=== PATIENT | male | born 1940 | race Caucasian/White ===

== ENCOUNTER 2018-01-11 11:44 | Emergency (ER) | payer BC, OTHER ==
[~2018-01-11] VITALS: Ht 175.3 cm; Wt 80.7 kg
[~2018-01-11 11:44] MED LIST: ALBU1AER9 INH; ASPI81TA28 PO; ATEN-173 PO; ATOR-24 PO; B-COTAB18; BROM0.07 OPB; CARB1SOL OPB; FLUT110A INH; HYG25 PO; MULT-190 PO; ONDA4TAB46 PO; POTA-639 PO; PRAM1TAB PO; PRLSR20 PO; RASA1TAB PO; VITA1CAP4 PO
[2018-01-11 11:57] VITALS: TEMP 36.5; Ht 175.3 cm; Wt 80.7 kg
[2018-01-11] MEDS ORDERED: VNTHFA/IN INH (12:14)
[2018-01-11] MEDS ORDERED: FLUT1AER5 INH (12:14)
[2018-01-11] MEDS ORDERED: SODIUM CHLORIDE 0.9% 1000ML 1,000 ML IV STA (12:40)
[2018-01-11] MEDS ORDERED: SODIUM CHLORIDE 0.9% 500ML 500 ML IV STA (12:40)
[2018-01-11] MEDS ORDERED: MoRPHine SULFATE 4 MG/ML 1 ML CARP\\VIAL IV STA (12:54)
[2018-01-11] MEDS ORDERED: ONDANSETRON INJ 2 MG/ML 2 ML VIAL IV STA (12:54)
[2018-01-11 12:56] LABS: ALBUMIN 4.4 gm/dl (3.4-5.0); CREATININE 1.2 mg/dl (0.60-1.40); POTASSIUM 3.8 mmol/L (3.5-5.1)
[2018-01-11 12:59] LABS: TOTAL PROTEIN 7.9 gm/dl (6.4-8.2)
--- NOTE | 2018-01-11 13:55 | DIAGNOSTIC IMAGING REPORT ---
ABD/PELVIS NO IV OR ORAL CONT CLINICAL HISTORY: 77 years-old Male presenting with kidney stone L flank pain. TECHNIQUE: Multidetector CT of the abdomen and pelvis was performed without the use of intravenous contrast. IV contrast: None. A dose lowering technique was used consistent with the principles of ALARA (as low as reasonably achievable). COMPARISON: 11/06/2006. CT DOSE (mGy.cm): The estimated cumulative dose is 508.44 mGy.cm. FINDINGS: Bean Roaster topogram: Cholecystectomy clips. Lung bases: Minimal basilar opacities, likely atelectasis. Multichamber enlargement of the heart. Coronary artery calcification. No pericardial or pleural effusion. Liver: Normal morphology. Normal density. Biliary: No gross biliary ductal dilatation allowing for noncontrast technique. Gallbladder surgically absent. Pancreas: Normal noncontrast appearance. Spleen: Normal noncontrast appearance. Adrenal glands: Normal noncontrast appearance. Kidneys and ureters: Multiple bilateral punctate renal calculi, measuring up to 3 mm on the right and 2 mm on the left. No hydronephrosis. Mild perinephric fat stranding, nonspecific. Otherwise normal noncontrast appearance of the renal parenchyma. Nonobstructing 4 mm calculus in the proximal left ureter at the level of L3-4. Left ureter is nondilated. Right ureter normal. Bladder: Incompletely evaluated secondary to underdistention. Pelvic organs: Prostate enlargement likely secondary to benign prostatic hyperplasia. Bowel: Diverticulosis of the sigmoid and descending colon. Scattered diverticula elsewhere in the colon. No pericolonic fat infiltration. The appendix is not visualized though no inflammatory changes evident in the right lower quadrant. No bowel obstruction. Peritoneal cavity: No free fluid or intraperitoneal gas. Lymph nodes: No gross lymphadenopathy allowing for noncontrast technique. Vasculature: Atherosclerosis of the normal caliber abdominal aorta. Abdominal wall: Small fat-containing umbilical hernia. Musculoskeletal: Degenerative changes of the spine. IMPRESSION: 1. Nonobstructing 4 mm calculus in the proximal left ureter at the level of L3-4. No hydronephrosis or hydroureter. 2. Multiple bilateral nonobstructing punctate renal calculi. 3. Diverticulosis. No evidence of diverticulitis. Electronically signed by: Role Marquis M.D. 01/11/2018 1:53 PM Dictated Date/Time: 01/11/2018 1:47 PM
[2018-01-11] MEDS ORDERED: HYDROCODONE/ACETAMINOPHEN 7.5/325MG TAB PO STA (14:01)
[2018-01-11] MEDS ORDERED: HYDR-5688 PO (14:14)
[2018-01-11] MEDS ORDERED: TAMSULOSIN HCL 0.4 MG CAP PO ONE (14:15)
[2018-01-11] MEDS ORDERED: TAMS0.4C38 PO (14:15)
[2018-01-11] MEDS ORDERED: KETOROLAC TROMETHAMINE 30 MG/ML VIAL IV STA (14:22)
[2018-01-11 14:23] LABS: BASO % 0.3 %; BASO ABS # 0.02 K/uL (0-0.2); EOS % 2.3 %; EOS ABS # 0.17 K/uL (0-0.5); HEMATOCRIT 43.2 % (42-52); HEMOGLOBIN 15.5 g/dL (14.0-18.0); IG# 0.01 K/uL (0.00-0.02); LYMPH % 25.8 %; LYMPH ABS # 1.93 K/uL (1.2-3.4); MEAN CELL VOLUME 93.7 fL (80-100); MEAN CORPUSCULAR HEMOGLOBIN 33.6 pg (25-34); MEAN CORPUSCULAR HGB CONC 35.9 g/dl (32-36); MEAN PLATELET VOLUME 9.9 fL (7.4-10.4); MONO % 7.6 %; MONO ABS # 0.57 K/uL (0.11-0.59); NEUT % 63.9 %; NEUT ABS # 4.79 K/uL (1.4-6.5); PLATELET COUNT 158 K/uL (130-400); WHITE BLOOD COUNT 7.49 K/uL (4.8-10.8)
[2018-01-11] MEDS ORDERED: KETOROLAC TROMETHAMINE 60 MG/2 ML VIAL IM STA (14:26)
--- NOTE | 2018-01-11 15:02 | EMERGENCY ROOM VISIT NOTE ---
History Report prepared by Delma: Jael Ramírez Under the Supervision of: Dr. Christina aBrron M.D. 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 He reports a sudden onset of severe pain in his left flank while he was driving. He is also experiencing nausea. He rates his pain as a 10/10 in severity. The patient denies pain radiating into his testicle or groin. He denies vomiting. He has a history of kidney stones and states that this feels similar. Movement does not make the pain better or worse. 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 A total of 10 systems reviewed and were otherwise negative. Past Medical & Surgical Medical Problems: (1) Heart disease (2) High blood cholesterol (3) Hypertension (4) Kidney stone (5) Neuropathy (6) Normal cardiac stress test (7) Parkinson disease Surgical Problems: (1) Hx of cholecystectomy Family History Cancer Gallbladder disease Heart disease Hypertension Kidney disease Kidney stones Lung disease Social History Smoking Status: Never Smoker Alcohol Use: occasionally Drug Use: none Marital Status: Housing Status: lives with significant other Occupation Status: retired Current/Historical Medications Scheduled Albuterol Hfa (Ventolin Hfa), 2-4 PUFFS INH Q6H Aspirin (Aspirin Ec), 81 MG PO DAILY Atenolol (Tenormin), 25 MG PO DAILY Atorvastatin (Lipitor), 40 MG PO DAILY Bromfenac Sodium (Ophth) (Prolensa), 1 DROP OPB DAILY Carboxymethylcellulose Sodium (Refresh), 1 DROP OPB BID Chlorthalidone (Chlorthalidone), 25 MG PO DAILY Ocuvite Preservision (Ocuvite Preservision), 1 TAB PO DAILY Pramipexole Dihydrochloride (Mirapex Er), 2.25 MG PO DAILY Rasagiline Mesylate (Azilect), 1 MG PO DAILY Tamsulosin Hcl (Flomax), 0.4 MG PO DAILY Scheduled PRN Fluticasone Propionate (Inhala (Flovent Diskus), 1 PUFFS INH BID PRN for Shortness of Breath Hydrocodone/Acetaminophen 5MG/325MG ([place] 5MG/325MG), 1-2 TABLETS PO Q6 PRN for Pain Allergies Coded Allergies: No Known Allergies (Unverified , 01/11/18) Physical Exam Vital Signs Date Time Temp Pulse Resp B/P (MAP) Pulse Ox O2 Delivery O2 Flow Rate FiO2 01/11/18 15:22 68 20 158/91 97 Room Air 01/11/18 14:17 71 21 170/96 96 Room Air 01/11/18 13:35 77 01/11/18 13:31 73 20 164/102 95 Room Air 01/11/18 11:57 36.5 63 18 200/95 95 Room Air Physical Exam Vital signs reviewed. General: Well-appearing elderly male, in no significant distress. HEENT: No scleral icterus, PERRLA, neck supple. Atraumatic. Cardiovascular: Regular rate and rhythm, no extra sounds. Pulmonary: Clear to auscultation bilaterally, normal work of breathing. Abdomen: Soft, mild left CVA tenderness, nondistended, positive bowel sounds. Musculoskeletal: Atraumatic, no peripheral edema. Neurologic: Patient awake alert and oriented x 3. Skin: Warm, dry, no rash Medical Decision & Procedures ER Provider Diagnostic Interpretation: Radiology results as stated below per my review and radiologist interpretation: ABD/PELVIS NO IV OR ORAL CONT CLINICAL HISTORY: 77 years-old Male presenting with kidney stone L flank pain. TECHNIQUE: Multidetector CT of the abdomen and pelvis was performed without the use of intravenous contrast. IV contrast: None. A dose lowering technique was used consistent with the principles of ALARA (as low as reasonably achievable). COMPARISON: 11/06/2006. CT DOSE (mGy.cm): The estimated cumulative dose is 508.44 mGy.cm. FINDINGS: Geriatric Assistant topogram: Cholecystectomy clips. Lung bases: Minimal basilar opacities, likely atelectasis. Multichamber enlargement of the heart. Coronary artery calcification. No pericardial or pleural effusion. Liver: Normal morphology. Normal density. Biliary: No gross biliary ductal dilatation allowing for noncontrast technique. Gallbladder surgically absent. Pancreas: Normal noncontrast appearance. Spleen: Normal noncontrast appearance. Adrenal glands: Normal noncontrast appearance. Kidneys and ureters: Multiple bilateral punctate renal calculi, measuring up to 3 mm on the right and 2 mm on the left. No hydronephrosis. Mild perinephric fat stranding, nonspecific. Otherwise normal noncontrast appearance of the renal parenchyma. Nonobstructing 4 mm calculus in the proximal left ureter at the level of L3-4. Left ureter is nondilated. Right ureter normal. Bladder: Incompletely evaluated secondary to underdistention. Pelvic organs: Prostate enlargement likely secondary to benign prostatic hyperplasia. Bowel: Diverticulosis of the sigmoid and descending colon. Scattered diverticula elsewhere in the colon. No pericolonic fat infiltration. The appendix is not visualized though no inflammatory changes evident in the right lower quadrant. No bowel obstruction. Peritoneal cavity: No free fluid or intraperitoneal gas. Lymph nodes: No gross lymphadenopathy allowing for noncontrast technique. Vasculature: Atherosclerosis of the normal caliber abdominal aorta. Abdominal wall: Small fat-containing umbilical hernia. Musculoskeletal: Degenerative changes of the spine. IMPRESSION: 1. Nonobstructing 4 mm calculus in the proximal left ureter at the level of L3-4. No hydronephrosis or hydroureter. 2. Multiple bilateral nonobstructing punctate renal calculi. 3. Diverticulosis. No evidence of diverticulitis. Laboratory Results 01/11/18 12:19 Red Blood Count 4.61, Mean Corpuscular Volume 93.7, Mean Corpuscular Hemoglobin 33.6, Mean Corpuscular Hemoglobin Concent 35.9, Mean Platelet Volume 9.9, Neutrophils (%) (Auto) 63.9, Lymphocytes (%) (Auto) 25.8, Monocytes (%) (Auto) 7.6, Eosinophils (%) (Auto) 2.3, Basophils (%) (Auto) 0.3, Neutrophils # (Auto) 4.79, Lymphocytes # (Auto) 1.93, Monocytes # (Auto) 0.57, Eosinophils # (Auto) 0.17, Basophils # (Auto) 0.02 01/11/18 12:19 Test 01/11/18 12:19 White Blood Count 7.49 K/uL (4.8-10.8) Red Blood Count 4.61 M/uL (4.7-6.1) Hemoglobin 15.5 g/dL (14.0-18.0) Hematocrit 43.2 % (42-52) Mean Corpuscular Volume 93.7 fL (80-100) Mean Corpuscular Hemoglobin 33.6 pg (25-34) Mean Corpuscular Hemoglobin Concent 35.9 g/dl (32-36) Platelet Count 158 K/uL (130-400) Mean Platelet Volume 9.9 fL (7.4-10.4) Neutrophils (%) (Auto) 63.9 % Lymphocytes (%) (Auto) 25.8 % Monocytes (%) (Auto) 7.6 % Eosinophils (%) (Auto) 2.3 % Basophils (%) (Auto) 0.3 % Neutrophils # (Auto) 4.79 K/uL (1.4-6.5) Lymphocytes # (Auto) 1.93 K/uL (1.2-3.4) Monocytes # (Auto) 0.57 K/uL (0.11-0.59) Eosinophils # (Auto) 0.17 K/uL (0-0.5) Basophils # (Auto) 0.02 K/uL (0-0.2) RDW Standard Deviation 45.0 fL (36.4-46.3) RDW Coefficient of Variation 13.0 % (11.5-14.5) Immature Granulocyte % (Auto) 0.1 % Immature Granulocyte # (Auto) 0.01 K/uL (0.00-0.02) Urine Color YELLOW Urine Appearance CLEAR (CLEAR) Urine pH 6.5 (4.5-7.5) Urine Specific [place] 1.024 (1.000-1.030) Urine Protein TRACE (NEG) Urine Glucose (UA) NEG (NEG) Urine Ketones NEG (NEG) Urine Occult Blood 3+ (NEG) Urine Nitrite NEG (NEG) Urine Bilirubin NEG (NEG) Urine Urobilinogen NEG (NEG) Urine Leukocyte Esterase NEG (NEG) Urine WBC (Auto) 1-5 /hpf (0-5) Urine RBC (Auto) >30 /hpf (0-4) Urine Hyaline Casts (Auto) 1-5 /lpf (0-5) Urine Epithelial Cells (Auto) 5-10 /lpf (0-5) Urine Bacteria (Auto) NEG (NEG) Anion Gap 2.0 mmol/L (3-11) Est Creatinine Clear Calc Drug Dose 52.4 ml/min Estimated GFR () 67.7 Estimated GFR (Non- 58.4 BUN/Creatinine Ratio 18.4 (10-20) Calcium Level 10.0 mg/dl (8.5-10.1) Total Bilirubin 0.9 mg/dl (0.2-1) Direct Bilirubin 0.2 mg/dl (0-0.2) Aspartate Amino Transf (AST/SGOT) 32 U/L (15-37) Alanine Aminotransferase (ALT/SGPT) 39 U/L (12-78) Alkaline Phosphatase 104 U/L (45-117) Total Protein 7.9 gm/dl (6.4-8.2) Albumin 4.4 gm/dl (3.4-5.0) Laboratory results per my review. Medications Administered Medications (Trade) Dose Ordered Sig/Vanda Route Start Time Stop Time Status Last Admin Dose Admin Sodium Chloride 500 ml @ 999 mls/hr Q31M STAT IV 01/11/18 12:40 01/11/18 13:10 DC 01/11/18 12:40 999 MLS/HR Sodium Chloride 1,000 ml @ 125 mls/hr Q8H STAT IV 01/11/18 12:40 01/11/18 15:40 DC 01/11/18 12:40 125 MLS/HR Morphine Sulfate (MoRPHine SULFATE INJ) 4 mg NOW STAT IV 01/11/18 12:54 01/11/18 12:56 DC 01/11/18 13:02 4 MG Ondansetron HCl (Zofran Inj) 4 mg NOW STAT IV 01/11/18 12:54 01/11/18 12:56 DC 01/11/18 13:03 4 MG Acetaminophen/ Hydrocodone Bitart ([place] 7.5/325 Tab) 1 tab NOW STAT PO 01/11/18 14:01 01/11/18 14:02 DC 01/11/18 14:13 1 TAB Tamsulosin HCl (Flomax Cap) 0.4 mg NOW ONCE PO 01/11/18 14:15 01/11/18 14:16 DC 01/11/18 14:13 0.4 MG Ketorolac Tromethamine (Toradol Inj) 60 mg NOW STAT IM 01/11/18 14:26 01/11/18 14:27 DC 01/11/18 14:26 60 MG ED Course 1239: Past medical records reviewed. The patient was evaluated in room B10. A complete history and physical examination was performed. 1240: NSS 1000 ml @ 125 mls/hr IV, NSS 500 ml @ 999 mls/hr IV 1254: Zofran 4 mg IV, Morphine sulfate 4 mg IV 1401: [place] 7.5/325 1 tab PO 1415: Flomax 0.4 mg PO 1419: I reassessed the patient at this time. He is feeling better and resting comfortably. I discussed the results and treatment plan with the patient. I answered all pertaining questions that he had. He expressed understanding and verbalized agreement. The patient will be discharged home. 1422: Toradol 30 mg IV 1426: Toradol 60 mg IM Medical Decision Differential diagnosis: Etiologies such as renal colic, appendicitis, diverticulitis, mesenteric ischemia, aortic pathology, infections, inflammatory bowel disease, PUD, biliary pathology, UTI, as well as others were entertained. This patient was evaluated and appeared to be in significant discomfort. IV access was obtained and laboratory work was drawn. The patient was hydrated with normal saline solution, given IV morphine and Zofran for his discomfort. CT scan of the abdomen and pelvis was performed and is significant for a left ureteral stone. UA is negative for infection. Patient was given p.o. hydrocodone/acetaminophen and Flomax. He was discharged with a prescription for hydrocodone and Flomax. Patient was asked to see his urologist, Dr. York for reevaluation this week if symptoms persist. He will return to the ER for worsening of symptoms, fever or any medical concerns. Medication Reconcilliation Current Medication List: was personally reviewed by me Blood Pressure Screening Patient's blood pressure: Elevated blood pressure Blood pressure disposition: Referred to PCP Impression Primary Impression: Ureteral colic Additional Impression: Left ureteral stone Scribe Attestation The scribe's documentation has been prepared under my direction and personally reviewed by me in its entirety. I confirm that the note above accurately reflects all work, treatment, procedures, and medical decision making performed by me. Departure Information Dispostion Home / Self-Care Prescriptions Tamsulosin Hcl (FLOMAX) 0.4 Mg Cap 0.4 MG PO DAILY for 7 Days, #7 CAP Prov: Christina Barron M.D. 01/11/18 Hydrocodone/Acetaminophen 5MG/325MG ([place] 5MG/325MG) Tab 1-2 TABLETS PO Q6 Y for Pain, #20 TAB Prov: Christina Barron M.D. 01/11/18 Referrals Vishal Landry D.O. (PCP) Simran York MD Forms HOME CARE DOCUMENTATION FORM, IMPORTANT VISIT INFORMATION Patient Instructions Kidney Stones - [facility], [facility] Additional Instructions Diagnosis: Left ureteral colic, left ureteral stone Strain all of your urine and take the stone for analysis. Increase fluids. Ibuprofen 600 mg every 6 hours as needed for pain Oxy IR 1-2 tablets every 4-6 hrs as needed for worse pain. No driving, working , or alcohol use with Oxy IR. Follow up with your urologist if it has not passed in 5-7 days or sooner for worsening symptoms. Follow up sooner for fever >101, vomiting, or significant increase in pain not controlled with medication. Return to the emergency department for worsening of symptoms or any medical concerns per Problem Qualifiers
[2018-01-11 15:22] VITALS: BP 158/91; PULSE 68; O2SAT 97
== END 2018-01-11 15:23 | disposition home or self-care (01) ==
LOC: C.EDB 11:45
DX: N20.1 Calculus of ureter (principal); N23 Unspecified renal colic; R10.9 Unspecified abdominal pain; R11.0 Nausea; I10 Essential (primary) hypertension; G20 Parkinson's disease; Z79.82 Long term (current) use of aspirin; Z79.899 Other long term (current) drug therapy

== ENCOUNTER 2018-01-15 01:01 | Emergency (ER) | payer BC ==
[~2018-01-15] VITALS: Ht 175.3 cm; Wt 85.8 kg
[~2018-01-15 01:01] MED LIST changes: -ALBU1AER9 INH; -B-COTAB18; -FLUT110A INH; +FLUT1AER5 INH; +HYDR-5688 PO; -ONDA4TAB46 PO; -POTA-639 PO; -PRLSR20 PO; +TAMS0.4C38 PO; -VITA1CAP4 PO; +VNTHFA/IN INH
[2018-01-15 01:04] VITALS: TEMP 36.8; Ht 175.3 cm; Wt 85.8 kg
[2018-01-15] MEDS ORDERED: RASA1TAB PO (01:33)
[2018-01-15] MEDS ORDERED: LXP/10 PO (01:34)
[2018-01-15] MEDS ORDERED: GUAISYP4 PO (01:36)
[2018-01-15] MEDS ORDERED: ATRIN INH (01:37)
--- NOTE | 2018-01-15 01:37 | EMERGENCY ROOM VISIT NOTE ---
History Report prepared by Delma: Scar Ramos Under the Supervision of: Dr. Sneha Quijano D.O. First contact with patient: 01:21 Chief Complaint: KIDNEY STONE Stated Complaint: KIDNEY STONE History of Present Illness The patient is a 77 year old male who presents to the Emergency Room with complaints of recurrent left flank pain since January 11, 2018. He notes that he was recently seen in the ED for similar symptoms and was diagnosed with a kidney stone. He reports feeling as though he passed the stone that same evening. He states that he took the pain medication the next day and felt better , though the pain returned again on January 13, 2018. He reports a history of kidney stones that he passed on his own 10 years ago. He states the pain he is currently experiencing feels similar to the pain he felt this week. He notes the pain waxes and wanes. He currently rates his pain an 8/10 in severity. He also reports that he has not been able to pass any stool for several weeks. He denies any flatulence. He denies any pressure sensation near his rectum, though feels pressure in the middle of his abdomen. He has a history of occasional constipation. He states that he feels more bloated and distended more than normal. He has tried stool softener. He denies taking any Miralax. He states that he has been keeping up with his water intake. He denies trying any prune juice. He denies any urinary symptoms, though feels that he may have seen blood in his urine. He denies any testicular pain. He denies any fevers or chills. He has a history of Parkinson's Disease. Source of History: patient Onset: since January 11, 2018 Position: other (left flank) Symptom Intensity: 8/10 Timing: other (recurrent) Associated Symptoms: + abdominal pain, No fevers, No chills, No urinary symptoms Note: Denies any flatulence or testicular pain. Notes constipation, bloated, distended, Review of Systems See HPI for pertinent positives & negatives. A total of 10 systems reviewed and were otherwise negative. Past Medical & Surgical Medical Problems: (1) Heart disease (2) High blood cholesterol (3) Hypertension (4) Kidney stone (5) Neuropathy (6) Normal cardiac stress test (7) Parkinson disease Surgical Problems: (1) Hx of cholecystectomy Family History Cancer Gallbladder disease Heart disease Hypertension Kidney disease Kidney stones Lung disease Social History Smoking Status: Never Smoker Alcohol Use: occasionally Drug Use: none Marital Status: Housing Status: lives with significant other Occupation Status: retired Current/Historical Medications Scheduled Albuterol Hfa (Ventolin Hfa), 2-4 PUFFS INH Q6H Aspirin (Aspirin Ec), 81 MG PO DAILY Atorvastatin (Lipitor), 40 MG PO DAILY B-Complex Vitamins (Vitamin B Complex), 2 TABS PO DAILY Bromfenac Sodium (Ophth) (Prolensa), 1 DROP OPB DAILY Carboxymethylcellulose Sodium (Refresh), 1 DROP OPB BID Escitalopram Oxalate (Lexapro), 10 MG PO DAILY Losartan Potassium (Cozaar), 50 MG PO DAILY Metoprolol Succinate (Toprol Xl), 25 MG PO DAILY Metronidazole (Topical) (Metrocream), 1 APPLN TOP DIRECTED Ocuvite Preservision (Ocuvite Preservision), 2 TABS PO DAILY Omeprazole (Prilosec), 20 MG PO BID Pramipexole Dihydrochloride (Mirapex Er), 2.25 MG PO DAILY Rasagiline Mesylate (Azilect), 1 MG PO DAILY Tamsulosin Hcl (Flomax), 0.4 MG PO DAILY Tolterodine Tartrate (Detrol LA), 2 MG PO BID Triamcinolone Acet (Aristocort 0.1%), 1 APPLN EXT DIRECTED Vitamin E (Vitamin E), 1,000 PO DAILY Scheduled PRN Fluticasone Propionate (Inhala (Flovent Diskus), 1 PUFFS INH BID PRN for Shortness of Breath Guaifenesin/Codeine (Robitussin-Ac Syrup), 5 ML PO DIRECTED PRN for Cough Hydrocodone/Acetaminophen 5MG/325MG (Kenton 5MG/325MG), 1-2 TABS PO Q8 PRN for Pain Ipratropium Irwin (Atrovent Hfa), 2 PUFFS INH BID PRN for wheezing Allergies Coded Allergies: No Known Allergies (Unverified , 01/15/18) Physical Exam Vital Signs Date Time Temp Pulse Resp B/P (MAP) Pulse Ox O2 Delivery O2 Flow Rate FiO2 01/15/18 05:05 66 20 157/85 96 Room Air 01/15/18 03:51 67 16 187/85 97 Room Air 01/15/18 03:24 71 20 172/89 98 Room Air 01/15/18 01:04 36.8 79 18 183/91 97 Room Air Physical Exam GENERAL: alert, well appearing, well nourished, no distress, non-toxic EYE EXAM: normal conjunctiva, PERRL and EOM's grossly intact OROPHARYNX: no exudate, no erythema, lips, buccal mucosa, and tongue normal and mucous membranes are moist NECK: supple, no nuchal rigidity, no adenopathy, non-tender LUNGS: Clear to auscultation. Normal chest wall mechanics HEART: no murmurs, S1 normal and S2 normal ABDOMEN: abdomen soft, non-tender, dull to percussion, normo-active bowel sounds , no masses, no rebound or guarding. BACK: Back is symmetrical on inspection and there is no deformity, no midline tenderness, no CVA tenderness. SKIN: no rashes and no bruising UPPER EXTREMITIES: upper extremities are grossly normal. LOWER EXTREMITIES: No pitting edema. NEURO EXAM: Normal sensorium, cranial nerves II-XII grossly intact, normal speech, no gross weakness of arms, no gross weakness of legs. Medical Decision & Procedures ER Provider Diagnostic Interpretation: Radiology results have been interpreted by the radiologist and reviewed by me. KUB XR: Moderate stool burden in right colon. Air and stool seen at the rectum. Radiology results have been interpreted by the radiologist and reviewed by me. CT ABDOMEN & PELVIS Without Contrast: There is mild to moderate left hydroureteronephrosis with the previously described 4 mm calcification only minimally advanced to a level immediately caudal to the superior margin of the left iliac crest. There is increased perinephric fat stranding and increased density in the left renal hilum suggesting interval increased obstructive component when compared to previous exam. Nonobstructing scattered renal collecting stones noted bilaterally, as previously described. Cholecystectomy. The unenhanced liver, pancreas, spleen, adrenals and bowel loops are without significant interval change from previous exam. Stool pattern not significantly altered from previous exam. Radiologist: Keenan Carmichael MD Study ready at 04:01 and initial results transmitted at 04:21 Laboratory Results 01/15/18 01:25 Red Blood Count 4.28, Mean Corpuscular Volume 93.0, Mean Corpuscular Hemoglobin 33.4, Mean Corpuscular Hemoglobin Concent 35.9, Mean Platelet Volume 9.5, Neutrophils (%) (Auto) 73.6, Lymphocytes (%) (Auto) 13.0, Monocytes (%) (Auto) 11.5, Eosinophils (%) (Auto) 1.5, Basophils (%) (Auto) 0.2, Neutrophils # (Auto ) 7.49, Lymphocytes # (Auto) 1.32, Monocytes # (Auto) 1.17, Eosinophils # (Auto ) 0.15, Basophils # (Auto) 0.02 01/15/18 01:25 Test 01/15/18 01:25 01/15/18 03:30 White Blood Count 10.17 K/uL (4.8-10.8) Red Blood Count 4.28 M/uL (4.7-6.1) Hemoglobin 14.3 g/dL (14.0-18.0) Hematocrit 39.8 % (42-52) Mean Corpuscular Volume 93.0 fL (80-100) Mean Corpuscular Hemoglobin 33.4 pg (25-34) Mean Corpuscular Hemoglobin Concent 35.9 g/dl (32-36) Platelet Count 148 K/uL (130-400) Mean Platelet Volume 9.5 fL (7.4-10.4) Neutrophils (%) (Auto) 73.6 % Lymphocytes (%) (Auto) 13.0 % Monocytes (%) (Auto) 11.5 % Eosinophils (%) (Auto) 1.5 % Basophils (%) (Auto) 0.2 % Neutrophils # (Auto) 7.49 K/uL (1.4-6.5) Lymphocytes # (Auto) 1.32 K/uL (1.2-3.4) Monocytes # (Auto) 1.17 K/uL (0.11-0.59) Eosinophils # (Auto) 0.15 K/uL (0-0.5) Basophils # (Auto) 0.02 K/uL (0-0.2) RDW Standard Deviation 44.0 fL (36.4-46.3) RDW Coefficient of Variation 13.0 % (11.5-14.5) Immature Granulocyte % (Auto) 0.2 % Immature Granulocyte # (Auto) 0.02 K/uL (0.00-0.02) Prothrombin Time 10.0 SECONDS (9.0-12.0) Prothromb Time International Ratio 1.0 (0.9-1.1) Anion Gap 5.0 mmol/L (3-11) Est Creatinine Clear Calc Drug Dose 43.2 ml/min Estimated GFR () 48.5 Estimated GFR (Non- 41.9 BUN/Creatinine Ratio 12.5 (10-20) Calcium Level 9.7 mg/dl (8.5-10.1) Total Bilirubin 0.5 mg/dl (0.2-1) Aspartate Amino Transf (AST/SGOT) 30 U/L (15-37) Alanine Aminotransferase (ALT/SGPT) 38 U/L (12-78) Alkaline Phosphatase 105 U/L (45-117) Total Protein 7.7 gm/dl (6.4-8.2) Albumin 3.8 gm/dl (3.4-5.0) Globulin 3.9 gm/dl (2.5-4.0) Albumin/Globulin Ratio 1.0 (0.9-2) Urine Color YELLOW Urine Appearance CLEAR (CLEAR) Urine pH 6.0 (4.5-7.5) Urine Specific Colton 1.020 (1.000-1.030) Urine Protein NEG (NEG) Urine Glucose (UA) NEG (NEG) Urine Ketones NEG (NEG) Urine Occult Blood NEG (NEG) Urine Nitrite NEG (NEG) Urine Bilirubin NEG (NEG) Urine Urobilinogen NEG (NEG) Urine Leukocyte Esterase NEG (NEG) Laboratory results per my review. Medications Administered Medications (Trade) Dose Ordered Sig/Vanda Route Start Time Stop Time Status Last Admin Dose Admin Magnesium Hydroxide (Milk Of Magnesia Susp) 30 ml NOW ONCE PO 01/15/18 03:00 01/15/18 03:01 DC 01/15/18 03:09 30 ML Sodium Chloride 500 ml @ 999 mls/hr Q31M STAT IV 01/15/18 03:15 01/15/18 03:45 DC 01/15/18 03:15 999 MLS/HR ECG Per My Interpretation Indication: other (left flank pain. ) Rate (beats per minute): 74 Findings: no acute ischemic change, no ectopy, other (Normal axis. Normal intervals. ) ED Course 0124: The patient was evaluated in room A4B. A complete history and physical exam was performed. Upon review of EMR: Reviewed recent CT scan as well as labs from most recent ED visit. CT showed the multiple stones in the kidneys on both sides. There was a 4 mm stone on in the left ureter. No ureteral stone on right. Bowel looked fine at that time. No inflammatory changes of the bowel and no diverticulitis. 0300: Ordered Milk of Magnesia 30 ml PO 0312: I reassessed the patient at this time. He appears unchanged, though he states his pain has resolved. 0315: Ordered Sodium Chloride 500 ml @ 999 mls/hr IV 0435: I reassessed the patient at this time. He is comfortable. I discussed the results and treatment plan with the patient. I answered all pertaining questions that he had. He expressed understanding and verbalized agreement. The patient will be discharged home. Medical Decision Differential diagnoses includes but is not limited to gastritis, peptic ulcer disease, GERD, gallbladder disease, pancreatitis, small bowel obstruction, acute coronary syndrome, pericarditis, ischemic bowel, irritable bowel disease, irritable bowel syndrome, appendicitis, diverticulitis, malignancy, hernia, urinary tract infection, torsion, perforation, trauma, infectious. Given reported recurrence of pain after patient believed he had passed the stone combined with concern for other GI pathology given reported constipation, patient sent for repeat CT. Labs reassuring however mild increase in patient's creatinine was noted. CAT scan again showed the 4 mm distal left ureteral stone with mild to moderate hydronephrosis. Patient able to urinate here without difficulty, and urine otherwise unremarkable. No evidence of concurrent infection. No evidence of other acute accompanying GI pathology. Patient was given Toradol and has intermittently been using Motrin as well to help with pain, this combined with clinical dehydration was seen tonight likely contributing to mild STEPHEN. Discussed with patient adequate water, avoidance of NSAIDs, continued use of his Flomax and other pain medications in addition to his routine medications. Discussed contacting his urologist for close follow- up. Discussed symptoms to watch and return for, he verbalized understanding was agreeable to plan. Patient hemodynamically stable throughout with mild hypertension noted. Patient with no recurrent or reproducible left flank or left lower quadrant pain while here. Discussed with patient prevention of constipation while he is taking the pain medication. Medication Reconcilliation Current Medication List: was personally reviewed by me Blood Pressure Screening Patient's blood pressure: Elevated blood pressure Blood pressure disposition: Referred to PCP Impression Primary Impression: Left flank pain Additional Impressions: STEPHEN (acute kidney injury) Ureterolithiasis Scribe Attestation The scribe's documentation has been prepared under my direction and personally reviewed by me in its entirety. I confirm that the note above accurately reflects all work, treatment, procedures, and medical decision making performed by me. Departure Information Dispostion Home / Self-Care Prescriptions Hydrocodone/Acetaminophen 5MG/325MG (Kenton 5MG/325MG) Tab 1-2 TABS PO Q8 Y for Pain, #10 TAB Prov: Sneha Quijano, DO 01/15/18 Tamsulosin Hcl (FLOMAX) 0.4 Mg Cap 0.4 MG PO DAILY for 7 Days, #7 CAP Prov: Sneha Quijano, DO 01/15/18 Referrals Vishal Landry D.O. (PCP) Forms HOME CARE DOCUMENTATION FORM, IMPORTANT VISIT INFORMATION Patient Instructions Constipation, Kidney Stones - [facility], [facility] Additional Instructions Please call and arrange an appointment with your urologist. Please take your tamulosin daily. You may continue taking the pain medicine as prescribed. Please do not use motrin/advil/alleve as this can put stress on your kidneys. Please make sure you are drinking plenty of water daily. Please take Miralax daily to help prevent constipation. Please take your other regular medications as prescribed. If you are unable to urinate, develop worsening pain, fevers/ chills, vomiting, or you have any other new or concerning symptoms, please return to the emergency room. Problem Qualifiers
[2018-01-15] MEDS ORDERED: LOSA50TA6 PO (01:40)
[2018-01-15] MEDS ORDERED: METO25TA4 PO (01:41)
[2018-01-15] MEDS ORDERED: PRLSR20 PO (01:43)
[2018-01-15] MEDS ORDERED: METR0.754 TOP (01:43)
[2018-01-15] MEDS ORDERED: DTRSR/2 PO (01:49)
[2018-01-15] MEDS ORDERED: TRMCR130WC EXT (01:51)
[2018-01-15] MEDS ORDERED: B-COTAB18 PO (01:52)
[2018-01-15 01:53] LABS: BASO % 0.2 %; BASO ABS # 0.02 K/uL (0-0.2); EOS % 1.5 %; EOS ABS # 0.15 K/uL (0-0.5); HEMATOCRIT 39.8 % (42-52); HEMOGLOBIN 14.3 g/dL (14.0-18.0); IG# 0.02 K/uL (0.00-0.02); LYMPH ABS # 1.32 K/uL (1.2-3.4); MEAN CORPUSCULAR HEMOGLOBIN 33.4 pg (25-34); MEAN CORPUSCULAR HGB CONC 35.9 g/dl (32-36); MEAN PLATELET VOLUME 9.5 fL (7.4-10.4); MONO % 11.5 %; MONO ABS # 1.17 K/uL (0.11-0.59); NEUT % 73.6 %; NEUT ABS # 7.49 K/uL (1.4-6.5); PLATELET COUNT 148 K/uL (130-400); WHITE BLOOD COUNT 10.17 K/uL (4.8-10.8)
[2018-01-15] MEDS ORDERED: VITA1CRE PO (01:53)
[2018-01-15] MEDS ORDERED: VITA10004 PO (01:54)
[2018-01-15 02:12] LABS: ALBUMIN 3.8 gm/dl (3.4-5.0); CALCIUM 9.7 mg/dl (8.5-10.1); CREATININE 1.58 mg/dl (0.60-1.40); POTASSIUM 3.7 mmol/L (3.5-5.1)
[2018-01-15 02:15] LABS: TOTAL PROTEIN 7.7 gm/dl (6.4-8.2)
[2018-01-15] MEDS ORDERED: MAGNESIUM HYDROXIDE SUSP 30 ML UDC PO ONE (03:00)
[2018-01-15] MEDS ORDERED: SODIUM CHLORIDE 0.9% 500ML 500 ML IV STA (03:15)
[2018-01-15] MEDS ORDERED: HYDR-5688 PO (05:01)
[2018-01-15] MEDS ORDERED: TAMS0.4C38 PO (05:01)
[2018-01-15 05:05] VITALS: BP 157/85; PULSE 66; O2SAT 96
--- NOTE | 2018-01-15 07:19 | DIAGNOSTIC IMAGING REPORT ---
KUB HISTORY: constipation COMPARISON: Abdomen and pelvis CT 11/06/2006. FINDINGS: The bowel gas pattern is unremarkable. There are no dilated loops of small bowel to suggest an obstruction. Moderate well-formed stool seen within the proximal colon. Calcifications in the deep pelvis are consistent with phleboliths. There are few punctate bilateral renal calculi. No ureteral calculi identified. No pneumoperitoneum or pneumatosis. Cholecystectomy. IMPRESSION: 1. Moderate well-formed stool within the proximal colon. 2. No evidence for bowel obstruction. 3. Bilateral nephrolithiasis. Electronically signed by: Zaid Doan M.D. 01/15/2018 7:17 AM Dictated Date/Time: 01/15/2018 7:15 AM
--- NOTE | 2018-01-15 08:03 | DIAGNOSTIC IMAGING REPORT ---
ABDOMEN AND PELVIS CT WITHOUT CONTRAST CT DOSE: 455.96 mGy.cm HISTORY: left flank pain, constipation, incr Cr TECHNIQUE: Multiaxial CT images of the abdomen and pelvis were performed without contrast. A dose lowering technique was utilized adhering to the principles of ALARA. COMPARISON STUDY: Abdomen and pelvis CT 01/11/2018. FINDINGS: Mild dependent changes within the lung bases. No pneumoperitoneum. No pneumatosis. No fractures within the visualized osseous structures. Cholecystectomy. The unenhanced liver, spleen, pancreas, and adrenal glands are unremarkable. No retroperitoneal lymphadenopathy. The bladder is not well-distended but appears unremarkable. Tiny fat-containing left inguinal hernia. There are multiple punctate bilateral renal calculi. Left perinephric fat stranding and mild left hydronephrosis. A 4 mm obstructing stone within the proximal to mid left ureter on image 241. This is past a few centimeters distal compared to the prior study. No right-sided hydronephrosis. Mild left urothelial thickening within the proximal ureter/pelvis which has progressed. Extensive colonic diverticulosis. No evidence for bowel obstruction. Moderate well-formed stool within the proximal colon. The appendix appears surgically absent. IMPRESSION: 1. Mild left hydronephrosis secondary to a 4 mm obstructing stone within the mid to distal left ureter. There is increased perinephric and periureteral fat stranding. This could be due to progressive obstruction or superimposed infection. Recommend correlation with urinalysis. 2. Bilateral nephrolithiasis. Electronically signed by: Zaid Doan M.D. 01/15/2018 8:01 AM Dictated Date/Time: 01/15/2018 7:56 AM
== END 2018-01-15 05:09 | disposition home or self-care (01) ==
LOC: C.EDB 01:02 → C.EDA 05:09
DX: R10.9 Unspecified abdominal pain (principal); N17.9 Acute kidney failure, unspecified; N20.1 Calculus of ureter; G20 Parkinson's disease; I11.9 Hypertensive heart disease without heart failure; G62.9 Polyneuropathy, unspecified; Z87.442 Personal history of urinary calculi; Z79.82 Long term (current) use of aspirin; Z79.899 Other long term (current) drug therapy

== ENCOUNTER 2019-02-24 12:32 | Inpatient (IN) ==
[2019-02-24] MEDS ORDERED: ACETAMINOPHEN 1,000 MG/100 ML VIAL IV STA (13:06)
[2019-02-24] MEDS ORDERED: ONDANSETRON INJ 2 MG/ML 2 ML VIAL IV STA (13:06)
[2019-02-24] MEDS ORDERED: SODIUM CHLORIDE 0.9% 500 ML IV STA (13:06)
[2019-02-24] MEDS ORDERED: MoRPHine SULFATE 2 MG/ML CARP IV STA (13:09)
[2019-02-24 13:38] LABS: Appearance Urine Clear (Clear); Bacteria Urine Automated Negative (Negative); Bilirubin Urine Negative (Negative); Blood Urine Negative (Negative); Cast Urine Automated 0 /lpf (0-5); Color Urine Yellow; Glucose Urine UA Negative (Negative); Ketones Urine Negative (Negative); Leukocyte Esterase Urine Negative (Negative); Nitrite Urine Negative (Negative); RBC Urine Automated 0-4 /hpf (0-4); Specific Gravity Urine 1.019 (1.000-1.030); Urobilinogen Urine Negative (Negative); pH Urine 8.5 (4.5-7.5)
[2019-02-24 13:47] LABS: Protein Urine Negative (Negative)
[2019-02-24 13:51] LABS: BUN Creatinine Ratio 15.7 (10-20); Calcium 9.6 mg/dl (8.5-10.1); Creatinine Clr Calc Pharmacy 39.9 ml/min; Est GFR (African American) 49.3; Est GFR (Non-African American) 42.5; Potassium 4.1 mmol/L (3.5-5.1)
--- NOTE | 2019-02-24 14:01 | XRay Report ---
KUB HISTORY: right sided stone COMPARISON: Abdomen and pelvis CT 02/17/2019. FINDINGS: The bowel gas pattern is unremarkable. There are no dilated loops of small bowel to suggest an obstruction. Prior cholecystectomy. There are few punctate bilateral renal calculi. The patient' s mid right ureteral stone seen on the prior study is not clearly identified on this examination. Rolo cifications in the deep pelvis favor phleboliths. No pneumoperitoneum or pneumatosis. IMPRESSION: 1. Bilateral nephrolithiasis. 2. The patient's known mid right ureteral stone is not identified on this examination. 3. Calcifications in the deep pelvis likely represent phlebolith. Electronically signed by: Zaid Doan M.D. 02/24/2019 2:00 PM
[2019-02-24 14:02] LABS: Hematocrit (blood only) 37.3 % (42-52); Hemoglobin 13.2 g/dL (14.0-18.0); Mean Corpuscular Hgb Conc 35.4 g/dL (32-36); Mean Corpuscular Volume 91.9 fL (80-100); Mean Platelet Volume 9.3 fL (7.4-10.4); Platelet Count 174 K/uL (130-400); RDW Coefficient of Variation 12.9 % (11.5-14.5); RDW Standard Deviation 43.5 fL (36.4-46.3); Red Blood Count 4.06 M/uL (4.7-6.1); White Blood Count 9.78 K/uL (4.8-10.8)
[2019-02-24] MEDS: MoRPHine SULFATE 2 MG/ML CARP IV PRN ×2 (15:02→15:45)
[2019-02-24] MEDS ORDERED: METOPROLOL SUCC 25MG EXT REL TAB PO STA (15:29)
[2019-02-24] MEDS ORDERED: AMLODIPINE BESYLATE 5 MG TAB PO ONE (15:29)
--- NOTE | 2019-02-24 15:31 | History & Physical Report ---
Date of Service February 24, 2019 Assessment & Plan (1) Ureterolithiasis: (2) Renal colic: This is a 78 yr old M who has a significant PMH of HTN, HLD, CAD, CKD-3, Gerd, Depression, history of prostate cancer s/p cryoablation therapy who presents to [facility] ED secondary to right flank pain x1 week. CT abd/Pelvis: Mild right-sided hydroureteronephrosis secondary to an obstructing 4 x 3 x 4 mm calculus of the mid right ureter at the level of the inferior endplate L5. KUB today reveleaded: 1. Bilateral nephrolithiasis.2. The patient's known mid right ureteral stone is not identified on this examination.3. Calcifications in the deep pelvis likely represent phlebolith. Hemodynamically patient is stable and afebrile. His white count is WNL. Urinalysis negative for infection. Urologist Dr. York contacted by ED Provider Dr. Preciado, plan is for stent placement this evening admit to med/surg NPO give metoprolol and amlodipine x 1 now for improved bp control obtain pre op ecg continue IVF 80cc/hr Pain control with morphine 2mg q4hr prn/APAP (3) Acute worsening of stage 3 chronic kidney disease: baseline cr 1.2 Bun 24/Cr 1.55 today continue IV hydration bmp in am (4) LBBB (left bundle branch block): ecg obtained for pre op reveals NSR with LBBB, new from ecg compared on 12/2017 Of note patient underwent nuclear stress test on 06/2018 in which EKG revealed sinus bradycardia and essentially within normal limits. During stress however the patient developed a left bundle branch block. [place] to likely represent a rate related left bundle branch block pt asymptomatic w/o chest pain or cardiac symptoms Will obtain troponin last echo 06/2018: EF 55% with grade 1 diastolic dysfunction, no significant valvular disease. Patient did have frequent isolated ventricular ectopies during echocardiogram as well as intermittent bundle branch block. Once blood pressure better controlled with obtain repeat ecg (5) Hypertension: Blood pressure elevated likely in setting of pain and also did not take antihypertensives pain control will give metoprolol and amlodipine now continue BB, amlodipine and losartan as prescribed (6) Heart disease: No complaints of chest pain or shortness of breath Continue metoprolol, losartan, amlodipine Currently placing aspirin on hold given stent to be placed (7) Parkinson disease: Continue Sinemet (8) Depression: Continue esitalopram (9) GERD (gastroesophageal reflux disease): Continue PPI (10) DVT prophylaxis: SCDS Disposition: d/c to home when able Follow up: PCP Dr. Landry upon discharge Patient was seen and examined in collaboration with Dr. Boucher, please see addendum History of Present Illness Chief Complaint: R Flank pain x 1 week. Primary Care Provider: Vishal Landry, DO This is a 78 yr old M who has a significant PMH of HTN, HLD, CAD, CKD-3, Gerd, Depression, history of prostate cancer s/p cryoablation therapy who presents to [facility] ED secondary to right flank pain x1 week. Patient initially presented to ED 02/17 secondary to acute right flank pain. CT scan of abdomen pelvis revealed mild right-sided hydroureteronephrosis secondary to an obstructing 4 x 3 x 4mm calculus of mid right ureter at level of inferior endplate L5. Given size of stone was felt would likely pass and he felt suitable for outpatient treatment. He was prescribed Flomax and narcotics. He presents back today with continued R flank pain and unable to manage pain at home. Pain localized to right flank, nonradiating, constant but waxes and wanes in severity, improves with movement, nothing makes worse. He denies f/c/s, dizziness, lightheaded, chest pain, sob, n/v/d, abdominal pain, dysuria, hematuria, increased urg/freq with urination. Family at bedside. Allergies Allergy/AdvReac Type Severity Reaction Status Date / Time No Known Allergies Allergy Unverified 02/17/19 10:15 Home Medications Home Medications Medication Instructions Recorded Confirmed Type amlodipine 5 mg PO BID 02/17/19 02/24/19 History escitalopram oxalate 10 mg PO QAM 02/17/19 02/24/19 History losartan 50 mg PO DAILY 02/17/19 02/24/19 History metoprolol succinate 12.5 mg PO QAM 02/17/19 02/24/19 History aspirin 81 mg PO DAILY 02/24/19 02/24/19 History carbidopa-levodopa 1 tab PO TID 02/24/19 02/24/19 History loratadine 10 mg PO DAILY 02/24/19 02/24/19 History omeprazole 20 mg PO DAILY 02/24/19 02/24/19 History vitamin B complex 1 tab PO QAM 02/24/19 02/24/19 History Past Med/Surg History Medical History History of prostate cancer (Chronic) s/p cryoablation GERD (gastroesophageal reflux disease) (Chronic) Depression (Chronic) History of kidney stones (Chronic) Heart disease (Chronic) Hypertension (Chronic) High blood cholesterol (Chronic) Parkinson disease (Chronic) Neuropathy (Chronic) Surgical History History of rotator cuff surgery (Chronic) History of Achilles tendon repair (Chronic) History of cystoscopy (Chronic) History of lithotripsy (Chronic) History of cholecystectomy (Chronic) History of appendectomy (Chronic) Family History Father Cancer Mother Hypertension Social History Preferred Language: Romanian Communication Ability: Effective Retail Experience 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 Physical Exam Physical Exam: Gen: WD/WN, elderly, male, NAD, sitting up in bed, pleasant, conversing easily, parkinsonian affect Head: Normocephalic, Atraumatic Eyes: Sclera normal, no conjunctival injection, PERRLA, EOMI ENT: Gross hearing intact, normal pharynx, mucous membranes moist Neck: supple, no adenopathy, No JVD, no bruit, Resp: Clear to auscultation b/l, no wheeze, rales, rhonchi. Normal insp/exp effort, no accessory muscle use CV: Regular rate, regular rhythm, soft 1/6 ANNE cardiac apex, no rub, gallop, or ectopy Abd: +BS x 4, soft, nontender, nondistended, no cva tenderness Musculoskeletal: moves extremities active rom x 4, strength intact, good content strategy lead strength Extremities: No edema bilaterally Skin: warm, dry, no rash, negative turgor, cap refill < 2sec Neuro: Alert and oriented x 3, speech normal, good mood/affect, cran nerve 2-12 intact grossly, + pill rolling tremor b/l : deferred Results & Data Vital Signs (Past 12 Hours) Vital Signs Temp Pulse Pulse Resp BP BP Pulse Ox 02/24/19 14:33 67 18 181/99 H 94 02/24/19 12:35 36.4 C L 71 17 200/102 H 98 Laboratory Results Short CBC 02/24/19 Range/Units 13:23 WBC 9.78 (4.8-10.8) K/uL Hgb 13.2 L (14.0-18.0) g/dL Hct 37.3 L (42-52) % Plt Count 174 (130-400) K/uL BMP 02/24/19 13:23 Sodium 143 Potassium 4.1 Chloride 108 H Carbon Dioxide 29 BUN 24 H Creatinine 1.55 H Glucose 84 Calcium 9.6 Urine 02/24/19 Range/Units 13:23 Urine Color Yellow Urine Appearance Clear (Clear) Urine pH 8.5 H (4.5-7.5) Ur Specific [place] 1.019 (1.000-1.030) Urine Protein Negative (Negative) Urine Glucose (UA) Negative (Negative) Diagnostic Findings CT Scan abd/pelvis 02/17: IMPRESSION: 1. Mild right-sided hydroureteronephrosis secondary to an obstructing 4 x 3 x 4 mm calculus of the mid right ureter at the level of the inferior endplate L5. 2. Nonobstructing bilateral nephrolithiasis. 3. Mild prostamegaly. 4. Colonic diverticulosis without acute diverticulitis. 5. Additional findings as above. KUB: IMPRESSION: 1. Bilateral nephrolithiasis. 2. The patient's known mid right ureteral stone is not identified on this examination. 3. Calcifications in the deep pelvis likely represent phlebolith. Medications Administered Morphine Sulfate (Morphine Sulfate) 2 mg IV Q30M PRN PRN Reason: Pain Stop: 03/10/19 14:42 Last Admin: 02/24/19 15:02 Dose: 2 mg Documented by: [id number] Discontinued Medications Sodium Chloride (Nss) 500 mls @ 999 mls/hr IV .Q31M STA Stop: 02/24/19 13:36 Last Infusion: 02/24/19 14:09 Dose: 0 mls/hr Documented by: [id number] Admin: 02/24/19 13:35 Dose: 999 mls/hr Documented by: [id number] Acetaminophen (Ofirmev) 1,000 mg in 100 mls @ 400 mls/hr IV NOW STA Stop: 02/24/19 13:20 Last Infusion: 02/24/19 14:09 Dose: 0 mls/hr Documented by: [id number] Admin: 02/24/19 13:35 Dose: 400 mls/hr Documented by: [id number] Morphine Sulfate (Morphine Sulfate) 2 mg IV NOW STA Stop: 02/24/19 13:10 Last Admin: 02/24/19 13:36 Dose: 2 mg Documented by: [id number] Ondansetron HCl (Zofran) 4 mg IV NOW STA Stop: 02/24/19 13:07 Last Admin: 02/24/19 13:36 Dose: 4 mg Documented by: [id number] Code Status & VTE Plan Code Status Full code VTE Prophylaxis Plan VTE Prophylaxis will be ordered: Yes Reason for no VTE drug order: Contraindicated (pt to undergo ureteral stent placement this evening) Supervising Physician Co-Signing Physician Notes Attending addendum The patient was seen and examined in the emergency room This is a 78 yr old M who has a significant PMH of HTN, HLD, CAD, CKD-3, Gerd, Depression, history of prostate cancer s/p cryoablation therapy who presents to [facility] ED secondary to right flank pain x1 week. He was noted to have a right-sided hydroureteronephrosis secondary to an obstructing 4 x 3 x 4 mm calculus of the mid right ureter at the level of the inferior endplate L5 He did not have any complaint during my examination On examination No apparent distress Hemodynamically stable with a blood pressure elevated likely secondary to pain and not been taking medications for the blood pressure Chest-clear to auscultate bilaterally Heart-S1-S2, regular Abdomen-benign no tenderness in right or, left renal angles, no hypogastric tenderness Extremities negative for any edema- Admission labs and imaging studies noted Noted to have aright-sided hydroureteronephrosis secondary to an obstructing 4 x 3 x 4 mm calculus of the mid right ureter at the level of the inferior endplate L5 Dr. York aware and the patient was taken to or symptoms this afternoon for intervention Noted to have new left bundle branch block and EKG without any cardiac symptoms Bundle block block was noted during last dobutamine stress echo We will check cardiac enzymes to make sure nothing acute Agree with assessment plan as outlined above by SHRUTI Rogers Dr
--- NOTE | 2019-02-24 16:06 | Emergency Department Note ---
Entered by Unique Dobbins acting as a scribe for History of Present Illness General Chief complaint: Kidney Stone Stated complaint: KIDNEY STONES Time Seen by Provider: 02/24/19 13:02 Source: patient Mode of arrival: ambulatory Limitations: no limitations History of Present Illness Provider complaint: Kidney stone Onset (ago): hour(s) (today) Location: back (kidney) Severity: similar to prior episodes Pain Consistency: + other (worsening) Maximum Pain Intensity: 6 Current Pain Intensity: 6 Quality: + other (kidney stone) Associated symptoms: + other (Denies: abdominal pain, testicular pain) Treatments prior to arrival: none The patient is a 78 year old male with a history of kidney stones, prostate cancer, GERD, depression, heart disease, hypertension, hyperlipidemia, and Parkinson disease who presents to the Emergency Room with complaints of a worsening kidney stone pain starting today. Per the patient's medical records, the patient was in the ED on 02/[address] showed a right ureteral stone. The patient reports that he was prescribed [place] and Flomax at this time and was instructed to follow up with his urologist, Dr. York. He states that he had been doing well since he was discharged and was scheduled to meet with Dr. York this afternoon; however, his pain returned this morning after breakfast and became unbearable. He notes that he subsequently called Dr. York and was instructed to report to the ED. The patient currently rates his pain a 6/10. He states that he has not taken anything for pain today, and he denies any abdominal pain or testicular pain. Home Medications Home Medications Medication Instructions Recorded Confirmed Type amlodipine 5 mg PO BID 02/17/19 02/24/19 History escitalopram oxalate 10 mg PO QAM 02/17/19 02/24/19 History losartan 50 mg PO DAILY 02/17/19 02/24/19 History metoprolol succinate 12.5 mg PO QAM 02/17/19 02/24/19 History aspirin 81 mg PO DAILY 02/24/19 02/24/19 History carbidopa-levodopa 1 tab PO TID 02/24/19 02/24/19 History loratadine 10 mg PO DAILY 02/24/19 02/24/19 History omeprazole 20 mg PO DAILY 02/24/19 02/24/19 History vitamin B complex 1 tab PO QAM 02/24/19 02/24/19 History Allergies Allergy/AdvReac Type Severity Reaction Status Date / Time No Known Allergies Allergy Unverified 02/17/19 10:15 Past Med/Surg History Medical History History of prostate cancer (Chronic) s/p cryoablation GERD (gastroesophageal reflux disease) (Chronic) Depression (Chronic) History of kidney stones (Chronic) Heart disease (Chronic) Hypertension (Chronic) High blood cholesterol (Chronic) Parkinson disease (Chronic) Neuropathy (Chronic) Surgical History History of rotator cuff surgery (Chronic) History of Achilles tendon repair (Chronic) History of cystoscopy (Chronic) History of lithotripsy (Chronic) History of cholecystectomy (Chronic) History of appendectomy (Chronic) Family History Father Cancer Mother Hypertension Social History Preferred Language: Kazakh Communication Ability: Effective Diver Helper Required: No Beliefs That Will Affect Care: None marital status: Current Living Situation: Spouse Other Information That Helps Us Care for You: No Feels Safe at Home: Yes Safety Concerns: Feels Safe At This Time Smoking Status: Never smoker Do You Dip or Chew Tobacco: No Hx Alcohol Use: Yes Alcohol type: other Hx Substance Use: No Review of Systems See HPI for pertinent positives & negatives. and A total of 10 systems reviewed and were otherwise negative Physical Exam Vital Signs Vital Signs - 24 hr 02/24/19 12:35 02/24/19 14:33 Temperature 36.4 C L Temperature Source Oral Sepsis Recent Fever Within 48 Hours No Sepsis New/Unexplained Change in Mental Status No Sepsis Action Taken by Nursing No Action Required Pulse Rate 71 Pulse Rate [Right Finger] 67 Respiratory Rate 17 18 Respiratory Effort / Characteristics Non-Labored Non-Labored Spontaneous Respiratory Depth Normal Normal Respiratory Pattern Regular Regular Blood Pressure 200/102 H Blood Pressure [Left Arm] 181/99 H Blood Pressure Mean 134 Blood Pressure Mean [Left Arm] 126 Blood Pressure Position Sitting Blood Pressure Position [Left Arm] Lying Pulse Oximetry 98 94 Oxygen Delivery Method Room Air Room Air GENERAL: Patient is in no acute distress. HEENT: No acute trauma, normocephalic atraumatic, mucous membranes moist, no nasal congestion, no scleral icterus. NECK: No stridor, no adenopathy, no meningismus, trachea is midline. LUNGS: Clear to auscultation bilaterally, no wheeze, no rhonchi, breath sounds equal. HEART: Without murmurs gallops or rubs, regular rate and rhythm. ABDOMEN: Soft, bowel sounds positive, no hernias, no peritonitis, mildly tender to the right lower quadrant. BACK: Mild right flank discomfort with percussion. EXTREMITIES: No cyanosis or edema, full range of motion of all the joints without pain or difficulty, no signs for acute trauma. NEUROLOGIC: Oriented x 3, no acute motor or sensory deficits, no focal weakness. SKIN: No rash, no jaundice, no diaphoresis. Course 1305: The patient was evaluated in room C1B, and a complete history and physical examination were performed. 1412: I checked on the patient and updated him on his results. We are waiting for Dr. York to call back. 1420: I reviewed the patient's case with Sultana Hernandez. Dr. York stated that if the patient is comfortable he can be discharged home, but if he cannot manage his pain at home, she would consider placing a stent. Stent placement would require hospital admission. 1439: I reevaluated the patient at this time. He stated that he is uncomfortable managing his pain at home. 1450: I reviewed the patient's case with Dr. York and informed her that the patient will need hospitalization. 1452: I reviewed the patient's case with [facility]. Reevaluation(s) Reevaluation #1: I reviewed the patient's case with Sultana Hernandez. Dr. York stated that if the patient is comfortable he can be dis charged home, but if he cannot manage his pain at home, she would consider placing a stent. Stent placement would require hospital admission. Time: 14:20 Reevaluation #2: I reviewed the patient's case with Dr. York and informed her that the patient will need hospitalization. Time: 14:50 Reevaluation #3: I reviewed the patient's case with [facility]. Sangita Chen PA-C will evaluate the patient for further management. Time: 14:52 Administered Medications Discontinued Medications Amlodipine Besylate (Norvasc) 5 mg PO NOW ONE Stop: 02/24/19 15:30 Last Admin: 02/24/19 15:45 Dose: 5 mg Documented by: [id number] Clonidine HCl (Catapres) 0.1 mg PO NOW ONE Stop: 02/24/19 17:11 Last Admin: 02/24/19 17:37 Dose: 0.1 mg Documented by: [id number] Sodium Chloride (Nss) 500 mls @ 999 mls/hr IV .Q31M STA Stop: 02/24/19 13:36 Last Infusion: 02/24/19 14:09 Dose: 0 mls/hr Documented by: [id number] Admin: 02/24/19 13:35 Dose: 999 mls/hr Documented by: [id number] Acetaminophen (Ofirmev) 1,000 mg in 100 mls @ 400 mls/hr IV NOW STA Stop: 02/24/19 13:20 Last Infusion: 02/24/19 14:09 Dose: 0 mls/hr Documented by: [id number] Admin: 02/24/19 13:35 Dose: 400 mls/hr Documented by: [id number] Sodium Chloride (Nss 1000ml) 1,000 mls @ 80 mls/hr IV .[id number] FARIDA Stop: 02/25/19 05:36 Last Admin: 02/24/19 17:40 Dose: 80 mls/hr Documented by: [id number] Metoprolol Succinate (Toprol Xl) 12.5 mg PO NOW STA Stop: 02/24/19 15:30 Last Admin: 02/24/19 17:37 Dose: 12.5 mg Documented by: [id number] Morphine Sulfate (Morphine Sulfate) 2 mg IV NOW STA Stop: 02/24/19 13:10 Last Admin: 02/24/19 13:36 Dose: 2 mg Documented by: [id number] Morphine Sulfate (Morphine Sulfate) 2 mg IV Q30M PRN PRN Reason: Pain Stop: 03/10/19 14:42 Last Admin: 02/24/19 15:45 Dose: 2 mg Documented by: [id number] Admin: 02/24/19 15:02 Dose: 2 mg Documented by: [id number] Ondansetron HCl (Zofran) 4 mg IV NOW STA Stop: 02/24/19 13:07 Last Admin: 02/24/19 13:36 Dose: 4 mg Documented by: [id number] Medical Decision Making Differential Diagnosis Differential diagnosis includes: renal colic, UTI, hydronephrosis, renal fa ilure, anemia, hematuria, musculoskeletal pain. Medical Records Attestation: I reviewed the patient's medical records. Home Medications Current Medication List: was personally reviewed by me Laboratory Data Attestation: I reviewed the patient's lab results. Result diagrams: 02/24/19 13:23 02/24/19 13:23 Lab Results 02/24/19 02/24/19 02/24/19 Range/Units 13:23 13:23 13:23 WBC 9.78 (4.8-10.8) K/uL RBC 4.06 L (4.7-6.1) M/uL Hgb 13.2 L (14.0-18.0) g/dL Hct 37.3 L (42-52) % MCV 91.9 (80-100) fL MCH 32.5 (25-34) pg MCHC 35.4 (32-36) g/dL RDW Std Deviation 43.5 (36.4-46.3) fL RDW Coeff of Lala 12.9 (11.5-14.5) % Plt Count 174 (130-400) K/uL MPV 9.3 (7.4-10.4) fL Sodium 143 (136-145) mmol/L Potassium 4.1 (3.5-5.1) mmol/L Chloride 108 H (98-107) mmol/L Carbon Dioxide 29 (21-32) mmol/L Anion Gap 7.0 (3-11) BUN 24 H (7-18) mg/dl Creatinine 1.55 H (0.6-1.4) mg/dl Est Cr Clr Drug Dosing 39.9 ml/min Est GFR ( Amer) 49.3 Est GFR (Non-Af Amer) 42.5 BUN/Creatinine Ratio 15.7 (10-20) Glucose 84 (70-99) mg/dl Calcium 9.6 (8.5-10.1) mg/dl Urine Color Yellow Urine Appearance Clear (Clear) Urine pH 8.5 H (4.5-7.5) Ur Specific [place] 1.019 (1.000-1.030) Urine Protein Negative (Negative) Urine Glucose (UA) Negative (Negative) Urine Ketones Negative (Negative) Urine Blood Negative (Negative) Urine Nitrite Negative (Negative) Urine Bilirubin Negative (Negative) Urine Urobilinogen Negative (Negative) Ur Leukocyte Esterase Negative (Negative) Urine WBC (Auto) 5-10 H (0-5) /hpf Urine RBC (Auto) 0-4 (0-4) /hpf U Hyaline Cast (Auto) 0 (0-5) /lpf U Epithel Cells (Auto) 5-10 H (0-5) /lpf Urine Bacteria (Auto) Negative (Negative) Imaging Data Radiologist's Impression: Radiology results as stated below per my review and the radiologist's interpretation: KUB HISTORY: right sided stone COMPARISON: Abdomen and pelvis CT 02/17/2019. FINDINGS: The bowel gas pattern is unremarkable. There are no dilated loops of small bowel to suggest an obstruction. Prior cholecystectomy. There are few punctate bilateral renal calculi. The patient's mid right ureteral stone seen on the prior study is not clearly identified on this examination. Calcifications in the deep pelvis favor phleboliths. No pneumoperitoneum or pneumatosis. IMPRESSION: 1. Bilateral nephrolithiasis. 2. The patient's known mid right ureteral stone is not identified on this examination. 3. Calcifications in the deep pelvis likely represent phlebolith. Electronically signed by: Zaid Doan M.D. 02/24/2019 2:00 PM Blood Pressure Blood Pressure Findings: Elevated blood pressure Blood Pressure Disposition: further management by hospitalist [facility] Narrative There is no leukocytosis or worrisome anemia. Renal panel testing shows a slightly high creatinine at 1.5, this is a very slight increase from his value a week ago. Urinalysis did not show signs of infection, no significant hematuria. KUB could not find the described right ureteral stone. The patient received IV saline, IV Tylenol and IV morphine. He was given IV Zofran, a second dose of IV morphine was given for additional pain control. I talked with Dr. York of urology. I talked to the patient. The decision has been made for hospitalization and stone retrieval with stent placement. The patient has failed outpatient management. I spoke to the case therapist, the on- call hospitalist was consulted. The patient will likely have urologic intervention this evening or early tomorrow morning. Impression & Plan Renal colic, Failure of outpatient treatment Discharge Plan Visit Data *Final* Discharge Date/Time: 02/24/19 16:23 Chief Complaint: Kidney Stone Stated Complaint: KIDNEY STONES ED Provider: Arvind Preciado Discharge Problem: Renal colic, Failure of outpatient treatment Patient Disposition: Admitted As Inpatient Discharge Instructions Interventions: ED Discharge Assessment Last Done: 02/24/19 16:23 The scribe's documentation has been prepared under my direction and personally reviewed by me in its entirety. I confirm that the note above accurately reflects all work, treatment, procedures, and medical decision making performed by me.
[2019-02-24] MEDS ORDERED: ALUMINUM/MAGNESIUM SUSP 30 ML UDC PO PRN (17:07)
[2019-02-24] MEDS ORDERED: ACETAMINOPHEN 325 MG TAB PO PRN (17:07)
[2019-02-24] MEDS ORDERED: ONDANSETRON INJ 2 MG/ML 2 ML VIAL IV PRN (17:07)
[2019-02-24] MEDS ORDERED: SODIUM CHLORIDE 0.9% 1000ML 1,000 ML IV SCH (17:07)
[2019-02-24] MEDS ORDERED: MAGNESIUM HYDROXIDE SUSP 30 ML UDC PO PRN (17:07)
[2019-02-24] MEDS ORDERED: MoRPHine SULFATE 2 MG/ML CARP IV PRN (17:07)
[2019-02-24] MEDS ORDERED: POLYETHYLENE (MIRALAX) 17 GM PACK PO PRN (17:07)
[2019-02-24] MEDS ORDERED: cloNIDine HCl 0.1 MG TAB PO ONE (17:10)
--- NOTE | 2019-02-24 18:37 | Anesthesiology Consultation ---
Date of Service February 24, 2019 Assessment & Plan (1) Encounter for pre-operative examination: Chart Review Chart Review: Acceptable Risk for Surgery (histiry of possible difficult intubation) History Surgery Operation Date: 02/24/19 16:00 Proposed Procedures p Right Ureteroscopy, Laser Lithotripsy, Basket Stone Extraction, Stent Placement - Simran York MD Height/Weight Height: 5 ft 9 in Weight: 79.1 kg Allergies Allergy/AdvReac Type Severity Reaction Status Date / Time No Known Allergies Allergy Unverified 02/17/19 10:15 Medications Home Medications Medication Instructions Recorded Confirmed Last Taken amlodipine 5 mg PO BID 02/17/19 02/24/19 02/23/19 12:00 escitalopram oxalate 10 mg PO QAM 02/17/19 02/24/19 02/16/19 losartan 50 mg PO DAILY 02/17/19 02/24/19 02/23/19 metoprolol succinate 12.5 mg PO QAM 02/17/19 02/24/19 02/23/19 aspirin 81 mg PO DAILY 02/24/19 02/24/19 Unknown carbidopa-levodopa 1 tab PO TID 02/24/19 02/24/19 02/23/19 16:00 loratadine 10 mg PO DAILY 02/24/19 02/24/19 02/23/19 omeprazole 20 mg PO DAILY 02/24/19 02/24/19 02/23/19 vitamin B complex 1 tab PO QAM 02/24/19 02/24/19 02/23/19 Active Medications Generic Name Dose Route Start Last Admin Trade Name Freq PRN Reason Stop Dose Admin Sodium Chloride 1,000 mls @ 80 mls/hr 02/24/19 17:07 02/24/19 17:40 Nss 1000ml IV 02/25/19 05:36 80 mls/hr .[id number] FARIDA Administration NPO Date Last Intake of Fluids: 02/24/19 Time Last Intake of Fluids: 09:00 Date Last Intake of Solids: 02/24/19 Time Last Intake of Solids: 09:00 Past Medical History Medical History History of prostate cancer (Chronic) s/p cryoablation GERD (gastroesophageal reflux disease) (Chronic) Depression (Chronic) History of kidney stones (Chronic) Heart disease (Chronic) Hypertension (Chronic) High blood cholesterol (Chronic) Parkinson disease (Chronic) Neuropathy (Chronic) Past Family History Family History Father Cancer Mother Hypertension Past Surgical History Surgical History History of rotator cuff surgery (Chronic) History of Achilles tendon repair (Chronic) History of cystoscopy (Chronic) History of lithotripsy (Chronic) History of cholecystectomy (Chronic) History of appendectomy (Chronic) Past Anesthesia History Difficult Airway (At time of cholecystectomy they had difficulty with the intubation, from the note sounds like even with a glidescope) Social History Smoking Status: Never smoker Do You Dip or Chew Tobacco: No Hx Alcohol Use: Yes Alcohol type: other Alcohol Intake Frequency Comment: about 1 drink per month Hx Substance Use: No Physical Exam Vital Signs Last Vital Signs Temp 36.7 C 02/24/19 18:23 Pulse 62 02/24/19 18:23 Resp 18 02/24/19 18:23 BP 190/88 H 02/24/19 18:23 Pulse Ox 94 02/24/19 18:23 Testing Laboratory Results 02/24/19 13:23 02/24/19 13:23 02/24/19 13:23 Urine Color Yellow Urine Appearance Clear Urine pH 8.5 H Ur Specific [place] 1.019 Urine Protein Negative Urine Glucose (UA) Negative Urine Ketones Negative Urine Nitrite Negative Ur Leukocyte Esterase Negative Urine WBC (Auto) 5-10 H Urine RBC (Auto) 0-4 U Hyaline Cast (Auto) 0 U Epithel Cells (Auto) 5-10 H Urine Bacteria (Auto) Negative Electrocardiogram Date: 02/24/19 Findings: + LBBB (64 - apparently the LBBB is new for him)
[2019-02-24] MEDS: CARBIDOPA/LEVODOPA 25/100MG TAB PO SCH (20:48)
[2019-02-24] MEDS: AMLODIPINE BESYLATE 5 MG TAB PO SCH (20:48)
[2019-02-24] MEDS: LOSARTAN POTASSIUM 50 MG TAB PO SCH (20:48)
[2019-02-24] MEDS ORDERED: AMLODIPINE BESYLATE 5 MG TAB PO SCH (21:00)
[2019-02-24] MEDS ORDERED: MoRPHine SULFATE 4 MG/ML 1 ML CARP\\VIAL IV STA (23:15)
[2019-02-25 06:43] LABS: Hematocrit (blood only) 36.1 % (42-52); Hemoglobin 12.4 g/dL (14.0-18.0); Mean Corpuscular Hgb Conc 34.3 g/dL (32-36); Mean Corpuscular Volume 93.5 fL (80-100); Mean Platelet Volume 9.2 fL (7.4-10.4); Platelet Count 147 K/uL (130-400); RDW Coefficient of Variation 13.1 % (11.5-14.5); Red Blood Count 3.86 M/uL (4.7-6.1)
[2019-02-25 07:16] LABS: BUN Creatinine Ratio 13.3 (10-20); Calcium 9.1 mg/dl (8.5-10.1); Creatinine Clr Calc Pharmacy 31.1 ml/min; Est GFR (African American) 36.5; Est GFR (Non-African American) 31.5; Potassium 4.2 mmol/L (3.5-5.1)
[2019-02-25] MEDS ORDERED: AMLODIPINE BESYLATE 5 MG TAB PO SCH ×2 (08:00→21:00)
[2019-02-25] MEDS: CARBIDOPA/LEVODOPA 25/100MG TAB PO SCH ×3 (08:48→21:10)
[2019-02-25] MEDS: AMLODIPINE BESYLATE 5 MG TAB PO SCH ×2 (08:49→21:10)
[2019-02-25] MEDS: PANTOprazole 40 MG TAB PO SCH (08:50)
[2019-02-25] MEDS ORDERED: LOSARTAN POTASSIUM 50 MG TAB PO SCH (09:00)
[2019-02-25] MEDS ORDERED: METOPROLOL SUCC 25MG EXT REL TAB PO SCH ×2 (09:00)
[2019-02-25] MEDS: ESCITALOPRAM OXALATE 10 MG TAB PO SCH (09:17)
[2019-02-25] MEDS: LOSARTAN POTASSIUM 50 MG TAB PO SCH (09:18)
--- NOTE | 2019-02-25 10:18 | Hospitalist Progress Note ---
Date of Service February 25, 2019 Assessment & Plan (1) Ureterolithiasis: (2) Renal colic: This is a 78 yr old M who has a significant PMH of HTN, HLD, CAD, CKD-3, Gerd, Depression, history of prostate cancer s/p cryoablation therapy who presents to [facility] ED secondary to right flank pain x1 week. CT abd/Pelvis: Mild right-sided hydroureteronephrosis secondary to an obstructing 4 x 3 x 4 mm calculus of the mid right ureter at the level of the inferior endplate L5. KUB today reveleaded: 1. Bilateral nephrolithiasis.2. The patient's known mid right ureteral stone is not identified on this examination.3. Calcifications in the deep pelvis likely represent phlebolith. Hemodynamically patient is stable and afebrile. His white count is WNL. Urinalysis negative for infection. Patient input from urology Dr. York, status post ureteric stent placement (3) LBBB (left bundle branch block): Evidence of angina discomfort patient underwent nuclear stress test on 06/2018 in which EKG revealed sinus bradycardia and essentially within normal limits. During stress however the patient developed a left bundle branch block. [place] to likely represent a rate related left bundle branch block pt asymptomatic w/o chest pain or cardiac symptoms last echo 06/2018: EF 55% with grade 1 diastolic dysfunction, no significant valvular disease. Patient did have frequent isolated ventricular ectopies during echocardiogram as well as intermittent bundle branch block. (4) Hypertension: BP stable Continue metoprolol and amlodipine /losartan (5) Heart disease: No complaints of chest pain or shortness of breath Continue metoprolol, losartan, amlodipine Aspirin resumed (6) Parkinson disease: Continue Sinemet (7) Depression: Continue esitalopram (8) GERD (gastroesophageal reflux disease): Continue PPI (9) DVT prophylaxis: SCDS Disposition: d/c to home when able Follow up: PCP Dr. Landry upon discharge (10) Acute renal failure superimposed on stage 3 chronic kidney disease: baseline cr 1.2 Bun 24/Cr 1.55 -> 1.99 continue IV hydration bmp in am Subjective No complaint of pain or discomfort, Feels much better today Physical Exam Physical Exam: GENERAL: No sign of distress, HEENT: Sclera nonicteric, pink-purple bilateral equal reactive to light extraocular muscle intact Normal oral mucosa, neck: No JVD, no thyromegaly, trachea midline Lungs: Clear to auscultate, no wheeze or rales Cardiovascular: Regular S1 and S2, no murmur or gallop, no JVD, no lower extremity edema Abdomen: Soft, nontender, bowel sounds active, no hepatosplenomegaly Extremities: No rash or deformity, normal joint, Neuro: No focal neurological deficit, no dysarthria, no facial droop Psych: Alert awake oriented x3: Euthymic Skin: No rash LYMPH NODES: No cervical lymphadenopathy Results & Data Vital Signs (Past 12 Hours) Vital Signs Temp Pulse Pulse Resp BP Pulse Ox 02/25/19 07:30 36.3 C L 60 17 145/78 H 95 02/24/19 23:03 37.0 C 56 L 16 156/80 H 94 (1) Depression Depression Type: unspecified Qualified Code(s): F32.9 - Major depressive disorder, single episode, unspecified (2) Acute renal failure superimposed on stage 3 chronic kidney disease Acute renal failure type: with acute tubular necrosis Qualified Code(s): N17.0 - Acute kidney failure with tubular necrosis; N18.3 - Chronic kidney disease, stage 3 (moderate) (3) GERD (gastroesophageal reflux disease) Esophagitis presence: esophagitis presence not specified Qualified Code(s): K21.9 - Gastro-esophageal reflux disease without esophagitis (4) Hypertension Hypertension type: unspecified Qualified Code(s): I10 - Essential (primary) hypertension
[2019-02-25] MEDS ORDERED: ONDANSETRON INJ 2 MG/ML 2 ML VIAL ONE (13:15)
[2019-02-25] MEDS ORDERED: LIDOCAINE HCL 2% 2 ML VIAL/AMP(20MG/ML) INFIL ONE (13:15)
[2019-02-25] MEDS ORDERED: PROPOFOL IV EMULSION 10 MG/ML 20 ML VIAL IV ONE (13:15)
[2019-02-25] MEDS ORDERED: DEXAMETHASONE SOD INJ 4 MG/ML VIAL ONE (13:15)
[2019-02-25] MEDS ORDERED: fentaNYL citrate 100 MCG/2 ML VIAL ONE (13:15)
[2019-02-25] MEDS ORDERED: IOTHALAMATE MEGLUMINE II 17.2% 250 ML VIAL ONE (13:19)
[2019-02-25] MEDS ORDERED: CEFAZOLIN 2000MG 2,000 MG/15 ML SYR IV ONE (13:32)
--- NOTE | 2019-02-25 13:32 | History & Physical Bridge Note ---
Date of Service February 25, 2019 History & Physical Bridge Note I have examined the patient, reviewed the History & Physical and in the interval since the performance of the History & Physical I have noted the following changes of clinical significance: no changes noted
[2019-02-25] MEDS ORDERED: CEFAZOLIN 2,000 MG/15 ML IV PUSH IV ONE (13:34)
[2019-02-25] MEDS ORDERED: GLYCOPYRROLATE 0.2 MG/ML VIAL ONE (14:10)
[2019-02-25] MEDS ORDERED: BELLADONNA/OPIUM SUPP 60 MG SUPP PR ONE (14:11)
--- NOTE | 2019-02-25 14:24 | Operative Report ---
Post Operative Report Pre & Post Diagnosis Operation Date: 02/25/19 07:00 Pre-Op Diagnosis: Obstructing Right ureteral and Kidney Stone Post-Op Diagnosis: Obstructing Right ureteral and kidney Stone Procedure Operation Date: 02/25/19 07:00 Actual Procedures p Cystoscopy, Right Ureteroscopy, Laser Lithotripsy, Basket Stone Extraction(Right) - Simran York MD Surgeon Simran York MD Service Advocate Contact none Estimated Blood Loss 1 Findings Consistent with Post-Op Diagnosis Fluids 250 Specimens left kidney stone and ureteral stone Drains none Anesthesia Type General Complications none Disposition Accompanied Patient To Recovery: Yes Disposition: Recovery Room Indications 4mm right upper ureteral stone, failed outpatient med management Description of Procedure Patient was given general LMA anesthesia and placed in lithotomy position. His genitals were prepped and draped in sterile fashion. Time out held with team. I placed a 21 fr rigid cystoscope to bladder. The urethra is unremarkable. The prostate is medium and elevated the bladder neck. The UOs are medial and close to bladder neck. I placed a road wire up right ureter with difficulty due to acute angulation and passed it to he right kidney. I used a 5 fr to exchanged to a stiff wire. I used a dual lumen to calibrate the right UO and place a second wire. I placed a flex ureteroscope easily over second wire to the upper ureter. I lasered the ureteral stone with a 270 micron holmium laser fiber and removed the fragments. I also removed a right upper pole small stone fragment. The case was short and atraumatic so I did not leave a stent. I left bladder empty and concluded case. I placed a belladonna and opium suppository for post- op pain. He transferred to recovery under my escort, in stable condition. Plan: Home today Pyridium for dysuria x 3 days flomax daily until pain free oral pain meds as needed ASA 3 clean contaminated case 8 seconds fluoro ancef antibiotic call or contact centre team leader I attest to the content of the Intraoperative Record and any orders documented therein. Any exceptions are noted below.
[2019-02-25] MEDS ORDERED: BELLADONNA/OPIUM SUPP 60 MG SUPP PR PRN (14:30)
--- NOTE | 2019-02-25 14:32 | Fluoroscopy Report ---
FL KUB HISTORY: Right lithotripsy. FLUOROSCOPY TIME: 8 seconds. FINDINGS: 2 fluoroscopic spot images were submitted for review. Images demonstrate a right ureteral s tent. IMPRESSION: Fluoroscopy provided for right lithotripsy.. Electronically signed by: Zaid Doan M.D. 02/25/2019 2:31 PM
--- NOTE | 2019-02-25 14:50 | Anesthesiology Progress Note ---
Date of Service February 25, 2019 Anesthesia Post Procedure Vital Signs Vital Signs: Temp Pulse Pulse Resp BP BP Pulse Ox 02/25/19 14:40 67 16 156/85 H 98 02/25/19 14:30 70 14 147/85 H 98 02/25/19 14:24 36.3 C L 70 16 135/81 99 02/25/19 13:42 36.6 C 58 L 18 150/82 H 96 02/25/19 07:30 36.3 C L 60 17 145/78 H 95 02/24/19 23:03 37.0 C 56 L 16 156/80 H 94 02/24/19 20:43 57 L 132/75 02/24/19 18:23 36.7 C 62 18 190/88 H 94 02/24/19 16:45 36.3 C L 75 18 196/81 H 93 Pain Intensity Right Flank: Pain Intensity: 7 Transfer of Care Handoff Completed per policy Notes Mental Status: alert / awake / arousable and participated in evaluation Patient Amnestic to Procedure: Yes Nausea / Vomiting: adequately controlled Pain: adequately controlled Airway Patency, RR, SpO2: stable & adequate BP & HR: stable & adequate Hydration State: stable & adequate Anesthetic Complications: no major complications apparent and Pt Satisfied with anesthetic care
[2019-02-25] MEDS ORDERED: PHENAZOPYRIDINE HCL 200 MG TAB PO PRN (15:59)
[2019-02-25] MEDS: VITAMIN B COMPLEX TAB PO SCH (16:41)
[2019-02-25] MEDS ORDERED: LACTATED RINGER'S 1,000 ML IV SCH (17:15)
[2019-02-25] MEDS ORDERED: cloNIDine HCl 0.1 MG TAB PO ONE (17:15)
[2019-02-26 08:14] LABS: BUN Creatinine Ratio 12.5 (10-20); Calcium 9.7 mg/dl (8.5-10.1); Creatinine Clr Calc Pharmacy 29.3 ml/min; Est GFR (Non-African American) 29.3; Potassium 4.3 mmol/L (3.5-5.1)
[2019-02-26] MEDS ORDERED: METOPROLOL SUCC 25MG EXT REL TAB PO SCH ×2 (09:00)
[2019-02-26] MEDS: PANTOprazole 40 MG TAB PO SCH (09:54)
[2019-02-26] MEDS: AMLODIPINE BESYLATE 5 MG TAB PO SCH ×2 (09:54→20:38)
[2019-02-26] MEDS: ESCITALOPRAM OXALATE 10 MG TAB PO SCH (09:54)
[2019-02-26] MEDS: ASPIRIN 81 MG ECTAB PO SCH (09:55)
[2019-02-26] MEDS: CARBIDOPA/LEVODOPA 25/100MG TAB PO SCH ×3 (09:55→20:38)
[2019-02-26] MEDS: LORATADINE 10 MG TAB PO SCH (09:55)
[2019-02-26] MEDS: VITAMIN B COMPLEX TAB PO SCH (10:24)
[2019-02-26] MEDS: LACTATED RINGER'S 1,000 ML IV SCH ×2 (12:45→23:58)
--- NOTE | 2019-02-26 15:29 | Urology Progress Note ---
Date of Service February 26, 2019 Assessment & Plan (1) Ureterolithiasis: POD#1 s/o cysto right ureteroscopy and basket removal of his obstructing right ureteral stone and his small non obstructing right upper pole stone. I did not leave a stent b/c the case was brief. He is recovering well no need to strain urine avoid nsaids home once creatinine improves rtc spet 2019 Present on Admission?: Yes Subjective Patient feels well. he is up in chair. he has had good breakfast and lunch no problems. he has been walking laps in halls with nurse. He has hematuria and dysuria which seems to be improving. No kidney pain. Creatinine bumped last few days. Review of Systems Review of Systems: no chest pain , no nausea no emesis no chest pain, no rash, no fever or chills Results & Data Vital Signs (Past 12 Hours) Vital Signs Temp Pulse Pulse Resp BP BP Pulse Ox 02/26/19 11:25 36.4 C L 56 L 16 134/68 96 02/26/19 07:30 36.5 C 54 L 15 156/80 H 96 02/26/19 03:26 36.4 C L 57 L 16 125/71 94
--- NOTE | 2019-02-26 18:26 | Hospitalist Progress Note ---
Date of Service February 26, 2019 Assessment & Plan (1) Acute renal failure superimposed on stage 3 chronic kidney disease: cr worsening today -while getting IV fluid and s/p ureteric stone extraction baseline cr 1.2-1.4 presented with STEPHEN due to obstructed ureteric stone , poor PO intake 1.55 -> 1.99 _> 2.21 losartan kept on hold avoid NSAID's continue IV hydration nephrology consulted repeat BMP in AM (2) Ureterolithiasis: s/p uretersrocopy , stone extraction by Urology denies of any flank pain intemittent hematuria (3) Renal colic: resolved after ureteric stone extraction presented with right sided flank pain CT abd/Pelvis: Mild right-sided hydroureteronephrosis secondary to an obstructing 4 x 3 x 4 mm calculus of the mid right ureter at the level of the inferior endplate L5. KUB today reveleaded: 1. Bilateral nephrolithiasis.2. The patient's known mid right ureteral stone is not identified on this examination.3. Calcifications in the deep pelvis likely represent phlebolith. Hemodynamically patient is stable and afebrile. His white count is WNL. Urinalysis negative for infection. appreciate input from Urology (4) LBBB (left bundle branch block): Evidence of angina discomfort chronic (5) Hypertension: BP stable losartan on hold for STEPHEN (6) Heart disease: No complaints of chest pain or shortness of breath Continue metoprolol, amlodipine Aspirin resumed hold ARB for Stephen (7) Parkinson disease: Continue Sinemet (8) Depression: Continue esitalopram (9) GERD (gastroesophageal reflux disease): Continue PPI (10) DVT prophylaxis: SCDS Disposition:discharge home when renal function improves Follow up: PCP Dr. Landry will benefit with follow up with Nephrology on discharge Subjective Patient feels well. he is up in chair. he has had good breakfast and lunch no problems. he has been walking laps in halls with nurse. He has hematuria and dysuria which seems to be improving. No kidney pain. Creatinine bumped last few days. Physical Exam Physical Exam: GENERAL: No sign of distress, HEENT: Sclera nonicteric, pink-purple bilateral equal reactive to light extraocular muscle intact Normal oral mucosa, neck: No JVD, no thyromegaly, trachea midline Lungs: Clear to auscultate, no wheeze or rales Cardiovascular: Regular S1 and S2, no murmur or gallop, no JVD, no lower extremity edema Abdomen: Soft, nontender, bowel sounds active, no hepatosplenomegaly Extremities: No rash or deformity, normal joint, Neuro: No focal neurological deficit, no dysarthria, no facial droop Psych: Alert awake oriented x3: Euthymic Skin: No rash LYMPH NODES: No cervical lymphadenopathy Results & Data Vital Signs (Past 12 Hours) Vital Signs Temp Pulse Resp BP Pulse Ox 02/26/19 15:35 36.4 C L 54 L 16 128/72 95 02/26/19 11:25 36.4 C L 56 L 16 134/68 96 02/26/19 07:30 36.5 C 54 L 15 156/80 H 96 (1) Depression Depression Type: unspecified Qualified Code(s): F32.9 - Major depressive disorder, single episode, unspecified (2) Acute renal failure superimposed on stage 3 chronic kidney disease Acute renal failure type: with acute tubular necrosis Qualified Code(s): N17.0 - Acute kidney failure with tubular necrosis; N18.3 - Chronic kidney disease, stage 3 (moderate) (3) GERD (gastroesophageal reflux disease) Esophagitis presence: esophagitis presence not specified Qualified Code(s): K21.9 - Gastro-esophageal reflux disease without esophagitis (4) Hypertension Hypertension type: unspecified Qualified Code(s): I10 - Essential (primary) hypertension
[2019-02-27] MEDS: AMLODIPINE BESYLATE 5 MG TAB PO SCH ×2 (09:07→21:10)
[2019-02-27] MEDS: CARBIDOPA/LEVODOPA 25/100MG TAB PO SCH ×3 (09:08→21:10)
[2019-02-27] MEDS: LORATADINE 10 MG TAB PO SCH (09:08)
[2019-02-27] MEDS: VITAMIN B COMPLEX TAB PO SCH (09:08)
[2019-02-27] MEDS: ASPIRIN 81 MG ECTAB PO SCH (09:08)
[2019-02-27] MEDS: PANTOprazole 40 MG TAB PO SCH (09:08)
[2019-02-27] MEDS: ESCITALOPRAM OXALATE 10 MG TAB PO SCH (09:08)
--- NOTE | 2019-02-27 10:09 | Nephrology Consultation ---
Date of Consultation February 27, 2019 Assessment & Plan (1) Acute renal failure superimposed on stage 3 chronic kidney disease: Patient with acute kidney injury on CKD. Baseline creatinine of 1.2. Creatinine yesterday was up to 2.1. Etiology of his acute kidney injury is likely obstructive uropathy. Patient is status post lithotripsy. Differential diagnosis includes AIN given leukocytosis on urinalysis. Continue to monitor renal function with daily BMP. Anticipate improvement in renal function after lithotripsy. If creatinine is not downtrending, will obtain repeat renal ultrasound tomorrow to assess for hydronephrosis. Agree with gentle IV fluids today. If creatinine is downtrending patient can be discharged to follow-up with urology and nephrology in 2 weeks. (2) Hypertension: His blood pressure is slightly above target but acceptable. He has bradycardia. I will hold metoprolol today if systolic is consistently above 150 we will start hydralazine 25 mg twice daily. Agree with holding losartan as well in setting of acute kidney injury. (3) Nephrolithiasis: Patient with nephrolithiasis and recent obstructive stone. We discussed the general recommendations including increased water intake, aiming for at least 8 ounces daily and limiting salt intake. He will need additional work-up including the low risk profile as an outpatient. Will follow up on the stone analysis History of Present Illness Reason for Consultation: STEPHEN Requesting Physician: Linda Contreras MD Attending Physician: Crystal Boucher MD History of Present Illness The patient is a 78 year old male with a history of kidney stones, prostate cancer, GERD, depression, heart disease, hypertension, hyperlipidemia, and Parkinson disease who was admitted on 02/24/2019 with flank pain found to have right hydronephrosis due to obstructive 4 mm right ureteral stone on CT scan. The patient was in the ED on 02/[address] showed a right ureteral stone. He was prescribed [place] and Flomax at this time and was instructed to follow up with his urologist, Dr. York. He developed worsening pain prior to the urologist appointment. On this admission he underwent a right lithotripsy and stent placement although the stent was not left in per urologist's note. His creatinine on admission was 1.2 which appears to be his baseline. Creatinine yesterday was 2.1. He denies any dysuria or hematuria today. No vomiting but he has constipation. He has had kidney stones in the past. I was asked to evaluate him for etiology and management of his worsening renal function and kidney stones. Allergies Allergy/AdvReac Type Severity Reaction Status Date / Time No Known Allergies Allergy Unverified 02/17/19 10:15 Home Medications Home Medications Medication Instructions Recorded Confirmed Type escitalopram oxalate 10 mg PO QAM 02/17/19 02/24/19 History losartan 50 mg PO DAILY 02/17/19 02/24/19 History aspirin 81 mg PO DAILY 02/24/19 02/24/19 History carbidopa-levodopa 1 tab PO TID 02/24/19 02/24/19 History loratadine 10 mg PO DAILY 02/24/19 02/24/19 History omeprazole 20 mg PO DAILY 02/24/19 02/24/19 History vitamin B complex 1 tab PO QAM 02/24/19 02/24/19 History amlodipine 5 mg PO BID 02/25/19 02/25/19 History metoprolol succinate 12.5 mg PO DAILY 02/25/19 02/25/19 History Patient History Medical History History of prostate cancer (Chronic) s/p cryoablation GERD (gastroesophageal reflux disease) (Chronic) Depression (Chronic) History of kidney stones (Chronic) Heart disease (Chronic) Hypertension (Chronic) High blood cholesterol (Chronic) Parkinson disease (Chronic) Neuropathy (Chronic) Surgical History History of rotator cuff surgery (Chronic) History of Achilles tendon repair (Chronic) History of cystoscopy (Chronic) History of lithotripsy (Chronic) History of cholecystectomy (Chronic) History of appendectomy (Chronic) Family History Father Cancer Mother Hypertension Social History Preferred Language: Citizen Of [place] Communication Ability: Effective 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 Beliefs That Will Affect Care: None marital status: Current Living Situation: Spouse Other Information That Helps Us Care for You: No Feels Safe at Home: Yes Safety Concerns: Feels Safe At This Time Smoking Status: Never smoker Do You Dip or Chew Tobacco: No Hx Alcohol Use: Yes Alcohol type: other Hx Substance Use: No Review of Systems Review of Systems: All systems reviewed & are unremarkable except as noted in HPI & below Physical Exam Physical Exam: General exam: Appears comfortable, no acute distress HEENT: Pupils are equal and reactive to light Neck: No JVD, neck is supple trachea is midline Respiratory system: Clear breath sounds bilaterally. Gastrointestinal: Abdomen is soft, non distended, non tender, bowel sounds are present CVS: Regular rate and rhythm. No murmurs, rubs or gallops Musculoskeletal: No joint or muscle tenderness Extremities: Non tender, no edema, peripheral pulses are present Neuro: Oriented, no tremors, no focal neurological deficits Skin: No rashes Results & Data Vital Signs (Past 12 Hours) Vital Signs Temp Pulse Pulse Resp BP Pulse Ox 02/27/19 07:22 36.5 C 47 L 17 149/76 H 95 02/26/19 23:48 36.7 C 54 L 16 129/71 95 (1) Acute renal failure superimposed on stage 3 chronic kidney disease Acute renal failure type: with acute tubular necrosis Qualified Code(s): N17.0 - Acute kidney failure with tubular necrosis; N18.3 - Chronic kidney disease, stage 3 (moderate) (2) Hypertension Hypertension type: unspecified Qualified Code(s): I10 - Essential (primary) hypertension
[2019-02-27 10:18] LABS: Calcium 9.2 mg/dl (8.5-10.1); Creatinine Clr Calc Pharmacy 32.7 ml/min; Est GFR (African American) 38.8; Est GFR (Non-African American) 33.5; Potassium 4.1 mmol/L (3.5-5.1)
[2019-02-27 10:31] LABS: Appearance Urine Clear (Clear); Bilirubin Urine Negative (Negative); Blood Urine Negative (Negative); Color Urine Yellow; Glucose Urine UA Negative (Negative); Ketones Urine Negative (Negative); Leukocyte Esterase Urine Negative (Negative); Nitrite Urine Negative (Negative); Protein Urine Negative (Negative); Specific Gravity Urine 1.012 (1.000-1.030); Urobilinogen Urine Negative (Negative); pH Urine 6.5 (4.5-7.5)
[2019-02-27] MEDS: LACTATED RINGER'S 1,000 ML IV SCH ×2 (12:14→23:59)
--- NOTE | 2019-02-27 15:03 | Hospitalist Progress Note ---
Date of Service February 27, 2019 Assessment & Plan (1) Acute renal failure superimposed on stage 3 chronic kidney disease: Baseline cr 1.2-1.4 Presented with STEPHEN due to obstructed ureteric stone , poor PO intake Creatinine worsened following stone extraction Continue to have IV hydration and increase oral intake Lisinopril is on hold and no NSAID use and/or nephrotoxins Nephrology consult appreciated Kidney function has been improving If the kidney function keeps on improving the same time tomorrow (2) Ureterolithiasis: S/P uretersrocopy , stone extraction by Urology Clinically a lot better Denies any symptoms (3) Renal colic: Presented with right sided flank pain CT abd/Pelvis: Mild right-sided hydroureteronephrosis secondary to an obstructing 4 x 3 x 4 mm calculus of the mid right ureter at the level of the inferior endplate L5. KUB today reveleaded: 1. Bilateral nephrolithiasis.2. The patient's known mid right ureteral stone is not identified on this examination.3. Calcifications in the deep pelvis likely represent phlebolith. Hemodynamically patient is stable and afebrile. Normal pelvic pain following extraction of the stone (4) LBBB (left bundle branch block): Evidence of angina discomfort Chronic findings (5) Hypertension: BP stable Losartan on hold for STEPHEN Blood pressure remains minimally elevated Has been on amlodipine 5 mg twice daily (6) Heart disease: No complaints of chest pain or shortness of breath Continue metoprolol, amlodipine Aspirin resumed hold ARB for Stephen (7) Parkinson disease: Continue Sinemet Minimal rest tremor at rest (8) Depression: Continue esitalopram (9) GERD (gastroesophageal reflux disease): Continue PPI (10) DVT prophylaxis: SCDS Disposition:discharge home when renal function improves Follow up: PCP Dr. Landry will benefit with follow up with Nephrology on discharge Subjective 02/27 The patient was seen and examined in medical floor This is a 78 yr old M who has a significant PMH of HTN, HLD, CAD, CKD-3, Gerd, Depression, history of prostate cancer s/p cryoablation therapy who presents to [facility] ED secondary to right flank pain x1 week He was noted to have right-sided hydro-utero nephrosis secondary to an obstructing mid right ureteral calculus of 4 x 3 x 40 mm He has been feeling a lot better today Denies any acute symptoms Review of Systems Review of Systems: All systems reviewed and are unremarkable except as noted below Constitutional: + weakness Gastrointestinal: no abdominal pain Genitourinary: no dysuria and no difficulty urinating Physical Exam Physical Exam: No apparent distress at rest and wants to be discharged Constitutional: well developed ENMT: Mouth: + small oral opening; no TMJ abnormality Mallampati Class: III Neck: normal visual inspection; neck extension not limited Respiratory: normal respiratory effort Auscultation: lungs clear to auscultation bilaterally Cardiovascular: Rate/Rhythm: regular rate and regular rhythm Heart Sounds: no murmur Gastrointestinal (Abdomen): Percussion/Palpation: abdomen nontender Renal angles when not tender Neurologic: moves all extremities Motor/Sensory: no sensory deficit Psychiatric: Orientation: alert and oriented x 3 Lymphatic: no cervical or axillary lymphadenopathy Results & Data Vital Signs (Past 12 Hours) Vital Signs Temp Pulse Resp BP Pulse Ox 02/27/19 07:22 36.5 C 47 L 17 149/[address] [facility] 02/27/19 09:52 Sodium 140 Potassium 4.1 Chloride 106 Carbon Dioxide 28 BUN 32 H Creatinine 1.89 H Glucose 81 Calcium 9.2 Urine 02/27/19 Range/Units Unknown Urine Color Yellow Urine Appearance Clear (Clear) Urine pH 6.5 (4.5-7.5) Ur Specific [place] 1.012 (1.000-1.030) Urine Protein Negative (Negative) Urine Glucose (UA) Negative (Negative) Medications Administered Current Inpatient Medications Acetaminophen (Tylenol) 650 mg PO Q4H PRN PRN Reason: pain/fever Stop: 03/26/19 17:06 Al Hydrox/Mg Hydrox/Simethicone (Maalox) 30 ml PO Q6H PRN PRN Reason: Dyspepsia Stop: 03/26/19 17:06 Amlodipine Besylate (Norvasc) 5 mg PO BID [facility] Stop: 03/27/19 20:59 Last Admin: 02/27/19 09:07 Dose: 5 mg Documented by: Aspirin (Ecotrin Ectab) 81 mg PO DAILY [facility] Stop: 03/28/19 08:59 Last Admin: 02/27/19 09:08 Dose: 81 mg Documented by: Carbidopa/Levodopa (Sinemet 25/100 Mg) 1 tab PO TID [facility] Stop: 03/26/19 20:59 Last Admin: 02/27/19 13:46 Dose: 1 tab Documented by: Escitalopram Oxalate (Lexapro) 10 mg PO QAM [facility] Stop: 03/27/19 08:59 Last Admin: 02/27/19 09:08 Dose: 10 mg Documented by: Lactated Ringer's (Lr) 1,000 mls @ 80 mls/hr IV .[id number] [facility] Stop: 03/28/19 12:14 Last Infusion: 02/27/19 13:28 Dose: 80 mls/hr Documented by: Loratadine (Claritin) 10 mg PO DAILY [facility] Stop: 03/28/19 08:59 Last Admin: 02/27/19 09:08 Dose: 10 mg Documented by: Losartan Potassium (Cozaar) 50 mg PO DAILY [facility] Stop: 03/26/19 18:59 Last Admin: 02/25/19 09:18 Dose: 50 mg Documented by: Magnesium Hydroxide (Milk Of Magnesia) 30 ml PO Q6H PRN PRN Reason: Constipation Stop: 03/26/19 17:06 Last Admin: 02/27/19 10:01 Dose: 30 ml Documented by: Metoprolol Succinate (Toprol Xl) 12.5 mg PO QAM [facility] Stop: 03/28/19 08:59 Last Admin: 02/26/19 09:54 Dose: 12.5 mg Documented by: Ondansetron HCl (Zofran) 4 mg IV Q6H PRN PRN Reason: Nausea Stop: 03/26/19 17:06 Pantoprazole Sodium (Protonix) 40 mg PO DAILY [facility] Stop: 03/27/19 08:59 Last Admin: 02/27/19 09:08 Dose: 40 mg Documented by: Phenazopyridine HCl (Pyridium) 200 mg PO TID PRN PRN Reason: Pain Stop: 03/27/19 15:58 Polyethylene Glycol (Miralax Powder Packet) 17 gm PO DAILY PRN PRN Reason: Constipation Stop: 03/26/19 17:06 Last Admin: 02/26/19 20:45 Dose: 17 gm Documented by: Vitamin B Complex (Vitamin B Complex) 1 tab PO QAM [facility] Stop: 03/27/19 08:59 Last Admin: 02/27/19 09:08 Dose: 1 tab Documented by: (1) Acute renal failure superimposed on stage 3 chronic kidney disease Acute renal failure type: with acute tubular necrosis Qualified Code(s): N17.0 - Acute kidney failure with tubular necrosis; N18.3 - Chronic kidney disease, stage 3 (moderate) (2) Hypertension Hypertension type: unspecified Qualified Code(s): I10 - Essential (primary) hypertension (3) Depression Depression Type: unspecified Qualified Code(s): F32.9 - Major depressive disorder, single episode, unspecified (4) GERD (gastroesophageal reflux disease) Esophagitis presence: esophagitis presence not specified Qualified Code(s): K21.9 - Gastro-esophageal reflux disease without esophagitis
[2019-02-28 06:53] LABS: BUN Creatinine Ratio 16.7 (10-20); Calcium 9.4 mg/dl (8.5-10.1); Creatinine Clr Calc Pharmacy 36.6 ml/min; Est GFR (African American) 44.4; Est GFR (Non-African American) 38.3; Magnesium 2.3 mg/dl (1.8-2.4); Potassium 4.1 mmol/L (3.5-5.1)
[2019-02-28] MEDS: AMLODIPINE BESYLATE 5 MG TAB PO SCH ×2 (09:03→20:22)
[2019-02-28] MEDS: LORATADINE 10 MG TAB PO SCH (09:03)
[2019-02-28] MEDS: PANTOprazole 40 MG TAB PO SCH (09:03)
[2019-02-28] MEDS: ESCITALOPRAM OXALATE 10 MG TAB PO SCH (09:03)
[2019-02-28] MEDS: VITAMIN B COMPLEX TAB PO SCH (09:04)
[2019-02-28] MEDS: ASPIRIN 81 MG ECTAB PO SCH (09:04)
[2019-02-28] MEDS: CARBIDOPA/LEVODOPA 25/100MG TAB PO SCH ×3 (09:04→20:21)
--- NOTE | 2019-02-28 10:15 | Nephrology Progress Note ---
Date of Service February 28, 2019 Assessment & Plan (1) Acute renal failure superimposed on stage 3 chronic kidney disease: Patient with acute kidney injury on CKD. Baseline creatinine of 1.2. Creatinine down to 1.69 from 2.1 yesterday. Etiology of his acute kidney injury is likely obstructive uropathy. Patient is status post lithotripsy. Differential diagnosis includes AIN given leukocytosis on urinalysis. Continue to monitor renal function with daily BMP. Given downtrending creatinine, patient can be discharged to follow-up with nephrology in 2 weeks. He will need repeat BMP towards the end of the week and this can be sent to me. I have also asked him to do a uro-risk profile which will be arranged through my clinic. (2) Hypertension: His blood pressure is slightly above target but acceptable. He has bradycardia. hold metoprolol. Resume losartan 50 mg daily. (3) Nephrolithiasis: Patient with nephrolithiasis and recent obstructive stone. We discussed the general recommendations including increased water intake, aiming for at least 80 ounces daily and limiting salt intake. He will need additional work-up including the low risk profile as an outpatient. Will follow up on the stone analysis Subjective Patient seen in follow-up for acute kidney injury. He feels better today denies any shortness of breath. He is complaining of urinary frequency. No dysuria or hematuria. No flank pain. was at the bedside Review of Systems Review of Systems: All systems reviewed & are unremarkable except as noted in HPI & below Physical Exam Physical Exam: General exam: Appears comfortable, no acute distress HEENT: Pupils are equal and reactive to light Neck: No JVD, neck is supple trachea is midline Respiratory system: Clear breath sounds bilaterally. Gastrointestinal: Abdomen is soft, non distended, non tender, bowel sounds are present CVS: Regular rate and rhythm. No murmurs, rubs or gallops Musculoskeletal: No joint or muscle tenderness Extremities: Non tender, no edema, peripheral pulses are present Neuro: Oriented, no tremors, no focal neurological deficits Skin: No rashes Results & Data Vital Signs (Past 12 Hours) Vital Signs Temp Pulse Pulse Resp BP BP Pulse Ox 02/28/19 07:48 36.3 C L 56 L 16 176/88 H 95 02/27/19 23:44 36.6 C 118 H 21 148/76 H 93 Laboratory Results Laboratory Results - last 24 hr 02/27/19 02/27/19 02/27/19 09:52 09:52 Unknown Sodium 140 Potassium 4.1 Chloride 106 Carbon Dioxide 28 Anion Gap 6.0 BUN 32 H Creatinine 1.89 H Est Cr Clr Drug Dosing 32.7 Est GFR ( Amer) 38.8 Est GFR (Non-Af Amer) 33.5 BUN/Creatinine Ratio 17.0 Glucose 81 Calcium 9.2 Magnesium 2.2 Urine Color Yellow Urine Appearance Clear Urine pH 6.5 Ur Specific [place] 1.012 Urine Protein Negative Urine Glucose (UA) Negative Urine Ketones Negative Urine Blood Negative Urine Nitrite Negative Urine Bilirubin Negative Urine Urobilinogen Negative Ur Leukocyte Esterase Negative 02/28/19 06:02 Sodium 140 Potassium 4.1 Chloride 105 Carbon Dioxide 30 Anion Gap 5.0 BUN 28 H Creatinine 1.69 H Est Cr Clr Drug Dosing 36.6 Est GFR ( Amer) 44.4 Est GFR (Non-Af Amer) 38.3 BUN/Creatinine Ratio 16.7 Glucose 87 Calcium 9.4 Magnesium 2.3 Urine Color Urine Appearance Urine pH Ur Specific [place] Urine Protein Urine Glucose (UA) Urine Ketones Urine Blood Urine Nitrite Urine Bilirubin Urine Urobilinogen Ur Leukocyte Esterase (1) Acute renal failure superimposed on stage 3 chronic kidney disease Acute renal failure type: with acute tubular necrosis Qualified Code(s): N17.0 - Acute kidney failure with tubular necrosis; N18.3 - Chronic kidney disease, stage 3 (moderate) (2) Hypertension Hypertension type: unspecified Qualified Code(s): I10 - Essential (primary) hypertension
[2019-02-28] MEDS ORDERED: BISACODYL 10 MG SUPP PR STA (10:21)
--- NOTE | 2019-02-28 11:43 | Hospitalist Progress Note ---
Date of Service February 28, 2019 Assessment & Plan (1) Acute renal failure superimposed on stage 3 chronic kidney disease: Baseline cr 1.2-1.4 Presented with STEPHEN due to obstructed ureteric stone , poor PO intake Creatinine worsened following stone extraction Continue to have IV hydration and increase oral intake Lisinopril is on hold and no NSAID use and/or nephrotoxins Nephrology consult appreciated Kidney function has improved a lot Creatinine is 1.6 today Advised to drink more fluid at home Will be discharged this afternoon (2) Ureterolithiasis: S/P uretersrocopy , stone extraction by Urology Clinically a lot better Denies any symptoms Will need appointment as an outpatient for follow-up with urologist (3) Renal colic: Presented with right sided flank pain CT abd/Pelvis: Mild right-sided hydroureteronephrosis secondary to an obstructing 4 x 3 x 4 mm calculus of the mid right ureter at the level of the inferior endplate L5. KUB today reveleaded: 1. Bilateral nephrolithiasis.2. The patient's known mid right ureteral stone is not identified on this examination.3. Calcifications in the deep pelvis likely represent phlebolith. Hemodynamically patient is stable and afebrile. Normal pelvic pain following extraction of the stone Denies any more pain involving the right flank area or kidney (4) LBBB (left bundle branch block): Evidence of angina discomfort Chronic findings (5) Hypertension: BP stable Losartan on hold for STEPHEN Blood pressure remains minimally elevated Has been on amlodipine 5 mg twice daily Blood pressure needs to be checked as an outpatient and may need additional medications to control his (6) Heart disease: No complaints of chest pain or shortness of breath Continue metoprolol, amlodipine Aspirin resumed hold ARB for Stephen (7) Parkinson disease: Continue Sinemet Minimal rest tremor at rest (8) Depression: Continue esitalopram (9) GERD (gastroesophageal reflux disease): Continue PPI (10) DVT prophylaxis: SCDS Disposition:discharge home when renal function improves Follow up: PCP Dr. Landry will benefit with follow up with Nephrology on discharge Subjective 02/27 The patient was seen and examined in medical floor This is a 78 yr old M who has a significant PMH of HTN, HLD, CAD, CKD-3, Gerd, Depression, history of prostate cancer s/p cryoablation therapy who presents to [facility] ED secondary to right flank pain x1 week He was noted to have right-sided hydro-utero nephrosis secondary to an obstructing mid right ureteral calculus of 4 x 3 x 40 mm He has been feeling a lot better today Denies any acute symptoms / The patient was seen and examined in the medical floor He has been feeling a lot better Denies any symptoms and is ready to go home to Review of Systems Review of Systems: All systems reviewed and are unremarkable except as noted below Constitutional: + weakness Physical Exam Physical Exam: No apparent distress at rest and sitting on a chair without any acute distress Constitutional: well developed ENMT: Mouth: + small oral opening; no TMJ abnormality Mallampati Class: III Neck: normal visual inspection; neck extension not limited Respiratory: normal respiratory effort Auscultation: lungs clear to auscultation bilaterally Cardiovascular: Rate/Rhythm: regular rate and regular rhythm Heart Sounds: no murmur Gastrointestinal (Abdomen): Percussion/Palpation: abdomen nontender Neurologic: moves all extremities Motor/Sensory: no sensory deficit Psychiatric: Orientation: alert and oriented x 3 Lymphatic: no cervical or axillary lymphadenopathy Results & Data Vital Signs (Past 12 Hours) Vital Signs Temp Pulse Pulse Resp BP BP Pulse Ox 02/28/19 07:48 36.3 C L 56 L 16 176/88 H 95 02/27/19 23:44 36.6 C 118 H 21 148/76 H 93 Laboratory Results [facility] 02/28/19 06:02 Sodium 140 Potassium 4.1 Chloride 105 Carbon Dioxide 30 BUN 28 H Creatinine 1.69 H Glucose 87 Calcium 9.4 Medications Administered Current Inpatient Medications Acetaminophen (Tylenol) 650 mg PO Q4H PRN PRN Reason: pain/fever Stop: 03/26/19 17:06 Al Hydrox/Mg Hydrox/Simethicone (Maalox) 30 ml PO Q6H PRN PRN Reason: Dyspepsia Stop: 03/26/19 17:06 Amlodipine Besylate (Norvasc) 5 mg PO BID [facility] Stop: 03/27/19 20:59 Last Admin: 02/28/19 09:03 Dose: 5 mg Documented by: Aspirin (Ecotrin Ectab) 81 mg PO DAILY [facility] Stop: 03/28/19 08:59 Last Admin: 02/28/19 09:04 Dose: 81 mg Documented by: Carbidopa/Levodopa (Sinemet 25/100 Mg) 1 tab PO TID [facility] Stop: 03/26/19 20:59 Last Admin: 02/28/19 09:04 Dose: 1 tab Documented by: Escitalopram Oxalate (Lexapro) 10 mg PO QAM [facility] Stop: 03/27/19 08:59 Last Admin: 02/28/19 09:03 Dose: 10 mg Documented by: Loratadine (Claritin) 10 mg PO DAILY [facility] Stop: 03/28/19 08:59 Last Admin: 02/28/19 09:03 Dose: 10 mg Documented by: Losartan Potassium (Cozaar) 50 mg PO DAILY [facility] Stop: 03/26/19 18:59 Last Admin: 02/25/19 09:18 Dose: 50 mg Documented by: Magnesium Hydroxide (Milk Of Magnesia) 30 ml PO Q6H PRN PRN Reason: Constipation Stop: 03/26/19 17:06 Last Admin: 02/27/19 10:01 Dose: 30 ml Documented by: Metoprolol Succinate (Toprol Xl) 12.5 mg PO [facility] Stop: 03/28/19 08:59 Last Admin: 02/26/19 09:54 Dose: 12.5 mg Documented by: Ondansetron HCl (Zofran) 4 mg IV Q6H PRN PRN Reason: Nausea Stop: 03/26/19 17:06 Pantoprazole Sodium (Protonix) 40 mg PO DAILY [facility] Stop: 03/27/19 08:59 Last Admin: 02/28/19 09:03 Dose: 40 mg Documented by: Phenazopyridine HCl (Pyridium) 200 mg PO TID PRN PRN Reason: Pain Stop: 03/27/19 15:58 Polyethylene Glycol (Miralax Powder Packet) 17 gm PO DAILY PRN PRN Reason: Constipation Stop: 03/26/19 17:06 Last Admin: 02/26/19 20:45 Dose: 17 gm Documented by: Vitamin B Complex (Vitamin B Complex) 1 tab PO [facility] Stop: 03/27/19 08:59 Last Admin: 02/28/19 09:04 Dose: 1 tab Documented by: (1) Acute renal failure superimposed on stage 3 chronic kidney disease Acute renal failure type: with acute tubular necrosis Qualified Code(s): N17.0 - Acute kidney failure with tubular necrosis; N18.3 - Chronic kidney disease, stage 3 (moderate) (2) Hypertension Hypertension type: unspecified Qualified Code(s): I10 - Essential (primary) hypertension (3) Depression Depression Type: unspecified Qualified Code(s): F32.9 - Major depressive disorder, single episode, unspecified (4) GERD (gastroesophageal reflux disease) Esophagitis presence: esophagitis presence not specified Qualified Code(s): K21.9 - Gastro-esophageal reflux disease without esophagitis
[2019-02-28] MEDS ORDERED: SOD PHOSPHATE/SOD BIPHOSPHATE ENEMA 132 ML BTL PR ONE (12:30)
[2019-02-28] MEDS ORDERED: HYDROmorphone INJ 0.5 MG/0.5 ML SYR IV STA (14:59)
--- NOTE | 2019-02-28 15:08 | CT Scan Report ---
CT OF THE ABDOMEN AND PELVIS WITHOUT CONTRAST CLINICAL HISTORY: Right flank pain. Recent lithotripsy. Evaluate for nephrolithiasis. COMPARISON STUDY: CT of the abdomen and pelvis February 17, 2019. KUB February 24, 2019. TECHNIQUE: Axial images of the abdomen and pelvis were obtained without IV contrast. Images were revi ewed in the axial, sagittal, and coronal planes. Automated exposure control was utilized for the hossein dy. A dose lowering technique was utilized adhering to the principles of ALARA. FINDINGS: Lung bases are unremarkable. No pneumatosis, free air or portal venous gas is present. Mild right hydroureteronephrosis is present. No ureteral calculi are identified. There is mild right tony nephric and periureteral infiltration. No bladder calculi are present. There is trace gas within the right collecting system, likely from recent procedure. Multiple bilateral renal calculi measure up to 4 mm. Evaluation of the remainder of the abdomen and pelvis is suboptimal on this unenhanced exam. T he liver, spleen, adrenal glands and pancreas are unremarkable. There is no biliary ductal dilatation status post cholecystectomy. A 9 mm hypodense lesion arising from the upper pole of the left kidney is indeterminate but may reflect a proteinaceous/hemorrhagic cyst. No evidence for a bowel obstructio n. There are no suspicious osseous lesions. This colonic diverticulosis without evidence for acute di verticulitis. IMPRESSION: 1. Mild right hydroureteronephrosis. No ureteral calculi/fragments identified. Mild right perinephric and periureteral infiltration. 2. Bilateral nephrolithiasis. Electronically signed by: Ankur Vaughn M.D. 02/28/2019 3:07 PM
[2019-02-28] MEDS ORDERED: OXYCODONE/ACETAMINOPHEN 5mg/325mg TAB PO STA (16:57)
[2019-02-28] MEDS ORDERED: OXYCODONE/ACETAMINOPHEN 5mg/325mg TAB ONE (17:05)
[2019-02-28] MEDS ORDERED: OXYCODONE/ACETAMINOPHEN 5mg/325mg TAB PO PRN (17:41)
--- NOTE | 2019-03-01 08:48 | Hospitalist Progress Note ---
Date of Service March 01, 2019 Assessment & Plan (1) Acute renal failure superimposed on stage 3 chronic kidney disease: Baseline cr 1.2-1.4 Presented with STEPHEN due to obstructed ureteric stone , poor PO intake Creatinine worsened following stone extraction Continue to have IV hydration and increase oral intake Lisinopril is on hold and no NSAID use and/or nephrotoxins Nephrology consult appreciated Kidney function has improved a lot Creatinine is 1.6 today Complaint to have some pain in the right renal angle in the afternoon Repeat CAT scan of the abdomen and pelvis did show bilateral nephrolithiasis but no obstructing stone His pain was controlled with a 1 dose of Percocet and since last night he did not complain any more pain He will be discharged today He is advised to drink plenty of water and keep up appointment with his doctors (2) Ureterolithiasis: S/P uretersrocopy , stone extraction by Urology Clinically a lot better Denies any symptoms Will need appointment as an outpatient for follow-up with urologist (3) Renal colic: Presented with right sided flank pain CT abd/Pelvis: Mild right-sided hydroureteronephrosis secondary to an obstructing 4 x 3 x 4 mm calculus of the mid right ureter at the level of the inferior endplate L5. KUB today reveleaded: 1. Bilateral nephrolithiasis.2. The patient's known mid right ureteral stone is not identified on this examination.3. Calcifications in the deep pelvis likely represent phlebolith. Hemodynamically patient is stable and afebrile. Normal pelvic pain following extraction of the stone Denies any more pain involving the right flank area or kidney Explained that the might have pain in the renal angles occasionally and the pain could be worse if the stone obstructs the outflow tract of the kidney and ureteric system (4) LBBB (left bundle branch block): Evidence of angina discomfort Chronic findings (5) Hypertension: BP stable Losartan on hold for STEPHEN Blood pressure remains minimally elevated Has been on amlodipine 5 mg twice daily Blood pressure needs to be checked as an outpatient and may need additional medications to control his high blood pressure (6) Heart disease: No complaints of chest pain or shortness of breath Continue metoprolol, amlodipine Aspirin resumed hold ARB for Stephen (7) Parkinson disease: Continue Sinemet Minimal rest tremor at rest (8) Depression: Continue esitalopram (9) GERD (gastroesophageal reflux disease): Continue PPI (10) DVT prophylaxis: SCDS Disposition:discharge home when renal function improves Follow up: PCP Dr. Landry will benefit with follow up with Nephrology on discharge Subjective 02/27 This is a 78 yr old M who has a significant PMH of HTN, HLD, CAD, CKD-3, Gerd, Depression, history of prostate cancer s/p cryoablation therapy who presents to [facility] ED secondary to right flank pain x1 week He was noted to have right-sided hydro-utero nephrosis secondary to an obstructing mid right ureteral calculus of 4 x 3 x 40 mm He has been feeling a lot better today Denies any acute symptoms 02/28 The patient was seen and examined in the medical floor He has been feeling a lot better Denies any symptoms and is ready to go home to 03/01 The patient was seen and examined in medical floor in presence of the He denies any more pain or any other symptoms He does not want to take any narcotics for pain control The wants to be discharged Review of Systems Review of Systems: All systems reviewed and are unremarkable except as noted below Constitutional: + weakness Physical Exam Physical Exam: No apparent distress at rest and sitting on a chair outside bed Constitutional: well developed ENMT: Mouth: + small oral opening; no TMJ abnormality Mallampati Class: III Neck: normal visual inspection; neck extension not limited Respiratory: normal respiratory effort Auscultation: lungs clear to auscultation bilaterally Cardiovascular: Rate/Rhythm: regular rate and regular rhythm Heart Sounds: no murmur Gastrointestinal (Abdomen): Percussion/Palpation: abdomen nontender No tenderness in renal angles Neurologic: moves all extremities Motor/Sensory: no sensory deficit Psychiatric: Orientation: alert and oriented x 3 Lymphatic: no cervical or axillary lymphadenopathy Results & Data Vital Signs (Past 12 Hours) Vital Signs Temp Pulse Pulse Pulse Pulse Resp BP 03/01/19 08:34 36.6 C 56 L 95 H 118 H 62 16 150/75 H 03/01/19 07:23 95 H 16 150/75 H 02/28/19 23:24 36.6 C 62 20 BP Pulse Ox 03/01/19 08:34 132/83 92 03/01/19 07:23 92 02/28/19 23:24 132/83 93 (1) Depression Depression Type: unspecified Qualified Code(s): F32.9 - Major depressive disorder, single episode, unspecified (2) Acute renal failure superimposed on stage 3 chronic kidney disease Acute renal failure type: with acute tubular necrosis Qualified Code(s): N17.0 - Acute kidney failure with tubular necrosis; N18.3 - Chronic kidney disease, stage 3 (moderate) (3) GERD (gastroesophageal reflux disease) Esophagitis presence: esophagitis presence not specified Qualified Code(s): K21.9 - Gastro-esophageal reflux disease without esophagitis (4) Hypertension Hypertension type: unspecified Qualified Code(s): I10 - Essential (primary) hypertension
[2019-03-01] MEDS: ASPIRIN 81 MG ECTAB PO SCH (08:49)
[2019-03-01] MEDS: LOSARTAN POTASSIUM 50 MG TAB PO SCH (08:49)
[2019-03-01] MEDS: CARBIDOPA/LEVODOPA 25/100MG TAB PO SCH (08:49)
[2019-03-01] MEDS: LORATADINE 10 MG TAB PO SCH (08:49)
[2019-03-01] MEDS: AMLODIPINE BESYLATE 5 MG TAB PO SCH (08:50)
[2019-03-01] MEDS: VITAMIN B COMPLEX TAB PO SCH (08:50)
[2019-03-01] MEDS: ESCITALOPRAM OXALATE 10 MG TAB PO SCH (08:50)
[2019-03-01] MEDS: PANTOprazole 40 MG TAB PO SCH (08:50)
--- NOTE | 2019-03-02 11:54 | Discharge Summary ---
Date of Service March 02, 2019 Admission HPI Per Admitting Provider This is a 78 yr old M who has a significant PMH of HTN, HLD, CAD, CKD-3, Gerd, Depression, history of prostate cancer s/p cryoablation therapy who presents to [facility] ED secondary to right flank pain x1 week. Patient initially presented to ED 02/17 secondary to acute right flank pain. CT scan of abdomen pelvis revealed mild right-sided hydroureteronephrosis secondary to an obstructing 4 x 3 x 4mm calculus of mid right ureter at level of inferior endplate L5. Given size of stone was felt would likely pass and he felt suitable for outpatient treatment. He was prescribed Flomax and narcotics. He presents back today with continued R flank pain and unable to manage pain at home. Pain localized to right flank, nonradiating, constant but waxes and wanes in severity, improves with movement, nothing makes worse. He denies f/c/s, dizziness, lightheaded, chest pain, sob, n/v/d, abdominal pain, dysuria, hematuria, increased urg/freq with urination. Family at bedside. Admission Exam Per Admitting Provider Physical Exam: Gen: WD/WN, elderly, male, NAD, sitting up in bed, pleasant, conversing easily, parkinsonian affect Head: Normocephalic, Atraumatic Eyes: Sclera normal, no conjunctival injection, PERRLA, EOMI ENT: Gross hearing intact, normal pharynx, mucous membranes moist Neck: supple, no adenopathy, No JVD, no bruit, Resp: Clear to auscultation b/l, no wheeze, rales, rhonchi. 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 Extremities: No edema bilaterally Skin: warm, dry, no rash, negative turgor, cap refill < 2sec Neuro: Alert and oriented x 3, speech normal, good mood/affect, cran nerve 2-12 intact grossly, + pill rolling tremor b/l : deferred Principal Diagnosis ACUTE RENAL FAILURE /OBSTRUCTED RT KIDNEY STONE Discharge Exam Constitutional well developed ENMT Mouth: + small oral opening; no TMJ abnormality Mallampati Class: III Neck normal visual inspection; neck extension not limited Respiratory normal respiratory effort Auscultation: lungs clear to auscultation bilaterally Cardiovascular Rate/Rhythm: regular rate and regular rhythm Heart Sounds: no murmur Gastrointestinal (Abdomen) Percussion/Palpation: abdomen nontender Neurologic moves all extremities Motor/Sensory: no sensory deficit Psychiatric Orientation: alert and oriented x 3 Lymphatic no cervical or axillary lymphadenopathy Discharge Data Allergies Allergy/AdvReac Type Severity Reaction Status Date / Time No Known Allergies Allergy Verified 03/01/19 17:29 Consultations 02/24/19 14:55 ED Decision to Admit Stat 02/24/19 17:07 Consult Urology Routine 02/26/19 12:07 Consult Nephrology Routine Procedures Performed Operation Date: 02/25/19 07:00 Actual Procedures p Cystoscopy, Right Ureteroscopy, Laser Lithotripsy, Basket Stone Extraction(Right) - Simran Seth MD Ordered Studies 02/25/19 FL KUB Routine 02/25/19 14:26 FL fluoroscopy <1hr Routine 02/28/19 14:33 CT abd pelvis wo con Routine Hospital Course (1) Acute renal failure superimposed on stage 3 chronic kidney disease: Baseline cr 1.2-1.4 Presented with STEPHEN due to obstructed ureteric stone , poor PO intake Creatinine worsened following stone extraction Continue to have IV hydration and increase oral intake Lisinopril is on hold and no NSAID use and/or nephrotoxins Nephrology consult appreciated Kidney function has improved a lot Creatinine is 1.6 today Complaint to have some pain in the right renal angle in the afternoon Repeat CAT scan of the abdomen and pelvis did show bilateral nephrolithiasis but no obstructing stone His pain was controlled with a 1 dose of Percocet and since last night he did not complain any more pain He will be discharged today He is advised to drink plenty of water and keep up appointment with his doctors (2) Ureterolithiasis: S/P uretersrocopy , stone extraction by Urology Clinically a lot better Denies any symptoms Will need appointment as an outpatient for follow-up with urologist (3) Renal colic: Presented with right sided flank pain CT abd/Pelvis: Mild right-sided hydroureteronephrosis secondary to an obstructing 4 x 3 x 4 mm calculus of the mid right ureter at the level of the inferior endplate L5. KUB today reveleaded: 1. Bilateral nephrolithiasis.2. The patient's known mid right ureteral stone is not identified on this examination.3. Calcifications in the deep pelvis likely represent phlebolith. Hemodynamically patient is stable and afebrile. Normal pelvic pain following extraction of the stone Denies any more pain involving the right flank area or kidney Explained that the might have pain in the renal angles occasionally and the pain could be worse if the stone obstructs the outflow tract of the kidney and ureteric system (4) LBBB (left bundle branch block): Evidence of angina discomfort Chronic findings (5) Hypertension: BP stable Losartan on hold for STEPHEN Blood pressure remains minimally elevated Has been on amlodipine 5 mg twice daily Blood pressure needs to be checked as an outpatient and may need additional medications to control his high blood pressure (6) Heart disease: No complaints of chest pain or shortness of breath Continue metoprolol, amlodipine Aspirin resumed hold ARB for Stephen (7) Parkinson disease: Continue Sinemet Minimal rest tremor at rest (8) Depression: Continue esitalopram (9) GERD (gastroesophageal reflux disease): Continue PPI (10) DVT prophylaxis: SCDS Disposition:discharge home when renal function improves Follow up: PCP Dr. Landry will benefit with follow up with Nephrology on discharge Total Time Total Time Spent Total Time Spent (In Minutes): 35 minutes Total Time Includes: Examination of the Patient, Discharge Planning, Medication Reconciliation and Communication With Other Providers Discharge Plan Discharge Items Patient Disposition: Home - Self-Care Reason For Visit: OBSTRUCTING RT KIDNEY STONE Discharge Diagnosis: ACUTE RENAL FAILURE /OBSTRUCTED RT KIDNEY STONE Condition: Good Discharge Goals: Decrease discomfort, Diagnostic testing and Therapeutic intervention Activity: Resume your previous activity Non-emergency contact: Primary Care Provider Call non-emergency contact if: you have any medication questions Follow-up/Referrals: Vishal Landry DO [Primary Care Provider] - 03/04/19 10:55 am Diet: Heart Healthy Addtl Provider Instructions: DO NOT TAKE LOSART[place] TILL NEXT HOSPITAL FOLLOW UP /LAB DRAW -YOU RENAL FUNCTION NEEDS TO RETURN BACK TO BASELINE DO NOT TAKE MOTRIN, ALEVE, ADVIL , IBUPROPHEN , NAPROXEN -AVOID NSAID ( OVER THE COUNTER FOR PAIN ) WILL CAUSE WORSENING OF RENAL FUNCTION WILL NEED OUT PATIENT NEPHROLOGY FOLLOW UP WILL NEED FOLLOW UP WITH UROLOGY DR SETH IN 2 TO 3 WEEKS Prescriptions: Continued losartan 50 mg tablet 50 mg PO DAILY RF: 0 escitalopram oxalate 10 mg tablet 10 mg PO QAM RF: 0 carbidopa-levodopa 25-100 mg tablet 1 tab PO TID RF: 0 loratadine 10 mg Tablet 10 mg PO DAILY RF: 0 omeprazole 20 mg capsule,delayed release(DR/EC) 20 mg PO DAILY RF: 0 vitamin B complex Tablet 1 tab PO QAM RF: 0 aspirin 81 mg Tablet,Delayed Release (Dr/Ec) 81 mg PO DAILY RF: 0 amlodipine 5 mg tablet 5 mg PO BID RF: 0 metoprolol succinate 25 mg tablet extended release 24 hr 12.5 mg PO DAILY RF: 0 Stand-Alone Forms: [facility] Discharge Orders: Discharge Order (Routine); Ordered 02/28/19 Ordered By: Crystal Boucher Admission Data Admit Date/Time: 02/24/19 15:29 Attending Provider: Crystal Bocuher Admit Provider: Crystal Boucher Primary Care Provider: Vishal Landry Other Providers: Crystal Boucher ; Simran Seth ; Nicole Foreman ; Jaime Eubanks ; Brooks Priest I ; Giselle Zaman ; Ivis Rosado ; Teofilo Baig ; Linda Contreras Service: Surgical Services Other Interventions: Discharge Summary Assessment (RN) Last Done: 03/01/19 08:34 DC Date/Time DO NOT enter until pt leaves facility: 03/01/19 09:45
[2019-03-04 07:56] LABS: Component 2 DNR; Source Right Renal Ureteral
== END 2019-03-01 09:45 | disposition home or self-care (01) | DRG 659 ==
LOC: ED 12:32 → 3N 15:29 → SUATTDRO 15:29 → 3N 16:23

== ENCOUNTER 2019-03-01 17:07 | Inpatient (IN) ==
[2019-03-01] MEDS ORDERED: ALTEPLASE For Stroke IV STA ×2 (17:10→17:27)
[2019-03-01] MEDS ORDERED: SODIUM CHLORIDE 0.9% 1000ML 1,000 ML IV SCH (17:15)
[2019-03-01] MEDS ORDERED: ALTEPLASE IV ONE ×2 (17:20→17:37)
[2019-03-01] MEDS ORDERED: RECOMBINANT IV ONE ×2 (17:20→17:37)
[2019-03-01] MEDS ORDERED: ALTEPLASE, RECOMBINANT 64 MG in EMPTY BAG 0 ML IV ONE ×2 (17:21→17:38)
[2019-03-01] MEDS ORDERED: OPTIRAY 320 125ml IV PRN (17:23)
--- NOTE | 2019-03-01 17:24 | CT Scan Report ---
CT OF THE HEAD WITHOUT CONTRAST CLINICAL HISTORY: Stroke evaluation. Right-sided weakness. COMPARISON STUDY: No previous studies for comparison. TECHNIQUE: Helical axial images of the head were obtained without IV contrast. Automated exposure con trol was utilized for the study. A dose lowering technique was utilized adhering to the principles o f ALARA. FINDINGS: No acute intracranial hemorrhage, midline shift or mass effect is present. Mild ventricular dilatation is due to atrophy. There are no extra-axial collections. The basilar cisterns are patent. Mild white matter hypodensity suggests small vessel disease. There are no findings to suggest acute dural sinus thrombosis or acute territorial infarct. There are no significant calvarial abnormalities . IMPRESSION: No acute intracranial findings. Electronically signed by: Ankur Vaughn M.D. 03/01/2019 5:23 PM
--- NOTE | 2019-03-01 17:31 | CT Scan Report ---
CTA ANGIOGRAPHY OF THE HEAD CLINICAL HISTORY: Right-sided weakness. Possible stroke. COMPARISON STUDY: No previous studies for comparison. TECHNIQUE: Helical axial images of the head were obtained following uneventful intravenous administr ation of 115 cc of Optiray 320. Automated exposure control was utilized for the study. A dose lower ing technique was utilized adhering to the principles of ALARA. CT DOSE: 1123.77 mGy.cm FINDINGS: Please note that the CTA of the neck will be reported separately. No acute intracranial hem orrhage, midline shift or mass effect is present. Brain volume is normal for age. Ventricular system is unremarkable. The basilar cisterns are patent. There are no extra-axial collections. The bilateral M1, M2, A1 and A2 segments are patent. There is no abrupt vessel cut off or intracranial changes. Th ere is an anterior communicating artery. There is a large left posterior communicating artery. The ri ght vertebral artery is hypoplastic. The left vertebral artery is dominant. The bilateral posterior c erebral arteries are intact. IMPRESSION: 1. No abrupt vessel cut off or intracranial aneurysm. 2. 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 Dominan t, patent left vertebral artery. Electronically signed by: Ankur Vaughn M.D. 03/01/2019 5:30 PM
--- NOTE | 2019-03-01 17:33 | CT Scan Report ---
CT ANGIOGRAPHY OF THE NECK WITH CONTRAST CLINICAL HISTORY: Right-sided weakness. COMPARISON STUDY: No previous studies for comparison. Technique: CT angiography of the carotid and vertebral arteries was obtained using [employer] Digital 320 IV and 3D reconstruction on an independent workstation. NASCET criteria was utilized. Automated exposure c ontrol was utilized for the study. A dose lowering technique was utilized adhering to the principles of ALARA. Findings: Lung apices are clear. There is no cervical lymphadenopathy. No cervical spine fracture is present. There is mild atherosclerotic plaque within the proximal bilateral internal carotid arteries with no stenosis. These vessels are patent. The bilateral common carotid arteries are also patent. T he left vertebral artery is dominant and patent. The right vertebral artery is patent but somewhat di minutive. There is no dissection within the major vessels of the neck. There is no aneurysm within th e neck. IMPRESSION: 1. No stenosis or dissection within the major vessels of the neck. 2. Mild atherosclerotic plaque. Electronically signed by: Ankur Vaughn M.D. 03/01/2019 5:32 PM
[2019-03-01] MEDS ORDERED: CLOPIDOGREL BISULFATE 75 MG TAB PO ONE (17:45)
--- NOTE | 2019-03-01 17:51 | Emergency Department Note ---
Entered by Julia Cruz acting as a scribe for Erwin Delacruz DO History of Present Illness General Chief complaint: Stroke Alert Stated complaint: STROKE ALERT Time Seen by Provider: 03/01/19 17:07 Source: family History of Present Illness Provider complaint: stroke symptoms Onset (ago): minute(s) (1615 today) Location: head, left and right Pain Consistency: + constant Quality: + other (stroke symptoms) Associated symptoms: no chest pain and no headaches The patient is a 78 year old male who presents to the Emergency Department with complaints of stroke symptoms occurring today at 1615. Per , the patient was standing of the kitchen counter and seemed dizzy. Per , the patient was not making sense. Per , the patient's symptoms occurred around 1620 today. The patient's last well known time was 1615. Per , the patient did not complain of chest pain or a headache today. Per , the patient does not have a history of a stroke. His states that the patient was recently in the hospital for a kidney stone and had a stent placed. Per family, the patient has Parkinson's Disease, hypertension, and hyperlipidemia. Limited HPI secondary to stroke symptoms. Home Medications Home Medications Medication Instructions Recorded Confirmed Type escitalopram oxalate 10 mg PO QAM 02/17/19 03/01/19 History losartan 50 mg PO DAILY 02/17/19 03/01/19 History aspirin 81 mg PO DAILY 02/24/19 03/01/19 History carbidopa-levodopa 1 tab PO TID 02/24/19 03/01/19 History loratadine 10 mg PO DAILY 02/24/19 03/01/19 History omeprazole 20 mg PO DAILY 02/24/19 03/01/19 History vitamin B complex 1 tab PO QAM 02/24/19 03/01/19 History amlodipine 5 mg PO BID 02/25/19 03/01/19 History metoprolol succinate 12.5 mg PO DAILY 02/25/19 03/01/19 History Allergies Allergy/AdvReac Type Severity Reaction Status Date / Time No Known Allergies Allergy Verified 03/01/19 17:29 Past Med/Surg History Medical History Nephrolithiasis History of prostate cancer (Chronic) s/p cryoablation GERD (gastroesophageal reflux disease) (Chronic) Depression (Chronic) History of kidney stones (Chronic) Heart disease (Chronic) Hypertension (Chronic) High blood cholesterol (Chronic) Parkinson disease (Chronic) Neuropathy (Chronic) Surgical History History of rotator cuff surgery (Chronic) History of Achilles tendon repair (Chronic) History of cystoscopy (Chronic) History of lithotripsy (Chronic) History of cholecystectomy (Chronic) History of appendectomy (Chronic) Family History Father Cancer Mother Hypertension Social History Preferred Language: [place] Communication Ability: Effective 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 and A total of 10 systems reviewed and were otherwise negative Physical Exam Vital Signs Vital Signs - 24 hr 03/01/19 17:26 03/01/19 17:52 03/01/19 18:00 Sepsis Recent Fever Within 48 Hours No Sepsis Action Taken by Nursing No Action Required Pulse Rate 71 Pulse Rate [Right] 72 72 Pulse Rhythm Regular Pulse Strength Normal Respiratory Rate 21 21 22 Respiratory Effort / Characteristics Non-Labored Respiratory Depth Normal Respiratory Pattern Regular Blood Pressure 162/84 H Blood Pressure [Left Arm] 148/91 H 157/91 H Blood Pressure Mean 110 Blood Pressure Mean [Left Arm] 110 113 Blood Pressure Position Lying Pulse Oximetry 97 96 96 Oxygen Delivery Method Room Air Room Air Room Air 03/01/19 18:15 03/01/19 18:30 Sepsis Recent Fever Within 48 Hours Sepsis Action Taken by Nursing Pulse Rate Pulse Rate [Right] 64 70 Pulse Rhythm Pulse Strength Respiratory Rate 24 20 Respiratory Effort / Characteristics Non-Labored Non-Labored Respiratory Depth Normal Normal Respiratory Pattern Blood Pressure Blood Pressure [Left Arm] 167/92 H 175/100 H Blood Pressure Mean Blood Pressure Mean [Left Arm] 117 125 Blood Pressure Position Pulse Oximetry 97 97 Oxygen Delivery Method Room Air Room Air GENERAL: Patient is awake and alert. He is mildly anxious appearing. EYES: The conjunctivae are clear. The pupils are round and reactive. EARS, NOSE, MOUTH AND THROAT: The nose is without any evidence of any deformity. Mucous membranes are moist tongue is midline NECK: The neck is nontender and supple. RESPIRATORY: Normal respiratory effort is noted there is no evidence of wheezing rhonchi or rales CARDIOVASCULAR: Ectopy was noted to auscultation. There is no definite murmur noted. GASTROINTESTINAL: The abdomen is soft. Bowel sounds are present in all quadrants. Abdomen is nontender MUSCULOSKELETAL/EXTREMITIES: There is no evidence of gross deformity full range of motion is noted in the hips and shoulders SKIN: There is no obvious evidence of any rash. Trace pedal edema was noted bilaterally. NEUROLOGIC: Patient is alert and oriented to person place and situation. Speech is somewhat pressured. His words are understandable but some are inappropriate at times. There is a slight facial drooping involving the right corner of the mouth. Forehead is spared. Business Intelligence Analyst strength is symmetric. Patient is noted to have significant difficulty ambulating when transferring from the stretcher to the CAT scan bed. He falls to the right significantly. Course 1719: The patient was evaluated in room C7. A history and physical were performed. 1722: I discussed the patient's case with Dr. Moore Neurology who will evaluate the patient via TeleStroke. 1725: I had a discussion with the patient's family regarding TPA. They stated that they wanted to wait for the neuro evaluation and want us to talk to the discharging doctor. 1739: The patient appears to have had improvement of his symptoms. 1806: I discussed the patient's case with Sangita Weinberg, admitting to Dr. Ferrara, who will evaluate the patient for further management. Consultations Consultation #1: Dr. Moore Neurology Time: 17:22 Consultation #2: Sangita Weinberg Time: 18:06 Administered Medications Heparin Sodium (Porcine) (Heparin Sodium (Porcine)) 5,000 units SQ Q12 FARIDA Stop: 04/01/19 08:59 Last Admin: 03/02/19 09:22 Dose: 5,000 units Documented by: [id number] Cosigned by: [id number] Discontinued Medications Alteplase, Recombinant (Activase For Stroke) 1 ea IV NOW STA; Protocol Stop: 03/01/19 17:28 Last Admin: 03/01/19 20:51 Dose: Not Given Documented by: [id number] Clopidogrel Bisulfate (Plavix) 75 mg PO NOW ONE Stop: 03/01/19 17:46 Last Admin: 03/01/19 18:25 Dose: 75 mg Documented by: [id number] Sodium Chloride (Nss 1000ml) 1,000 mls @ 50 mls/hr IV .Q20H [facility] Stop: 03/31/19 17:14 Last Infusion: 03/01/19 20:35 Dose: 0 mls/hr Documented by: [id number] Admin: 03/01/19 17:53 Dose: 50 mls/hr Documented by: [id number] Alteplase, Recombinant 7.2 mg/ (Syringe) 7.2 mls @ 7.2 mls/min IV NOW ONE Stop: 03/01/19 17:38 Last Admin: 03/01/19 20:50 Dose: Not Given Documented by: [id number] Alteplase, Recombinant 64 mg/ (EMPTY BAG) 64 mls @ 64 mls/hr IV NOW ONE Stop: 03/01/19 17:39 Last Admin: 03/01/19 20:50 Dose: Not Given Documented by: [id number] Dextrose/Sodium Chloride (D5w And 1/2nss) 1,000 mls @ 80 mls/hr IV .[id number] [facility] Stop: 03/02/19 21:41 Last Admin: 03/02/19 09:39 Dose: 80 mls/hr Documented by: [id number] Infusion: 03/02/19 09:38 Dose: 0 mls/hr Documented by: [id number] Infusion: 03/01/19 21:56 Dose: 80 mls/hr Documented by: [id number] Infusion: 03/01/19 21:00 Dose: 0 mls/hr Documented by: [id number] Admin: 03/01/19 20:59 Dose: 80 mls/hr Documented by: [id number] Ioversol (Optiray 320 125ml) 115 ml IV ONCE PRN PRN Reason: Interaction Checking Stop: 03/05/19 17:22 Last Admin: 03/01/19 17:23 Dose: 115 ml Documented by: [id number] Medical Decision Making Differential Diagnosis Differential includes acute coronary syndrome, myocardial infarction, CVA, TIA, anemia, infection, pneumonia, UTI, pyelonephritis, poor nutrition, dehydration, electrolyte disturbance,hypoglycemia. Medical Records Attestation: I reviewed the patient's medical records. Home Medications Current Medication List: was personally reviewed by me Laboratory Data Attestation: I reviewed the patient's lab results. Result diagrams: 03/02/19 06:39 03/02/19 06:39 Lab Results 03/01/19 03/01/19 03/01/19 Range/Units 17:46 17:46 17:46 WBC 7.14 (4.8-10.8) K/uL RBC 4.37 L (4.7-6.1) M/uL Hgb 14.2 (14.0-18.0) g/dL Hct 40.4 L (42-52) % MCV 92.4 (80-100) fL MCH 32.5 (25-34) pg MCHC 35.1 (32-36) g/dL RDW Std Deviation 43.0 (36.4-46.3) fL RDW Coeff of Lala 12.7 (11.5-14.5) % Plt Count 219 (130-400) K/uL MPV 8.8 (7.4-10.4) fL Immature Gran % (Auto) 0.3 % Neut % (Auto) 65.7 % Lymph % (Auto) 23.4 % Desha % (Auto) 7.1 % Eos % (Auto) 3.1 % Baso % (Auto) 0.4 % Immature Gran # (Auto) 0.02 (0.00-0.02) K/uL Neut # (Auto) 4.69 (1.4-6.5) K/uL Lymph # (Auto) 1.67 (1.2-3.4) K/uL Desha # (Auto) 0.51 (0.11-0.59) K/uL Eos # (Auto) 0.22 (0-0.5) K/uL Baso # (Auto) 0.03 (0-0.2) K/uL PT 10.9 (9.0-12.0) Seconds INR 1.1 (0.9-1.1) APTT 28.6 (21.0-31.0) Seconds PTT Ratio 1.1 Sodium 137 (136-145) mmol/L Potassium 3.6 (3.5-5.1) mmol/L Chloride 102 (98-107) mmol/L Carbon Dioxide 29 (21-32) mmol/L Anion Gap 6.0 (3-11) BUN 30 H (7-18) mg/dl Creatinine 1.44 H (0.6-1.4) mg/dl Est Cr Clr Drug Dosing 43.0 ml/min Est GFR ( Amer) 53.9 Est GFR (Non-Af Amer) 46.5 BUN/Creatinine Ratio 20.9 H (10-20) Glucose 98 (70-99) mg/dl Calcium 9.4 (8.5-10.1) mg/dl Magnesium 2.1 (1.8-2.4) mg/dl Total Bilirubin 0.5 (0.2-1) mg/dl AST 15 (15-37) U/L ALT 19 (12-78) U/L Alkaline Phosphatase 90 (45-117) U/L Troponin I < 0.015 (0-0.045) ng/ml Total Protein 7.7 (6.4-8.2) gm/dl Albumin 3.9 (3.4-5.0) gm/dl Globulin 3.8 (2.5-4.0) gm/dl Albumin/Globulin Ratio 1.0 (0.9-2) Blood Type Antibody Screen 03/01/19 Range/Units 17:46 WBC (4.8-10.8) K/uL RBC (4.7-6.1) M/uL Hgb (14.0-18.0) g/dL Hct (42-52) % MCV (80-100) fL MCH (25-34) pg MCHC (32-36) g/dL RDW Std Deviation (36.4-46.3) fL RDW Coeff of Lala (11.5-14.5) % Plt Count (130-400) K/uL MPV (7.4-10.4) fL Immature Gran % (Auto) % Neut % (Auto) % Lymph % (Auto) % Desha % (Auto) % Eos % (Auto) % Baso % (Auto) % Immature Gran # (Auto) (0.00-0.02) K/uL Neut # (Auto) (1.4-6.5) K/uL Lymph # (Auto) (1.2-3.4) K/uL Desha # (Auto) (0.11-0.59) K/uL Eos # (Auto) (0-0.5) K/uL Baso # (Auto) (0-0.2) K/uL PT (9.0-12.0) Seconds INR (0.9-1.1) APTT (21.0-31.0) Seconds PTT Ratio Sodium (136-145) mmol/L Potassium (3.5-5.1) mmol/L Chloride (98-107) mmol/L Carbon Dioxide (21-32) mmol/L Anion Gap (3-11) BUN (7-18) mg/dl Creatinine (0.6-1.4) mg/dl Est Cr Clr Drug Dosing ml/min Est GFR ( Amer) Est GFR (Non-Af Amer) BUN/Creatinine Ratio (10-20) Glucose (70-99) mg/dl Calcium (8.5-10.1) mg/dl Magnesium (1.8-2.4) mg/dl Total Bilirubin (0.2-1) mg/dl AST (15-37) U/L ALT (12-78) U/L Alkaline Phosphatase (45-117) U/L Troponin I (0-0.045) ng/ml Total Protein (6.4-8.2) gm/dl Albumin (3.4-5.0) gm/dl Globulin (2.5-4.0) gm/dl Albumin/Globulin Ratio (0.9-2) Blood Type O Positive Antibody Screen NEGATIVE Imaging Data Radiologist's Impression: Radiology results as stated below per my review and the radiologist's interpretation: CT ANGIOGRAPHY OF THE NECK WITH CONTRAST CLINICAL HISTORY: Right-sided weakness. COMPARISON STUDY: No previous studies for comparison. Technique: CT angiography of the carotid and vertebral arteries was obtained using Shopular 320 IV and 3D reconstruction on an independent workstation. NASCET criteria was utilized. Automated exposure control was utilized for the study. A dose lowering technique was utilized adhering to the principles of ALARA. Findings: Lung apices are clear. There is no cervical lymphadenopathy. No cervical spine fracture is present. There is mild atherosclerotic plaque within the proximal bilateral internal carotid arteries with no stenosis. These vessels are patent. The bilateral common carotid arteries are also patent. The left vertebral artery is dominant and patent. The right vertebral artery is patent but somewhat diminutive. There is no dissection within the major vessels of the neck. There is no aneurysm within the neck. IMPRESSION: 1. No stenosis or dissection within the major vessels of the neck. 2. Mild atherosclerotic plaque. Electronically signed by: Ankur Vaughn M.D. 03/01/2019 5:32 PM CTA ANGIOGRAPHY OF THE HEAD CLINICAL HISTORY: Right-sided weakness. Possible stroke. COMPARISON STUDY: No previous studies for comparison. TECHNIQUE: Helical axial images of the head were obtained following uneventful intravenous administration of 115 cc of Optiray 320. Automated exposure control was utilized for the study. A dose lowering technique was utilized adhering to the principles of ALARA. CT DOSE: 1123.77 mGy.cm FINDINGS: Please note that the CTA of the neck will be reported separately. No acute intracranial hemorrhage, midline shift or mass effect is present. Brain volume is normal for age. Ventricular system is unremarkable. The basilar cisterns are patent. There are no extra-axial collections. The bilateral M1, M2, A1 and A2 segments are patent. There is no abrupt vessel cut off or intracranial changes. There is an anterior communicating artery. There is a large left posterior communicating artery. The right vertebral artery is hypoplastic. The left vertebral artery is dominant. The bilateral posterior cerebral arteries are intact. IMPRESSION: 1. No abrupt vessel cut off or intracranial aneurysm. 2. 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 Dominant, patent left vertebral artery. Electronically signed by: Ankur Vaughn M.D. 03/01/2019 5:[address] OF THE HEAD WITHOUT CONTRAST CLINICAL HISTORY: Stroke evaluation. Right-sided weakness. COMPARISON STUDY: No previous studies for comparison. TECHNIQUE: Helical axial images of the head were obtained without IV contrast. Automated exposure control was utilized for the study. A dose lowering technique was utilized adhering to the principles of ALARA. FINDINGS: No acute intracranial hemorrhage, midline shift or mass effect is present. Mild ventricular dilatation is due to atrophy. There are no extra-axial collections. The basilar cisterns are patent. Mild white matter hypodensity suggests small vessel disease. There are no findings to suggest acute dural sinus thrombosis or acute territorial infarct. There are no significant calvarial abnormalities. IMPRESSION: No acute intracranial findings. Electronically signed by: Ankur Vaughn M.D. 03/01/2019 5:23 PM ECG Data Attestation: I personally reviewed and interpreted this ECG as follows: Indication: other (stroke symptoms) Rate (beats per minute): 71 Rhythm: other (wandering atrially paced) Findings: + LBBB; no ST depression, no ST elevation and no acute ischemic change Comparison ECG Date: from (02/24/19) Change: the following changes noted (changes are new) Blood Pressure Blood Pressure Findings: Elevated blood pressure Blood Pressure Disposition: further management by hospitalist MDM Narrative The patient is a 78-year-old male who presented to the emergency department as a stroke alert. The patient was recently discharged from our facility this morning after problems with a kidney stone. He did have an interventional procedure for stone retrieval. While the patient was at home his noticed that he had an acute neurologic event. He was noted to have right facial droop and some slurred speech by the prehospital personnel. We were notified because of the acute onset of symptoms and the patient was made a stroke alert prior to arrival. The patient's symptoms appear to also be consistent with a stroke on my initial evaluation. The patient has severe difficulty ambulating and required significant help in transferring from the stretcher to the CT machine. The patient's initial plain CAT scan did not show any acute disease. For this reason TPA was mixed and ordered but the bolus was held until the family would agree to the medication. The patient was evaluated by the [facility] stroke neurologist. The patient's symptoms continued to improve while he was in the emergency department. He was able to ambulate and had no facial dr oop. His speech was at baseline according to his family members. Because of this it was felt that the risk of TPA outweighed the benefits and the family did not wish to have TPA at that time. Giovanna the patient's laboratory and radiographic studies with the on[facility]. They have agreed to evaluate the patient in the emergency department for further management and disposition. Impression & Plan CVA (cerebral vascular accident), TIA (transient ischemic attack) Discharge Plan Visit Data *Final* Discharge Date/Time: 03/01/19 20:19 Chief Complaint: Stroke Alert Stated Complaint: STROKE ALERT ED Provider: Erwin Delacruz Discharge Problem: CVA (cerebral vascular accident), TIA (transient ischemic attack) Patient Disposition: Admitted As Inpatient Discharge Instructions Interventions: ED Discharge Assessment Last Done: 03/01/19 20:19 Discharge Problem: CVA (cerebral vascular accident) Qualifiers: CVA mechanism: unspecified Qualified Code(s): I63.9 - Cerebral infarction, unspecified The scribe's documentation has been prepared under my direction and personally reviewed by me in its entirety. I confirm that the note above accurately reflects all work, treatment, procedures, and medical decision making performed by me.
[2019-03-01 17:59] LABS: Basophils # (auto) 0.03 K/uL (0-0.2); Basophils % (auto) 0.4 %; Eosinophils # (auto) 0.22 K/uL (0-0.5); Eosinophils % (auto) 3.1 %; Hematocrit (blood only) 40.4 % (42-52); Hemoglobin 14.2 g/dL (14.0-18.0); Immature Granulocytes # (auto) 0.02 K/uL (0.00-0.02); Immature Granulocytes % (auto) 0.3 %; Lymphocytes # (auto) 1.67 K/uL (1.2-3.4); Lymphocytes % (auto) 23.4 %; Mean Corpuscular Hgb Conc 35.1 g/dL (32-36); Mean Corpuscular Volume 92.4 fL (80-100); Mean Platelet Volume 8.8 fL (7.4-10.4); Monocytes # (auto) 0.51 K/uL (0.11-0.59); Monocytes % (auto) 7.1 %; Neutrophils # (auto) 4.69 K/uL (1.4-6.5); Neutrophils % (auto) 65.7 %; Platelet Count 219 K/uL (130-400); RDW Coefficient of Variation 12.7 % (11.5-14.5); Red Blood Count 4.37 M/uL (4.7-6.1); White Blood Count 7.14 K/uL (4.8-10.8)
[2019-03-01 18:10] LABS: INR 1.1 (0.9-1.1); Partial Thromboplastin Ratio 1.1; Partial Thromboplastin Time 28.6 Seconds (21.0-31.0); Prothrombin Time 10.9 Seconds (9.0-12.0)
[2019-03-01 18:27] LABS: Alanine Aminotransferase 19 U/L (12-78); Albumin Level 3.9 gm/dl (3.4-5.0); Aspartate Aminotransferase 15 U/L (15-37); BUN Creatinine Ratio 20.9 (10-20); Blood Urea Nitrogen 30 mg/dl (7-18); Calcium 9.4 mg/dl (8.5-10.1); Carbon Dioxide 29 mmol/L (21-32); Chloride 102 mmol/L (98-107); Est GFR (African American) 53.9; Est GFR (Non-African American) 46.5; Glucose 98 mg/dl (70-99); Magnesium 2.1 mg/dl (1.8-2.4); Potassium 3.6 mmol/L (3.5-5.1); Sodium 137 mmol/L (136-145)
[2019-03-01 18:32] LABS: Alkaline Phosphatase 90 U/L (45-117); Bilirubin,Total 0.5 mg/dl (0.2-1); Globulin 3.8 gm/dl (2.5-4.0); Total Protein 7.7 gm/dl (6.4-8.2); Troponin I < 0.015 ng/ml (0-0.045)
--- NOTE | 2019-03-01 18:41 | XRay Report ---
XR chest 1V portable HISTORY: weakness COMPARISON: Chest 03/22/2016. FINDINGS: The lungs are clear. Cardiac silhouette is top normal in size. No pleural effusions. No pne umothorax. IMPRESSION: No significant change compared to the prior study. No acute process. Electronically signed by: Zaid Doan M.D. 03/01/2019 6:40 PM
--- NOTE | 2019-03-01 18:46 | History & Physical Report ---
Date of Service March 01, 2019 Assessment & Plan (1) TIA (transient ischemic attack): This is a 78 yr old M who has a significant PMH of HTN, HLD, CAD, Parkinson disease, CKD-3, Gerd, Depression, history of prostate cancer s/p cryoablation therapy who presents to [facility] ED secondary to garbled speech and RLE weakness since 16:15. Upon arrival patient was in TPA window. Stroke alert was called. It was noted his symptoms slowly resolving. Neurology and ED team felt TPA not appropriate given resolution of symptoms. Neurology did recommend initiating Plavix. Nursing perform dysphagia screen at bedside and unfortunately patient failed this. His CBC was relatively unremarkable. His creatinine has improved to 1.44. His CMP, magnesium, troponin level WNL. CT of head and neck unremarkable. Head CT negative for acute abnormality but does reveal small vessel disease. CXR no acute abnormality. admit to PCU MRI w/o con stat consult Neurology CTA Head/neck unremarkable monitor on tele for atrial arrhythmia fasting lipid panel and a1c in a.m On ASA, Tele neuro recommends initiating Plavix (1st dose given in ED) Pt failed initial dysphagia screen Remain n.p.o. until seen and evaluated by ST consult PT/OT/ST (2) Hypertension: Blood pressure elevated in the ER, currently 153/90 Currently on a regimen of metoprolol, amlodipine, losartan Oral and hypertensive currently on hold given n.p.o. status (3) CKD (chronic kidney disease) stage 3, GFR 30-59 ml/min: baseline cr 1.2 most recent admission cr peaked to 2.1, likely in setting of obstructive uropathy Nephrology was on board. Outpatient nephrology follow-up in 2 weeks. (4) Heart disease: No complaints of chest pain or shortness of breath Currently on ASA, metoprolol, losartan, amlodipine - resume when NPO lifted Pt took meds this a.m. (5) Parkinson disease: continue sinemet once cleared from ST (6) Depression: on escitalopram (7) GERD (gastroesophageal reflux disease): Pharmacy recommendations to discontinue omeprazole while on Plavix (8) Nephrolithiasis: S/P uretersrocopy , stone extraction by Dr. York 02/25/19 stable from urology perspective (9) DVT prophylaxis: Scds/Teds, SQ heparin to begin in a.m. Disposition: Likely discharge to home, case management consulted Follow up: PCP Dr Landry upon discharge (03/04/19 11:10 am hospital follow up) along with appropriate neurology follow-up Patient was seen and examined in collaboration with Dr. Boucher, please see addendum Starting 03/02/2019 patient will be under the care of Dr. Sen History of Present Illness Chief Complaint: Garbled speech, R Leg weakness that started at 16:15 Primary Care Provider: Vishal Landry, This is a 78 yr old M who has a significant PMH of HTN, HLD, CAD, Parkinson dis ease, CKD-3, Gerd, Depression, history of prostate cancer s/p cryoablation therapy who presents to [facility] ED secondary to garbled speech and RLE weakness since 16:15. Unfortunately pt discharged early today secondary to renal colic, nephrolithiasis S/P uretersrocopy , stone extraction by Dr. York in which he was admitted 02/24-03/01. Hospital course complicated for A/C CKD -3. He was seen by nephrology and cr peaked at 2.1. It was felt secondary to obstructive uropathy versus AIN as he did have WBCs on urinalysis. He was scheduled for follow-up with nephrology in 2 weeks. Patient was discharged home today and approximately at 4:15 PM he was standing trying to do some, "book work." At that time he noticed significant right lower extremity weakness, feeling off balance, having difficulty speaking. Family at bedside noted some right facial droop and noted is speech was garbled. Daughter states she spoke to her father after her discharge and he sounded very well. She now feels he has a bit more confused and, "off. At my time of examination patient feels his weakness has resolved but has noticed increased stuttering of words. Family feels he is at about 80% and at discharge today was 100%. He denies any history of CVA in the past. Denies any lightheadedness, dizziness, palpitations, chest pain, shortness of breath, nausea, vomiting. His urinary symptoms have resolved. He denies any syncope or falls. He states he took all of his medications this morning including aspirin. Upon arrival patient was in TPA window. Stroke alert was called. It was noted his symptoms slowly resolving. Neurology and ED team felt TPA not appropriate given resolution of symptoms. Neurology did recommend initiating Plavix. Nursing perform dysphagia screen at bedside and unfortunately patient failed this. His CBC was relatively unremarkable. His creatinine has improved to 1.44. His CMP, magnesium, troponin level WNL. CT of head and neck unremarkable. Head CT negative for acute abnormality but does reveal small vessel disease. CXR no acute abnormality. Allergies Allergy/AdvReac Type Severity Reaction Status Date / Time No Known Allergies Allergy Verified 03/01/19 17:29 Home Medications Home Medications Medication Instructions Recorded Confirmed Type escitalopram oxalate 10 mg PO QAM 02/17/19 03/01/19 History losartan 50 mg PO DAILY 02/17/19 03/01/19 History aspirin 81 mg PO DAILY 02/24/19 03/01/19 History carbidopa-levodopa 1 tab PO TID 02/24/19 03/01/19 History loratadine 10 mg PO DAILY 02/24/19 03/01/19 History omeprazole 20 mg PO DAILY 02/24/19 03/01/19 History vitamin B complex 1 tab PO QAM 02/24/19 03/01/19 History amlodipine 5 mg PO BID 02/25/19 03/01/19 History metoprolol succinate 12.5 mg PO DAILY 02/25/19 03/01/19 History Past Med/Surg History Medical History Nephrolithiasis History of prostate cancer (Chronic) s/p cryoablation GERD (gastroesophageal reflux disease) (Chronic) Depression (Chronic) History of kidney stones (Chronic) Heart disease (Chronic) Hypertension (Chronic) High blood cholesterol (Chronic) Parkinson disease (Chronic) Neuropathy (Chronic) Surgical History History of rotator cuff surgery (Chronic) History of Achilles tendon repair (Chronic) History of cystoscopy (Chronic) History of lithotripsy (Chronic) History of cholecystectomy (Chronic) History of appendectomy (Chronic) Family History Father Cancer Mother Hypertension Social History Preferred Language: [place] Communication Ability: Effective 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 Physical Exam Physical Exam: Gen: WD/WN, M, NAD, sitting up in bed, parkinsonian affect, pleasant, conversing easily but does occasionally stutter words Head: Normocephalic, Atraumatic Eyes: Sclera normal, no conjunctival injection, PERRLA, EOMI ENT: Gross hearing intact, normal pharynx, mucous membranes moist Neck: supple, no adenopathy, No JVD, no bruit, Resp: Clear to auscultation b/l, no wheeze, rales, rhonchi. Normal insp/exp effort, no accessory muscle use CV: Regular rate, regular rhythm, no murmur, rub, gallop, or ectopy Abd: +BS x 4, soft, nontender, nondistended Musculoskeletal: moves extremities active rom x 4, strength intact, good carver hand strength Extremities: No edema bilaterally Skin: warm, moist, no rash, negative turgor, cap refill < 2sec Neuro: Alert and oriented x 3, speech normal with occasional stuttering of words, good mood/affect, cran nerve 2-12 intact grossly, pronator drift negative, point to point intact, heel to mackey intact, fine motor movements intact : deferred Results & Data Vital Signs (Past 12 Hours) Vital Signs Pulse Pulse Resp BP BP Pulse Ox 03/01/19 18:30 70 20 175/100 H 97 03/01/19 18:15 64 24 167/92 H 97 03/01/19 18:00 72 22 157/91 H 96 03/01/19 17:52 72 21 148/91 H 96 03/01/19 17:26 71 21 162/84 H 97 Laboratory Results Short CBC 03/01/19 Range/Units 17:46 WBC 7.14 (4.8-10.8) K/uL Hgb 14.2 (14.0-18.0) g/dL Hct 40.4 L (42-52) % Plt Count 219 (130-400) K/uL BMP 03/01/19 17:46 Sodium 137 Potassium 3.6 Chloride 102 Carbon Dioxide 29 BUN 30 H Creatinine 1.44 H Glucose 98 Calcium 9.4 Cardiac Enzymes 03/01/19 Range/Units 17:46 Troponin I < 0.015 (0-0.045) ng/ml Liver Function 03/01/19 Range/Units 17:46 Total Bilirubin 0.5 (0.2-1) mg/dl AST 15 (15-37) U/L ALT 19 (12-78) U/L Alkaline Phosphatase 90 (45-117) U/L Albumin 3.9 (3.4-5.0) gm/dl Diagnostic Findings Neck CTA: IMPRESSION: 1. No stenosis or dissection within the major vessels of the neck. 2. Mild atherosclerotic plaque. Head CTA: IMPRESSION: 1. No abrupt vessel cut off or intracranial aneurysm. 2. 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 Dominant, patent left vertebral artery. CXR: IMPRESSION: No significant change compared to the prior study. No acute process. Head CT: IMPRESSION: No acute intracranial findings. Medications Administered Sodium Chloride (Nss 1000ml) 1,000 mls @ 50 mls/hr IV .Q20H FARIDA Stop: 03/31/19 17:14 Last Admin: 03/01/19 17:53 Dose: 50 mls/hr Documented by: [id number] Ioversol (Optiray 320 125ml) 115 ml IV ONCE PRN PRN Reason: Interaction Checking Stop: 03/05/19 17:22 Last Admin: 03/01/19 17:23 Dose: 115 ml Documented by: [id number] Discontinued Medications Clopidogrel Bisulfate (Plavix) 75 mg PO NOW ONE Stop: 03/01/19 17:46 Last Admin: 03/01/19 18:25 Dose: 75 mg Documented by: [id number] Code Status & VTE Plan Code Status Full Code VTE Prophylaxis Plan VTE Prophylaxis will be ordered: Yes Supervising Physician Co-Signing Physician Notes Attending Addendum:: Satish patient was sen and examined in ER This is a 78 yr old M who has a significant PMH of HTN, HLD, CAD, Parkinson disease, CKD-3, Gerd, Depression, history of prostate cancer s/p cryoablation therapy who presents to [facility] ED secondary to garbled speech and RLE weakness since 16:15 on admission.. He was admitted with strokelike symptoms which resolved after coming to the emergency room Stroke alert was called in and he was not qualified for TPA Symptoms resolved during examination On examination No apparent distress at rest Hemodynamically stable with blood pressure on the upper side around 170/92 Chest-clear to auscultate bilaterally Heart-S1-S2 regular, no murmur appreciated Abdomen-soft, benign nontender, no significant TARE WEIGHER-alert, awake and oriented x3. No focal sensory or motor deficit appreciated Admission labs, EKG and imaging studies reviewed TIA-to rule out stroke Neuro consulted. Agree with assessment and plan as outlined above by Sangita Boucher (1) Depression Depression Type: unspecified Qualified Code(s): F32.9 - Major depressive disorder, single episode, unspecified (2) GERD (gastroesophageal reflux disease) Esophagitis presence: esophagitis presence not specified Qualified Code(s): K21.9 - Gastro-esophageal reflux disease without esophagitis (3) Hypertension Hypertension type: unspecified Qualified Code(s): I10 - Essential (primary) hypertension
[2019-03-01] MEDS ORDERED: ONDANSETRON INJ 2 MG/ML 2 ML VIAL IV PRN (20:42)
[2019-03-01] MEDS ORDERED: PHARMACIST DISCHARGE MED REC CONSULT PRN (20:42)
[2019-03-01] MEDS: D5W AND 1/2NSS 1,000 ML IV SCH (20:59)
--- NOTE | 2019-03-01 22:03 | Magnetic Resonance Report ---
MRI OF THE BRAIN WITHOUT CONTRAST CLINICAL HISTORY: Right-sided numbness. Evaluate for cerebrovascular accident. COMPARISON STUDY: Head CT and CTA of the head performed earlier today. TECHNIQUE: Utilizing a 1.5 Estelle magnet and dedicated coil, multiplanar, multiecho imaging of the bra in was performed without IV contrast. FINDINGS: There is a subtle 9 mm hyperintense focus within the left aspect of the robert on the diffusi on-weighted sequence, image 9 of 48. Correlation with the ADC map is difficult however this appears s lightly hypointense. There is mild corresponding increased T2 signal. There is no mass effect. No hem orrhage. Moderate atrophy is noted. The basilar cisterns are patent. No extra axial collections are p resent. Flow-voids for the major intracranial vessels are present. White matter T2 hyperintense foci suggest mild small vessel disease. Calvarial signal is maintained. IMPRESSION: Subtle 9 mm focus of increased signal intensity within the left aspect of the robert on th e diffusion-weighted sequence. Correlation with the ADC map is difficult. This represents a small age indeterminate infarct and may be acute. Mass effect. No hemorrhage. Electronically signed by: Ankur Vaughn M.D. 03/01/2019 10:01 PM
[2019-03-02 04:22] LABS: Appearance Urine Clear (Clear); Bacteria Urine Automated Negative (Negative); Bilirubin Urine Negative (Negative); Blood Urine 1+ (Negative); Color Urine Yellow; Glucose Urine UA Negative (Negative); Ketones Urine Negative (Negative); Leukocyte Esterase Urine Negative (Negative); Nitrite Urine Negative (Negative); Protein Urine Negative (Negative); Specific Gravity Urine > 1.045 (1.000-1.030); Urobilinogen Urine Negative (Negative); pH Urine 7.5 (4.5-7.5)
[2019-03-02 07:05] LABS: Basophils # (auto) 0.02 K/uL (0-0.2); Basophils % (auto) 0.3 %; Eosinophils # (auto) 0.26 K/uL (0-0.5); Eosinophils % (auto) 4.1 %; Hematocrit (blood only) 37.4 % (42-52); Hemoglobin 13.3 g/dL (14.0-18.0); Immature Granulocytes # (auto) 0.01 K/uL (0.00-0.02); Immature Granulocytes % (auto) 0.2 %; Lymphocytes # (auto) 1.97 K/uL (1.2-3.4); Lymphocytes % (auto) 31.3 %; Mean Corpuscular Hgb Conc 35.6 g/dL (32-36); Mean Corpuscular Volume 91.4 fL (80-100); Mean Platelet Volume 8.6 fL (7.4-10.4); Monocytes # (auto) 0.52 K/uL (0.11-0.59); Monocytes % (auto) 8.3 %; Neutrophils # (auto) 3.51 K/uL (1.4-6.5); Neutrophils % (auto) 55.8 %; Platelet Count 206 K/uL (130-400); RDW Coefficient of Variation 12.8 % (11.5-14.5); RDW Standard Deviation 42.9 fL (36.4-46.3); Red Blood Count 4.09 M/uL (4.7-6.1); White Blood Count 6.29 K/uL (4.8-10.8)
[2019-03-02 07:14] LABS: Estimated Average Glucose 111 mg/dl; Hemoglobin A1C 5.5 % (4.5-5.6)
[2019-03-02 07:43] LABS: BUN Creatinine Ratio 22.7 (10-20); Calcium 9.2 mg/dl (8.5-10.1); Creatinine Clr Calc Pharmacy 61.9 ml/min; Est GFR (African American) 83.8; Est GFR (Non-African American) 72.3; Potassium 3.7 mmol/L (3.5-5.1)
[2019-03-02] MEDS: HEPARIN SOD 5,000 UNIT/0.5 ML VIAL SQ SCH ×2 (09:22→20:19)
[2019-03-02] MEDS: D5W AND 1/2NSS 1,000 ML IV SCH (09:39)
--- NOTE | 2019-03-02 13:57 | Hospitalist Progress Note ---
Date of Service March 02, 2019 Assessment & Plan (1) Left pontine CVA: This is a 78 yr old M who has a significant PMH of HTN, HLD, CAD, Parkinson disease, CKD-3, Gerd, Depression, history of prostate cancer s/p cryoablation therapy who presents to [facility] ED secondary to garbled speech and RLE weakness since 16:15. Upon arrival patient was in TPA window. Stroke alert was called. It was noted his symptoms slowly resolving. Neurology and ED team felt TPA not appropriate given resolution of symptoms. Neurology did recommend initiating Plavix. Nursing perform dysphagia screen at bedside and unfortunately patient failed this. MRI revealed: IMPRESSION: Subtle 9 mm focus of increased signal intensity within the left aspect of the robert on the diffusion-weighted sequence. Correlation with the ADC map is difficult. This represents a small age indeterminate infarct and may be acute. Mass effect. No hemorrhage. Neurology consulted [place] UPPERS OR LININGS seen and evaluated patient and negative for dysphagia, resume diet and meds Continue ASA 81mg daily; initiate plavix 75mg daily ( per Tele neuro 1st dose given 03/01) Initiate atorvastatin 40mg daily(Fasting lipid panel:Triglyceride 114, Total cholesterol 181, LDL 126, HDL 32, A1C 5.5 Will need outpt [facility]iop[facility] to monitor for cardiac arrhythmia (2) Hypertension: Blood pressure elevated likely in setting of CVA and also not taking a.m. meds given NPO resume regimen of metoprolol, amlodipine, losartan (3) CKD (chronic kidney disease) stage 3, GFR 30-59 ml/min: baseline cr 1.2 most recent admission cr peaked to 2.1, likely in setting of obstructive uropathy Nephrology was on board. Outpatient nephrology follow-up in 2 weeks. Cr 1.00 today (4) Heart disease: No complaints of chest pain or shortness of breath Currently on ASA, metoprolol, losartan, amlodipine (5) LBBB (left bundle branch block): ECG sinus rhythm with PAC and LBBB, noted on prior ECG during recent admission. new from ecg compared on 12/2017 which revealed NSR Pt w/ known hx of CAD Of note patient underwent nuclear stress test on 06/2018 in which EKG revealed sinus bradycardia and essentially within normal limits. During stress however the patient developed a left bundle branch block. [place] to likely represent a rate related left bundle branch block pt asymptomatic w/o chest pain or cardiac symptoms last echo 06/2018: EF 55% with grade 1 diastolic dysfunction, no significant valvular disease. Patient did have frequent isolated ventricular ectopies during echocardiogram as well as intermittent bundle branch block. Discussed with cardiology Dr. Sanchez - echocardiogram pending (give patient asymptomatic not abnormal to transition to persistent LBBB) If any abnormality noted on echo will consult cardiology (6) Parkinson disease: continue sinemet (7) Depression: on escitalopram (8) GERD (gastroesophageal reflux disease): Pharmacy recommendations to discontinue omeprazole while on Plavix PPI will be discontinued (9) Nephrolithiasis: S/P uretersrocopy , stone extraction by Dr. York 02/25/19 stable from urology perspective (10) DVT prophylaxis: Scds/Teds, SQ heparin to begin in a.m. Disposition: Likely discharge to home, case management consulted Follow up: PCP Dr Landry upon discharge (03/04/19 11:10 am hospital follow up) along with appropriate neurology follow-up Patient was seen and examined in collaboration with Dr. Sen, please see addendum Supervising Physician Co-Signing Physician Notes I have seen and examined the patient and have discussed the case with the provider above. I agree with the assessment and plan as stated with the following exceptions. He is mentating clearly and expressive aphasia has resolved. Speech in intact. Awaiting formal PT and OT recommendations. Noted new LBBB on EKG, discussed briefly with Cardiology, however, placing formal consult in setting of new cardiomyopathy. Cont permissive hypertension for next 24 hours. Overall, he is improved. Exam reveals no focal neurologic deficit, however, he just doesn't appear super quick to respond or answer questions. There appears to be some effort here overall. He can perform all tasks and answer questions appropriately, however. No evidence of volume overload is present. Lungs are CTA, heart exam is normal without evidence of JVD or peripheral edema. ASA and Plavix per Neuro now that cleared by Speech. Cont hospitalization at this time. DO Mckinley Subjective Patient was seen and examined in room 217 with at bedside at approx 945 Follow-up for admission secondary to strokelike symptoms. Patient feels, "okay," today. Still notices slight difficulty with speech and stuttering. notes his speech is slightly worse today. He denies fever, chills, sweats, lightheadedness, dizziness, headache, change in vision, chest pain, shortness of breath, nausea, vomiting, diarrhea, abdominal pain. Remains n.p.o. until seen by speech. Review of Systems Review of Systems: As noted per HPI, 10 systems reviewed and negative unless noted above. Physical Exam Physical Exam: Gen: WD/WN, M, sitting at bedside, NAD, A&O x3 HEENT: Normocephalic, atraumatic, conjunctivae moist, sclerae anicteric, mucous membranes moist. Lung: Clear to Auscultation bilaterally, no wheezes/rales/rhonchi Heart: Regular rate, regular rhythm, no murmurs, rubs, or gallops Abdomen: Soft, NT, ND +BS x 4 Extremities: No edema Skin: Warm, no rash, negative turgor. Neuro: Cranial nerves II through XII intact. Patient does have slight deficit with fine motor movement of right hand along with difficulty writing name and drawing objects. He also has fine pill-rolling tremor secondary to Parkinson's. Speech mostly normal, occasional stutter. No a aphasia or facial droop. MSK: Strength equal and intact bilateral upper and lower extremities. Results & Data Vital Signs (Past 12 Hours) Vital Signs Temp Pulse Resp BP Pulse Ox 03/02/19 11:50 36.5 C 60 17 167/81 H 98 03/02/19 06:46 36.4 C L 65 17 170/92 H 98 03/02/19 03:44 36.4 C L 63 19 156/92 H 98 Laboratory Results Short CBC 03/01/19 03/02/19 Range/Units 17:46 06:39 WBC 7.14 6.29 (4.8-10.8) K/uL Hgb 14.2 13.3 L (14.0-18.0) g/dL Hct 40.4 L 37.4 L (42-52) % Plt Count 219 206 (130-400) K/uL BMP 03/01/19 03/02/19 17:46 06:39 Sodium 137 141 Potassium 3.6 3.7 Chloride 102 109 H Carbon Dioxide 29 28 BUN 30 H 23 H Creatinine 1.44 H 1.00 D Glucose 98 102 H Calcium 9.4 9.2 Cardiac Enzymes 03/01/19 Range/Units 17:46 Troponin I < 0.015 (0-0.045) ng/ml Liver Function 03/01/19 Range/Units 17:46 Total Bilirubin 0.5 (0.2-1) mg/dl AST 15 (15-37) U/L ALT 19 (12-78) U/L Alkaline Phosphatase 90 (45-117) U/L Albumin 3.9 (3.4-5.0) gm/dl Urine 03/02/19 Range/Units 03:45 Urine Color Yellow Urine Appearance Clear (Clear) Urine pH 7.5 (4.5-7.5) Ur Specific [place] > 1.045 H (1.000-1.030) Urine Protein Negative (Negative) Urine Glucose (UA) Negative (Negative) Fasting lipid panel: Triglyceride 114 Total cholesterol 181 LDL 126 HDL 32 Diagnostic Findings Brain MRI: IMPRESSION: Subtle 9 mm focus of increased signal intensity within the left aspect of the robert on the diffusion-weighted sequence. Correlation with the ADC map is difficult. This represents a small age indeterminate infarct and may be acute. Mass effect. No hemorrhage. Medications Administered Heparin Sodium (Porcine) (Heparin Sodium (Porcine)) 5,000 units SQ Q12 FARIDA Stop: 04/01/19 08:59 Last Admin: 03/02/19 09:22 Dose: 5,000 units Documented by: [id number] Cosigned by: [id number] Dextrose/Sodium Chloride (D5w And 1/2nss) 1,000 mls @ 80 mls/hr IV .[id number] FARIDA Stop: 03/02/19 21:41 Last Admin: 03/02/19 09:39 Dose: 80 mls/hr Documented by: [id number] Infusion: 03/02/19 09:38 Dose: 0 mls/hr Documented by: [id number] Infusion: 03/01/19 21:56 Dose: 80 mls/hr Documented by: [id number] Infusion: 03/01/19 21:00 Dose: 0 mls/hr Documented by: [id number] Admin: 03/01/19 20:59 Dose: 80 mls/hr Documented by: [id number] Discontinued Medications Alteplase, Recombinant (Activase For Stroke) 1 ea IV NOW STA; Protocol Stop: 03/01/19 17:28 Last Admin: 03/01/19 20:51 Dose: Not Given Documented by: [id number] Clopidogrel Bisulfate (Plavix) 75 mg PO NOW ONE Stop: 03/01/19 17:46 Last Admin: 03/01/19 18:25 Dose: 75 mg Documented by: [id number] Sodium Chloride (Nss 1000ml) 1,000 mls @ 50 mls/hr IV .Q20H FARIDA Stop: 03/31/19 17:14 Last Infusion: 03/01/19 20:35 Dose: 0 mls/hr Documented by: [id number] Admin: 03/01/19 17:53 Dose: 50 mls/hr Documented by: [id number] Alteplase, Recombinant 7.2 mg/ (Syringe) 7.2 mls @ 7.2 mls/min IV NOW ONE Stop: 03/01/19 17:38 Last Admin: 03/01/19 20:50 Dose: Not Given Documented by: [id number] Alteplase, Recombinant 64 mg/ (EMPTY BAG) 64 mls @ 64 mls/hr IV NOW ONE Stop: 03/01/19 17:39 Last Admin: 03/01/19 20:50 Dose: Not Given Documented by: [id number] Ioversol (Optiray 320 125ml) 115 ml IV ONCE PRN PRN Reason: Interaction Checking Stop: 03/05/19 17:22 Last Admin: 03/01/19 17:23 Dose: 115 ml Documented by: [id number] ECG Rate (beats per minute): 66 Rhythm: normal sinus Findings: + LBBB, + PAC and + prolonged QT (480ms) (1) Depression Depression Type: unspecified Qualified Code(s): F32.9 - Major depressive disorder, single episode, unspecified (2) GERD (gastroesophageal reflux disease) Esophagitis presence: esophagitis presence not specified Qualified Code(s): K21.9 - Gastro-esophageal reflux disease without esophagitis (3) Hypertension Hypertension type: unspecified Qualified Code(s): I10 - Essential (primary) hypertension
--- NOTE | 2019-03-02 14:55 | Neurology Consultation ---
Date of Consultation March 02, 2019 Assessment & Plan (1) Left pontine CVA: 1. MRI with left robert ishemia 2. CTA head neck- no significant stenosis 3. PT/OT speech for discharge needs 4. home safety evaluation 5. continue aspirin 81 mg and add plavix 75 mg daily, 21 days then stop aspirin and continue plavix for a lifetime 6. TTE- EF 30-35% no ASD 7. optimize HTN, HLD LDL <70 follow up in neurology Devorah Campos PAC, 4-6 weeks after discharge Supervising Physician Co-Signing Physician Notes I have seen and discussed above patient with Dr Eric Wright, neurology I have seen Mr. Joyce today, examined him, reviewed his history, his MRI scans and other imaging studies and the above note written by Devorah Campos PA-C I know this man from an outpatient evaluation of his Parkinson's on 2 occasions which luckily remains relatively mild on low-dose Sinemet and at this point certainly does not need any further management medication votg Presents with a left pontine vascular event characterized by dysarthria, perhaps a mild degree of right upper motor neuron facial weakness, clumsiness of the right leg as upgoing toes bilaterally worse on the right, slight drift of the right arm, mild dysarthria, very subtle right upper motor neuron facial asymmetry and absolutely nothing else other than some manifestations of his Parkinson's with some cogwheeling in the left greater than right resting tremor of the upper extremities His imaging studies have been negative in terms of revealing no obvious source of embolism within the arterial system. An echocardiographic study is pending and he is being monitored for atrial fibrillation which has not yet been evident on his rhythm strips He should be placed on Plavix in addition to the aspirin he has been taking, needs to be assessed by physical therapy but according the family he is doing better and tomorrow a decision needs to be made about whether he could possibly go home or whether he will need some time in a rehabilitation hospital His vascular risk factors are being monitored and managed on an outpatient basis by his primary care group and although we are recommending is a dual antiplatelet approach for 21 days then switching back to Plavix as a single agent in view of the "aspirin failure" in the setting Eric Wright in the History of Present Illness Reason for Consultation: r/o CVA Requesting Physician: Kellie Sen DO Attending Physician: Kellie Sen DO History of Present Illness Jony is a 78 year old male with PMH nephrolithiasis (recent admission for stent), LBBB, CKD III, DVT, HLD, prostrate CA, GERD, depression, HTN, parkinson's disease, neuropathy. He presented to [facility] ED secondary to garbled speech and RLE weakness since 16:15. He was discharged early today secondary to renal colic, nephrolithiasis S/P uretersrocopy , stone extraction by Dr. York in which he was admitted 02/24-03/01. Hospital course complicated for A/C CKD -3. He was seen by nephrology and cr peaked at 2.1. It was felt secondary to obstructive uropathy versus AIN as he did have WBCs on urinalysis. He was scheduled for follow-up with nephrology in 2 weeks. He was discharged home and at 4:15 PM he was standing trying to do some, "book work." and had significant right lower extremity weakness, feeling off balance, having difficulty speaking. His weakness has resolved but has noticed increased stuttering of words. Stroke alert was called but he was outside the window for tPa. It was noted his symptoms slowly resolving. denies CP, SOB, abdominal pain, one sided weakness, numbness tingling, vision changes or loss, N, V, falls. Allergies Allergy/AdvReac Type Severity Reaction Status Date / Time No Known Allergies Allergy Verified 03/01/19 17:29 Home Medications Home Medications Medication Instructions Recorded Confirmed Type escitalopram oxalate 10 mg PO QAM 02/17/19 03/01/19 History losartan 50 mg PO DAILY 02/17/19 03/01/19 History aspirin 81 mg PO DAILY 02/24/19 03/01/19 History carbidopa-levodopa 1 tab PO TID 02/24/19 03/01/19 History loratadine 10 mg PO DAILY 02/24/19 03/01/19 History omeprazole 20 mg PO DAILY 02/24/19 03/01/19 History vitamin B complex 1 tab PO QAM 02/24/19 03/01/19 History amlodipine 5 mg PO BID 02/25/19 03/01/19 History metoprolol succinate 12.5 mg PO DAILY 05/31/19 06/04/19 History Patient History Medical History Nephrolithiasis History of prostate cancer (Chronic) s/p cryoablation GERD (gastroesophageal reflux disease) (Chronic) Depression (Chronic) History of kidney stones (Chronic) Heart disease (Chronic) Hypertension (Chronic) High blood cholesterol (Chronic) Parkinson disease (Chronic) Neuropathy (Chronic) Surgical History History of rotator cuff surgery (Chronic) History of Achilles tendon repair (Chronic) History of cystoscopy (Chronic) History of lithotripsy (Chronic) History of cholecystectomy (Chronic) History of appendectomy (Chronic) Family History Father Cancer Mother Hypertension Social History Preferred Language: Norwegian Communication Ability: Effective Foundation Coordinator Required: No Beliefs That Will Affect Care: None marital status: Current Living Situation: Spouse Feels Safe at Home: Yes Safety Concerns: Feels Safe At This Time Smoking Status: Unknown if ever smoked Hx Alcohol Use: No Hx Substance Use: No Physical Exam Physical Exam: Physical Exam: Constitutional: appearance nourished, healthy and normal Ears, Nose, Mouth and Throat: mucous membranes moist, no injection and skin normal, eyes normal Cardiovascular: normal S-1 and S-2 and regular rate and rhythm Respiratory: clear to auscultation (CTA) and no rales, ronchi or wheeze Musculoskeletal: no peripheral edema and good distal pulses Skin: no stigmata of neurocutaneous disease noted and normal and intact Eyes: extraocular muscles intact (EOMI) and pupils equal, round and reactive to light (PERRL), gross peripheral vision intact NEUROLOGIC EXAMINATION: Mental status: Alert and interactive Oriented to full date and location Oriented to person Speech studdering of speech Cranial Nerves smile eye brow raise symmetric Reflexes: Deep tendon reflexes were symmetrical and graded 2/5. Sensory: intact to light and cool touch Coordination: finger to nose slightly dysmetric Gait/Stance: Posture sitting up in bed Motor: no pronator drift Strength: biceps triceps hand drafter topographical bilaterally 5/5 hip flex plantar flex ext 5/5 Results & Data Vital Signs (Past 12 Hours) Vital Signs Temp Pulse Resp BP Pulse Ox 03/02/19 11:50 36.5 C 60 17 167/81 H 98 03/02/19 06:46 36.4 C L 65 17 170/92 H 98 03/02/19 03:44 36.4 C L 63 19 156/92 H 98 Laboratory Results Abnormal lab results 03/01/19 03/01/19 03/02/19 Range/Units 17:46 17:46 03:45 RBC 4.37 L (4.7-6.1) M/uL Hgb (14.0-18.0) g/dL Hct 40.4 L (42-52) % Chloride (98-107) mmol/L BUN 30 H (7-18) mg/dl Creatinine 1.44 H (0.6-1.4) mg/dl BUN/Creatinine Ratio 20.9 H (10-20) Glucose (70-99) mg/dl Ur Specific [place] > 1.045 H (1.000-1.030) Urine Blood 1+ H (Negative) Urine RBC (Auto) 10-30 H (0-4) /hpf U Epithel Cells (Auto) 5-10 H (0-5) /lpf 03/02/19 03/02/19 Range/Units 06:39 06:39 RBC 4.09 L (4.7-6.1) M/uL Hgb 13.3 L (14.0-18.0) g/dL Hct 37.4 L (42-52) % Chloride 109 H (98-107) mmol/L BUN 23 H (7-18) mg/dl Creatinine (0.6-1.4) mg/dl BUN/Creatinine Ratio 22.7 H (10-20) Glucose 102 H (70-99) mg/dl Ur Specific [place] (1.000-1.030) Urine Blood (Negative) Urine RBC (Auto) (0-4) /hpf U Epithel Cells (Auto) (0-5) /lpf Diagnostic Findings CT head-No acute intracranial findings. CXR- No significant change compared to the prior study. No acute process. CTA head-No significant change compared to the prior study. No acute process. CTA neck-No stenosis or dissection within the major vessels of the neck. Mild atherosclerotic plaque. MRI brain Subtle 9 mm focus of increased signal intensity within the left aspect of the robert on the diffusion-weighted sequence. Correlation with the ADC map is difficult. This represents a small age indeterminate infarct and may be acute. Mass effect. No hemorrhage.
[2019-03-02] MEDS: CARBIDOPA/LEVODOPA 25/100MG TAB PO SCH (15:52)
[2019-03-02] MEDS: CLOPIDOGREL BISULFATE 75 MG TAB PO SCH (15:52)
[2019-03-02] MEDS ORDERED: AMLODIPINE BESYLATE 5 MG TAB PO SCH (21:00)
[2019-03-02] MEDS ORDERED: ATORVASTATIN 40 MG TAB PO SCH (21:00)
[2019-03-03 06:45] LABS: Basophils # (auto) 0.03 K/uL (0-0.2); Basophils % (auto) 0.5 %; Eosinophils % (auto) 5.1 %; Hematocrit (blood only) 37.1 % (42-52); Immature Granulocytes # (auto) 0.01 K/uL (0.00-0.02); Immature Granulocytes % (auto) 0.2 %; Lymphocytes # (auto) 1.91 K/uL (1.2-3.4); Lymphocytes % (auto) 32.2 %; Mean Corpuscular Volume 91.6 fL (80-100); Mean Platelet Volume 8.9 fL (7.4-10.4); Monocytes # (auto) 0.42 K/uL (0.11-0.59); Monocytes % (auto) 7.1 %; Neutrophils # (auto) 3.27 K/uL (1.4-6.5); Neutrophils % (auto) 54.9 %; Platelet Count 186 K/uL (130-400); RDW Coefficient of Variation 12.8 % (11.5-14.5); Red Blood Count 4.05 M/uL (4.7-6.1); White Blood Count 5.94 K/uL (4.8-10.8)
[2019-03-03 07:19] LABS: BUN Creatinine Ratio 18.7 (10-20); Calcium 9.1 mg/dl (8.5-10.1); Creatinine Clr Calc Pharmacy 57.3 ml/min; Est GFR (African American) 76.3; Est GFR (Non-African American) 65.9; Potassium 3.7 mmol/L (3.5-5.1)
[2019-03-03] MEDS: CARBIDOPA/LEVODOPA 25/100MG TAB PO SCH ×2 (08:24→12:04)
[2019-03-03] MEDS: CLOPIDOGREL BISULFATE 75 MG TAB PO SCH (08:24)
[2019-03-03] MEDS: HEPARIN SOD 5,000 UNIT/0.5 ML VIAL SQ SCH (08:25)
[2019-03-03] MEDS ORDERED: ASPIRIN 81 MG ECTAB PO SCH (09:00)
[2019-03-03] MEDS ORDERED: VITAMIN B COMPLEX TAB PO SCH (09:00)
[2019-03-03] MEDS ORDERED: METOPROLOL SUCC 25MG EXT REL TAB PO SCH (09:00)
[2019-03-03] MEDS ORDERED: LORATADINE 10 MG TAB PO SCH (09:00)
[2019-03-03] MEDS ORDERED: LOSARTAN POTASSIUM 50 MG TAB PO SCH (09:00)
[2019-03-03] MEDS ORDERED: ESCITALOPRAM OXALATE 10 MG TAB PO SCH (09:00)
--- NOTE | 2019-03-03 10:57 | Cardiology Consultation ---
Date of Consultation March 03, 2019 Assessment & Plan (1) Left pontine CVA: (2) Left ventricular systolic dysfunction: (3) LBBB (left bundle branch block): (4) PVCs (premature ventricular contractions): (5) Hypertension: (6) HLD (hyperlipidemia): Telemetry reveals no evidence of atrial fibrillation. The patient's presenting event occurred while he is already taking aspirin 81 mg by mouth daily. Options include adding clopidogrel for dual antiplatelet therapy, or consideration toward adding Coumadin. There is no definite eminence of left ventricular mural thrombus, I think at this time it is reasonable to proceed with aspirin plus clopidogrel. We will plan on a 14-day 0 potline monitor to exclude atrial fibrillation. If atrial fibrillation is present, will transition to aspirin plus Coumadin. Given the patient's frequent PVCs, will increase his metoprolol from 2.5 mg daily to 25 mg by mouth daily. We will also supplement his potassium due to the frequent PVCs noted this morning. Continue statin therapy. CTA revealed no significant intracranial or carotid vessel abnormality. Regarding his cardiomyopathy. It is difficult to determine if this is a nonischemic cardia myopathy due to the underlying conduction system disease, or if he has had progression of his coronary heart disease. He seems a symptomatic from a congestive heart failure standpoint and does not describe any recent anginal symptoms. Continue aspirin, continue beta-jose de jesus. Currently on losartan and amlodipine are on hold to allow some degree of permissive hypertension given his stroke. We will likely transition him off of amlodipine and onto losartan, future considerations include adding Entresto. Consider repeat ischemic work-up with either pharmacologic nuclear stress test or cardiac catheterization after he recovers from his stroke. Would not want to proceed with provocative cardiac testing or cardiac catheterization so soon after a stroke event at present, and therefore we will hold off on this for a few weeks or months depending upon his clinical course. I have already placed the order in his outpatient chart for the 14-day ZIO monitor and I have requested a cardiology follow-up visit. 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 The patient's primary apprenticeship representative is Dr. Blanco of our practice. His most recent cardiology visit had been in June 2018 at which time he has been having vague chest pressure symptoms. He went on to have a nuclear stress test that revealed no evidence of ischemia or infarction and normal LVEF. A rate related left bundle branch block however had been observed on the stress EKG. A transthoracic echocardiogram was also performed in June 2018 with intermittent left bundle branch block and occasional PVCs noted, with normal LVEF. The patient was in his normal state of health until just after 4 PM on 03/01/2019. He was at home with his spouse and he had abrupt onset of dysarthria. His family brought him to the emergency room and he has since been diagnosed with a left pontine stroke. He was seen yesterday by neurology and clopidogrel was added to his medication regimen with the patient having already been on low-dose aspirin. During my interview with the patient he was accompanied by his daughter and his spouse at the bedside. The patient believes he is already feeling better. He was able to provide history, with only needing to have help with the dates of when his onset of symptoms occurred. Past Medical History: 1. Parkinson's disease, relatively mild symptoms 2. Mild coronary heart disease, with mild nonobstructive CAD noted on past cardiac catheterization March, with 20 to 30% left circumflex, 30 to 40% LAD stenosis, and 30% RCA stenosis 3. Dyslipidemia 4. Esophagitis 5. History of depression 6. Hypertension Allergies Allergy/AdvReac Type Severity Reaction Status Date / Time No Known Allergies Allergy Verified 03/01/19 17:29 Home Medications Home Medications Medication Instructions Recorded Confirmed Type escitalopram oxalate 10 mg PO QAM 02/17/19 03/01/19 History losartan 50 mg PO DAILY 02/17/19 03/01/19 History aspirin 81 mg PO DAILY 02/24/19 03/01/19 History carbidopa-levodopa 1 tab PO TID 02/24/19 03/01/19 History loratadine 10 mg PO DAILY 02/24/19 03/01/19 History omeprazole 20 mg PO DAILY 02/24/19 03/01/19 History vitamin B complex 1 tab PO QAM 02/24/19 03/01/19 History amlodipine 5 mg PO BID 02/25/19 03/01/19 History metoprolol succinate 12.5 mg PO DAILY 02/25/19 03/01/19 History Patient History Medical History Nephrolithiasis History of prostate cancer (Chronic) s/p cryoablation GERD (gastroesophageal reflux disease) (Chronic) Depression (Chronic) History of kidney stones (Chronic) Heart disease (Chronic) Hypertension (Chronic) High blood cholesterol (Chronic) Parkinson disease (Chronic) Neuropathy (Chronic) Surgical History History of rotator cuff surgery (Chronic) History of Achilles tendon repair (Chronic) History of cystoscopy (Chronic) History of lithotripsy (Chronic) History of cholecystectomy (Chronic) History of appendectomy (Chronic) Family History Father Cancer Mother Hypertension Social History Preferred Language: Comoran Communication Ability: Effective [employer] Required: No Beliefs That Will Affect Care: None marital status: Current Living Situation: Spouse Feels Safe at Home: Yes Safety Concerns: Feels Safe At This Time Smoking Status: Unknown if ever smoked Hx Alcohol Use: No Hx Substance Use: No Review of Systems Review of Systems: All systems reviewed & are unremarkable except as noted in HPI & below Physical Exam Physical Exam: General: no acute distress and stated age Eyes: conjunctiva are pink and non-injected, sclera clear Neck: normal jugular venous pulse, no hepatojugular reflux Chest: normal shape and normal respiratory effort Lungs: clear to auscultation and percussion Cardiac Exam: - regular heart sounds, no murmurs, rubs, or gallops, no jugular venous distention Abdomen: abdomen soft, non-tender, no abnormal masses and no hepatosplenomegaly Musculoskeletal: no gait disturbance, no weakness Extremities: no edema and no cyanosis Neuro:awake, coversant, follows commands, very minimal dysarthria, left upper extremity tremor and therefore it is difficult to determine if he has any left upper extremity weakness per Results & Data Vital Signs (Past 12 Hours) Vital Signs Temp Pulse Resp BP Pulse Ox 03/03/19 07:07 36.6 C 68 17 153/91 H 98 03/03/19 03:14 36.5 C 62 17 150/80 H 96 03/03/19 00:21 36.7 C 60 16 147/88 H 96 Laboratory Results CBC 03/03/19 Range/Units 06:28 WBC 5.94 (4.8-10.8) K/uL RBC 4.05 L (4.7-6.1) M/uL Hgb 13.0 L (14.0-18.0) g/dL Hct 37.1 L (42-52) % Plt Count 186 (130-400) K/uL Neut # (Auto) 3.27 (1.4-6.5) K/uL Lymph # (Auto) 1.91 (1.2-3.4) K/uL [place] # (Auto) 0.42 (0.11-0.59) K/uL Eos # (Auto) 0.30 (0-0.5) K/uL Baso # (Auto) 0.03 (0-0.2) K/uL Comprehensive Metabolic Panel 03/03/19 Range/Units 06:28 Sodium 142 (136-145) mmol/L Potassium 3.7 (3.5-5.1) mmol/L Chloride 111 H (98-107) mmol/L Carbon Dioxide 27 (21-32) mmol/L BUN 20 H (7-18) mg/dl Creatinine 1.08 (0.6-1.4) mg/dl Glucose 87 (70-99) mg/dl Calcium 9.1 (8.5-10.1) mg/dl Intake and Output 03/02/19 03/03/19 03/03/19 22:59 06:59 14:59 Intake Total 913.333 / 1962.000 Output Total 475 / 775 450 / 450 Balance 438.333 / 1187.000 -450 / -450 Intake: IV 493.333 / 1492.000 D5w and 1/2Nss 1,000 ml @ 80 493.333 / 1492.000 mls/hr IV .[id number] FARIDA Rx#: [id number] Oral 420 / 470 Output: Urine 475 / 775 450 / 450 Other: Other Intake Source Sips # Unmeasured Voids 1 Weight 75.8 kg 74.6 kg Diagnostic Findings EKG performed this morning 03/03/2019 reviewed independently: Sinus rhythm with frequent PVCs in the pattern of ventricular bigeminy, compared to 03/02/2019, the premature ventricular contractions are now present. Telemetry reveals sinus rhythm with a bundle branch block and occasional PVCs Echocardiogram performed yesterday 03/02/2019 with images reviewed independently by the undersigned today: Mild concentric left ventricular hypertrophy is present. The left ventricle cavity is mildly dilated, the septal wall motion is abnormal consistent with left bundle branch block, with mild global hypokinesis otherwise, the left ventricular ejection fraction is moderately reduced in the range of 30-35%. The interatrial septum is intact with administration of agitated saline contrast. There is no significant valvular heart disease. (1) Hypertension Hypertension type: unspecified Qualified Code(s): I10 - Essential (primary) hypertension
[2019-03-03] MEDS ORDERED: POTASSIUM CHLORIDE 20 MEQ TABCR PO STA (10:59)
[2019-03-03] MEDS ORDERED: METOPROLOL SUCC 25MG EXT REL TAB PO STA (10:59)
--- NOTE | 2019-03-03 12:05 | Hospitalist Progress Note ---
Date of Service March 03, 2019 Assessment & Plan (1) Left pontine CVA: This is a 78 yr old M who has a significant PMH of HTN, HLD, CAD, Parkinson disease, CKD-3, Gerd, Depression, history of prostate cancer s/p cryoablation therapy who presents to [facility] ED secondary to garbled speech and RLE weakness since 16:15. Upon arrival patient was in TPA window. Stroke alert was called. It was noted his symptoms slowly resolving. Neurology and ED team felt TPA not appropriate given resolution of symptoms. Neurology did recommend initiating Plavix. Nursing perform dysphagia screen at bedside and unfortunately patient failed this. MRI revealed: IMPRESSION: Subtle 9 mm focus of increased signal intensity within the left aspect of the robert on the diffusion-weighted sequence. Correlation with the ADC map is difficult. This represents a small age indeterminate infarct and may be acute. Mass effect. No hemorrhage. Neurology consulted: recommending ASA + Plavix 75mg daily x 21 days; then discontinue ASA given aspirin failure High Intensity atorvastatin 40mg daily (Fasting lipid panel:Triglyceride 114, Total cholesterol 181, LDL 126, HDL 32) A1C 5.5 Cardiology seen and evaluated pt: ZIO patch as outpt - to be arranged by cards) (2) Hypertension: Blood pressure elevated -allowing for permissive HTN Okay to resume PO BP meds tomorrow Cardiology recommendatiion including transitioning off amlodipine and titrate of losartan given new dilated APPLICATION DEVELOPMENT LIAISON Metoprolol increased given PVCS (3) CKD (chronic kidney disease) stage 3, GFR 30-59 ml/min: Bun/Cr stable Cr 1.08 (4) Heart disease: No complaints of chest pain or shortness of breath Currently on ASA, metoprolol, losartan, now high intensity statin and plavix (5) Dilated cardiomyopathy: Echocardiogram 03/02/19 reveals new dilated APPLICATION DEVELOPMENT LIAISON EF 30-35% Cardiology consulted - appreciate Dr. Sanchez recommendations Unsure if nonischemic vs conduction system disease vs progression of CAD Asymptomatic from cardiac standpoint continue cardiac risk reduction medications including ASA, Statin, Metoprolol and Losartan when able to resume Metoprolol increased Likely to transition off amlodipine and titrate losartan Cardiology to arrange outpt follow up (6) LBBB (left bundle branch block): ECG sinus rhythm with PAC and LBBB, noted on prior ECG during recent admission. new from ecg compared on 12/2017 which revealed NSR Pt w/ known hx of CAD Of note patient underwent nuclear stress test on 06/2018 in which EKG revealed sinus bradycardia and essentially within normal limits. During stress however the patient developed a left bundle branch block. Manquin to likely represent a rate related left bundle branch block pt asymptomatic w/o chest pain or cardiac symptoms last echo 06/2018: EF 55% with grade 1 diastolic dysfunction, no significant valvular disease. Patient did have frequent isolated ventricular ectopies during echocardiogram as well as intermittent bundle branch block. Echo 03/02 reviewed: seen and evaluated by cards as discussed above (7) Parkinson disease: continue sinemet (8) Depression: on escitalopram (9) GERD (gastroesophageal reflux disease): Pharmacy recommendations to discontinue omeprazole while on Plavix PPI will be discontinued (10) Nephrolithiasis: S/P uretersrocopy , stone extraction by Dr. York 02/25/19 stable from urology perspective (11) DVT prophylaxis: Scds/Teds, SQ heparin Disposition: Accepted to [facility] for acute rehab today; will discuss with care team if appropriate for discharge today Follow up: PCP Dr Landry upon discharge (03/04/19 11:10 am hospital follow up) along with appropriate neurology and cardiology follow-up Patient was seen and examined in collaboration with Dr. Sen, please see addendum Supervising Physician Co-Signing Physician Notes I have seen and examined the patient and have discussed the case with the provider above. I agree with the assessment and plan as stated. Subjective Patient was seen and examined in room 217 with at bedside at approx 11:45am Follow-up for admission secondary L pontine CVA. Patient feels, "great" today. Sitting up in bedside chair eating lunch. Ambulated the [place] this morning with therapy. He is anxious to attend rehab at [facility], states, "they have a bed ready for me." Denies f/c/s, chest pain, sob, n/v/d. Appetite is good. No change in bowel or urinary habits. Daughter at bedside. All questions answered. Review of Systems Review of Systems: As noted per HPI, 10 systems reviewed and negative unless noted above. Physical Exam Physical Exam: Gen: WD/WN, M, sitting in bedside chair, NAD, A&O x3 HEENT: Normocephalic, atraumatic, conjunctivae moist, sclerae anicteric, mucous membranes moist. Lung: Clear to Auscultation bilaterally, no wheezes/rales/rhonchi Heart: Regular rate, regular rhythm, no murmurs, rubs, or gallops Extremities: No edema Skin: Warm, no rash, negative turgor. Neuro: Cranial nerves II through XII intact. A and O x 3, speech more clear. No a aphasia or facial droop. MSK: Strength equal and intact bilateral upper and lower extremities. Results & Data Vital Signs (Past 12 Hours) Vital Signs Temp Pulse Resp BP Pulse Ox 03/03/19 07:07 36.6 C 68 17 153/91 H 98 03/03/19 03:14 36.5 C 62 17 150/80 H 96 03/03/19 00:21 36.7 C 60 16 147/88 H 96 Laboratory Results Short CBC 03/03/19 Range/Units 06:28 WBC 5.94 (4.8-10.8) K/uL Hgb 13.0 L (14.0-18.0) g/dL Hct 37.1 L (42-52) % Plt Count 186 (130-400) K/uL BMP 03/03/19 06:28 Sodium 142 Potassium 3.7 Chloride 111 H Carbon Dioxide 27 BUN 20 H Creatinine 1.08 Glucose 87 Calcium 9.1 ECG Rate (beats per minute): 60 Findings: + PVC (bigeminy) (1) Depression Depression Type: unspecified Qualified Code(s): F32.9 - Major depressive disorder, single episode, unspecified (2) GERD (gastroesophageal reflux disease) Esophagitis presence: esophagitis presence not specified Qualified Code(s): K 21.9 - Gastro-esophageal reflux disease without esophagitis (3) Hypertension Hypertension type: unspecified Qualified Code(s): I10 - Essential (primary) hypertension
[2019-03-03] MEDS ORDERED: STROKE PATIENT DISCHARGE STA (14:02)
--- NOTE | 2019-03-03 14:36 | Discharge Summary ---
Date of Service March 03, 2019 Admission HPI Per Admitting Provider This is a 78 yr old M who has a significant PMH of HTN, HLD, CAD, Parkinson disease, CKD-3, Gerd, Depression, history of prostate cancer s/p cryoablation therapy who presents to [facility] ED secondary to garbled speech and RLE weakness since 16:15. Unfortunately pt discharged early today secondary to renal colic, nephrolithiasis S/P uretersrocopy , stone extraction by Dr. York in which he was admitted 02/24-03/01. Hospital course complicated for A/C CKD -3. He was seen by nephrology and cr peaked at 2.1. It was felt secondary to obstructive uropathy versus AIN as he did have WBCs on urinalysis. He was scheduled for follow-up with nephrology in 2 weeks. Patient was discharged home today and approximately at 4:15 PM he was standing trying to do some, "book work." At that time he noticed significant right lower extremity weakness, feeling off balance, having difficulty speaking. Family at bedside noted some right facial droop and noted is speech was garbled. Daughter states she spoke to her father after her discharge and he sounded very well. She now feels he has a bit more confused and, "off. At my time of examination patient feels his weakness has resolved but has noticed increased stuttering of words. Family feels he is at about 80% and at discharge today was 100%. He denies any history of CVA in the past. Denies any lightheadedness, dizziness, palpitations, chest pain, shortness of breath, nausea, vomiting. His urinary symptoms have resolved. He denies any syncope or falls. He states he took all of his medications this morning including aspirin. Upon arrival patient was in TPA window. Stroke alert was called. It was noted his symptoms slowly resolving. Neurology and ED team felt TPA not appropriate given resolution of symptoms. Neurology did recommend initiating Plavix. Nursing perform dysphagia screen at bedside and unfortunately patient failed this. His CBC was relatively unremarkable. His creatinine has improved to 1.44. His CMP, magnesium, troponin level WNL. CT of head and neck unremarkable. Head CT negative for acute abnormality but does reveal small vessel disease. CXR no acute abnormality. Admission Exam Per Admitting Provider Gen: WD/WN, M, NAD, sitting up in bed, parkinsonian affect, pleasant, conversing easily but does occasionally stutter words Head: Normocephalic, Atraumatic Eyes: Sclera normal, no conjunctival injection, PERRLA, EOMI ENT: Gross hearing intact, normal pharynx, mucous membranes moist Neck: supple, no adenopathy, No JVD, no bruit, Resp: Clear to auscultation b/l, no wheeze, rales, rhonchi. 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 Extremities: No edema bilaterally Skin: warm, moist, no rash, negative turgor, cap refill < 2sec Neuro: Alert and oriented x 3, speech normal with occasional stuttering of words, good mood/affect, cran nerve 2-12 intact grossly, pronator drift negative, point to point intact, heel to mackey intact, fine motor movements intact : deferred Principal Diagnosis Left Pontine ischemic CVA -unknown etiology New LBBB New Dilated Cardiomyopathy HTN CKD 3 Parkinsons Disease Discharge Exam Gen: WD/WN, M, sitting in bedside chair, NAD, A&O x3 HEENT: Normocephalic, atraumatic, conjunctivae moist, sclerae anicteric, mucous membranes moist. Lung: Clear to Auscultation bilaterally, no wheezes/rales/rhonchi Heart: Regular rate, regular rhythm, no murmurs, rubs, or gallops Extremities: No edema Skin: Warm, no rash, negative turgor. Neuro: Cranial nerves II through XII intact. A and O x 3, speech more clear. No a aphasia or facial droop. MSK: Strength equal and intact bilateral upper and lower extremities. Discharge Data Allergies Allergy/AdvReac Type Severity Reaction Status Date / Time No Known Allergies Allergy Verified 03/01/19 17:29 Consultations Cardiology Consultation: Dr. Sanchez 1) Left pontine CVA: (2) Left ventricular systolic dysfunction: (3) LBBB (left bundle branch block): (4) PVCs (premature ventricular contractions): (5) Hypertension: (6) HLD (hyperlipidemia): Telemetry reveals no evidence of atrial fibrillation. The patient's presenting event occurred while he is already taking aspirin 81 mg by mouth daily. Options include adding clopidogrel for dual antiplatelet therapy, or considerat ion toward adding Coumadin. There is no definite eminence of left ventricular mural thrombus, I think at this time it is reasonable to proceed with aspirin plus clopidogrel. We will plan on a 14-day 0 rn cardiac to exclude atrial fibrillation. If atrial fibrillation is present, will transition to aspirin plus Coumadin. Given the patient's frequent PVCs, will increase his metoprolol from 2.5 mg daily to 25 mg by mouth daily. We will also supplement his potassium due to the frequent PVCs noted this morning. Continue statin therapy. CTA revealed no significant intracranial or carotid vessel abnormality. Regarding his cardiomyopathy. It is difficult to determine if this is a nonischemic cardia myopathy due to the underlying conduction system disease, or if he has had progression of his coronary heart disease. He seems a symptomatic from a congestive heart failure standpoint and does not describe any recent anginal symptoms. Continue aspirin, continue beta-jose de jesus. Currently on losartan and amlodipine are on hold to allow some degree of permissive hypertension given his stroke. We will likely transition him off of amlodipine and onto losartan, future considerations include adding Entresto. Consider repeat ischemic work-up with either pharmacologic nuclear stress test or cardiac catheterization after he recovers from his stroke. Would not want to proceed with provocative cardiac testing or cardiac catheterization so soon after a stroke event at present, and therefore we will hold off on this for a few weeks or months depending upon his clinical course. I have already placed the order in his outpatient chart for the 14-day ZIO monitor and I have requested a cardiology follow-up visit. Neurology Consultation: 1) Left pontine CVA: 1. MRI with left robert ishemia 2. CTA head neck- no significant stenosis 3. PT/OT speech for discharge needs 4. home safety evaluation 5. continue aspirin 81 mg and add plavix 75 mg daily, 21 days then stop aspirin and continue plavix for a lifetime 6. TTE- EF 30-35% no ASD 7. optimize HTN, HLD LDL <70 follow up in neurology Devorah HICKMAN, 4-6 weeks after discharge Supervising Physician Co-Signing Physician Notes I have seen and discussed above patient with Dr Eric Wright, neurology I have seen Mr. Joyce today, examined him, reviewed his history, his MRI scans and other imaging studies and the above note written by Devorah Campos PA-C I know this man from an outpatient evaluation of his Parkinson's on 2 occasions which luckily remains relatively mild on low-dose Sinemet and at this point certainly does not need any further management medication vogt Presents with a left pontine vascular event characterized by dysarthria, perhaps a mild degree of right upper motor neuron facial weakness, clumsiness of the right leg as upgoing toes bilaterally worse on the right, slight drift of the right arm, mild dysarthria, very subtle right upper motor neuron facial asymmetry and absolutely nothing else other than some manifestations of his Parkinson's with some cogwheeling in the left greater than right resting tremor of the upper extremities His imaging studies have been negative in terms of revealing no obvious source of embolism within the arterial system. An echocardiographic study is pending and he is being monitored for atrial fibrillation which has not yet been evident on his rhythm strips He should be placed on Plavix in addition to the aspirin he has been taking, needs to be assessed by physical therapy but according the family he is doing better and tomorrow a decision needs to be made about whether he could possibly go home or whether he will need some time in a rehabilitation hospital His vascular risk factors are being monitored and managed on an outpatient basis by his primary care group and although we are recommending is a dual antiplatelet approach for 21 days then switching back to Plavix as a single agent in view of the "aspirin failure" in the setting Eric Wright Ordered Studies Echocardiogram: Echocardiogram: The left ventricle was mildly dilated. There is mild concentric left ventricular hypertrophy. EF equals 30 to 35%. The right ventricular systolic function is normal. Left atrial size is normal. Right atrial size is normal. Injection of contrast documented no intra-or atrial shunt the interatrial septum is intact with no evidence of ASD. No significant valvular pathology. MRI: FINDINGS: There is a subtle 9 mm hyperintense focus within the left aspect of the robert on the diffusion-weighted sequence, image 9 of 48. Correlation with the ADC map is difficult however this appears slightly hypointense. There is mild corresponding increased T2 signal. There is no mass effect. No hemorrhage. Moderate atrophy is noted. The basilar cisterns are patent. No extra axial collections are present. Flow-voids for the major intracranial vessels are present. White matter T2 hyperintense foci suggest mild small vessel disease. Calvarial signal is maintained. IMPRESSION: Subtle 9 mm focus of increased signal intensity within the left aspect of the robert on the diffusion-weighted sequence. Correlation with the ADC map is difficult. This represents a small age indeterminate infarct and may be acute. Mass effect. No hemorrhage. Neck CTA: IMPRESSION: 1. No stenosis or dissection within the major vessels of the neck. 2. Mild atherosclerotic plaque. Head CTA: IMPRESSION: 1. No abrupt vessel cut off or intracranial aneurysm. 2. 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 Dominant, patent left vertebral artery. CXR: IMPRESSION: No significant change compared to the prior study. No acute process. Head CT: IMPRESSION: No acute intracranial findings. Short CBC 03/03/19 Range/Units 06:28 WBC 5.94 (4.8-10.8) K/uL Hgb 13.0 L (14.0-18.0) g/dL Hct 37.1 L (42-52) % Plt Count 186 (130-400) K/uL BMP 03/03/19 06:28 Sodium 142 Potassium 3.7 Chloride 111 H Carbon Dioxide 27 BUN 20 H Creatinine 1.08 Glucose 87 Calcium 9.1 Fasting lipid panel:Triglyceride 114, Total cholesterol 181, LDL 126, HDL 32 A1C 5.5 Hospital Course (1) Left pontine CVA: This is a 78 yr old M who has a significant PMH of HTN, HLD, CAD, Parkinson disease, CKD-3, Gerd, Depression, history of prostate cancer s/p cryoablation therapy who presents to [facility] ED secondary to garbled speech and RLE weakness since 16:15 on 03/01/19. Unfortunately patient had recently been discharged earlier that day after having been admitted for nephrolithiasis, STEPHEN. Upon arrival patient was in TPA window. Stroke alert was called. His symptoms are significant for garbled speech, questionable facial droop, right leg weakness. It was noted his symptoms slowly resolving. Tele Neurology and ED team felt TPA not appropriate given resolution of symptoms. Neurology did recommend initiating Plavix given patient failed aspirin only therapy. He underwent a CTA of his head and neck which was negative for any significant stenosis. MRI did reveal a subtle 9 mm focus in the left robert. Neurology was consulted who recommended adding Plavix 75 mg daily to his aspirin regimen for 21 days and then discontinuing aspirin. He was started on high intensity statin therapy with atorvastatin 40 mg daily. His A1c was 5.5. Upon further work-up on EKG patient had a new LBBB from prior EKGs done in December 2017. 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 Cardiology was consulted given new cardiomyopathy. Cardiology unsure if secondary to nonischemic vs conduction system disease vs progression of CAD. He has been asymptomatic from cardiac standpoint and recommendation to continue cardiac risk reduction medications including ASA, Statin, Metoprolol and Losartan. 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 Potassium repleted. Cardiology has arranged for outpatient ZIO patch monitor as well as close cardiology work up for further diagnosis of his cardiomyopathy. He was formally evaluated by PT, OT, ST. Patient was recommended inpatient rehab and was transferred to [facility]. (2) Hypertension: (3) CKD (chronic kidney disease) stage 3, GFR 30-59 ml/min: (4) Heart disease: (5) Dilated cardiomyopathy: (6) LBBB (left bundle branch block): (7) Parkinson disease: (8) Depression: (9) GERD (gastroesophageal reflux disease): (10) Nephrolithiasis: (11) DVT prophylaxis: Total Time Total Time Spent Total Time Spent (In Minutes): 45 Total Time Includes: Examination of the Patient, Discharge Planning, Medication Reconciliation and Communication With Other Providers Discharge Plan Discharge Items Patient Disposition: Transfer Inpatient Rehab Fac Reason For Visit: CVA LIKE SYMPTOMS Discharge Diagnosis: Stroke Cardiomyopathy Left bundle branch block Condition: Good Discharge Goals: Improve function and Increase independence Activity: As commented below Activity Comment: per rehab staff Non-emergency contact: Primary Care Provider Call non-emergency contact if: you have any medication questions, your symptoms worsen, your pain is not controlled and you have a fever Follow-up/Referrals: Devorah Campos PA-C [Physician Manager Analysis] - 04/06/19 10:40 am Vishal Landry DO [Primary Care Provider] - 03/08/19 11:10 am Diet: Heart Healthy Addtl Provider Instructions: Please take all medications as instructed on discharge list below. Please followup with your primary care provider within one week of discharge from the hospital. Please follow-up with Urology, Neurology and Cardiology as instructed. It was a pleasure taking care of you! Please call if you have any questions or problems. You can reach a [facility] hospitalist on duty at [facility] 24 hours a day by calling [phone]. Take care of yourself. Kellie Sen, DO [facility] Hospitalist Prescriptions: New clopidogrel 75 mg Tablet 75 mg PO QAM Qty: 30 RF: 2 metoprolol succinate 25 mg Tablet Extended Release 24 Hr 25 mg PO QAM Qty: 30 RF: 1 atorvastatin 40 mg Tablet 40 mg PO HS Qty: 30 RF: 2 Continued losartan 50 mg tablet 50 mg PO DAILY RF: 0 escitalopram oxalate 10 mg tablet 10 mg PO QAM RF: 0 carbidopa-levodopa 25-100 mg tablet 1 tab PO TID RF: 0 omeprazole 20 mg capsule,delayed release(DR/EC) 20 mg PO DAILY RF: 0 vitamin B complex Tablet 1 tab PO QAM RF: 0 aspirin 81 mg Tablet,Delayed Release (Dr/Ec) 81 mg PO DAILY RF: 0 amlodipine 5 mg tablet 5 mg PO BID RF: 0 Discontinued metoprolol succinate 25 mg tablet extended release 24 hr 12.5 mg PO DAILY RF: 0 Stand-Alone Forms: My [facility] Discharge Orders: Discharge Order (Routine); Ordered 03/03/19 Ordered By: Kellie Sen Skilled Items Patient informed of condition?: Yes DNR: No Discharge Level of Care: Acute rehab Communicable Disease: No Discharge Prognosis: Stable Admission Data Admit Date/Time: 03/01/19 18:33 Attending Provider: Kellie Sen Admit Provider: Crystal Boucher Primary Care Provider: Vishal Landry Other Providers: Eric Wright ; Crystal Boucher ; Kenyon Weiss Service: Telemetry
--- NOTE | 2019-03-03 15:11 | Communication Note ---
Date of Service: March 03, 2019 I saw Jony today just prior to his being transferred to [facility] in [place] he still has a little dysarthria mildly clumsy gait and would probably isauro efit from at least a week of inpatient rehabilitation to care for his small pontine infarction prior to returning home We are recommending dual antiplatelet therapy for 21 days We will see him back in the office several weeks after he is discharged from [facility] he already has an appointment set up for April 06 to see both Devorah Campos PA-C and myself We will address his concerns at that point Eric Wright MD
[2019-03-04] MEDS ORDERED: METOPROLOL SUCC 25MG EXT REL TAB PO SCH (09:00)
== END 2019-03-03 15:30 | DRG 65 ==
LOC: 2S 18:33 → SUATTDRO 18:33 → 2S 20:19

== ENCOUNTER 2022-03-14 16:53 | Inpatient (IN) ==
[2022-03-14 18:59] LABS: Basophils # (auto) 0.02 K/uL (0-0.2); Basophils % (auto) 0.3 %; Eosinophils # (auto) 0.24 K/uL (0-0.5); Eosinophils % (auto) 3.3 %; Hematocrit (blood only) 37.6 % (42-52); Immature Granulocytes # (auto) 0.01 K/uL (0.00-0.02); Immature Granulocytes % (auto) 0.1 %; Lymphocytes # (auto) 1.94 K/uL (1.2-3.4); Lymphocytes % (auto) 26.8 %; Mean Corpuscular Hemoglobin 32.5 pg (25-34); Mean Corpuscular Hgb Conc 34.6 g/dL (32-36); Mean Platelet Volume 9.6 fL (7.4-10.4); Monocytes # (auto) 0.66 K/uL (0.11-0.59); Monocytes % (auto) 9.1 %; Neutrophils # (auto) 4.37 K/uL (1.4-6.5); Neutrophils % (auto) 60.4 %; Platelet Count 181 K/uL (130-400); White Blood Count 7.24 K/uL (4.8-10.8)
--- NOTE | 2022-03-14 19:15 | Emergency Department Note ---
Impression & Plan Parkinson disease, Hallucinations, visual, Ambulatory dysfunction, Falls frequently ED Provider Note CHIEF COMPLAINT: Weakness, falls, Parkinson's disease HISTORY OF PRESENT ILLNESS: This 81-year-old male patient presents to the emergency department with complaints of ambulatory dysfunction that has rapidly declined over the last 2 days in the setting of Parkinson's disease. Son also states he has been unable to feed himself. He fell twice this week, once 5 days ago and again 3 days ago. Patient denies hitting his head but 7 states after this is when things seem to decline. Neither son or daughter witnessed the falls he was with his who also suffers from dementia. Patient has not had any fever or vomiting. He denies chest pain or shortness of breath. He has had some difficulty mentating and at times experiencing visual hallucinations. Family denies any recent medications. REVIEW OF SYSTEMS: A review of systems was performed with positives and pertinent negatives listed in the history of present illness. 10 systems were reviewed and are otherwise negative. ALLERGIES: see below MEDICATIONS: see below PMH: see below SOCIAL HISTORY: see below DDx: Infection, dehydration, metabolic abnormality, hypo/hyperglycemia, electrolyte disturbance, anemia, hypoxia, cardiac sources, intracerebral event, toxicologic, neurologic, as well as other pathologies. PHYSICAL EXAM: Vital signs reviewed. General: Chronically ill-appearing, elderly 81-year-old male, in no significant distress. HEENT: No scleral icterus, PERRLA, neck supple. Atraumatic. Cardiovascular: Bradycardic but regular, no extra sounds Pulmonary: Clear to auscultation bilaterally, normal work of breathing. Abdomen: Soft, nontender, nondistended, positive bowel sounds. Musculoskeletal: Atraumatic, no peripheral edema. Tender to palpation of the cervical spine. Neurologic: Patient awake alert and pleasantly confused, flat affect with muttered speech. Skin: Warm, dry, no rash EMERGENCY DEPARTMENT COURSE/MDM:This pt was evaluated and appeared to be in no distress. IV access was obtained and laboratory work was drawn. The patient was placed on the supervisor coin machine and noted to be in a normal sinus rhythm. Laboratory work was obtained and reveals no specific abnormality. UA is negative for infection. 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 I did discuss the findings with the patient and his family. Due to his decline and inability to safely maneuver at home, he will be evaluated by the hospitalist service for further management. MONITORING: An order for cardiac monitoring was placed and the patient is noted to be in a sinus bradycardia at 56 beats per minute. RADIOLOGY: See below EKG: Normal sinus rhythm at 62 bpm. Left bundle branch block. Poor quality baseline for interpretation. QTC is 454. No PVC, no PAC. DISPOSITION: Admission Past Med/Surg History Medical History (Updated 03/16/22 @ 20:59 by Christina Barron MD) Depression GERD (gastroesophageal reflux disease) Heart disease High blood cholesterol History of kidney stones History of prostate cancer s/p cryoablation Hypertension Nephrolithiasis Neuropathy Parkinson disease Surgical History History of Achilles tendon repair History of appendectomy History of cholecystectomy History of cystoscopy History of lithotripsy History of rotator cuff surgery Family History Father Cancer Mother Hypertension Social History Smoking Status: Never smoker Hx Alcohol Use: Yes Alcohol type: other Hx Substance Use: No Preferred Language: Filipino Communication Ability: Effective Visual Impairment: No Limitations [employer] Required: No Beliefs That Will Affect Care: None marital status: Current Living Situation: Spouse How many Children do You have: 2 Feels Safe at Home: Yes Safety Concerns: Feels Safe At This Time Assistive Devices: Walker and Wheelchair Allergies Allergies Allergy/AdvReac Type Severity Reaction Status Date / Time No Known Allergies Allergy Verified 03/14/22 18:58 Home Meds Home Medications Medication Instructions Recorded Confirmed carbidopa 25 mg-levodopa 100 mg 2 tab PO TID 02/24/19 03/14/22 tablet omeprazole 20 mg capsule,delayed 20 mg PO BID 02/24/19 03/14/22 release vitamin B complex 1 tab PO QAM 02/24/19 03/14/22 amlodipine 5 mg tablet 5 mg PO QAM 02/25/19 03/14/22 atorvastatin 40 mg tablet 40 mg PO QPM 03/14/22 03/14/22 donepezil 5 mg tablet 5 mg PO QAM 03/14/22 03/14/22 escitalopram oxalate 20 mg tablet 20 mg PO QAM 03/14/22 03/14/22 hydrochlorothiazide 12.5 mg capsule 12.5 mg PO QAM 03/14/22 03/14/22 losartan 100 mg tablet 100 mg PO QAM 03/14/22 03/14/22 magnesium oxide 400 mg PO QAM 03/14/22 03/14/22 metoprolol succinate 25 mg 12.5 mg PO QPM 03/14/22 03/14/22 tablet,extended release 24 hr mirabegron 50 mg tablet,extended 50 mg PO QPM 03/14/22 03/14/22 release 24 hr (Myrbetriq) riboflavin (vitamin B2) 100 mg 400 mg PO QAM 03/14/22 03/14/22 tablet (Vitamin B-2) solifenacin 10 mg tablet 10 mg PO QAM 03/14/22 03/14/22 Previous Rx's Medication Instructions Recorded clopidogrel 75 mg tablet 75 mg PO QAM #30 tab 03/03/19 Results & Data (ED) Vital Signs Vital Signs - 24 hr 03/14/22 17:13 03/14/22 18:34 Temperature 36.3 C L Temperature Source Oral Pulse Rate 68 Pulse Rate [Right Finger] 59 L Pulse Rhythm Regular Pulse Strength Normal Pulse Strength [Right Finger] Normal Respiratory Rate 20 19 Respiratory Effort / Characteristics Non-Labored Spontaneous Non-Labored Spontaneous Respiratory Depth Normal Normal Respiratory Pattern Regular Regular Blood Pressure 128/66 Blood Pressure [Right Arm] 146/89 H Blood Pressure Mean 86 Blood Pressure Mean [Right Arm] 108 Blood Pressure Position Sitting Blood Pressure Position [Right Arm] Lying Pulse Oximetry 96 98 Oxygen Delivery Method Room Air Room Air Sepsis Recent Fever Within 48 Hours No Sepsis New/Unexplained Change in Mental Status No Sepsis Action Taken by Nursing No Action Required Home Medications Current Medication List: was personally reviewed by me Laboratory Data Attestation: I reviewed the patient's lab results. Result diagrams: 03/16/22 05:18 03/16/22 05:18 Lab Results 03/14/22 03/14/22 03/14/22 Range/Units 18:07 18:07 18:07 WBC 7.24 (4.8-10.8) K/uL RBC 4.00 L (4.7-6.1) M/uL Hgb 13.0 L (14.0-18.0) g/dL Hct 37.6 L (42-52) % MCV 94.0 (80-100) fL MCH 32.5 (25-34) pg MCHC 34.6 (32-36) g/dL RDW Std Deviation 45.0 (36.4-46.3) fL RDW Coeff of Lala 13.0 (11.5-14.5) % Plt Count 181 (130-400) K/uL MPV 9.6 (7.4-10.4) fL Immature Gran % (Auto) 0.1 % Neut % (Auto) 60.4 % Lymph % (Auto) 26.8 % Merrick % (Auto) 9.1 % Eos % (Auto) 3.3 % Baso % (Auto) 0.3 % Neut # (Auto) 4.37 (1.4-6.5) K/uL Lymph # (Auto) 1.94 (1.2-3.4) K/uL Merrick # (Auto) 0.66 H (0.11-0.59) K/uL Eos # (Auto) 0.24 (0-0.5) K/uL Baso # (Auto) 0.02 (0-0.2) K/uL Immature Gran # (Auto) 0.01 (0.00-0.02) K/uL PT Cancelled INR Cancelled APTT Cancelled PTT Ratio Cancelled Sodium 137 (136-145) mmol/L Potassium (3.5-5.1) mmol/L Chloride 103 (98-107) mmol/L Carbon Dioxide 27 (21-32) mmol/L Anion Gap 7 (3-11) BUN 29 H (6-23) mg/dl Creatinine 1.11 (0.6-1.4) mg/dl Est Cr Clr Drug Dosing Not Reportable Est GFR ( Amer) 72.3 ml/min Est GFR (Non-Af Amer) 62.4 ml/min BUN/Creatinine Ratio 26.1 H (10-20) Glucose 96 (70-99(Fasting)) mg/dl Calcium 9.6 (8.5-10.1) mg/dl Phosphorus (2.5-4.9) mg/dl Magnesium (1.7-2.4) mg/dl Total Bilirubin 0.6 (0.2-1.0) mg/dl AST (13-39) U/L ALT 5 L (7-52) U/L Alkaline Phosphatase 79 (34-104) U/L Ammonia (18-72) umol/L Total Protein 7.2 (6.0-8.3) gm/dl Albumin 4.4 (3.4-5.0) gm/dl Globulin 2.8 (2.5-4.0) gm/dl Albumin/Globulin Ratio 1.6 (0.9-2) Urine Color Urine Appearance (Clear) Urine pH (4.5-7.5) Ur Specific Nabb (1.000-1.030) Urine Protein (Negative) Urine Glucose (UA) (Negative) Urine Ketones (Negative) Urine Blood (Negative) Urine Nitrite (Negative) Urine Bilirubin (Negative) Urine Urobilinogen (Negative) Ur Leukocyte Esterase (Negative) SARS-CoV-2, RNA, NAAT (NEGATIVE) 03/14/22 03/14/22 03/14/22 Range/Units 20:31 20:31 20:31 WBC (4.8-10.8) K/uL RBC (4.7-6.1) M/uL Hgb (14.0-18.0) g/dL Hct (42-52) % MCV (80-100) fL MCH (25-34) pg MCHC (32-36) g/dL RDW Std Deviation (36.4-46.3) fL RDW Coeff of Lala (11.5-14.5) % Plt Count (130-400) K/uL MPV (7.4-10.4) fL Immature Gran % (Auto) % Neut % (Auto) % Lymph % (Auto) % Merrick % (Auto) % Eos % (Auto) % Baso % (Auto) % Neut # (Auto) (1.4-6.5) K/uL Lymph # (Auto) (1.2-3.4) K/uL Merrick # (Auto) (0.11-0.59) K/uL Eos # (Auto) (0-0.5) K/uL Baso # (Auto) (0-0.2) K/uL Immature Gran # (Auto) (0.00-0.02) K/uL PT 10.9 INR 1.0 APTT 26.6 PTT Ratio 1.0 Sodium (136-145) mmol/L Potassium 3.6 (3.5-5.1) mmol/L Chloride (98-107) mmol/L Carbon Dioxide (21-32) mmol/L Anion Gap (3-11) BUN (6-23) mg/dl Creatinine (0.6-1.4) mg/dl Est Cr Clr Drug Dosing Est GFR ( Amer) ml/min Est GFR (Non-Af Amer) ml/min BUN/Creatinine Ratio (10-20) Glucose (70-99(Fasting)) mg/dl Calcium (8.5-10.1) mg/dl Phosphorus 2.6 (2.5-4.9) mg/dl Magnesium 2.0 (1.7-2.4) mg/dl Total Bilirubin (0.2-1.0) mg/dl AST 24 (13-39) U/L ALT (7-52) U/L Alkaline Phosphatase (34-104) U/L Ammonia 34.0 (18-72) umol/L Total Protein (6.0-8.3) gm/dl Albumin (3.4-5.0) gm/dl Globulin (2.5-4.0) gm/dl Albumin/Globulin Ratio (0.9-2) Urine Color Urine Appearance (Clear) Urine pH (4.5-7.5) Ur Specific Nabb (1.000-1.030) Urine Protein (Negative) Urine Glucose (UA) (Negative) Urine Ketones (Negative) Urine Blood (Negative) Urine Nitrite (Negative) Urine Bilirubin (Negative) Urine Urobilinogen (Negative) Ur Leukocyte Esterase (Negative) SARS-CoV-2, RNA, NAAT (NEGATIVE) 03/14/22 03/14/22 Range/Units 21:10 21:58 WBC (4.8-10.8) K/uL RBC (4.7-6.1) M/uL Hgb (14.0-18.0) g/dL Hct (42-52) % MCV (80-100) fL MCH (25-34) pg MCHC (32-36) g/dL RDW Std Deviation (36.4-46.3) fL RDW Coeff of Lala (11.5-14.5) % Plt Count (130-400) K/uL MPV (7.4-10.4) fL Immature Gran % (Auto) % Neut % (Auto) % Lymph % (Auto) % Merrick % (Auto) % Eos % (Auto) % Baso % (Auto) % Neut # (Auto) (1.4-6.5) K/uL Lymph # (Auto) (1.2-3.4) K/uL Merrick # (Auto) (0.11-0.59) K/uL Eos # (Auto) (0-0.5) K/uL Baso # (Auto) (0-0.2) K/uL Immature Gran # (Auto) (0.00-0.02) K/uL PT INR APTT PTT Ratio Sodium (136-145) mmol/L Potassium (3.5-5.1) mmol/L Chloride (98-107) mmol/L Carbon Dioxide (21-32) mmol/L Anion Gap (3-11) BUN (6-23) mg/dl Creatinine (0.6-1.4) mg/dl Est Cr Clr Drug Dosing Est GFR ( Amer) ml/min Est GFR (Non-Af Amer) ml/min BUN/Creatinine Ratio (10-20) Glucose (70-99(Fasting)) mg/dl Calcium (8.5-10.1) mg/dl Phosphorus (2.5-4.9) mg/dl Magnesium (1.7-2.4) mg/dl Total Bilirubin (0.2-1.0) mg/dl AST (13-39) U/L ALT (7-52) U/L Alkaline Phosphatase (34-104) U/L Ammonia (18-72) umol/L Total Protein (6.0-8.3) gm/dl Albumin (3.4-5.0) gm/dl Globulin (2.5-4.0) gm/dl Albumin/Globulin Ratio (0.9-2) Urine Color Dark Yellow Urine Appearance Clear (Clear) Urine pH 6.5 (4.5-7.5) Ur Specific Nabb 1.023 (1.000-1.030) Urine Protein Negative (Negative) Urine Glucose (UA) Negative (Negative) Urine Ketones Negative (Negative) Urine Blood Negative (Negative) Urine Nitrite Negative (Negative) Urine Bilirubin Negative (Negative) Urine Urobilinogen Negative (Negative) Ur Leukocyte Esterase Negative (Negative) SARS-CoV-2, RNA, NAAT NEGATIVE (NEGATIVE) Administered Medications Amlodipine Besylate ([facility] Besylate 5 Mg Tab) [facility]: 04/14/22 08:59 Last Admin: 03/16/22 08:04 Dose: 5 mg Documented by: [id number] Admin: 03/15/22 08:49 Dose: 5 mg Documented by: [id number] Atorvastatin Calcium (Atorvastatin 40 Mg Tab) 40 mg PO QPM [facility] Stop: 04/14/22 20:59 Last Admin: 03/16/22 19:46 Dose: 40 mg Documented by: [id number] Admin: 03/15/22 20:01 Dose: 40 mg Documented by: [id number] Carbidopa/Levodopa (Carbidopa/Levodopa 25/100mg Tab) 2 tab PO TID@0800,1200,1700 [facility] Stop: 04/14/22 07:59 Last Admin: 03/16/22 16:18 Dose: 2 tab Documented by: [id number] Admin: 03/16/22 11:43 Dose: 2 tab Documented by: [id number] Admin: 03/16/22 08:05 Dose: 2 tab Documented by: [id number] Admin: 03/15/22 16:32 Dose: 2 tab Documented by: [id number] Admin: 03/15/22 11:44 Dose: 2 tab Documented by: [id number] Admin: 03/15/22 08:49 Dose: 2 tab Documented by: [id number] Clopidogrel Bisulfate (Clopidogrel Bisulfate 75 Mg Tab) 75 mg PO [facility] Stop: 04/14/22 08:59 Last Admin: 03/16/22 08:04 Dose: 75 mg Documented by: [id number] Admin: 03/15/22 08:49 Dose: 75 mg Documented by: [id number] Donepezil HCl (Donepezil Hcl 5 Mg Tab) 5 mg PO [facility] Stop: 04/14/22 08:59 Last Admin: 03/16/22 08:04 Dose: 5 mg Documented by: [id number] Admin: 03/15/22 08:48 Dose: 5 mg Documented by: [id number] Escitalopram Oxalate (Escitalopram Oxalate 20 Mg Tab) 20 mg PO [facility] Stop: 04/14/22 08:59 Last Admin: 03/16/22 08:04 Dose: 20 mg Documented by: [id number] Admin: 03/15/22 08:48 Dose: 20 mg Documented by: [id number] Hydrochlorothiazide (Hydrochlorothiazide 25 Mg Tab) 12.5 mg PO [facility] Stop: 04/14/22 08:59 Last Admin: 03/16/22 08:05 Dose: 12.5 mg Documented by: [id number] Admin: 03/15/22 08:49 Dose: 12.5 mg Documented by: [id number] Losartan Potassium (Losartan Potassium 50 Mg Tab) 100 mg PO QAM [facility] Stop: 04/14/22 08:59 Last Admin: 03/16/22 08:05 Dose: 100 mg Documented by: [id number] Admin: 03/15/22 08:49 Dose: 100 mg Documented by: [id number] Magnesium Oxide (Magnesium Oxide 400 Mg Tab) [facility]: 04/14/22 08:59 Last Admin: 03/16/22 08:04 Dose: 400 mg Documented by: [id number] Admin: 03/15/22 08:49 Dose: 400 mg Documented by: [id number] Metoprolol Succinate (Metoprolol Succ 25mg Ext Rel Tab) 12.5 mg PO QPM [facility] Stop: 04/14/22 20:59 Last Admin: 03/16/22 19:44 Dose: 12.5 mg Documented by: [id number] Admin: 03/15/22 20:01 Dose: 12.5 mg Documented by: [id number] Mirabegron (Mirabegron Er 25 Mg Tab) 50 mg PO QPM [facility] Stop: 04/14/22 20:59 Last Admin: 03/16/22 19:45 Dose: 50 mg Documented by: [id number] Admin: 03/15/22 20:02 Dose: 50 mg Documented by: [id number] Pantoprazole Sodium (Pantoprazole 40 Mg Tab) 40 mg PO BID [facility] Stop: 04/14/22 08:59 Last Admin: 03/16/22 19:44 Dose: 40 mg Documented by: [id number] Admin: 03/16/22 08:04 Dose: 40 mg Documented by: [id number] Admin: 03/15/22 20:02 Dose: 40 mg Documented by: [id number] Admin: 03/15/22 08:49 Dose: 40 mg Documented by: [id number] Polyethylene Glycol (Polyethylene (Miralax) 17 Gm Pack) 17 gm PO DAILY PRN PRN Reason: Constipation Stop: 04/14/22 03:14 Last Admin: 03/16/22 16:18 Dose: 17 gm Documented by: [id number] Tolterodine Tartrate (Tolterodine Tartrate La 2 Mg Capcr) 2 mg PO QAM [facility] Stop: 04/14/22 08:59 Last Admin: 03/15/22 11:44 Dose: 2 mg Documented by: [id number] Vitamin B Complex (Vitamin B Complex Tab) 1 tab PO QAM [facility] Stop: 04/14/22 08:59 Last Admin: 03/16/22 08:04 Dose: 1 tab Documented by: [id number] Admin: 03/15/22 08:48 Dose: 1 tab Documented by: [id number] Discontinued Medications Carbidopa/Levodopa (Carbidopa/Levodopa 25/100mg Tab Odt) 2 tab PO NOW STA Stop: 03/14/22 22:14 Last Admin: 03/14/22 22:58 Dose: 2 tab Documented by: [id number] Gadobutrol (Gadobutrol 30ml Vial) 7.5 ml IV ONCE ONE Stop: 03/15/22 17:12 Last Admin: 03/15/22 17:12 Dose: 7.5 ml Documented by: [id number] Sodium Chloride (Nss 1000ml) 1,000 mls @ 125 mls/hr IV .Q8H [facility] Stop: 04/14/22 00:29 Last Infusion: 03/15/22 11:48 Dose: 0 mls/hr Documented by: [id number] Admin: 03/15/22 02:35 Dose: 125 mls/hr Documented by: [id number] Imaging Data Attestation: I personally reviewed and interpreted this imaging study as follows: Radiologist's Impression: Chest X-Ray 03/14/22 18:27 XR chest 1V portable CLINICAL HISTORY: Difficulty breathing.. Altered mental status COMPARISON STUDY: 03/01/2019 TECHNIQUE: 1 view of the chest FINDINGS: Single frontal view of the chest demonstrates the cardiomediastinal silhouette to be within normal limits. The lungs are clear of alveolar opacities. There is no evidence for pleural effusion. There is no evidence for vascular congestion. There is no acute osseous pathology. IMPRESSION: 1. No acute cardiopulmonary disease. ACT 112: Negative or not required by law. Electronically signed by: Darryn Jones M.D. 03/14/2022 7:[address] 03/14/22 19:00 CT head/brain wo con CLINICAL HISTORY: Falls, parkinsons, ams COMPARISON STUDY: 03/01/2019 CT DOSE: 614.27 mGy.cm TECHNIQUE: Standard CT of the Brain was performed without IV contrast. A dose lowering technique was utilized adhering to the principles of ALARA. FINDINGS: Extraaxial space: There is no evidence for subdural hematoma. There are no extra-axial fluid collections. Ventricles and cisterns: The ventricles are mildly dilated bilaterally. There is no evidence for midline shift or mass effect. Parenchyma: There is no subarachnoid or intraparenchymal hemorrhage. There is no evidence for an acute infarct or cerebral edema. There is mild cerebral cortical atrophy and decreased attenuation in the periventricular white matter representing remote small vessel disease. There are no gross mass lesions. Osseous structures: There is no evidence for an acute fracture. The visualized paranasal sinuses are clear. The mastoid air cells are clear bilaterally. Soft tissues: There is no evidence for focal soft tissue swelling. IMPRESSION: 1. No acute intracerebral pathology. 2. Atrophy and remote small vessel disease. ACT 112: Negative or not required by law. Electronically signed by: Draryn Jones M.D. 03/14/2022 7:53 PM Blood Pressure Blood Pressure Findings: Normal blood pressure Discharge Plan Visit Data Chief Complaint: Fall Stated Complaint: REF BY GIORGIO CABAN, DISORIENTED ED Provider: Christina Barron Discharge Problem: Parkinson disease, Hallucinations, visual, Ambulatory dysfunction, Falls frequently Patient Disposition: Admitted As Inpatient Discharge Instructions Interventions: ED Discharge Assessment Last Done: 03/15/22 02:41
[2022-03-14 19:18] LABS: Alanine Aminotransferase 5 U/L (7-52); Albumin Globulin Ratio 1.6 (0.9-2); Albumin Level 4.4 gm/dl (3.4-5.0); Alkaline Phosphatase 79 U/L (34-104); Anion Gap 7 (3-11); BUN Creatinine Ratio 26.1 (10-20); Bilirubin,Total 0.6 mg/dl (0.2-1.0); Blood Urea Nitrogen 29 mg/dl (6-23); Calcium 9.6 mg/dl (8.5-10.1); Carbon Dioxide 27 mmol/L (21-32); Chloride 103 mmol/L (98-107); Est GFR (African American) 72.3 ml/min; Est GFR (Non-African American) 62.4 ml/min; Globulin 2.8 gm/dl (2.5-4.0); Glucose 96 mg/dl (70-99(Fasting)); Sodium 137 mmol/L (136-145); Total Protein 7.2 gm/dl (6.0-8.3)
--- NOTE | 2022-03-14 19:24 | XRay Report ---
XR chest 1V portable CLINICAL HISTORY: Difficulty breathing.. Altered mental status COMPARISON STUDY: 03/01/2019 TECHNIQUE: 1 view of the chest FINDINGS: Single frontal view of the chest demonstrates the cardiomediastinal silhouette to be within normal li mits. The lungs are clear of alveolar opacities. There is no evidence for pleural effusion. There is no evidence for vascular congestion. There is no acute osseous pathology. IMPRESSION: 1. No acute cardiopulmonary disease. ACT 112: Negative or not required by law. Electronically signed by: Darryn Jones M.D. 03/14/2022 7:23 PM
--- NOTE | 2022-03-14 19:55 | CT Scan Report ---
CT head/brain wo con CLINICAL HISTORY: Falls, parkinsons, ams COMPARISON STUDY: 03/01/2019 CT DOSE: 614.27 mGy.cm TECHNIQUE: Standard CT of the Brain was performed without IV contrast. A dose lowering technique was utilized adhering to the principles of ALARA. FINDINGS: Extraaxial space: There is no evidence for subdural hematoma. There are no extra-axial fluid collecti ons. Ventricles and cisterns: The ventricles are mildly dilated bilaterally. There is no evidence for midl ine shift or mass effect. Parenchyma: There is no subarachnoid or intraparenchymal hemorrhage. There is no evidence for an acut e infarct or cerebral edema. There is mild cerebral cortical atrophy and decreased attenuation in the periventricular white matter representing remote small vessel disease. There are no gross mass lesio ns. Osseous structures: There is no evidence for an acute fracture. The visualized paranasal sinuses are clear. The mastoid air cells are clear bilaterally. Soft tissues: There is no evidence for focal soft tissue swelling. IMPRESSION: 1. No acute intracerebral pathology. 2. Atrophy and remote small vessel disease. ACT 112: Negative or not required by law. Electronically signed by: Darryn Jones M.D. 03/14/2022 7:53 PM
[2022-03-14 20:59] LABS: Phosphorus 2.6 mg/dl (2.5-4.9); Potassium 3.6 mmol/L (3.5-5.1)
[2022-03-14 21:03] LABS: Partial Thromboplastin Time 26.6 Seconds (21.0-31.0); Prothrombin Time 10.9 Seconds (9.0-12.0)
[2022-03-14] MEDS ORDERED: CARBIDOPA/LEVODOPA 25/100MG TAB ODT PO STA (22:13)
[2022-03-14 22:47] LABS: Appearance Urine Clear (Clear); Bilirubin Urine Negative (Negative); Blood Urine Negative (Negative); Color Urine Dark Yellow; Glucose Urine UA Negative (Negative); Ketones Urine Negative (Negative); Leukocyte Esterase Urine Negative (Negative); Nitrite Urine Negative (Negative); Protein Urine Negative (Negative); Specific Gravity Urine 1.023 (1.000-1.030); Urobilinogen Urine Negative (Negative); pH Urine 6.5 (4.5-7.5)
[2022-03-15] MEDS ORDERED: SODIUM CHLORIDE 0.9% 1000ML 1,000 ML IV SCH (00:30)
[2022-03-15] MEDS ORDERED: POLYETHYLENE (MIRALAX) 17 GM PACK PO PRN (03:15)
[2022-03-15] MEDS ORDERED: ACETAMINOPHEN 325 MG TAB PO PRN (03:15)
--- NOTE | 2022-03-15 04:11 | History and Physical Report ---
DATE OF ADMISSION: 03/15/2022. CHIEF COMPLAINT: Ambulatory dysfunction, fall. 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 The patient lives with his who also has dementia. As per the ER, the patient was having ambulatory dysfunction that has been declining rapidly the last 2 days. It seems that he is not able to feed himself. He fell twice this week. As his also suffers from dementia, it looks like the family, son and daughter, brought him to the hospital. Currently, no one in the room . Tried to call the daughter, but not able to reach her. The patient is alert and awake, oriented to name, place, could tell his date of . Speaking in a very low voice. Denies any headache, denies any chest pain. Complains of back pain and some neck pain. Appetite is okay. Very poor historian, speaking in a very low voice. Could not get much history from the patient. ALLERGIES: No known drug allergies. PAST MEDICAL HISTORY: As mentioned above. PAST SURGICAL HISTORY: Colonoscopy, cardiac catheterization, cystourethroscopy lithotripsy with stent insertion, cataract implants, right rotator cuff repair, injection of lumbosacral spine, laparoscopic cholecystectomy, cryosurgical ablation of the prostate, appendectomy, transrectal biopsy. MEDICATIONS: The patient is on amlodipine 5 mg p.o. a.m., atorvastatin 40 mg p.o. p.m., carbidopa/levodopa 2 tablets p.o. t.i.d., Plavix 75 mg p.o. a.m., donepezil 5 mg p.o. a.m., Lexapro 20 mg p.o. a.m., hydrochlorothiazide 12.5 mg p.o. a.m., losartan 100 mg p.o. a.m., magnesium oxide 400 mg p.o. a.m., metoprolol succinate 12.5 mg p.o. a.m., Myrbetriq 50 mg p.o. a.m., omeprazole 20 mg p.o. b.i.d., vitamin B2 400 mg p.o. a.m., solifenacin 10 mg p.o. a.m., vitamin B complex 1 tablet p.o. a.m. FAMILY HISTORY: Significant for mother has hypertension. SOCIAL HISTORY: , no smoking, alcohol rarely, no drug use. REVIEW OF SYSTEMS: As per HPI. Rest of the review of systems is negative. PHYSICAL EXAMINATION: GENERAL: The patient is old and frail, not in acute distress. VITAL SIGNS: Temperature 36.3, pulse 62, respiratory rate 18, blood pressure 138/84, oxygen 98% on room air. HEENT: Pupils equal, round and reactive to light. Oral mucosa moist. NECK: No JVD, no neck masses. CARDIOVASCULAR: S1 and S2 heard. Regular rate and rhythm. No murmur, no gallop. RESPIRATORY SYSTEM: Normal AP diameter. No accessory muscle use. No wheezing, no crackles. ABDOMEN: Soft. Bowel sounds are present, nontender, no distention. CENTRAL NERVOUS SYSTEM: Alert and awake, oriented to name and place, could tell his date of . Speaks in low voices. Obeys simple commands. Moves extremities. EXTREMITIES: No edema, no erythema. LABORATORY DATA: WBC 7.2, hemoglobin 13, hematocrit 37.6, platelets 181. PT 10.9, INR 1, APTT 26.6. Sodium 137, potassium 3.6, chloride 103, bicarbonate 27, BUN 29, creatinine 1.1, serum glucose 96, calcium 9.6, phosphorus 2.6, magnesium 2, total bilirubin 0.6, AST 24, ALT 5, alkaline phosphatase 79. Ammonia 34. Urinalysis negative. SARS-CoV-2 rapid test negative. IMAGING DATA: CT of the head without contrast, no acute findings. Atrophy and remote small vessel disease. Chest x-ray, no acute cardiopulmonary disease. EKG: Atrial flutter rate of 62. Poor quality interpretation. ASSESSMENT AND PLAN: This is an 81-year-old male who presents with fall and ambulatory dysfunction. 1. Fall and ambulatory dysfunction: The patient has history of Parkinson disease. PT/OT evaluation and neurology evaluation. CT head is okay. MRI as per neurology. 2. Atrial flutter, on the EKG: This seems to be new. Will monitor in the [employer]. Echo and cardiac consult. 3. Parkinson disease: Continue his home medications for now. 4. History of coronary artery disease: On statin, Plavix, and metoprolol succinate. 5. Dementia due to Parkinson's disease: Continue donepezil. Monitor for any delirium. 6. Hypertension; The patient is on hydrochlorothiazide, losartan, metoprolol succinate, and amlodipine. Will monitor the blood pressure. 7. Hyperlipidemia: On statin. 8. History of prostate cancer: Status post cryoablation. 9. Deep venous thrombosis prophylaxis: Will place him on Lovenox. DISPOSITION: Closely monitor in the med tele. PT/OT prior to discharge. Social service to help with discharge planning. Job ID: [id number] [facility]T HOSPITALRohan
[2022-03-15] MEDS: DONEPEZIL HCL 5 MG TAB PO SCH (08:48)
[2022-03-15] MEDS: ESCITALOPRAM OXALATE 20 MG TAB PO SCH (08:48)
[2022-03-15] MEDS: VITAMIN B COMPLEX TAB PO SCH (08:48)
[2022-03-15] MEDS: hydroCHLOROthiazide 25 MG TAB PO SCH (08:49)
[2022-03-15] MEDS: PANTOprazole 40 MG TAB PO SCH ×2 (08:49→20:02)
[2022-03-15] MEDS: LOSARTAN POTASSIUM 50 MG TAB PO SCH (08:49)
[2022-03-15] MEDS: MAGNESIUM OXIDE 400 MG TAB PO SCH (08:49)
[2022-03-15] MEDS: amLODIPine BESYLATE 5 MG TAB PO SCH (08:49)
[2022-03-15] MEDS: CLOPIDOGREL BISULFATE 75 MG TAB PO SCH (08:49)
[2022-03-15] MEDS: CARBIDOPA/LEVODOPA 25/100MG TAB PO SCH ×3 (08:49→16:32)
[2022-03-15] MEDS ORDERED: RIBOFLAVIN 100 MG PO SCH (09:00)
[2022-03-15] MEDS ORDERED: TOLTERODINE TARTRATE LA 2 MG CAPCR PO SCH (09:00)
--- NOTE | 2022-03-15 10:18 | Electrocardiogram Report ---
Test Reason : Blood Pressure : / mmHG Vent. Rate : 062 BPM Atrial Rate : 267 BPM P-R Int : 000 ms QRS Dur : 134 ms QT Int : 448 ms P-R-T Axes : 021 -20 151 degrees QTc Int : 454 ms Poor data quality, interpretation may be adversely affected Probably NSR Left bundle branch block Abnormal ECG When compared with ECG of 03-MAR-2019 06:21, Premature ventricular complexes are no longer present Confirmed by Travis Cordoba ([id number]) on 03/15/2022 10:18:12 AM Referred By: Vishal Landry Confirmed By:Travis Cordoba
--- NOTE | 2022-03-15 14:40 | Cardiology Consultation ---
Date of Consultation March 15, 2022 Assessment & Plan (1) LBBB (left bundle branch block): (2) PVCs (premature ventricular contractions): (3) CVA (cerebral vascular accident): (4) Acute renal failure superimposed on stage 3 chronic kidney disease: (5) Hypertension: (6) Parkinson disease: The presenting EKG was sinus bradycardia with baseline artifact likely due to the patient's tremor. Telemetry reviewed and no atrial arrhythmias found. No further cardiac testing or invention necessary at this time. History of Present Illness Reason for Consultation: abnormal ekg Requesting Physician: Dr. Wilson Attending Physician: Maurilio Wilson MD History of Present Illness It was my pleasure to see the patient in cardiac consultation today March 15, 2022. The patient is a very poor historian history obtained through review of medical records. According to the history and physical the patient has been having worsening ambulatory dysfunction and was brought to the hospital by his daughter. Daughter was not reachable for further discussion. Upon presentation a twelve-lead EKG was performed the question was whether or not he had atrial flutter and cardiology was consulted. He has not verbalized any cardiac complaints. Allergies Allergy/AdvReac Type Severity Reaction Status Date / Time No Known Allergies Allergy Verified 03/14/22 18:58 Home Medications Medication Instructions Recorded Confirmed Type carbidopa 25 mg-levodopa 100 mg 2 tab PO TID 02/24/19 03/14/22 History tablet omeprazole 20 mg capsule,delayed 20 mg PO BID 02/24/19 03/14/22 History release vitamin B complex 1 tab PO QAM 02/24/19 03/14/22 History amlodipine 5 mg tablet 5 mg PO QAM 02/25/19 03/14/22 History clopidogrel 75 mg tablet 75 mg PO QAM #30 tab 03/03/19 03/14/22 Rx atorvastatin 40 mg tablet 40 mg PO QPM 03/14/22 03/14/22 History donepezil 5 mg tablet 5 mg PO QAM 03/14/22 03/14/22 History escitalopram oxalate 20 mg tablet 20 mg PO QAM 03/14/22 03/14/22 History hydrochlorothiazide 12.5 mg capsule 12.5 mg PO QAM 03/14/22 03/14/22 History losartan 100 mg tablet 100 mg PO QAM 03/14/22 03/14/22 History magnesium oxide 400 mg PO QAM 03/14/22 03/14/22 History metoprolol succinate 25 mg 12.5 mg PO QPM 03/14/22 03/14/22 History tablet,extended release 24 hr mirabegron 50 mg tablet,extended 50 mg PO QPM 03/14/22 03/14/22 History release 24 hr (Myrbetriq) riboflavin (vitamin B2) 100 mg 400 mg PO QAM 03/14/22 03/14/22 History tablet (Vitamin B-2) solifenacin 10 mg tablet 10 mg PO QAM 03/14/22 03/14/22 History Patient History Medical History Depression GERD (gastroesophageal reflux disease) Heart disease High blood cholesterol History of kidney stones History of prostate cancer s/p cryoablation Hypertension Nephrolithiasis Neuropathy Parkinson disease Surgical History History of Achilles tendon repair History of appendectomy History of cholecystectomy History of cystoscopy History of lithotripsy History of rotator cuff surgery Family History Father Cancer Mother Hypertension Social History Smoking Status: Never smoker Hx Alcohol Use: Yes Alcohol type: other Hx Substance Use: No Preferred Language: Bulgarian Communication Ability: Effective Visual Impairment: No Limitations [employer] Required: No Beliefs That Will Affect Care: None marital status: Current Living Situation: Spouse How many Children do You have: 2 Feels Safe at Home: Yes Safety Concerns: Feels Safe At This Time Assistive Devices: Walker and Wheelchair Review of Systems Review of Systems: Unobtainable due to cognitive status Physical Exam Physical Exam: General: Awake, alert and oriented x 3. No acute distress. HEENT: Normocephalic, atraumatic. Pupils equal, round and reactive to light and accommodation. Extraocular muscles are intact. Anicteric sclera. Moist mucous membranes. Neck: No JVD. No bruit. Cardiovascular: Regular. Positive S-4. Normal S-1 and S-2. No S-3. No murmurs or rubs. Pulmonary: Clear to auscultation B/L. No rales, rhonchi or wheezing Abdomen: Bowel sounds x 4, soft. No rebound, guarding or tenderness. No organomegaly. Extremities: No clubbing, cyanosis or edema. +2 pedal pulses bilaterally. Skin: Warm and dry. Results & Data ([facility]) Vital Signs (Past 12 Hours) Vital Signs Temp Pulse Pulse Resp BP BP Pulse Ox 03/15/22 11:44 36.6 C 56 L 18 124/78 94 03/15/22 07:35 36.5 C 60 20 145/82 H 96 03/15/22 07:27 51 L 03/15/22 03:19 36.7 C 57 L 16 141/86 H 94 (1) Acute renal failure superimposed on stage 3 chronic kidney disease Acute renal failure type: with acute tubular necrosis Qualified Code(s): N17.0 - Acute kidney failure with tubular necrosis; N18.3 - Chronic kidney disease, stage 3 (moderate) (2) Hypertension Hypertension type: unspecified Qualified Code(s): I10 - Essential (primary) hypertension (3) CVA (cerebral vascular accident) CVA mechanism: unspecified Qualified Code(s): I63.9 - Cerebral infarction, unspecified
--- NOTE | 2022-03-15 14:41 | Communication Note ---
Date of Service: March 15, 2022 Jony Olsen is 81 years old is right-handed and is well-known to me from outpatient visits over the last 5 years for his Parkinson's disease and lower back issues, his left pontine stroke several years ago and his cognitive impairment which has been part of the Parkinson's and remains mild to moderate in severity He also has had increasing issues with urinary incontinence and for the past several months has been tried on various medications and is now been on Vesicare for about 2 weeks He is also had a month of increasing diplopia occurring in the setting of longstanding need for prism corrections in his glasses probably part of longstanding esotropia Prior to about 2 weeks ago he was doing well but then began to have increasing problems with gait more frequent falling without head injury and my office was contacted and we had set him up for a visit. After that communication however he seemed to rally and was doing better so my advice to bring him to the emergency room for evaluation was not felt to be necessary Unfortunately over the past 1 to 2 days he is begun to decline again has become more weak inattentive has had sparse speech more confusion particularly late in the day and is requiring more more assistance in walking and balance He was brought to the emergency room for an evaluation CT scan showed only evidence for the old brainstem infarction and some vaguely defined white matter changes. An MRI has not been done but probably should and his home medications have remained unchanged for his Parkinson's and for his bladder dysfunction Other problems include renal calculi dyslipidemia rotator cuff surgery, chronic low back issues which she has been receiving outpatient physical therapy, depression, cholecystectomy, stage III renal disease, left pontine CVA, dilated cardiomyopathy, history of Achilles tendon rupture and repair, GERD, history of Parkinson's disease now treated, history of prostate carcinoma, and a neuropathy among others Home medications include amlodipine atorvastatin carbidopa L-dopa 25/102 tablets 3 times a day, Plavix, Aricept 5 mg, Celexa 20 mg, hydrochlorothiazide, losartan, magnesium oxide, metoprolol, Myrbetriq, omeprazole, riboflavin, Vesicare 10 mg in the morning and vitamin B complex Pertinent systems review is as described above i.e. several weeks of fluctuating confusion falling gait instability accelerating over the last several days and correlating to some degree historically with the initiation of Vesicare therapy Thus far basic laboratory studies are show no evidence for urinary tract infection, leukocytosis chest x-ray that showed no pneumonia and the patient really has not had a history of systemic illness such as fever sweats or chills Family history social history are all as recorded on the admitting histories and physicals Exam reveals blood pressure 124/78 pulse 56 respirations 18 temperature is 36 O2 saturation 94 the patient is awake alert recognizes me but is pretty bradykinetic mildly rigid occasionally has a little tremor of the hands and is slow to respond to questions and often gives tangential answers Myerson sign is positive eye movements are seemingly conjugate there may be some loss of right lateral rectus function but this is inconsistent facial motility and strength is normal facial sensation is normal speech is of low volume. There is some mild cogwheeling and a mixture of gegenhalten rigidity. Reflexes are very difficult to elicit toes are neutral there is no real drift or pronation sign and the prior right hemiparesis from the old lateral pontine infarction is difficult to demonstrate. Sensory examination was not reliable The recent decline in overall status seems to correlate historically with the initiation of Vesicare therapy which has anticholinergic properties and in an elderly individual with pre-existing cognitive issues related to his Parkinson's this may go a long way and may be largely responsible for the decline. We will need to exclude possible embolic cerebrovascular accidents as its not clear what has caused some of the falls and the acute decline in gait so an MRI scan is going to be helpful in excluding this particular man who seems to have a cardiomyopathy and may have a source of emboli on this basis and could even be going in and out of atrial fibrillation I am going to suggest therefore that we stop the Vesicare, get an MRI of the brain with contrast if the renal function will permit, and to get physical therapy and social service on board with plans to perhaps have him discharged to rehabilitation or to an extended care facility with rehabilitation capacity and services We will continue to follow I long discussion with the family today regarding plans I would not change any of the Parkinson medications at this time Eric Wright MD The above note was generated utilizing voice recognition technology and may have spelling errors punctuation errors pronoun usage errors and syntax errors
[2022-03-15] MEDS ORDERED: GADOBUTROL 30ML VIAL IV ONE (17:11)
--- NOTE | 2022-03-15 17:33 | Magnetic Resonance Report ---
MRI OF THE BRAIN WITHOUT AND WITH IV CONTRAST CLINICAL HISTORY: Altered mental status. COMPARISON STUDY: MRI of the brain March 01, 2019. Head CT March 14, 2022. TECHNIQUE: Utilizing a 1.5 Estelle magnet and dedicated coil, multiplanar, multiecho imaging of the br ain was performed pre and postcontrast administration. IV administration of 7.5 mL of Gadavist contr ast was uneventful. Thin cut T1 post contrast imaging was performed. FINDINGS: There are no foci of restricted diffusion to suggest acute infarct. No acute intracranial h emorrhage, midline shift or mass effect is present. No intracranial mass or pathologic enhancement is present. Ventricular dilatation is unchanged and due to atrophy. Moderate atrophy is noted. An old 8 mm left pontine infarct is noted. White matter T2 hyperintense foci are similar to previous MRI and suggest small vessel disease. Calvarial signal is within normal limits. Orbits are unremarkable. Ther e is no evidence for sinusitis. There is no mastoid fluid. Flow-voids for the major intracranial vess els are present. IMPRESSION: 1. No acute intracranial findings. 2. No intracranial mass or pathologic enhancement. 3. Old left pontine infarct. 4. Moderate atrophy. White matter T2 hyperintense foci consistent with small vessel disease. ACT 112: Negative or not required by law. Electronically signed by: Ankur Vaughn M.D. 03/15/2022 5:31 PM
--- NOTE | 2022-03-15 18:07 | Communication Note ---
Date of Service: March 15, 2022 Patient was seen and examined at bedside. Chart reviewed. H&P note, senior compensation consultant notes reviewed. Patient was brought to earlier this am for fall and ambulatory function in setting of Parkinsonism. He is AAOx2, denies any issues. Does not recall why he was brought to ED. Looks fine. Seen by Neuro and recommended MRI brain w/wo contrast and PT/OT eval. MRI and PT eval pending. Held anticholinergic like detrol/vesicare as per neuro recommendation. Continue other home meds including sinemet. Likely will need placement as he lives with his demented at home. Please H&P note for other details.
[2022-03-15] MEDS: METOPROLOL SUCC 25MG EXT REL TAB PO SCH (20:01)
[2022-03-15] MEDS: ATORVASTATIN 40 MG TAB PO SCH (20:01)
[2022-03-15] MEDS: MIRABEGRON ER 25 MG TAB PO SCH (20:02)
[2022-03-16 05:31] LABS: Basophils # (auto) 0.02 K/uL (0-0.2); Basophils % (auto) 0.3 %; Eosinophils # (auto) 0.33 K/uL (0-0.5); Eosinophils % (auto) 4.4 %; Hematocrit (blood only) 36.4 % (42-52); Hemoglobin 12.7 g/dL (14.0-18.0); Immature Granulocytes # (auto) 0.01 K/uL (0.00-0.02); Immature Granulocytes % (auto) 0.1 %; Lymphocytes # (auto) 1.83 K/uL (1.2-3.4); Lymphocytes % (auto) 24.3 %; Mean Corpuscular Hemoglobin 32.6 pg (25-34); Mean Corpuscular Hgb Conc 34.9 g/dL (32-36); Mean Corpuscular Volume 93.6 fL (80-100); Mean Platelet Volume 9.5 fL (7.4-10.4); Monocytes # (auto) 0.63 K/uL (0.11-0.59); Monocytes % (auto) 8.4 %; Neutrophils # (auto) 4.72 K/uL (1.4-6.5); Neutrophils % (auto) 62.5 %; Platelet Count 159 K/uL (130-400); RDW Coefficient of Variation 12.9 % (11.5-14.5); Red Blood Count 3.89 M/uL (4.7-6.1); White Blood Count 7.54 K/uL (4.8-10.8)
[2022-03-16 05:57] LABS: BUN Creatinine Ratio 19.4 (10-20); Calcium 9.2 mg/dl (8.5-10.1); Creatinine Clr Calc Pharmacy 54.6 ml/min; Est GFR (African American) 74.7 ml/min; Est GFR (Non-African American) 64.5 ml/min; Phosphorus 2.8 mg/dl (2.5-4.9); Potassium 3.7 mmol/L (3.5-5.1)
[2022-03-16] MEDS: PANTOprazole 40 MG TAB PO SCH ×2 (08:04→19:44)
[2022-03-16] MEDS: CLOPIDOGREL BISULFATE 75 MG TAB PO SCH (08:04)
[2022-03-16] MEDS: ESCITALOPRAM OXALATE 20 MG TAB PO SCH (08:04)
[2022-03-16] MEDS: MAGNESIUM OXIDE 400 MG TAB PO SCH (08:04)
[2022-03-16] MEDS: VITAMIN B COMPLEX TAB PO SCH (08:04)
[2022-03-16] MEDS: DONEPEZIL HCL 5 MG TAB PO SCH (08:04)
[2022-03-16] MEDS: amLODIPine BESYLATE 5 MG TAB PO SCH (08:04)
[2022-03-16] MEDS: CARBIDOPA/LEVODOPA 25/100MG TAB PO SCH ×3 (08:05→16:18)
[2022-03-16] MEDS: hydroCHLOROthiazide 25 MG TAB PO SCH (08:05)
[2022-03-16] MEDS: LOSARTAN POTASSIUM 50 MG TAB PO SCH (08:05)
--- NOTE | 2022-03-16 11:47 | Communication Note ---
Date of Service: March 16, 2022 I saw Jony this morning. Unfortunate his family was not present in the room. He was a little confused finally recognize me and thought he was at [facility] but then got reoriented to the fact he was in [place]. He tells me he was seen by physical therapy and was able to use his walker but had difficulty getting up out of bed His MRI scan shows no evidence for recent infarctions and only evidence for the prior brainstem infarction and some scattered white matter changes consistent with small vessel disease He has been off of Vesicare now since yesterday At this point his exam shows some parkinsonian features with more tremor generalized rigidity and bradykinesia low volume speech but I am still hesitant to increase his Sinemet for fear of increasing his confusion and producing hallucinations I like to give him a little more time off the Vesicare to see if he will return to his prior status and I will be curious to see what physical therapy recommends regarding potential inpatient rehabilitation and his capacity to participate adequately. His possible he would not be a candidate for [facility] but might be a candidate for one of the local extended care facilities where rehabilitation services are available The situation at home is difficult. His suffers from cognitive impairment she is very small and frail and frankly I doubt she is able to assist him in any fashion and certainly has not been able to prevent him from falling in the past several weeks I will check back with him tomorrow Eric Wright MD
--- NOTE | 2022-03-16 13:20 | Hospitalist Progress Note ---
Date of Service March 16, 2022 Assessment & Plan (1) Ambulatory dysfunction: Plan: Still having difficulty, repeat PT/OT assessing him today. Neuro considering adjustment of medications. Recently started Vesicare 2 weeks ago, thought to be because of worsening falls and dysfunction given anticholinergic properties and elderly Parkinson's patient. This has been stopped and we are continuing to monitor. Work-up for other contributing factors this admission includes: There is no evidence of urinary tract infection CBC is within normal limits and renal panel with renal function is within normal limits. COVID screen was negative chest x-ray is negative for acute disease and brain MRI reveals no evidence of acute intracranial findings. Small vessel disease is present. (2) Falls frequently: Plan: plan as above. (3) LBBB (left bundle branch block): (4) CKD (chronic kidney disease) stage 3, GFR 30-59 ml/min: Plan: chronic, stable. Monitor renal functions. (5) Depression: Plan: chronic, stable. Cont current therapy. (6) Hypertension: Plan: chronic, stable. Cont current therapy (7) DVT prophylaxis: Plan: Lovenox Full Code Dispo-uncertain at this time. Pending Pt/OT recs and clinical improvement off vesicare. Kellie Sen DO [facility] Hospitalist Admission and Anticipated Discharge Date Admission Date: March 15, 2022 Subjective 81-year-old man with Parkinson's disease presents to the ER after a fall. He has had a notable decline in ability to feed himself and increased falls over the last 2 days. New atrial flutter was noted on EKG and cardiology was consulted. The EKG was felt to be sinus bradycardia with baseline artifact likely due to the patient's tremor and after review of telemetry there were no atrial arrhythmias found. No further cardiac testing intervention is necessary at this time. Today he reports difficulties with PT and was not able to stand He continues to remain off Vesicare MRI with no acute stroke evidence Tolerating p.o. Review of Systems Review of Systems: All systems reviewed negative except as indicated above. Physical Exam Physical Exam: CONSTITUTIONAL: WNWD, vitals as above, generally well- appearing, NAD EYES: normal conjunctivae, no scleral icterus ENT: external ear and nose normal, MMM NECK: trachea midline, RESPIRATORY: clear to auscultation bilaterally, no crackles, rales or wheezes, normal respiratory effort CARDIOVASCULAR: regular rate and rhythm, S1 and 2 heard without murmurs, gallops or rubs, no JVD, no peripheral edema CHEST: inspection of chest was normal GASTROINTESTINAL: soft, nontender, ND, no guarding MUSCULOSKELETAL: strength 5/5 throughout, head is normocephalic and atraumatic SKIN: warm and dry NEUROLOGIC: CN 2-12 grossly intact, no sensory deficit, normal cognition, normal speech, no tremor PSYCHIATRIC: alert cooperative and oriented to person, place and time. Results & Data Results & Data ([facility]) Vital Signs (Past 12 Hours) Vital Signs Temp Pulse Pulse Resp BP BP Pulse Ox 03/16/22 11:45 36.6 C 50 L 16 138/73 97 03/16/22 07:39 50 L 03/16/22 06:38 36.9 C 51 L 18 142/80 H 91 03/16/22 03:30 36.9 C 60 20 132/83 95 Laboratory Results Short CBC 03/16/22 Range/Units 05:18 WBC 7.54 (4.8-10.8) K/uL Hgb 12.7 L (14.0-18.0) g/dL Hct 36.4 L (42-52) % Plt Count 159 (130-400) K/uL BMP 03/16/22 05:18 Sodium 138 Potassium 3.7 Chloride 104 Carbon Dioxide 30 BUN 21 Creatinine 1.08 Glucose 90 Calcium 9.2 Medications Administered Current Inpatient Medications Acetaminophen (Acetaminophen 325 Mg Tab) 650 mg PO Q4H PRN PRN Reason: pain/fever Stop: 04/14/22 03:14 Amlodipine Besylate (Amlodipine Besylate 5 Mg Tab) 5 mg PO QAM [facility] Stop: 04/14/22 08:59 Last Admin: 03/16/22 08:04 Dose: 5 mg Documented by: Atorvastatin Calcium (Atorvastatin 40 Mg Tab) 40 mg PO QPM [facility] Stop: 04/14/22 20:59 Last Admin: 03/15/22 20:01 Dose: 40 mg Documented by: Carbidopa/Levodopa (Carbidopa/Levodopa 25/100mg Tab) 2 tab PO TID@0800,1200,1700 [facility] Stop: 04/14/22 07:59 Last Admin: 03/16/22 11:43 Dose: 2 tab Documented by: Clopidogrel Bisulfate (Clopidogrel Bisulfate 75 Mg Tab) [facility] [place] [facility] Stop: 04/14/22 08:59 Last Admin: 03/16/22 08:04 Dose: 75 mg Documented by: Donepezil HCl (Donepezil Hcl 5 Mg Tab) 5 mg PO QAM [facility] Stop: 04/14/22 08:59 Last Admin: 03/16/22 08:04 Dose: 5 mg Documented by: Escitalopram Oxalate (Escitalopram Oxalate 20 Mg Tab) 20 mg PO [facility] Stop: 04/14/22 08:59 Last Admin: 03/16/22 08:04 Dose: 20 mg Documented by: Hydrochlorothiazide (Hydrochlorothiazide 25 Mg Tab) 12.5 [facility] [place] Stop: 04/14/22 08:59 Last Admin: 03/16/22 08:05 Dose: 12.5 mg Documented by: Losartan Potassium (Losartan Potassium 50 Mg Tab) [facility] [place] Stop: 04/14/22 08:59 Last Admin: 03/16/22 08:05 Dose: 100 mg Documented by: Magnesium Oxide (Magnesium Oxide 400 Mg Tab) 400 [facility] [place] Stop: 04/14/22 08:59 Last Admin: 03/16/22 08:04 Dose: 400 mg Documented by: Metoprolol Succinate (Metoprolol Succ 25mg Ext Rel Tab) 12.5 mg PO QPM [facility] Stop: 04/14/22 20:59 Last Admin: 03/15/22 20:01 Dose: 12.5 mg Documented by: Mirabegron (Mirabegron Er 25 Mg Tab) 50 mg PO QPM [facility] Stop: 04/14/22 20:59 Last Admin: 03/15/22 20:02 Dose: 50 mg Documented by: Pantoprazole Sodium (Pantoprazole 40 Mg Tab) 40 mg PO BID [facility] Stop: 04/14/22 08:59 Last Admin: 03/16/22 08:04 Dose: 40 mg Documented by: Polyethylene Glycol (Polyethylene (Miralax) 17 Gm Pack) 17 gm PO DAILY PRN PRN Reason: Constipation Stop: 04/14/22 03:14 Tolterodine Tartrate (Tolterodine Tartrate La 2 Mg Capcr) 2 [facility] [place] Stop: 04/14/22 08:59 Last Admin: 03/15/22 11:44 Dose: 2 mg Documented by: Vitamin B Complex (Vitamin B Complex Tab) 1 tab PO QAM [facility] Stop: 04/14/22 08:59 Last Admin: 03/16/22 08:04 Dose: 1 tab Documented by: (1) Depression Depression Type: unspecified Qualified Code(s): F32.9 - Major depressive disorder, single episode, unspecified (2) Hypertension Hypertension type: unspecified Qualified Code(s): I10 - Essential (primary) hypertension
[2022-03-16] MEDS ORDERED: GLYCERIN ADULT 12 SUPP/BOX SUPP PR PRN (17:56)
[2022-03-16] MEDS: METOPROLOL SUCC 25MG EXT REL TAB PO SCH (19:44)
[2022-03-16] MEDS: MIRABEGRON ER 25 MG TAB PO SCH (19:45)
[2022-03-16] MEDS: ATORVASTATIN 40 MG TAB PO SCH (19:46)
[2022-03-17 06:12] LABS: Basophils # (auto) 0.02 K/uL (0-0.2); Basophils % (auto) 0.2 %; Eosinophils # (auto) 0.23 K/uL (0-0.5); Eosinophils % (auto) 2.9 %; Hematocrit (blood only) 37.6 % (42-52); Hemoglobin 13.3 g/dL (14.0-18.0); Immature Granulocytes # (auto) 0.02 K/uL (0.00-0.02); Immature Granulocytes % (auto) 0.2 %; Lymphocytes # (auto) 1.94 K/uL (1.2-3.4); Mean Corpuscular Hemoglobin 33.2 pg (25-34); Mean Corpuscular Hgb Conc 35.4 g/dL (32-36); Mean Corpuscular Volume 93.8 fL (80-100); Mean Platelet Volume 9.8 fL (7.4-10.4); Monocytes # (auto) 0.74 K/uL (0.11-0.59); Monocytes % (auto) 9.2 %; Neutrophils # (auto) 5.12 K/uL (1.4-6.5); Neutrophils % (auto) 63.5 %; Platelet Count 161 K/uL (130-400); RDW Coefficient of Variation 12.7 % (11.5-14.5); RDW Standard Deviation 43.5 fL (36.4-46.3); Red Blood Count 4.01 M/uL (4.7-6.1); White Blood Count 8.07 K/uL (4.8-10.8)
[2022-03-17 06:33] LABS: BUN Creatinine Ratio 18.6 (10-20); Calcium 9.4 mg/dl (8.5-10.1); Creatinine Clr Calc Pharmacy 52.1 ml/min; Est GFR (African American) 70.8 ml/min; Est GFR (Non-African American) 61.1 ml/min; Potassium 3.6 mmol/L (3.5-5.1)
[2022-03-17] MEDS: CARBIDOPA/LEVODOPA 25/100MG TAB PO SCH ×3 (09:35→17:09)
[2022-03-17] MEDS: CLOPIDOGREL BISULFATE 75 MG TAB PO SCH (09:36)
[2022-03-17] MEDS: DONEPEZIL HCL 5 MG TAB PO SCH (09:36)
[2022-03-17] MEDS: amLODIPine BESYLATE 5 MG TAB PO SCH (09:36)
[2022-03-17] MEDS: ESCITALOPRAM OXALATE 20 MG TAB PO SCH (09:37)
[2022-03-17] MEDS: hydroCHLOROthiazide 25 MG TAB PO SCH (09:37)
[2022-03-17] MEDS: MAGNESIUM OXIDE 400 MG TAB PO SCH (09:38)
[2022-03-17] MEDS: LOSARTAN POTASSIUM 50 MG TAB PO SCH (09:38)
[2022-03-17] MEDS: PANTOprazole 40 MG TAB PO SCH ×2 (09:39→19:42)
[2022-03-17] MEDS: VITAMIN B COMPLEX TAB PO SCH (09:39)
[2022-03-17] MEDS: ENOXAPARIN INJ 40 MG/0.4 ML SYR SQ SCH (11:14)
--- NOTE | 2022-03-17 15:30 | Communication Note ---
Date of Service: March 17, 2022 I saw Jony again today. He seems a little brighter more awake alert was more conversant but still was confused but I suspect some of this is his baseline. He claims that he needs very minimal assistance to go to the bathroom but I suspect he needs more than he realizes and his Parkinson's in my mind is pretty stable with a bradykinetic rigid appearance a little tremor and some cogwheeling but not to the point and I think more Sinemet is going to help. Labs have not shown any metabolic disturbances no evidence for infection there is no evidence for new cerebrovascular events on the MRI and a cardiac evaluation is unremarkable so at this point I think he really would benefit from some form of extended stay with intensive rehabilitation We will see what physical therapy recommends. I am not sure he could do a whole 3-hour a day session at [facility] but I suspect he could participate with a local extended care facilities with their rehabilitation program and this will help the family begin to sort the living situation out and perhaps begin to consider a personal care facility for both the patient and his I will check back with him tomorrow Eric Wright MD
[2022-03-17] MEDS: ATORVASTATIN 40 MG TAB PO SCH (19:40)
[2022-03-17] MEDS: METOPROLOL SUCC 25MG EXT REL TAB PO SCH (19:41)
[2022-03-17] MEDS: MIRABEGRON ER 25 MG TAB PO SCH (19:44)
--- NOTE | 2022-03-17 21:33 | Hospitalist Progress Note ---
Date of Service March 17, 2022 Assessment & Plan (1) Ambulatory dysfunction: Plan: Still having difficulty, repeat PT/OT assessing him today. Neuro considering adjustment of medications. Recently started Vesicare 2 weeks ago, thought to be because of worsening falls and dysfunction given anticholinergic properties and elderly Parkinson's patient. This has been stopped and we are continuing to monitor. Work-up for other contributing factors this admission includes: There is no evidence of urinary tract infection CBC is within normal limits and renal panel with renal function is within normal limits. COVID screen was negative chest x-ray is negative for acute disease and brain MRI reveals no evidence of acute intracranial findings. Small vessel disease is present. (2) Falls frequently: Plan: plan as above. (3) LBBB (left bundle branch block): (4) CKD (chronic kidney disease) stage 3, GFR 30-59 ml/min: Plan: chronic, stable. Monitor renal functions. (5) Depression: Plan: chronic, stable. Cont current therapy. (6) Hypertension: Plan: chronic, stable. Cont current therapy (7) DVT prophylaxis: Plan: Lovenox Full Code Dispo-uncertain at this time. Pending Pt/OT recs and clinical improvement off vesicare. Kellie Sen DO [facility] Hospitalist Admission and Anticipated Discharge Date Admission Date: March 15, 2022 Subjective 81-year-old man with Parkinson's disease presents to the ER after a fall. He has had a notable decline in ability to feed himself and increased falls over the last 2 days. New atrial flutter was noted on EKG and cardiology was consulted. The EKG was felt to be sinus bradycardia with baseline artifact likely due to the patient's tremor and after review of telemetry there were no atrial arrhythmias found. No further cardiac testing intervention is necessary at this time. Today he reports difficulties with PT and was not able to stand He continues to remain off Vesicare MRI with no acute stroke evidence Tolerating p.o. Physical Exam Physical Exam: CONSTITUTIONAL: WNWD, vitals as above, generally well- appearing, NAD EYES: normal conjunctivae, no scleral icterus ENT: external ear and nose normal, MMM NECK: trachea midline, RESPIRATORY: clear to auscultation bilaterally, no crackles, rales or wheezes, normal respiratory effort CARDIOVASCULAR: regular rate and rhythm, S1 and 2 heard without murmurs, gallops or rubs, no JVD, no peripheral edema CHEST: inspection of chest was normal GASTROINTESTINAL: soft, nontender, ND, no guarding MUSCULOSKELETAL: strength 5/5 throughout, head is normocephalic and atraumatic SKIN: warm and dry NEUROLOGIC: CN 2-12 grossly intact, no sensory deficit, normal cognition, normal speech, no tremor PSYCHIATRIC: alert cooperative and oriented to person, place and time. Results & Data Results & Data ([facility]) Vital Signs (Past 12 Hours) Vital Signs Temp Pulse Pulse Resp BP BP Pulse Ox 03/17/22 19:53 36.5 C 59 L 18 141/95 H 95 03/17/22 15:23 36.7 C 62 20 117/81 93 03/17/22 14:19 60 03/17/22 11:15 36.4 C L 55 L 16 123/76 95 Laboratory Results Short CBC 03/17/22 Range/Units 05:21 WBC 8.07 (4.8-10.8) K/uL Hgb 13.3 L (14.0-18.0) g/dL Hct 37.6 L (42-52) % Plt Count 161 (130-400) K/uL BMP 03/17/22 05:21 Sodium 137 Potassium 3.6 Chloride 103 Carbon Dioxide 27 BUN 21 Creatinine 1.13 Glucose 90 Calcium 9.4 Medications Administered Current Inpatient Medications Acetaminophen (Acetaminophen 325 Mg Tab) 650 mg PO Q4H PRN PRN Reason: pain/fever Stop: 04/14/22 03:14 Amlodipine Besylate (Amlodipine Besylate 5 Mg Tab) 5 mg PO QAM [facility] Stop: 04/14/22 08:59 Last Admin: 03/17/22 09:36 Dose: 5 mg Documented by: Atorvastatin Calcium (Atorvastatin 40 Mg Tab) 40 mg PO QPM [facility] Stop: 04/14/22 20:59 Last Admin: 03/17/22 19:40 Dose: 40 mg Documented by: Carbidopa/Levodopa (Carbidopa/Levodopa 25/100mg Tab) 2 tab PO TID@0800,1200,1700 [facility] Stop: 04/14/22 07:59 Last Admin: 03/17/22 17:09 Dose: 2 tab Documented by: Clopidogrel Bisulfate (Clopidogrel Bisulfate 75 Mg Tab) 75 mg PO QAM [facility] Stop: 04/14/22 08:59 Last Admin: 03/17/22 09:36 Dose: 75 mg Documented by: Donepezil HCl (Donepezil Hcl 5 Mg Tab) 5 mg PO [facility] Stop: 04/14/22 08:59 Last Admin: 03/17/22 09:36 Dose: 5 mg Documented by: Enoxaparin Sodium (Enoxaparin Inj 40 Mg/0.4 Ml Syr) 40 mg SQ [facility] Stop: 04/16/22 10:29 Last Admin: 03/17/22 11:14 Dose: 40 mg Documented by: Escitalopram Oxalate (Escitalopram Oxalate 20 Mg Tab) 20 mg PO [facility] Stop: 04/14/22 08:59 Last Admin: 03/17/22 09:37 Dose: 20 mg Documented by: Glycerin (Glycerin Adult 12 Supp/Box Supp) 1 supp LA Q24H PRN PRN Reason: Constipation Stop: 04/15/22 17:55 Hydrochlorothiazide (Hydrochlorothiazide 25 Mg Tab) 12.5 mg PO [facility] Stop: 04/14/22 08:59 Last Admin: 03/17/22 09:37 Dose: 12.5 mg Documented by: Losartan Potassium (Losartan Potassium 50 Mg Tab) 100 mg PO [facility] Stop: 04/14/22 08:59 Last Admin: 03/17/22 09:38 Dose: 100 mg Documented by: Magnesium Oxide (Magnesium Oxide 400 Mg Tab) 400 mg PO [facility] Stop: 04/14/22 08:59 Last Admin: 03/17/22 09:38 Dose: 400 mg Documented by: Metoprolol Succinate (Metoprolol Succ 25mg Ext Rel Tab) 12.5 mg PO QPM [facility] Stop: 04/14/22 20:59 Last Admin: 03/17/22 19:41 Dose: 12.5 mg Documented by: Mirabegron (Mirabegron Er 25 Mg Tab) 50 mg PO QPM [facility] Stop: 04/14/22 20:59 Last Admin: 03/17/22 19:44 Dose: 50 mg Documented by: Pantoprazole Sodium (Pantoprazole 40 Mg Tab) 40 mg PO BID [facility] Stop: 04/14/22 08:59 Last Admin: 03/17/22 19:42 Dose: 40 mg Documented by: Polyethylene Glycol (Polyethylene (Miralax) 17 Gm Pack) 17 gm PO DAILY PRN PRN Reason: Constipation Stop: 04/14/22 03:14 Last Admin: 03/16/22 16:18 Dose: 17 gm Documented by: Tolterodine Tartrate (Tolterodine Tartrate La 2 Mg Capcr) 2 mg PO [facility] Stop: 04/14/22 08:59 Last Admin: 03/15/22 11:44 Dose: 2 mg Documented by: Vitamin B Complex (Vitamin B Complex Tab) 1 tab PO [facility] Stop: 04/14/22 08:59 Last Admin: 03/17/22 09:39 Dose: 1 tab Documented by: (1) Depression Depression Type: unspecified Qualified Code(s): F32.9 - Major depressive disorder, single episode, unspecified (2) Hypertension Hypertension type: unspecified Qualified Code(s): I10 - Essential (primary) hypertension
[2022-03-18] MEDS: ENOXAPARIN INJ 40 MG/0.4 ML SYR SQ SCH (08:21)
[2022-03-18] MEDS: VITAMIN B COMPLEX TAB PO SCH (08:22)
[2022-03-18] MEDS: PANTOprazole 40 MG TAB PO SCH (08:22)
[2022-03-18] MEDS: DONEPEZIL HCL 5 MG TAB PO SCH (08:22)
[2022-03-18] MEDS: LOSARTAN POTASSIUM 50 MG TAB PO SCH (08:22)
[2022-03-18] MEDS: hydroCHLOROthiazide 25 MG TAB PO SCH (08:23)
[2022-03-18] MEDS: CLOPIDOGREL BISULFATE 75 MG TAB PO SCH (08:23)
[2022-03-18] MEDS: CARBIDOPA/LEVODOPA 25/100MG TAB PO SCH ×2 (08:23→13:45)
[2022-03-18] MEDS: MAGNESIUM OXIDE 400 MG TAB PO SCH (08:23)
[2022-03-18] MEDS: amLODIPine BESYLATE 5 MG TAB PO SCH (08:23)
[2022-03-18] MEDS: ESCITALOPRAM OXALATE 20 MG TAB PO SCH (08:24)
--- NOTE | 2022-03-18 14:11 | Discharge Summary ---
Date of Service March 18, 2022 Principal Diagnosis ambulatory dysfunction recurrent falls Parkinsons disease wtih dementia gait instability and repeated falls possibly due to side effects of Vesicare Discharge Exam CONSTITUTIONAL: WNWD, vitals as above, generally well-appearing, NAD EYES: normal conjunctivae, no scleral icterus ENT: external ear and nose normal, MMM NECK: trachea midline, RESPIRATORY: clear to auscultation bilaterally, no crackles, rales or wheezes, normal respiratory effort CARDIOVASCULAR: regular rate and rhythm, S1 and 2 heard without murmurs, gallops or rubs, no JVD, no peripheral edema CHEST: inspection of chest was normal GASTROINTESTINAL: soft, nontender, ND, no guarding MUSCULOSKELETAL: strength 5/5 throughout, head is normocephalic and atraumatic SKIN: warm and dry NEUROLOGIC: CN 2-12 grossly intact, no sensory deficit, normal cognition, normal speech, no tremor PSYCHIATRIC: alert cooperative and oriented to person, place and time. Discharge Data Allergies Allergy/AdvReac Type Severity Reaction Status Date / Time No Known Allergies Allergy Verified 03/14/22 18:58 Consultations 03/14/22 23:50 ED Decision to Admit Stat 03/15/22 08:00 Consult Cardiology Routine Consult Neurology Routine Ordered Studies 03/14/22 19:00 CT head/brain wo con Stat 03/15/22 15:37 MR brain wo/w con Routine Hospital Course (1) Ambulatory dysfunction: Still having difficulty, repeat PT/OT assessing him today. Neuro considering adjustment of medications. Recently started Vesicare 2 weeks ago, thought to be because of worsening falls and dysfunction given anticholinergic properties and elderly Parkinson's patient. This has been stopped and we are continuing to monitor. Work-up for other contributing factors this admission includes: There is no evidence of urinary tract infection CBC is within normal limits and renal panel with renal function is within normal limits. COVID screen was negative chest x-ray is negative for acute disease and brain MRI reveals no evidence of acute intracranial findings. Small vessel disease is present. Suspect gait instability and repeated falls possibly due to side effects of Vesicare (2) Falls frequently: plan as above. (3) LBBB (left bundle branch block): (4) CKD (chronic kidney disease) stage 3, GFR 30-59 ml/min: chronic, stable. Monitor renal functions. (5) Depression: chronic, stable. Cont current therapy. (6) Hypertension: chronic, stable. Cont current therapy (7) DVT prophylaxis: Lovenox Full Code Dispo-uncertain at this time. Pending Pt/OT recs and clinical improvement off vesicare. [facility] Total Time Total Time Spent Total Time Spent (In Minutes): 60 Discharge Plan Discharge Items Patient Disposition: Transfer Inpatient Rehab Fac Reason For Visit: AMBULATORY DYSFUNCTION/FALL Discharge Diagnosis: ambulatory dysfunction recurrent falls Parkinsons disease wtih dementia Condition on Discharge: Good Activity: Resume your previous activity Non-emergency contact: Primary Care Provider and Neurologist Call non-emergency contact if: you have any medication questions and your symptoms worsen Follow-up/Referrals: Vishal Landry DO [Primary Care Provider] - Diet: Heart Healthy Diet Comment: minced and moist Addtl Attending Provider Instructions: Please take all medications as instructed on discharge list below. Please followup with [facility] Neurology as instructed. Please follow-up with your primary care provider within one week of hospital stay. It was a pleasure taking care of you! Please call if you have any questions or problems. You can reach a [facility] hospitalist on duty at [facility] 24 hours a day by calling [phone]. Take care of yourself. Kellie Sen DO [place] Hospitalist Pending Studies at Discharge: No Stand-Alone Forms: My [facility] Skilled Items Patient informed of condition?: Yes DNR: No Discharge Level of Care: Acute rehab Communicable Disease: No Discharge Prognosis: Stable Lines: None Urinary Catheter: No Medications and DC Order Prescriptions: Continued carbidopa-levodopa 25-100 mg tablet 2 tab PO TID RF: 0 omeprazole 20 mg capsule,delayed release(DR/EC) 20 mg PO BID RF: 0 vitamin B complex Tablet 1 tab PO QAM RF: 0 amlodipine 5 mg tablet 5 mg PO QAM RF: 0 clopidogrel 75 mg Tablet 75 mg PO QAM Qty: 30 RF: 2 donepezil 5 mg tablet 5 mg PO QAM RF: 0 riboflavin (vitamin B2) [Vitamin B-2] 100 mg tablet 400 mg PO QAM RF: 0 hydrochlorothiazide 12.5 mg capsule 12.5 mg PO QAM RF: 0 losartan 100 mg tablet 100 mg PO QAM RF: 0 escitalopram oxalate 20 mg tablet 20 mg PO QAM RF: 0 solifenacin 10 mg tablet 10 mg PO QAM RF: 0 Myrbetriq 50 mg tablet extended release 24 hr 50 mg PO QPM RF: 0 magnesium oxide 400 mg magnesium Tablet 400 mg PO QAM RF: 0 atorvastatin 40 mg tablet 40 mg PO QPM RF: 0 metoprolol succinate 25 mg tablet extended release 24 hr 12.5 mg PO QPM RF: 0 Discharge Orders: Discharge Order (Routine); Ordered 03/18/22 Ordered By: Kellie Sen Admission Data Admit Date/Time: 03/15/22 01:44 Attending Provider: Kellie Sen Admit Provider: Gigi Boudreaux Primary Care Provider: Vishal Landry Other Providers: [facility] ; S[facility] [place] ; Gigi Boudreaux ; Rakesh Carrera ; Shayan Sanchez ; Silas Blanco ; Sb Victor ; Kenyon Weiss ; Lico Lorenz ; Sheridan Parks ; Devorah Zamudio ; Wendy Greco ; Mc Roque ; Eric Wright Other Interventions: Discharge Summary Assessment (RN) Last Done: 03/18/22 15:54
== END 2022-03-18 16:00 | DRG 93 ==
LOC: ED 16:53 → SUATTDRO 03-15 01:44 → 2W 03-15 01:44 → 3W 03-18 03:45

== ENCOUNTER 2023-01-20 12:10 | Inpatient (IN) ==
--- NOTE | 2023-01-20 13:08 | XRay Report ---
XR chest 2V PA/lateral CLINICAL HISTORY: Chest pain, nonspecific COMPARISON STUDY: Chest radiograph March 14, 2022. FINDINGS: Lung volumes are normal. Lungs are clear. There is no pneumothorax or pleural effusion. The re is mild cardiomegaly. Mediastinal contours are normal. There is no evidence for pulmonary edema. P ostoperative findings within the right shoulder. IMPRESSION: No acute cardiopulmonary findings. ACT 112: Negative or not required by law. Electronically signed by: Ankur Vaughn M.D. 01/20/2023 1:07 PM
[2023-01-20 13:34] LABS: Basophils # (auto) 0.03 K/uL (0-0.2); Basophils % (auto) 0.2 %; Eosinophils # (auto) 0.03 K/uL (0-0.50); Eosinophils % (auto) 0.2 %; Hematocrit (blood only) 41.4 % (42.0-52.0); Hemoglobin 14.3 g/dl (14.0-18.0); Immature Granulocytes # (auto) 0.03 K/uL (0.01-0.20); Immature Granulocytes % (auto) 0.2 %; Lymphocytes # (auto) 1.21 K/uL (1.2-3.4); Lymphocytes % (auto) 9.9 %; Mean Corpuscular Hemoglobin 33.2 pg (25.0-34.0); Mean Corpuscular Hgb Conc 34.5 g/dL (32.0-36.0); Mean Corpuscular Volume 96.1 fL (80.0-100.0); Mean Platelet Volume 9.8 fL (9.4-12.4); Monocytes # (auto) 0.38 K/uL (0.11-0.59); Monocytes % (auto) 3.1 %; Neutrophils # (auto) 10.54 K/uL (1.40-6.50); Neutrophils % (auto) 86.4 %; Platelet Count 179 K/uL (130-400); RDW Standard Deviation 46.4 fL (36.4-46.3); Red Blood Count 4.31 M/uL (4.70-6.10); White Blood Count 12.22 K/ul (4.8-10.8)
--- NOTE | 2023-01-20 13:36 | Electrocardiogram Report ---
Test Reason : Blood Pressure : / mmHG Vent. Rate : 071 BPM Atrial Rate : 071 BPM P-R Int : 152 ms QRS Dur : 144 ms QT Int : 424 ms P-R-T Axes : 000 -07 157 degrees QTc Int : 460 ms Sinus rhythm with occasional Premature ventricular complexes and Premature atrial complexes Left bundle branch block Abnormal ECG When compared with ECG of 14-MAR-2022 17:50, Ectopic beats now present Confirmed by Erwin Hyde ([id number]) on 01/20/2023 1:35:52 PM Referred By: Confirmed By:Erwin Hyde
[2023-01-20 13:54] LABS: Alanine Aminotransferase 9 U/L (7-52); Albumin Globulin Ratio 1.7 (0.9-2); Albumin Level 4.5 gm/dl (3.4-5.0); Alkaline Phosphatase 85 U/L (34-104); Anion Gap 5 (3-11); Aspartate Aminotransferase 23 U/L (13-39); BUN Creatinine Ratio 22.4 (10-20); Bilirubin,Total 0.6 mg/dl (0.2-1.0); Blood Urea Nitrogen 26 mg/dl (6-23); Calcium 9.9 mg/dl (8.6-10.3); Carbon Dioxide 28 mmol/L (21-32); Chloride 107 mmol/L (98-107); Est GFR (African American) 68.1 ml/min; Est GFR (Non-African American) 58.7 ml/min; Globulin 2.7 gm/dl (2.5-4.0); Glucose 127 mg/dl (70-99(Fasting)); Potassium 4.2 mmol/L (3.5-5.1); Sodium 140 mmol/L (136-145); Total Protein 7.2 gm/dl (6.0-8.3)
[2023-01-20 13:55] LABS: Troponin I High Sensitivity 8.4 pg/ml (0-20)
[2023-01-20 13:57] LABS: Partial Thromboplastin Ratio 0.8; Partial Thromboplastin Time 23.1 Seconds (21.0-31.0)
--- NOTE | 2023-01-20 15:17 | Emergency Department Note ---
History of Present Illness General Chief complaint: Tachycardia Stated complaint: TACHYCARDIA, LEFT ANKLE SWOLLEN, HARD TIME WALKING Time Seen by Provider: 01/20/23 14:53 Source: patient, family (Daughter who is at the bedside), RN notes reviewed and old records reviewed Mode of arrival: ambulatory Limitations: no limitations History of Present Illness This patient is an 82-year-old male who comes in after having increasing shortness of breath for the last 1 to 2 weeks is mostly dyspnea on exertion but has been minimal exertion. He does not normally have this and has no underlying cardiac or pulmonary disease he saw Dr. Merino last Thursday had a chest x- ray EKG and hip x-rays he also has pain in his legs at x2. He had no fall or trauma. There is an echo scheduled for . He was told to come to the hospital if he was getting worse. Today the home health aide was walking him he got very short of breath his blood pressure went to 151/100 with a pulse of 93 he also had some pain or some swelling in his left ankle at 1 point. No chest pain no fever he does have a cough. He feels okay at rest. He did have his th yroid checked in the fall and it looked okay. No history of PE no blood thinner use he is on Plavix for history of a stroke in the past. No new numbness or weakness Home Medications Medication Instructions Recorded Confirmed Type carbidopa 25 mg-levodopa 100 mg 2 tab PO TID 02/24/19 01/20/23 History tablet omeprazole 20 mg capsule,delayed 20 mg PO BID 02/24/19 01/20/23 History release vitamin B complex 1 tab PO QAM 02/24/19 01/20/23 History amlodipine 5 mg tablet 5 mg PO QAM 02/25/19 01/20/23 History clopidogrel 75 mg tablet 75 mg PO QAM #30 tabs 03/03/19 01/20/23 Rx atorvastatin 40 mg tablet 40 mg PO QPM 03/14/22 01/20/23 History donepezil 5 mg tablet 5 mg PO QDD 03/14/22 01/20/23 History escitalopram oxalate 20 mg tablet 20 mg PO QAM 03/14/22 01/20/23 History losartan 100 mg tablet 100 mg PO QAM 03/14/22 01/20/23 History magnesium oxide 400 mg PO QAM 03/14/22 01/20/23 History mirabegron 50 mg tablet,extended 50 mg PO QPM 03/14/22 01/20/23 History release 24 hr (Myrbetriq) albuterol sulfate 2.5 mg/3 mL 2.5 mg inhalation DIRECTED PRN 01/20/23 01/20/23 History (0.083 %) solution for nebulization Shortness Of Breath Or Wheezing albuterol sulfate 90 mcg/actuation 2 puff inhalation Q6H PRN 01/20/23 01/20/23 History aerosol inhaler Shortness Of Breath carboxymethylcellulose sodium 1 % 1 drp ophthalmic (eye) DIRECTED 01/20/23 01/20/23 History eye drops cyanocobalamin (vitamin B-12) 100 400 mcg PO DAILY 01/20/23 01/20/23 History mcg tablet (Vitamin B-12) prednisone 20 mg tablet 40 mg PO DAILY 01/20/23 01/20/23 History tizanidine 2 mg capsule 2 mg PO BID PRN MUSCLE SPASMS 01/20/23 01/20/23 History Allergies Allergy/AdvReac Type Severity Reaction Status Date / Time No Known Allergies Allergy Verified 01/20/23 16:16 Past Med/Surg History Medical History (Updated 01/20/23 @ 22:31 by Bryce Almeida MD) Acute renal failure superimposed on stage 3 chronic kidney disease Ambulatory dysfunction CKD (chronic kidney disease) stage 3, GFR 30-59 ml/min CVA (cerebral vascular accident) Depression DVT prophylaxis Falls frequently GERD (gastroesophageal reflux disease) Hallucinations, visual Heart disease High blood cholesterol History of kidney stones History of prostate cancer s/p cryoablation Hypertension LBBB (left bundle branch block) Nephrolithiasis Neuropathy OAB (overactive bladder) Parkinson disease PVCs (premature ventricular contractions) Surgical History History of Achilles tendon repair History of appendectomy History of cholecystectomy History of cystoscopy History of lithotripsy History of rotator cuff surgery Family History Father Cancer Mother Hypertension Social History Smoking Status: Never smoker Hx Alcohol Use: No Hx Substance Use: No Preferred Language: Swiss Communication Ability: Effective Visual Impairment: No Limitations [place] Oven Operator Required: No Beliefs That Will Affect Care: None marital status: Current Living Situation: Spouse and Other Current Living Situation Comment: In home care 3 hours in AM and 3 hours in PM How many Children do You have: 2 Other Information That Helps Us Care for You: No Feels Safe at Home: Yes Safety Concerns: Feels Safe At This Time Assistive Devices: Walker and Wheelchair Review of Systems A total of 10 systems reviewed and were otherwise negative Physical Exam Vital Signs Vital Signs - 24 hr 01/20/23 12:12 01/20/23 15:01 01/20/23 15:52 Temperature 36.2 C L Temperature Source Temporal Artery Scan Pulse Rate 74 69 69 Pulse Rate from SpO2 Sensor 66 Respiratory Rate 20 24 Respiratory Effort / Characteristics Non-Labored Spontaneous Respiratory Depth Normal Blood Pressure 131/83 Blood Pressure Mean 99 Pulse Oximetry 97 97 Oxygen Delivery Method Room Air Sepsis Recent Fever Within 48 Hours No Sepsis New/Unexplained Change in Mental Status N/A Sepsis Action Taken by Nursing No Action Required 01/20/23 15:10 01/20/23 15:20 01/20/23 15:30 Temperature Temperature Source Pulse Rate 67 71 68 Pulse Rate from SpO2 Sensor 69 Respiratory Rate 21 23 20 Respiratory Effort / Characteristics Respiratory Depth Blood Pressure Blood Pressure Mean Pulse Oximetry 98 Oxygen Delivery Method Sepsis Recent Fever Within 48 Hours Sepsis New/Unexplained Change in Mental Status Sepsis Action Taken by Nursing 01/20/23 15:40 01/20/23 15:50 01/20/23 16:11 Temperature Temperature Source Pulse Rate 71 74 74 Pulse Rate from SpO2 Sensor 70 73 73 Respiratory Rate 19 21 Respiratory Effort / Characteristics Respiratory Depth Blood Pressure Blood Pressure Mean Pulse Oximetry 97 98 96 Oxygen Delivery Method Sepsis Recent Fever Within 48 Hours Sepsis New/Unexplained Change in Mental Status Sepsis Action Taken by Nursing 01/20/23 16:20 01/20/23 16:30 Temperature Temperature Source Pulse Rate 72 72 Pulse Rate from SpO2 Sensor 72 60 Respiratory Rate 17 16 Respiratory Effort / Characteristics Respiratory Depth Blood Pressure Blood Pressure Mean Pulse Oximetry 96 96 Oxygen Delivery Method Sepsis Recent Fever Within 48 Hours Sepsis New/Unexplained Change in Mental Status Sepsis Action Taken by Nursing General: Well developed well nourished older male who appears in no acute distress, breathing comfortably on room air. Normal speech HEENT: Normal cephalic atraumatic. Pupils are equal round and reactive to light. Sclera anicteric extraocular movements are intact. Oropharynx is pink with moist mucous membranes. No swelling of the mouth lips or tongue. Neck: Supple with a midline trachea. No meningeal signs or stiffness, no JVD or bruits. No Stridor. Chest: Clear to auscultation bilaterally. No wheezes or rhonchi. No increased work of breathing. Heart: Regular rate and rhythm without murmurs or gallops. Abdomen: Soft nontender, nondistended without rebound guarding or rigidity. Extremities: No cyanosis clubbing or edema. No calf tenderness or assymetry. 2+ distal pulses Spine/Back. Non tender to palpation. No CVA tenderness Skin: Good turgor without rashes. Neurologic exam: Cranial nerves two through 12 are intact. Motor and sensation are intact and symmetrical throughout. Course Administered Medications Atorvastatin Calcium (Atorvastatin 40 Mg Tab) 40 mg PO QPM FARIDA Stop: 02/19/23 20:59 Last Admin: 01/20/23 20:56 Dose: 40 mg Documented By: LILIANE Carbidopa/Levodopa (Carbidopa/Levodopa 25/100mg Tab) 2 tab PO TID@0800,1200,1700 FARIDA Stop: 02/19/23 17:59 Last Admin: 01/20/23 20:56 Dose: 2 tab Documented By: LILIANE Mirabegron (Mirabegron Er 25 Mg Tab) 50 mg PO QPM FARIDA Stop: 02/19/23 20:59 Last Admin: 01/20/23 20:56 Dose: 50 mg Documented By: LILIANE Pantoprazole Sodium (Pantoprazole 40 Mg Tab) 40 mg PO BID FARIDA Stop: 02/19/23 20:59 Last Admin: 01/20/23 20:55 Dose: 40 mg Documented By: LILIANE Discontinued Medications Furosemide (Furosemide Inj 20 Mg/2 Ml Vial) 10 mg IV ONCE ONE Stop: 01/20/23 21:46 Last Admin: 01/20/23 22:12 Dose: 10 mg Documented By: LILIANE Ioversol (Optiray 320 500ml) 110 ml IV ONCE ONE Stop: 01/20/23 16:07 Last Admin: 01/20/23 16:06 Dose: 110 ml Documented By: ELAYNE Medical Decision Making Differential Diagnosis Acute coronary syndrome, arrhythmia, CHF, anemia, renal disease, PE, pulmonary disease, infection, neurologic disease, vascular Medical Records Attestation: I reviewed the patient's medical records. Home Medications Current Medication List: was personally reviewed by me Laboratory Data Attestation: I reviewed the patient's lab results. 01/20/23 13:15 01/20/23 13:15 Lab Results 01/20/23 01/20/23 01/20/23 Range/Units 13:15 13:15 13:15 WBC 12.22 H (4.8-10.8) K/ul RBC 4.31 L (4.70-6.10) M/uL Hgb 14.3 (14.0-18.0) g/dl Hct 41.4 L (42.0-52.0) % MCV 96.1 (80.0-100.0) fL MCH 33.2 (25.0-34.0) pg MCHC 34.5 (32.0-36.0) g/dL RDW Std Deviation 46.4 H (36.4-46.3) fL RDW Coeff of Lala 13.0 (11.5-14.5) % Plt Count 179 (130-400) K/uL MPV 9.8 (9.4-12.4) fL Immature Gran % (Auto) 0.2 % Neut % (Auto) 86.4 % Lymph % (Auto) 9.9 % Barry % (Auto) 3.1 % Eos % (Auto) 0.2 % Baso % (Auto) 0.2 % Neut # (Auto) 10.54 H (1.40-6.50) K/uL Lymph # (Auto) 1.21 (1.2-3.4) K/uL Barry # (Auto) 0.38 (0.11-0.59) K/uL Eos # (Auto) 0.03 (0-0.50) K/uL Baso # (Auto) 0.03 (0-0.2) K/uL Immature Gran # (Auto) 0.03 (0.01-0.20) K/uL PT 11.0 (9.0-12.0) Seconds INR 1.0 (0.9-1.1) APTT 23.1 (21.0-31.0) Seconds PTT Ratio 0.8 Sodium 140 (136-145) mmol/L Potassium 4.2 (3.5-5.1) mmol/L Chloride 107 (98-107) mmol/L Carbon Dioxide 28 (21-32) mmol/L Anion Gap 5 (3-11) BUN 26 H (6-23) mg/dl Creatinine 1.16 (0.6-1.4) mg/dl Est Cr Clr Drug Dosing Not Reportable Est GFR ( Amer) 68.1 ml/min Est GFR (Non-Af Amer) 58.7 ml/min BUN/Creatinine Ratio 22.4 H (10-20) Glucose 127 H (70-99(Fasting)) mg/dl Calcium 9.9 (8.6-10.3) mg/dl Total Bilirubin 0.6 (0.2-1.0) mg/dl AST 23 (13-39) U/L ALT 9 (7-52) U/L Alkaline Phosphatase 85 (34-104) U/L Troponin I High Sens 8.4 (0-20) pg/ml B-Natriuretic Peptide (0-100) pg/ml Total Protein 7.2 (6.0-8.3) gm/dl Albumin 4.5 (3.4-5.0) gm/dl Globulin 2.7 (2.5-4.0) gm/dl Albumin/Globulin Ratio 1.7 (0.9-2) Procalcitonin (0-0.5) ng/ml TSH (0.300-4.500) uIu/ml Urine Color Urine Appearance (Clear) Urine pH (4.5-7.5) Ur Specific [place] (1.000-1.030) Urine Protein (Negative) Urine Glucose (UA) (Negative) Urine Ketones (Negative) Urine Blood (Negative) Urine Nitrite (Negative) Urine Bilirubin (Negative) Urine Urobilinogen (Negative) Ur Leukocyte Esterase (Negative) SARS-CoV-2, RNA, NAAT (NEGATIVE) 01/20/23 01/20/23 01/20/23 Range/Units 13:15 13:15 15:20 WBC (4.8-10.8) K/ul RBC (4.70-6.10) M/uL Hgb (14.0-18.0) g/dl Hct (42.0-52.0) % MCV (80.0-100.0) fL MCH (25.0-34.0) pg MCHC (32.0-36.0) g/dL RDW Std Deviation (36.4-46.3) fL RDW Coeff of Lala (11.5-14.5) % Plt Count (130-400) K/uL MPV (9.4-12.4) fL Immature Gran % (Auto) % Neut % (Auto) % Lymph % (Auto) % Barry % (Auto) % Eos % (Auto) % Baso % (Auto) % Neut # (Auto) (1.40-6.50) K/uL Lymph # (Auto) (1.2-3.4) K/uL Barry # (Auto) (0.11-0.59) K/uL Eos # (Auto) (0-0.50) K/uL Baso # (Auto) (0-0.2) K/uL Immature Gran # (Auto) (0.01-0.20) K/uL PT (9.0-12.0) Seconds INR (0.9-1.1) APTT (21.0-31.0) Seconds PTT Ratio Sodium (136-145) mmol/L Potassium (3.5-5.1) mmol/L Chloride (98-107) mmol/L Carbon Dioxide (21-32) mmol/L Anion Gap (3-11) BUN (6-23) mg/dl Creatinine (0.6-1.4) mg/dl Est Cr Clr Drug Dosing Est GFR ( Amer) ml/min Est GFR (Non-Af Amer) ml/min BUN/Creatinine Ratio (10-20) Glucose (70-99(Fasting)) mg/dl Calcium (8.6-10.3) mg/dl Total Bilirubin (0.2-1.0) mg/dl AST (13-39) U/L ALT (7-52) U/L Alkaline Phosphatase (34-104) U/L Troponin I High Sens (0-20) pg/ml B-Natriuretic Peptide (0-100) pg/ml Total Protein (6.0-8.3) gm/dl Albumin (3.4-5.0) gm/dl Globulin (2.5-4.0) gm/dl Albumin/Globulin Ratio (0.9-2) Procalcitonin < 0.05 (0-0.5) ng/ml TSH 1.820 (0.300-4.500) uIu/ml Urine Color Dark Yellow Urine Appearance Clear (Clear) Urine pH 6.5 (4.5-7.5) Ur Specific [place] 1.026 (1.000-1.030) Urine Protein Negative (Negative) Urine Glucose (UA) Negative (Negative) Urine Ketones Trace H (Negative) Urine Blood Negative (Negative) Urine Nitrite Negative (Negative) Urine Bilirubin Negative (Negative) Urine Urobilinogen Negative (Negative) Ur Leukocyte Esterase Negative (Negative) SARS-CoV-2, RNA, NAAT (NEGATIVE) 01/20/23 01/20/23 Range/Units 16:10 16:16 WBC (4.8-10.8) K/ul RBC (4.70-6.10) M/uL Hgb (14.0-18.0) g/dl Hct (42.0-52.0) % MCV (80.0-100.0) fL MCH (25.0-34.0) pg MCHC (32.0-36.0) g/dL RDW Std Deviation (36.4-46.3) fL RDW Coeff of Lala (11.5-14.5) % Plt Count (130-400) K/uL MPV (9.4-12.4) fL Immature Gran % (Auto) % Neut % (Auto) % Lymph % (Auto) % Barry % (Auto) % Eos % (Auto) % Baso % (Auto) % Neut # (Auto) (1.40-6.50) K/uL Lymph # (Auto) (1.2-3.4) K/uL [place] # (Auto) (0.11-0.59) K/uL Eos # (Auto) (0-0.50) K/uL Baso # (Auto) (0-0.2) K/uL Immature Gran # (Auto) (0.01-0.20) K/uL PT (9.0-12.0) Seconds INR (0.9-1.1) APTT (21.0-31.0) Seconds PTT Ratio Sodium (136-145) mmol/L Potassium (3.5-5.1) mmol/L Chloride (98-107) mmol/L Carbon Dioxide (21-32) mmol/L Anion Gap (3-11) BUN (6-23) mg/dl Creatinine (0.6-1.4) mg/dl Est Cr Clr Drug Dosing Est GFR ( Amer) ml/min Est GFR (Non-Af Amer) ml/min BUN/Creatinine Ratio (10-20) Glucose (70-99(Fasting)) mg/dl Calcium (8.6-10.3) mg/dl Total Bilirubin (0.2-1.0) mg/dl AST (13-39) U/L ALT (7-52) U/L Alkaline Phosphatase (34-104) U/L Troponin I High Sens (0-20) pg/ml B-Natriuretic Peptide 70 (0-100) pg/ml Total Protein (6.0-8.3) gm/dl Albumin (3.4-5.0) gm/dl Globulin (2.5-4.0) gm/dl Albumin/Globulin Ratio (0.9-2) Procalcitonin (0-0.5) ng/ml TSH (0.300-4.500) uIu/ml Urine Color Urine Appearance (Clear) Urine pH (4.5-7.5) Ur Specific [place] (1.000-1.030) Urine Protein (Negative) Urine Glucose (UA) (Negative) Urine Ketones (Negative) Urine Blood (Negative) Urine Nitrite (Negative) Urine Bilirubin (Negative) Urine Urobilinogen (Negative) Ur Leukocyte Esterase (Negative) SARS-CoV-2, RNA, NAAT NEGATIVE (NEGATIVE) Imaging Data Attestation: I personally reviewed and interpreted this imaging study as follows: My Impression: Chest x-rayno acute infiltrate, failure, pneumothorax seen Radiologist's Impression: Chest X-Ray 01/20/23 12:18 XR chest 2V PA/lateral CLINICAL HISTORY: Chest pain, nonspecific COMPARISON STUDY: Chest radiograph March 14, 2022. FINDINGS: Lung volumes are normal. Lungs are clear. There is no pneumothorax or pleural effusion. There is mild cardiomegaly. Mediastinal contours are normal. There is no evidence for pulmonary edema. Postoperative findings within the right shoulder. IMPRESSION: No acute cardiopulmonary findings. ACT 112: Negative or not required by law. Electronically signed by: Ankur Vaughn M.D. 01/20/2023 1:07 PM Chest CTA 01/20/23 15:09 CT ANGIOGRAPHY OF THE CHEST, PULMONARY EMBOLUS PROTOCOL CLINICAL HISTORY: Tachycardia. Hypertension. Evaluate for pulmonary embolus. COMPARISON STUDY: Chest radiograph March 14, 2022 and January 20, 2023. TECHNIQUE: Following IV administration of 110 mL of Optiray, helical axial images of the chest were obtained utilizing the pulmonary embolus protocol. Maximal intensity projections and sagittal and coronal reformats were viewed on an independent 3D workstation. IV contrast was administered without complication. Automated exposure control was utilized for the study. A dose lowering technique was utilized adhering to the principles of ALARA. CT DOSE: 415.09 mGy.cm FINDINGS: No pulmonary emboli are identified. Moderate cardiomegaly and extensive coronary artery calcification is present. There is no pericardial effusion. No thoracic lymphadenopathy. There is no pneumothorax. Trace bilateral pleural effusions are noted. Subpleural groundglass opacities represent atelectasis. There is no consolidation to suggest pneumonia. No acute fractures within the bony thorax are present. Intramuscular left shoulder lipoma is incidentally noted. Gallbladder surgically absent. IMPRESSION: 1. No pulmonary emboli identified. 2. Cardiomegaly and extensive coronary artery calcification. 3. Trace bilateral pleural effusions. ACT 112: Negative or not required by law. Electronically signed by: Ankur Vaughn M.D. 01/20/2023 4:21 PM ECG Data Attestation: I personally reviewed and interpreted this ECG as follows: Indication: + SOB/dyspnea Rate (beats per minute): 71 Rhythm: + normal sinus ECG Intervals/blocks: + Left bundle branch block ECG [place]: + Left axis deviation ECG ST segments: + Normal ST segments ECG Findings: no PACs or no PVCs Comparison ECG Date: from ([facility] EKG this past weekend) Change: no significant change MDM Narrative This patient comes in as scribed above he has had dyspnea on exertion and increasing weakness. He seen his family doctor. He has no history of pulmonary disease or cardiac disease. He looks well at rest. IV access was established,EKG was obtained and multiple blood testing was obtained he does have a left bundle branch block. Troponin is not elevated. Chest x-ray is unremarkable there is no significant acrylate or metabolic abnormalities. I did do a CT angiography given his shortness of breath to rule out PE and other pathology. I also added a BNP and TSH. He was reassessed frequently. His chest CT shows no evidence of PE. He does have significant calcified coronary disease and that makes me more concerned about acute coronary syndrome causing his symptoms. I do think he needs to be admitted/observed and I have consulted and discussed case with the [facility] hospitalist as well as the daughter who is at the bedside. Continuous cardiac monitoring: Orders placed in EMR for continuous cardiac monitoring: Upon my evaluation patient noted to be in normal sinus rhythm with a rate of 70 Impression & Plan COLLINS (dyspnea on exertion), Weakness, Parkinson disease, Calcification of coronary artery, Lab test negative for COVID-19 virus Discharge Plan Visit Data Chief Complaint: Tachycardia Stated Complaint: TACHYCARDIA, LEFT ANKLE SWOLLEN, HARD TIME WALKING ED Provider: Bryce Almeida Discharge Problem: COLLINS (dyspnea on exertion), Weakness, Parkinson disease, Calcification of coronary artery, Lab test negative for COVID-19 virus Patient Disposition: Admitted As Inpatient Discharge Instructions Interventions: ED Discharge Assessment Last Done: 01/20/23 17:23
[2023-01-20] MEDS ORDERED: OPTIRAY 320 500ml IV ONE (16:06)
--- NOTE | 2023-01-20 16:22 | CT Scan Report ---
CT ANGIOGRAPHY OF THE CHEST, PULMONARY EMBOLUS PROTOCOL CLINICAL HISTORY: Tachycardia. Hypertension. Evaluate for pulmonary embolus. COMPARISON STUDY: Chest radiograph March 14, 2022 and January 20, 2023. TECHNIQUE: Following IV administration of 110 mL of Optiray, helical axial images of the chest were o btained utilizing the pulmonary embolus protocol. Maximal intensity projections and sagittal and cor onal reformats were viewed on an independent 3D workstation. IV contrast was administered without co mplication. Automated exposure control was utilized for the study. A dose lowering technique was ut ilized adhering to the principles of ALARA. CT DOSE: 415.09 mGy.cm FINDINGS: No pulmonary emboli are identified. Moderate cardiomegaly and extensive coronary artery ca lcification is present. There is no pericardial effusion. No thoracic lymphadenopathy. There is no pn eumothorax. Trace bilateral pleural effusions are noted. Subpleural groundglass opacities represent a telectasis. There is no consolidation to suggest pneumonia. No acute fractures within the bony thorax are present. Intramuscular left shoulder lipoma is incidentally noted. Gallbladder surgically absent . IMPRESSION: 1. No pulmonary emboli identified. 2. Cardiomegaly and extensive coronary artery calcification. 3. Trace bilateral pleural effusions. ACT 112: Negative or not required by law. Electronically signed by: Ankur Vaughn M.D. 01/20/2023 4:21 PM
[2023-01-20] MEDS ORDERED: ALUMINUM/MAGNESIUM SUSP 30 ML UDC PO PRN (16:39)
[2023-01-20] MEDS ORDERED: ONDANSETRON INJ 2 MG/ML 2 ML VIAL IV PRN (16:39)
[2023-01-20] MEDS ORDERED: POLYETHYLENE (MIRALAX) 17 GM PACK PO PRN (16:39)
[2023-01-20] MEDS ORDERED: MAGNESIUM HYDROXIDE SUSP 30 ML UDC PO PRN (16:39)
[2023-01-20] MEDS ORDERED: ACETAMINOPHEN 325 MG TAB PO PRN (16:39)
--- NOTE | 2023-01-20 16:46 | History & Physical Report ---
Date of Service January 20, 2023 Assessment & Plan (1) COLLINS (dyspnea on exertion): (2) Weakness: (3) Hypertension: (4) Parkinson disease: (5) HLD (hyperlipidemia): (6) GERD (gastroesophageal reflux disease): (7) OAB (overactive bladder): Plan 82 year old presents with COLLINS and weakness. Saw PCP on Thursday and was started on Prednisone 40 mg daily x5 days. Pt with reported weight gain over past few weeks. COLLINS: Weakness: Pleural Effusions: Slight leukocytosis: 12.22; suspect related to Prednisone Initial troponin 8.4 Will check urine and sputum No need for empiric abx unless cultures indicate or appears toxic in presentation Chest CTA: Cardiomegaly and extensive coronary artery calcification and trace bilateral pleural effusions. CXR: No acute cardiopulmonary findings Cardiology Consultation placed Not euvolemic on exam; no appreciation of lower extremity edema on exam. 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 Wright Q3 months PT/OT/ST If no improvement with diuretic therapy, consider progression of Parkinson's Disease Noted progression of disease as an outpatient with review since September 2022 Occasional mechanical falls; none since September HTN: Takes Losartan and Amlodipine; continue SBP 179 in ED HLD: Takes Atorvastatin; continue Check lipid panel 02/16: T, HDL 36, LDL 84 OAB: Follows with Dr. [facility] Undergoes STIM treatment Takes Mirabegron; continue GERD: Takes Omeprazole; continue Disposition: PCP: Dr. Landry Code Status: DNR/DNI VTE Prophylaxis: Teds and SCDs for now I spent a total of 89 minutes coordinating, documenting, and providing care for this patient excluding time spent in the performance of separately billed services. All of the aforementioned completed while collaborating with the assigned attending physician for a full treatment plan. Please see their addendum for further details. History of Present Illness Chief Complaint: COLLINS Primary Care Provider: Vishal Landry DO Mr. Olsen presented to the [facility] ED with SOB that has progressively worsened over the past 1 to 2 weeks without orthopnea; significantly more over the last 24 hours. Patient has home health that indicated that his dyspnea on exertion was worse today and appeared weaker. Patient did proceed to PCP on Thursday was started on prednisone 40 mg daily x5 days with the last dose planned for 01/22. Pt also has issues with pain in his left hip. Has been for the last week or so. No falls or injuries or accidents. He indicates that he feels that he has become more weak in his legs and shuffling more along with developing more shortness of breath walking from the kitchen to the bathroom and from getting out of his recliner to the bathroom. Most recent ECHO 03/19 had improved EF 55 to 60% from previous ECHO 2018 EF 45 to 49%. Continues with grade 1 diastolic dysfunction but no significant valve pathology. Pt does report approximately 10 lb weight gain over the past few weeks. In ED initial troponin 8.4, BNP improved from this weekend 3 3270. TSH 1.820 slight leukocytosis WBC 12.22. CT angio negative for PE however indicates extensive cardiomyopathy, small pleural effusions and extensive coronary artery calcification. Additional PMH includes: H/O CVA post hospitalization for kidney stones (On Plavix), Parkinson's disease with dementia without behavioral disturbance, history of prostate cancer, HTN, HLD, CKD 3, depression. Family mentioned his Metoprolol was discontinued in September. Per EMR: Patient on very low-dose beta- jose de jesus for suppression of atrial and ventricular ectopy, arrhythmias. Heart rate was noted to be trending lower and in the setting of conduction system disease with left bundle-branch block, this medication was discontinued in September to avoid symptomatic bradycardia. Patient denies dizziness, chest pain, palpitations, nausea, vomiting, diarrhea, abdominal pain, recent falls or trauma. Patient reports adequate p.o. intake with eating and drinking. Pt denies tobacco, alcohol or recreational drug use. We did discuss that we will rule out heart failure, despite him appearing euvolemic on exam. Considering factor includes infectious origin or progression of parkinson's disease. Pt reports coughing with eating. Patient will be admitted for further evaluation and management. Please see A/P for further details. Allergies Allergy/AdvReac Type Severity Reaction Status Date / Time No Known Allergies Allergy Verified 01/20/23 16:16 Home Medications Medication Instructions Recorded Confirmed Type carbidopa 25 mg-levodopa 100 mg 2 tab PO TID 02/24/19 01/20/23 History tablet omeprazole 20 mg capsule,delayed 20 mg PO BID 02/24/19 01/20/23 History release vitamin B complex 1 tab PO QAM 02/24/19 01/20/23 History amlodipine 5 mg tablet 5 mg PO QAM 02/25/19 01/20/23 History clopidogrel 75 mg tablet 75 mg PO QAM #30 tabs 03/03/19 01/20/23 Rx atorvastatin 40 mg tablet 40 mg PO QPM 03/14/22 01/20/23 History donepezil 5 mg tablet 5 mg PO QDD 03/14/22 01/20/23 History escitalopram oxalate 20 mg tablet 20 mg PO QAM 03/14/22 01/20/23 History losartan 100 mg tablet 100 mg PO QAM 03/14/22 01/20/23 History magnesium oxide 400 mg PO QAM 03/14/22 01/20/23 History mirabegron 50 mg tablet,extended 50 mg PO QPM 03/14/22 01/20/23 History release 24 hr (Myrbetriq) albuterol sulfate 2.5 mg/3 mL 2.5 mg inhalation DIRECTED PRN 01/20/23 01/20/23 History (0.083 %) solution for nebulization Shortness Of Breath Or Wheezing albuterol sulfate 90 mcg/actuation 2 puff inhalation Q6H PRN 01/20/23 01/20/23 History aerosol inhaler Shortness Of Breath carboxymethylcellulose sodium 1 % 1 drp ophthalmic (eye) DIRECTED 01/20/23 01/20/23 History eye drops cyanocobalamin (vitamin B-12) 100 400 mcg PO DAILY 01/20/23 01/20/23 History mcg tablet (Vitamin B-12) prednisone 20 mg tablet 40 mg PO DAILY 01/20/23 01/20/23 History tizanidine 2 mg capsule 2 mg PO BID PRN MUSCLE SPASMS 01/20/23 01/20/23 History Past Med/Surg History Medical History (Updated 01/20/23 @ 18:10 by ROB Rai) Acute renal failure superimposed on stage 3 chronic kidney disease Ambulatory dysfunction CKD (chronic kidney disease) stage 3, GFR 30-59 ml/min CVA (cerebral vascular accident) Depression DVT prophylaxis Falls frequently GERD (gastroesophageal reflux disease) Hallucinations, visual Heart disease High blood cholesterol History of kidney stones History of prostate cancer s/p cryoablation Hypertension LBBB (left bundle branch block) Nephrolithiasis Neuropathy OAB (overactive bladder) Parkinson disease PVCs (premature ventricular contractions) Surgical History History of Achilles tendon repair History of appendectomy History of cholecystectomy History of cystoscopy History of lithotripsy History of rotator cuff surgery Family History Father Cancer Mother Hypertension Social History Smoking Status: Never smoker Hx Alcohol Use: No Hx Substance Use: No Preferred Language: Gambian Communication Ability: Effective Visual Impairment: No Limitations Coupon Clerk Required: No Beliefs That Will Affect Care: None marital status: Current Living Situation: Spouse and Other Current Living Situation Comment: In home care 3 hours in AM and 3 hours in PM How many Children do You have: 2 Other Information That Helps Us Care for You: No Feels Safe at Home: Yes Safety Concerns: Feels Safe At This Time Assistive Devices: Walker and Wheelchair Review of Systems Review of Systems: Neuro: (-) Falls, trauma, slurred speech HEENT: (+) SIDHU, (-) dizziness, dysphagia, visual or auditory changes CV: (-) CP, palpitations, swelling Resp: (+) SOB GI: (-) appetite changes, N/V/D, bowel changes : (+) frequency Skin: (-) rashes Psych: (-) anxiety, depression Physical Exam 2 Physical Exam: See Dr. Ritter's addendum for PE Results & Data Results & Data Vital Signs (Past 12 Hours) Vital Signs Temp Pulse Resp BP Pulse Ox O2 Del Method 01/20/23 15:52 69 01/20/23 15:01 69 24 97 01/20/23 12:12 36.2 C L 74 20 131/83 97 Room Air Laboratory Results Short CBC 01/20/23 Range/Units 13:15 WBC 12.22 H (4.8-10.8) K/ul Hgb 14.3 (14.0-18.0) g/dl Hct 41.4 L (42.0-52.0) % Plt Count 179 (130-400) K/uL BMP 01/20/23 13:15 Sodium 140 Potassium 4.2 Chloride 107 Carbon Dioxide 28 BUN 26 H Creatinine 1.16 Glucose 127 H Calcium 9.9 Liver Function 01/20/23 Range/Units 13:15 Total Bilirubin 0.6 (0.2-1.0) mg/dl AST 23 (13-39) U/L ALT 9 (7-52) U/L Alkaline Phosphatase 85 (34-104) U/L Albumin 4.5 (3.4-5.0) gm/dl Diagnostic Findings Chest X-Ray 01/20/23 12:18 XR chest 2V PA/lateral CLINICAL HISTORY: Chest pain, nonspecific COMPARISON STUDY: Chest radiograph March 14, 2022. FINDINGS: Lung volumes are normal. Lungs are clear. There is no pneumothorax or pleural effusion. There is mild cardiomegaly. Mediastinal contours are normal. There is no evidence for pulmonary edema. Postoperative findings within the right shoulder. IMPRESSION: No acute cardiopulmonary findings. ACT 112: Negative or not required by law. Electronically signed by: Ankur Vaughn M.D. 01/20/2023 1:07 PM Chest CTA 01/20/23 15:09 CT ANGIOGRAPHY OF THE CHEST, PULMONARY EMBOLUS PROTOCOL CLINICAL HISTORY: Tachycardia. Hypertension. Evaluate for pulmonary embolus. COMPARISON STUDY: Chest radiograph March 14, 2022 and January 20, 2023. TECHNIQUE: Following IV administration of 110 mL of Optiray, helical axial images of the chest were obtained utilizing the pulmonary embolus protocol. Maximal intensity projections and sagittal and coronal reformats were viewed on an independent 3D workstation. IV contrast was administered without complication. Automated exposure control was utilized for the study. A dose lowering technique was utilized adhering to the principles of ALARA. CT DOSE: 415.09 mGy.cm FINDINGS: No pulmonary emboli are identified. Moderate cardiomegaly and extensive coronary artery calcification is present. There is no pericardial effusion. No thoracic lymphadenopathy. There is no pneumothorax. Trace bilateral pleural effusions are noted. Subpleural groundglass opacities represent atelectasis. There is no consolidation to suggest pneumonia. No acute fractures within the bony thorax are present. Intramuscular left shoulder lipoma is incidentally noted. Gallbladder surgically absent. IMPRESSION: 1. No pulmonary emboli identified. 2. Cardiomegaly and extensive coronary artery calcification. 3. Trace bilateral pleural effusions. ACT 112: Negative or not required by law. Electronically signed by: Ankur Vaughn M.D. 01/20/2023 4:21 PM Code Status & VTE Plan Code Status DNR/DNI in the event of cardiac or respiratory arrest VTE Prophylaxis Plan VTE Prophylaxis will be ordered: Yes Supervising Physician Co-Signing Physician Notes Pt is a 82 y/o M with hx of Parkinsons disease, Dementia, CAD, HFpEF (with prior hx of reduced EF), Depression, HLD, HTN, CKD III, hx of prostate ca s/p Cryoablation, LBBB. GERD admitted for SOB (frida with exertion). Pt did received prednisone for hip pain 3 days ago PE: NAD, well developed Cardiac: normal S1/S2, no murmur Lungs: Good air entry b/l, no crackles Abd: ND, NT, Soft MSK: very trace distal LE pitting edema Psych: normal Affect A/P: Dyspnea: -CTA chest: cardiomegaly with b/l pleural effusion, no PE - trop is neg -likely multifactorial, however due to pleural effusion will try Lasix 10mg IV once - repeat CXR am - will get echo and cardiology consult -admit to tele Hip pain with leg weakness (b/l and chronic): -Hip Xrays from outpt (on 01/17): Sclerotic changes of bilateral acetabuli.There are moderate degenerative changes of the lumbar spine and sacroiliac joints. -will hold outpt prednisone -PT/OT Other chronic conditions: plan as above Agree with A/P by ROB Maki (3) Hypertension Hypertension type: unspecified Qualified Code(s): I10 - Essential (primary) hypertension (6) GERD (gastroesophageal reflux disease) Esophagitis presence: esophagitis presence not specified Qualified Code(s): K21.9 - Gastro-esophageal reflux disease without esophagitis
[2023-01-20 17:34] LABS: Appearance Urine Clear (Clear); Bilirubin Urine Negative (Negative); Blood Urine Negative (Negative); Color Urine Dark Yellow; Glucose Urine UA Negative (Negative); Ketones Urine Trace (Negative); Leukocyte Esterase Urine Negative (Negative); Nitrite Urine Negative (Negative); Protein Urine Negative (Negative); Specific Gravity Urine 1.026 (1.000-1.030); Urobilinogen Urine Negative (Negative); pH Urine 6.5 (4.5-7.5)
[2023-01-20] MEDS ORDERED: FUROSEMIDE INJ 20 MG/2 ML VIAL IV ONE ×2 (18:18→21:45)
[2023-01-20] MEDS: PANTOprazole 40 MG TAB PO SCH (20:55)
[2023-01-20] MEDS: CARBIDOPA/LEVODOPA 25/100MG TAB PO SCH (20:56)
[2023-01-20] MEDS: MIRABEGRON ER 25 MG TAB PO SCH (20:56)
[2023-01-20] MEDS: ATORVASTATIN 40 MG TAB PO SCH (20:56)
[2023-01-20] MEDS ORDERED: Nursing to Pharmacy Communication SCH (21:00)
[2023-01-21 01:57] LABS: Appearance Urine Clear (Clear); Bilirubin Urine Negative (Negative); Blood Urine Negative (Negative); Color Urine Dark Yellow; Glucose Urine UA Negative (Negative); Ketones Urine Negative (Negative); Leukocyte Esterase Urine Negative (Negative); Nitrite Urine Negative (Negative); Protein Urine Negative (Negative); Specific Gravity Urine 1.021 (1.000-1.030); Urobilinogen Urine Negative (Negative); pH Urine 5.5 (4.5-7.5)
[2023-01-21] MEDS: ARTIFICIAL TEARS OP SCH ×2 (02:31→08:20)
[2023-01-21 06:41] LABS: Hematocrit (blood only) 39.4 % (42.0-52.0); Hemoglobin 13.8 g/dl (14.0-18.0); Mean Corpuscular Hemoglobin 33.7 pg (25.0-34.0); Mean Corpuscular Volume 96.1 fL (80.0-100.0); Platelet Count 182 K/uL (130-400); RDW Coefficient of Variation 13.1 % (11.5-14.5); RDW Standard Deviation 46.7 fL (36.4-46.3); White Blood Count 10.83 K/ul (4.8-10.8)
--- NOTE | 2023-01-21 07:50 | XRay Report ---
SINGLE VIEW CHEST CLINICAL HISTORY: Dyspnea on exertion. FINDINGS: An AP, portable, upright chest radiograph is compared to chest x-ray and chest CT dated 12/28. The heart is enlarged. The pulmonary vasculature is noncongested. The lungs and pleural space s are clear noting mild bibasilar atelectasis. No pneumothorax is seen. The skeletal structures are o steopenic. The bony thorax is grossly intact. Postsurgical change is noted in the right shoulder. IMPRESSION: Cardiomegaly with no active disease in the chest. ACT 112: Negative or not required by law. Electronically signed by: Arvind Hill M.D. 01/21/2023 7:48 AM
[2023-01-21] MEDS: PANTOprazole 40 MG TAB PO SCH ×2 (08:10→20:35)
[2023-01-21] MEDS: VITAMIN B COMPLEX TAB PO SCH (08:10)
[2023-01-21] MEDS: CARBIDOPA/LEVODOPA 25/100MG TAB PO SCH ×3 (08:10→16:59)
[2023-01-21] MEDS: MAGNESIUM OXIDE 400 MG TAB PO SCH (08:11)
[2023-01-21] MEDS: ESCITALOPRAM OXALATE 20 MG TAB PO SCH (08:11)
[2023-01-21] MEDS: CLOPIDOGREL BISULFATE 75 MG TAB PO SCH (08:11)
[2023-01-21] MEDS: amLODIPine BESYLATE 5 MG TAB PO SCH (08:11)
[2023-01-21] MEDS: CYANOCOBALAMIN (B-12) 100 MCG TABLET PO SCH (08:11)
[2023-01-21] MEDS: LOSARTAN POTASSIUM 50 MG TAB PO SCH (08:11)
[2023-01-21 09:08] LABS: Albumin Globulin Ratio 1.6 (0.9-2); Albumin Level 4.2 gm/dl (3.4-5.0); BUN Creatinine Ratio 21.4 (10-20); Bilirubin,Total 0.5 mg/dl (0.2-1.0); Calcium 10.2 mg/dl (8.6-10.3); Est GFR (African American) 61.6 ml/min; Est GFR (Non-African American) 53.1 ml/min; Globulin 2.6 gm/dl (2.5-4.0); Magnesium 2.1 mg/dl (1.7-2.4); Phosphorus 3.6 mg/dl (2.5-4.9); Potassium 3.8 mmol/L (3.5-5.1); Total Protein 6.8 gm/dl (6.0-8.3)
--- NOTE | 2023-01-21 15:34 | Cardiology Consultation ---
Date of Consultation January 21, 2023 Assessment & Plan (1) COLLINS (dyspnea on exertion): (2) Parkinson disease: (3) LBBB (left bundle branch block): Plan Patient is an 82-year-old male admitted for signs and symptoms of exertional dyspnea and fatigue, diffuse weakness. Chest x-ray and CAT scan do not suggest pulmonary edema LV systolic function is unchanged no acute myocardial injury by enzyme. Suspect multifactorial component of complaints. Recommendations: Would add low-dose diuretic with spironolactone 12.5 mg 3 days/week to regimen first dose today Optimally would add low-dose nitrates to her regimen however chronic headache issues concern Increase activity in hospital assess dyspnea with exertion and oxygen levels with activity Stress nuclear study Lexiscan posthospital discharge History of Present Illness Reason for Consultation: Dyspnea on exertion Requesting Physician: Dr. Benitez Attending Physician: Victoriano Benitze MD History of Present Illness Patient is a an 82-year-old male with past history as per outpatient reviewed 1.Hypertension. 2.Past chest discomfort with resultant cardiac catheterization 2010 with mild coronary atherosclerosis identified after equivocal stress testing. 3.Parkinsonism with progressive symptoms 4.Dyslipidemia. 5.History of prostate cancer. 6.Chronic renal insufficiency. 7. Chronic ventricular ectopy 8. Left bundle branch block 9. Mild cardiomyopathy , EF 4550% 10. 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 No chest pains no syncope no tachypalpitations no edema. No fevers chills or unexplained infections. No bleeding difficulties. No significant change in medications recently other than muscle relaxant tizanidine added in November, prednisone pulse on 01/17/2023 Patient given IV furosemide on admission due to elevated BNP with clear x-ray Currently without complaint though does feel breathlessness is a sensation that occurs with activity. No arrhythmias on telemetry. No signs of myocardial injury by troponin. Echocardiogram stable to slightly improved from prior hossein dies. Allergies Allergy/AdvReac Type Severity Reaction Status Date / Time No Known Allergies Allergy Verified 01/20/23 16:16 Home Medications Medication Instructions Recorded Confirmed Type carbidopa 25 mg-levodopa 100 mg 2 tab PO TID 02/24/19 01/20/23 History tablet omeprazole 20 mg capsule,delayed 20 mg PO BID 02/24/19 01/20/23 History release vitamin B complex 1 tab PO QAM 02/24/19 01/20/23 History amlodipine 5 mg tablet 5 mg PO QAM 02/25/19 01/20/23 History clopidogrel 75 mg tablet 75 mg PO QAM #30 tabs 03/03/19 01/20/23 Rx atorvastatin 40 mg tablet 40 mg PO QPM 03/14/22 01/20/23 History donepezil 5 mg tablet 5 mg PO QDD 03/14/22 01/20/23 History escitalopram oxalate 20 mg tablet 20 mg PO QAM 03/14/22 01/20/23 History losartan 100 mg tablet 100 mg PO QAM 03/14/22 01/20/23 History magnesium oxide 400 mg PO QAM 03/14/22 01/20/23 History mirabegron 50 mg tablet,extended 50 mg PO QPM 03/14/22 01/20/23 History release 24 hr (Myrbetriq) albuterol sulfate 2.5 mg/3 mL 2.5 mg inhalation DIRECTED PRN 01/20/23 History (0.083 %) solution for nebulization Shortness Of Breath Or Wheezing albuterol sulfate 90 mcg/actuation 2 puff inhalation Q6H PRN 01/20/23 01/20/23 History aerosol inhaler Shortness Of Breath carboxymethylcellulose sodium 1 % 1 drp ophthalmic (eye) DIRECTED 01/20/23 01/20/23 History eye drops cyanocobalamin (vitamin B-12) 100 400 mcg PO DAILY 01/20/23 01/20/23 History mcg tablet (Vitamin B-12) prednisone 20 mg tablet 40 mg PO DAILY 01/20/23 01/20/23 History tizanidine 2 mg capsule 2 mg PO BID PRN MUSCLE SPASMS 01/20/23 01/20/23 History Patient History Medical History Acute renal failure superimposed on stage 3 chronic kidney disease Ambulatory dysfunction CKD (chronic kidney disease) stage 3, GFR 30-59 ml/min CVA (cerebral vascular accident) Depression DVT prophylaxis Falls frequently GERD (gastroesophageal reflux disease) Hallucinations, visual Heart disease High blood cholesterol History of kidney stones History of prostate cancer s/p cryoablation Hypertension LBBB (left bundle branch block) Nephrolithiasis Neuropathy OAB (overactive bladder) Parkinson disease PVCs (premature ventricular contractions) Surgical History History of Achilles tendon repair History of appendectomy History of cholecystectomy History of cystoscopy History of lithotripsy History of rotator cuff surgery Family History Father Cancer Mother Hypertension Social History Smoking Status: Never smoker Hx Alcohol Use: No Hx Substance Use: No Preferred Language: Estonian Communication Ability: Impaired Visual Impairment: No Limitations Blanket Inspector Required: No Beliefs That Will Affect Care: None marital status: Current Living Situation: Spouse and Other Current Living Situation Comment: In home care 3 hours in AM and 3 hours in PM How many Children do You have: 2 Other Information That Helps Us Care for You: No Feels Safe at Home: Yes Safety Concerns: Feels Safe At This Time Assistive Devices: Walker and Wheelchair Results & Data Vital Signs (Past 12 Hours) Vital Signs Temp Pulse Resp BP Pulse Ox O2 Del Method 01/21/23 11:40 36.4 C L 75 18 142/73 H 90 Room Air 01/21/23 07:36 Room Air 01/21/23 07:30 36.5 C 65 18 177/89 H 95 Room Air Laboratory Results Laboratory Results - last 24 hr 01/20/23 01/20/23 01/20/23 13:15 13:15 15:20 WBC RBC Hgb Hct MCV MCH MCHC RDW Std Deviation RDW Coeff of Lala Plt Count MPV Sodium Potassium Chloride Carbon Dioxide Anion Gap BUN Creatinine Est Cr Clr Drug Dosing Est GFR ( Amer) Est GFR (Non-Af Amer) BUN/Creatinine Ratio Glucose Calcium Phosphorus Magnesium Total Bilirubin AST ALT Alkaline Phosphatase B-Natriuretic Peptide Total Protein Albumin Globulin Albumin/Globulin Ratio Procalcitonin < 0.05 TSH 1.820 Urine Color Dark Yellow Urine Appearance Clear Urine pH 6.5 Ur Specific [place] 1.026 Urine Protein Negative Urine Glucose (UA) Negative Urine Ketones Trace H Urine Blood Negative Urine Nitrite Negative Urine Bilirubin Negative Urine Urobilinogen Negative Ur Leukocyte Esterase Negative SARS-CoV-2, RNA, NAAT 01/20/23 01/20/23 01/21/23 16:10 16:16 01:45 WBC RBC Hgb Hct MCV MCH MCHC RDW Std Deviation RDW Coeff of Lala Plt Count MPV Sodium Potassium Chloride Carbon Dioxide Anion Gap BUN Creatinine Est Cr Clr Drug Dosing Est GFR ( Amer) Est GFR (Non-Af Amer) BUN/Creatinine Ratio Glucose Calcium Phosphorus Magnesium Total Bilirubin AST ALT Alkaline Phosphatase B-Natriuretic Peptide 70 Total Protein Albumin Globulin Albumin/Globulin Ratio Procalcitonin TSH Urine Color Dark Yellow Urine Appearance Clear Urine pH 5.5 Ur Specific [place] 1.021 Urine Protein Negative Urine Glucose (UA) Negative Urine Ketones Negative Urine Blood Negative Urine Nitrite Negative Urine Bilirubin Negative Urine Urobilinogen Negative Ur Leukocyte Esterase Negative SARS-CoV-2, RNA, NAAT NEGATIVE 01/21/23 01/21/23 01/21/23 06:01 06:01 06:01 WBC 10.83 H RBC 4.10 L Hgb 13.8 L Hct 39.4 L MCV 96.1 MCH 33.7 MCHC 35.0 RDW Std Deviation 46.7 H RDW Coeff of Lala 13.1 Plt Count 182 MPV 10.0 Sodium 141 Potassium 3.8 Chloride 103 Carbon Dioxide 30 Anion Gap 8 BUN 27 H Creatinine 1.26 Est Cr Clr Drug Dosing 46.0 Est GFR ( Amer) 61.6 Est GFR (Non-Af Amer) 53.1 BUN/Creatinine Ratio 21.4 H Glucose 83 Calcium 10.2 Phosphorus 3.6 Magnesium 2.1 Total Bilirubin 0.5 AST 17 ALT 9 Alkaline Phosphatase 76 B-Natriuretic Peptide Total Protein 6.8 Albumin 4.2 Globulin 2.6 Albumin/Globulin Ratio 1.6 Procalcitonin < 0.05 TSH Urine Color Urine Appearance Urine pH Ur Specific [place] Urine Protein Urine Glucose (UA) Urine Ketones Urine Blood Urine Nitrite Urine Bilirubin Urine Urobilinogen Ur Leukocyte Esterase SARS-CoV-2, RNA, NAAT Diagnostic Findings Echocardiogram 01/20/2023 Normal left ventricular size. There is a dyssynergy contraction pattern of the septum consistent with left bundle branch block with otherwise preserved ejection fraction and wall motion EF 50-55%. There is no significant valvular ECG Additional Comments: Sinus rhythm with left bundle branch block rate 71 bpm
[2023-01-21] MEDS ORDERED: DONEPEZIL HCL 5 MG TAB PO SCH (16:30)
[2023-01-21] MEDS: SPIRONOLACTONE 12.5 MG TAB PO SCH (16:59)
--- NOTE | 2023-01-21 17:03 | Hospitalist Progress Note ---
Date of Service January 21, 2023 Assessment & Plan (1) COLLINS (dyspnea on exertion): (2) Weakness: (3) Hypertension: (4) Parkinson disease: (5) HLD (hyperlipidemia): (6) GERD (gastroesophageal reflux disease): (7) OAB (overactive bladder): Plan 82 year old presents with COLLINS and weakness. Saw PCP on Thursday and was started on Prednisone 40 mg daily x5 days. Pt with reported weight gain over past few weeks. COLLINS: Weakness: Bilateral pleural Effusions likely secondary to diastolic heart failure. Patient presented to the hospital with shortness of breath. Chest CTA personally reviewed; cardiomegaly and extensive coronary artery calcification and trace bilateral pleural effusions. Chest x-ray personally reviewed; no acute cardiopulmonary findings Discussed with cardiology Dr. Blanco; patient to be started on spironolactone 12.53 times a week. Echocardiogram done; EF of 50 to 55%; grade 1 diastolic dysfunction. 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 Wright Q3 months If no improvement with diuretic therapy, consider progression of Parkinson's Disease Noted progression of disease as an outpatient with review since September 2022 Occasional mechanical falls; none since September PT OT evaluated; recommend rehab. HTN: Takes Losartan and Amlodipine; continue HLD: Takes Atorvastatin; continue OAB: Follows with Dr. [facility] Undergoes STIM treatment Takes Mirabegron; continue GERD: Takes Omeprazole; continue Disposition: PCP: Dr. Landry Code Status: DNR/DNI VTE Prophylaxis: Teds and SCDs for now Discussed with son at bedside. Answered questions/queries. Time spent evaluating patient, direct bedside care, chart review, placing orders, interpretation of diagnostic studies, discussion with consultants, patient, and family members, as well as other required patient management activities is 60 minutes. Please note the above document was generated using voice recognition software. It may contain grammatical, syntax or spelling errors. Any formal questions or concerns about the content, text or information contained within the body of this dictation should be directly addressed to the provider for clarification Admission and Anticipated Discharge Date Admission Date: January 20, 2023 Subjective Patient seen and examined at bedside. He is sitting up on the chair; not in distress. Saturating well on room air. Review of Systems Review of Systems: All systems reviewed & are unremarkable except as noted in Subjective Physical Exam Physical Exam: Constitutional: WD/WN, vitals as above, NAD, sitting up in bed, pleasant, conversing easily Respiratory: normal respiratory effort, lungs clear to auscultation, no wheeze, rales, rhonchi. Normal insp/exp effort, no accessory muscle use Cardiovascular: RRR, no murmur, no edema Vessels: no JVD or carotid bruit Chest: normal inspection of chest Abdomen: normal bowel sounds, soft, nontender, no hepatosplenomegaly Musculoskeletal: no cyanosis or clubbing, extremities motor strength 5/5 Skin: no rashes, warm and dry normal turgor Neurologic: PERRL, EOMI, accommodation nl, no face palsy, no dysarthria CN's II- XI intact bilaterally and moves all extremities Psychiatric: A+Ox3, euthymic affect Lymphatic: no cervical or axillary lymphadenopathy : deferred Results & Data Results & Data Vital Signs (Past 12 Hours) Vital Signs Temp Pulse Resp BP Pulse Ox O2 Del Method 01/21/23 16:20 36.8 C 65 18 124/73 97 Room Air 01/21/23 11:40 36.4 C L 75 18 142/73 H 90 Room Air 01/21/23 07:36 Room Air 01/21/23 07:30 36.5 C 65 18 177/89 H 95 Room Air Laboratory Results Laboratory Results WBC 10.83 K/ul (4.8-10.8) H 01/21/23 06:01 RBC 4.10 M/uL (4.70-6.10) L 01/21/23 06:01 Hgb 13.8 g/dl (14.0-18.0) L 01/21/23 06:01 Hct 39.4 % (42.0-52.0) L 01/21/23 06:01 MCV 96.1 fL (80.0-100.0) 01/21/23 06:01 MCH 33.7 pg (25.0-34.0) 01/21/23 06:01 MCHC 35.0 g/dL (32.0-36.0) 01/21/23 06:01 RDW Std Deviation 46.7 fL (36.4-46.3) H 01/21/23 06:01 RDW Coeff of Lala 13.1 % (11.5-14.5) 01/21/23 06:01 Plt Count 182 K/uL (130-400) 01/21/23 06:01 MPV 10.0 fL (9.4-12.4) 01/21/23 06:01 Immature Gran % (Auto) 0.2 % 01/20/23 13:15 Neut % (Auto) 86.4 % 01/20/23 13:15 Lymph % (Auto) 9.9 % 01/20/23 13:15 Delta % (Auto) 3.1 % 01/20/23 13:15 Eos % (Auto) 0.2 % 01/20/23 13:15 Baso % (Auto) 0.2 % 01/20/23 13:15 Neut # (Auto) 10.54 K/uL (1.40-6.50) H 01/20/23 13:15 Lymph # (Auto) 1.21 K/uL (1.2-3.4) 01/20/23 13:15 Delta # (Auto) 0.38 K/uL (0.11-0.59) 01/20/23 13:15 Eos # (Auto) 0.03 K/uL (0-0.50) 01/20/23 13:15 Baso # (Auto) 0.03 K/uL (0-0.2) 01/20/23 13:15 Immature Gran # (Auto) 0.03 K/uL (0.01-0.20) 01/20/23 13:15 PT 11.0 Seconds (9.0-12.0) 01/20/23 13:15 INR 1.0 (0.9-1.1) 01/20/23 13:15 APTT 23.1 Seconds (21.0-31.0) 01/20/23 13:15 PTT Ratio 0.8 01/20/23 13:15 Sodium 141 mmol/L (136-145) 01/21/23 06:01 Potassium 3.8 mmol/L (3.5-5.1) 01/21/23 06:01 Chloride 103 mmol/L (98-107) 01/21/23 06:01 Carbon Dioxide 30 mmol/L (21-32) 01/21/23 06:01 Anion Gap 8 (3-11) 01/21/23 06:01 BUN 27 mg/dl (6-23) H 01/21/23 06:01 Creatinine 1.26 mg/dl (0.6-1.4) 01/21/23 06:01 Est Cr Clr Drug Dosing 46.0 ml/min 01/21/23 06:01 Est GFR ( Amer) 61.6 ml/min 01/21/23 06:01 Est GFR (Non-Af Amer) 53.1 ml/min 01/21/23 06:01 BUN/Creatinine Ratio 21.4 (10-20) H 01/21/23 06:01 Glucose 83 mg/dl (70-99(Fasting)) 01/21/23 06:01 Calcium 10.2 mg/dl (8.6-10.3) 01/21/23 06:01 Phosphorus 3.6 mg/dl (2.5-4.9) 01/21/23 06:01 Magnesium 2.1 mg/dl (1.7-2.4) 01/21/23 06:01 Total Bilirubin 0.5 mg/dl (0.2-1.0) 01/21/23 06:01 AST 17 U/L (13-39) 01/21/23 06:01 ALT 9 U/L (7-52) 01/21/23 06:01 Alkaline Phosphatase 76 U/L (34-104) 01/21/23 06:01 Troponin I High Sens 8.4 pg/ml (0-20) 01/20/23 13:15 B-Natriuretic Peptide 70 pg/ml (0-100) 01/20/23 16:16 Total Protein 6.8 gm/dl (6.0-8.3) 01/21/23 06:01 Albumin 4.2 gm/dl (3.4-5.0) 01/21/23 06:01 Globulin 2.6 gm/dl (2.5-4.0) 01/21/23 06:01 Albumin/Globulin Ratio 1.6 (0.9-2) 01/21/23 06:01 Procalcitonin < 0.05 ng/ml (0-0.5) 01/21/23 06:01 TSH 1.820 uIu/ml (0.300-4.500) 01/20/23 13:15 Urine Color Dark Yellow 01/21/23 01:45 Urine Appearance Clear (Clear) 01/21/23 01:45 Urine pH 5.5 (4.5-7.5) 01/21/23 01:45 Ur Specific [place] 1.021 (1.000-1.030) 01/21/23 01:45 Urine Protein Negative (Negative) 01/21/23 01:45 Urine Glucose (UA) Negative (Negative) 01/21/23 01:45 Urine Ketones Negative (Negative) 01/21/23 01:45 Urine Blood Negative (Negative) 01/21/23 01:45 Urine Nitrite Negative (Negative) 01/21/23 01:45 Urine Bilirubin Negative (Negative) 01/21/23 01:45 Urine Urobilinogen Negative (Negative) 01/21/23 01:45 Ur Leukocyte Esterase Negative (Negative) 01/21/23 01:45 SARS-CoV-2, RNA, NAAT NEGATIVE (NEGATIVE) 01/20/23 16:10 Impressions Chest CTA 01/20/23 15:09 CT ANGIOGRAPHY OF THE CHEST, PULMONARY EMBOLUS PROTOCOL CLINICAL HISTORY: Tachycardia. Hypertension. Evaluate for pulmonary embolus. COMPARISON STUDY: Chest radiograph March 14, 2022 and January 20, 2023. TECHNIQUE: Following IV administration of 110 mL of Optiray, helical axial images of the chest were obtained utilizing the pulmonary embolus protocol. Maximal intensity projections and sagittal and coronal reformats were viewed on an independent 3D workstation. IV contrast was administered without complication. Automated exposure control was utilized for the study. A dose lowering technique was utilized adhering to the principles of ALARA. CT DOSE: 415.09 mGy.cm FINDINGS: No pulmonary emboli are identified. Moderate cardiomegaly and extensive coronary artery calcification is present. There is no pericardial effusion. No thoracic lymphadenopathy. There is no pneumothorax. Trace bilateral pleural effusions are noted. Subpleural groundglass opacities represent atelectasis. There is no consolidation to suggest pneumonia. No acute fractures within the bony thorax are present. Intramuscular left shoulder lipoma is incidentally noted. Gallbladder surgically absent. IMPRESSION: 1. No pulmonary emboli identified. 2. Cardiomegaly and extensive coronary artery calcification. 3. Trace bilateral pleural effusions. ACT 112: Negative or not required by law. Electronically signed by: Ankur Vaughn M.D. 01/20/2023 4:21 PM Chest X-Ray 01/21/23 08:00 SINGLE VIEW CHEST CLINICAL HISTORY: Dyspnea on exertion. FINDINGS: An AP, portable, upright chest radiograph is compared to chest x-ray and chest CT dated 01/20/2023. The heart is enlarged. The pulmonary vasculature is noncongested. The lungs and pleural spaces are clear noting mild bibasilar atelectasis. No pneumothorax is seen. The skeletal structures are osteopenic. The bony thorax is grossly intact. Postsurgical change is noted in the right s houlder. IMPRESSION: Cardiomegaly with no active disease in the chest. ACT 112: Negative or not required by law. Electronically signed by: Arvind Hill M.D. 01/21/2023 7:48 AM (3) Hypertension Hypertension type: unspecified Qualified Code(s): I10 - Essential (primary) hypertension (6) GERD (gastroesophageal reflux disease) Esophagitis presence: esophagitis presence not specified Qualified Code(s): K21.9 - Gastro-esophageal reflux disease without esophagitis
[2023-01-21] MEDS: ATORVASTATIN 40 MG TAB PO SCH (20:36)
[2023-01-21] MEDS: MIRABEGRON ER 25 MG TAB PO SCH (20:36)
[2023-01-21] MEDS ORDERED: ALBUTEROL HFA 8 GM INHALER INH PRN (21:40)
[2023-01-22 07:26] LABS: BUN Creatinine Ratio 24.2 (10-20); Calcium 9.6 mg/dl (8.6-10.3); Creatinine Clr Calc Pharmacy 43.2 ml/min; Est GFR (African American) 58.2 ml/min; Est GFR (Non-African American) 50.2 ml/min; Potassium 4.1 mmol/L (3.5-5.1)
[2023-01-22] MEDS: VITAMIN B COMPLEX TAB PO SCH (08:24)
[2023-01-22] MEDS: CARBIDOPA/LEVODOPA 25/100MG TAB PO SCH ×2 (08:24→11:46)
[2023-01-22] MEDS: SPIRONOLACTONE 12.5 MG TAB PO SCH (08:24)
[2023-01-22] MEDS: LOSARTAN POTASSIUM 50 MG TAB PO SCH (08:25)
[2023-01-22] MEDS: CLOPIDOGREL BISULFATE 75 MG TAB PO SCH (08:25)
[2023-01-22] MEDS: MAGNESIUM OXIDE 400 MG TAB PO SCH (08:25)
[2023-01-22] MEDS: CYANOCOBALAMIN (B-12) 100 MCG TABLET PO SCH (08:25)
[2023-01-22] MEDS: amLODIPine BESYLATE 5 MG TAB PO SCH (08:25)
[2023-01-22] MEDS: ESCITALOPRAM OXALATE 20 MG TAB PO SCH (08:26)
[2023-01-22] MEDS: ARTIFICIAL TEARS OP SCH (08:33)
--- NOTE | 2023-01-22 08:39 | Cardiology Progress Note ---
Date of Service January 22, 2023 Assessment & Plan (1) COLLINS (dyspnea on exertion): (2) Parkinson disease: (3) LBBB (left bundle branch block): Plan Patient is an 82-year-old male admitted for signs and symptoms of exertional dyspnea and fatigue, diffuse weakness. Chest x-ray and CAT scan do not suggest pulmonary edema LV systolic function is unchanged no acute myocardial injury by enzyme. Suspect multifactorial component of complaints. Recommendations: Continue low-dose diuretic with spironolactone 12.5 mg 3 days/week to regimen. Optimally would add low-dose nitrates to regimen, however chronic headache issues are of concern- will hold off at this time. Increase activity in hospital to assess dyspnea with exertion and oxygen levels with activity- PT/OT consulted. Recommend avoidance of tizanidine and other muscle relaxers which likely exacerbated/caused his symptoms. Can consider stress nuclear study Lexiscan post- hospital discharge. Case discussed with Dr. Blanco- No further recommendations from a cardiac standpoint. Admission and Anticipated Discharge Date Admission Date: January 20, 2023 Supervising Physician Co-Signing Physician Notes Patient seen and personally examined. No complaints this morning. Physical examination not consistent with congestive heart failure once again. Given diastolic dysfunction would continue spironolactone at low-dose. Reviewed outpatient records would discontinue tizanidine Consider PT OT evaluation of chronic knee pain, reduced ambulatory ability in the setting of underlying neurologic issues Will follow for signs or symptoms or other cardiac issues, consider low-dose nitrates however chronic headache ongoing issue and likely to be worsened by therapy Subjective 82-year-old male admitted for symptoms of exertional dyspnea, fatigue and diffuse weakness. Chest x-ray and CT scan showed no evidence of pulmonary edema. Echocardiogram stable. No significant change in medications recently other than muscle relaxant tizanidine added in November 2022. Patient given IV furosemide on admission due to elevated BNP with clear x-ray Low-dose spironolactone 12.5 mg 3 days/week started. 01/22: Upon entrance into the room patient asleep in bed. Woke easily. No acute concerns. No chest pain. Shortness of breath resolved. No palpitations, dizziness, or lightheadedness. Feels restless in bed. Has not been out of bed/walking much. Main concern regarding knee pain/limited mobility, this causes him most of his problems. Tele: SR/SB HR in the 60s, PVC bigeminy at times I&O: -1.3L Weight: 70.5 kg >>69.9 kg Review of Systems Review of Systems: All systems reviewed & are unremarkable except as noted in HPI & below Physical Exam Constitutional: WD/WN, vitals as above no acute distress Eyes: PERRL, conjunctivae normal, anicteric sclerae Neck: normal visual inspection and trachea midline Respiratory: normal respiratory effort, lungs clear to auscultation Cardiovascular: RRR, no murmur, no edema Heart Sounds: normal S1 and normal S2; no murmur Vessels: no JVD Extremities: no edema Gastrointestinal (Abdomen): normal bowel sounds, soft, nontender, no hepatosplenomegaly Skin: no rashes, warm and dry Neurologic: Motor/Sensory: + tremor Psychiatric: A+Ox3, euthymic affect Results & Data Vital Signs (Past 12 Hours) Vital Signs Temp Pulse Pulse Resp BP Pulse Ox O2 Del Method 01/22/23 07:31 60 01/22/23 07:27 Room Air 01/22/23 04:34 36.4 C L 62 18 169/95 H 94 Room Air 01/21/23 23:34 36.6 C 58 L 18 144/80 H 94 Room Air 01/21/23 22:00 63 Laboratory Results Comprehensive Metabolic Panel 01/22/23 Range/Units 06:37 Sodium 139 (136-145) mmol/L Potassium 4.1 (3.5-5.1) mmol/L Chloride 103 (98-107) mmol/L Carbon Dioxide 31 (21-32) mmol/L BUN 32 H (6-23) mg/dl Creatinine 1.32 (0.6-1.4) mg/dl Glucose 84 (70-99(Fasting)) mg/dl Calcium 9.6 (8.6-10.3) mg/dl Intake and Output 01/21/23 01/22/23 01/22/23 22:59 06:59 14:59 Intake Total 505 / 555 50 / 555 Output Total 100 / 100 Balance 405 / 455 50 / 455 Intake: Oral 505 / 555 50 / 555 Output: Urine 100 / 100 Other: Other Intake Source sips # Unmeasured Voids 1 1 Weight 69.6 kg Weight Measurement Method Built in [facility]
[2023-01-22] MEDS: PANTOprazole 40 MG TAB PO SCH (09:24)
--- NOTE | 2023-01-22 14:32 | Discharge Summary ---
Date of Service January 22, 2023 Admission HPI Per Admitting Provider Mr. Olsen presented to the [facility] ED with SOB that has progressively worsened over the past 1 to 2 weeks without orthopnea; significantly more over the last 24 hours. Patient has home health that indicated that his dyspnea on exertion was worse today and appeared weaker. Patient did proceed to PCP on Thursday was started on prednisone 40 mg daily x5 days with the last dose planned for 01/22. Pt also has issues with pain in his left hip. Has been for the last week or so. No falls or injuries or accidents. He indicates that he feels that he has become more weak in his legs and shuffling more along with developing more shortness of breath walking from the kitchen to the bathroom and from getting out of his recliner to the bathroom. Most recent ECHO 03/19 had improved EF 55 to 60% from previous ECHO 2018 EF 45 to 49%. Continues with grade 1 diastolic dysfunction but no significant valve pathology. Pt does report approximately 10 lb weight gain over the past few weeks. In ED initial troponin 8.4, BNP improved from this weekend 3 3270. TSH 1.820 slight leukocytosis WBC 12.22. CT angio negative for PE however indicates extensive cardiomyopathy, small pleural effusions and extensive coronary artery calcification. Additional PMH includes: H/O CVA post hospitalization for kidney stones (On Plavix), Parkinson's disease with dementia without behavioral disturbance, history of prostate cancer, HTN, HLD, CKD 3, depression. Family mentioned his Metoprolol was discontinued in September. Per EMR: Patient on very low-dose beta- jose de jesus for suppression of atrial and ventricular ectopy, arrhythmias. Heart rate was noted to be trending lower and in the setting of conduction system disease with left bundle-branch block, this medication was discontinued in September to avoid symptomatic bradycardia. Patient denies dizziness, chest pain, palpitations, nausea, vomiting, diarrhea, abdominal pain, recent falls or trauma. Patient reports adequate p.o. intake with eating and drinking. Pt denies tobacco, alcohol or recreational drug use. We did discuss that we will rule out heart failure, despite him appearing euvolemic on exam. Considering factor includes infectious origin or progression of parkinson's disease. Pt reports coughing with eating. Patient will be admitted for further evaluation and management. Please see A/P for further details. Admission Exam Per Admitting Provider NAD, well developed Cardiac: normal S1/S2, no murmur Lungs: Good air entry b/l, no crackles Abd: ND, NT, Soft MSK: very trace distal LE pitting edema Psych: normal Affect Principal Diagnosis Chronic diastolic heart failure Shortness of breath. Parkinson's disease Discharge Exam Constitutional: WD/WN, vitals as above, NAD, sitting up in bed, pleasant, conversing easily Respiratory: normal respiratory effort, lungs clear to auscultation, no wheeze, rales, rhonchi. Normal insp/exp effort, no accessory muscle use Cardiovascular: RRR, no murmur, no edema Vessels: no JVD or carotid bruit Chest: normal inspection of chest Abdomen: normal bowel sounds, soft, nontender, no hepatosplenomegaly Musculoskeletal: no cyanosis or clubbing, extremities motor strength 5/5 Skin: no rashes, warm and dry normal turgor Neurologic: PERRL, EOMI, accommodation nl, no face palsy, no dysarthria CN's II- XI intact bilaterally and moves all extremities Psychiatric: A+Ox3, euthymic affect Lymphatic: no cervical or axillary lymphadenopathy : deferred Discharge Data Allergies Allergy/AdvReac Type Severity Reaction Status Date / Time No Known Allergies Allergy Verified 01/20/23 16:16 Consultations 01/20/23 16:37 ED Decision to Admit Stat 01/20/23 16:39 Consult Cardiology Routine Ordered Studies 01/20/23 15:09 CT angio chest PE protocol Stat Hospital Course (1) COLLINS (dyspnea on exertion): (2) Weakness: (3) Hypertension: (4) Parkinson disease: (5) HLD (hyperlipidemia): (6) GERD (gastroesophageal reflux disease): (7) OAB (overactive bladder): (8) Chronic diastolic heart failure: Plan Patient is a 82 year old with past medical history of Parkinson's disease with dementia, hypertension, hyperlipidemia, CKD stage III, depression presented with shortness of breath and weakness. .Patient also reported weight gain over past few weeks. On presentation to the ED, patient was normotensive, afebrile and saturating well on room air. CTA was done; no PE. Cardiomegaly and extensive coronary artery calcification was seen. He had trace bilateral pleural effusion. Cardiology was consulted; recommended the patient to be started on spironolactone 12.53 times a week. Echocardiogram showed EF of 50 to 55% with grade 1 diastolic dysfunction. Patient reported improvement in his symptoms. PT OT evaluation was done; recommended rehab. Patient was discharged to acute rehab with instruction to follow-up with his primary care doctor. Tizanidine and prednisone were stopped on discharge. Please note the above document was generated using voice recognition software. It may contain grammatical, syntax or spelling errors. Any formal questions or concerns about the content, text or information contained within the body of this dictation should be directly addressed to the provider for clarification Total Time Total Time Spent Total Time Spent (In Minutes): 40 Total Time Includes: Examination of the Patient, Discharge Planning, Medication Reconciliation, Communication With Other Providers and Other Discharge Plan Discharge Items Patient Disposition: Transfer Inpatient Rehab Fac Reason For Visit: WEAKNESS/SOB Discharge Diagnosis: Shortness of breath Bilateral pleural effusion Parkinson disease Activity: Resume your previous activity Non-emergency contact: Primary Care Provider Call non-emergency contact if: you have any medication questions and your symptoms worsen Follow-up/Referrals: Vishal Landry, [Primary Care Provider] - Diet: Regular Addtl Attending Provider Instructions: You were admitted to the hospital with shortness of breath. Your evaluated by cardiology. Dr. Blanco from cardiology recommended that you are started on spironolactone 12.5 mg once daily 3 times a week (Thursday and Thursday). Please stop taking tizanidine as it can contribute to weakness. Please follow-up with your primary care doctor after discharge from rehab. Pending Studies at Discharge: No Stand-Alone Forms: My [facility] Skilled Items Patient informed of condition?: Yes DNR: Yes Discharge Level of Care: Acute rehab Communicable Disease: No Discharge Prognosis: Stable Lines: None Urinary Catheter: No Medications and DC Order Prescriptions: New spironolactone 25 mg Tablet 12.5 mg PO 3XWK Qty: 30 0RF Continued carbidopa-levodopa 25-100 mg tablet 2 tab PO TID Rx Instructions: 0800,1200,1700 omeprazole 20 mg capsule,delayed release(DR/EC) 20 mg PO BID vitamin B complex Tablet 1 tab PO QAM amlodipine 5 mg tablet 5 mg PO QAM clopidogrel 75 mg Tablet 75 mg PO QAM Qty: 30 2RF cyanocobalamin (vitamin B-12) [Vitamin B-12] 100 mcg Tablet 400 mcg PO DAILY albuterol sulfate 2.5 mg /3 mL (0.083 %) Solution For Nebulization 2.5 mg INHALATION DIRECTED PRN (Reason: Shortness Of Breath Or Wheezing) albuterol sulfate 90 mcg/actuation HFA aerosol inhaler 2 puff INHALATION Q6H PRN (Reason: Shortness Of Breath) carboxymethylcellulose sodium 1 % Drops 1 drp OPHTHALMIC (EYE) DIRECTED donepezil 5 mg tablet 5 mg PO QDD losartan 100 mg tablet 100 mg PO QAM escitalopram oxalate 20 mg tablet 20 mg PO QAM Myrbetriq 50 mg tablet extended release 24 hr 50 mg PO QPM magnesium oxide 400 mg magnesium Tablet 400 mg PO QAM atorvastatin 40 mg tablet 40 mg PO QPM Discontinued prednisone 20 mg tablet 40 mg PO DAILY Rx Instructions: STARTED 01/17/23 FOR 5 DAYS. tizanidine 2 mg capsule 2 mg PO BID PRN (Reason: MUSCLE SPASMS) Discharge Orders: Discharge Order (Routine); Ordered 01/22/23 Ordered By: Victoriano Bradley/Other Patient Handouts: Understanding Deep Vein Thrombosis, DVT Complications, Preventing Deep Vein Thrombosis Admission Data Admit Date/Time: 01/20/23 16:39 Attending Provider: Victoriano Benitez Admit Provider: Anna Ritter Primary Care Provider: Vishal Landry. Other Providers: Anna Ritter ; Silas Blanco ; [facility] Other Interventions: Discharge Summary Assessment (RN) Last Done: 01/22/23 12:05
--- NOTE | 2023-01-25 10:40 | Coding Query ---
CODING QUERY To promote full compliance with coding requirements relating to patient care, provider participation is requested in all cases of auto body repair estimator uncertainty. Please assist us with the question(s) below: Coding Question(s): Pt adm with dyspnea, chronic diastolic heart failure. Per Cardioogy progress note physical exam, no CHF . Please document, if known or suspected, the etiology of the dyspnea. Thanks for your help! Ziggy Woodard [facility] Physician's Response(s): Patient was managed for chronic diastolic heart failure. Principal Diagnosis: "that condition established after study, to be chiefly responsible for occasioning the admission of the patient to the hospital for care." Co-Existing Principal Diagnosis: "when two or more diagnoses equally meet the criteria for principal diagnosis as determined by the circumstances of admission, diagnostic work up, and/or therapy provided, and the Alphabetic Index, Tabular List, or another coding guideline does not provide sequencing direction, any one of the diagnoses may be sequenced first." "When the physician has documented what appears to be a current diagnosis in the body of the record, but has not included the diagnosis in the final diagnostic statement, the physician should be asked whether the diagnosis should be added." (Source Coding [facility] 2 QTR90. p3-4) YADIEL
== END 2023-01-22 16:10 | DRG 292 ==
LOC: ED 12:10 → SUATTDRO 16:39 → 4W 16:39

== ENCOUNTER 2024-09-16 11:07 | Inpatient (IN) ==
[2024-09-16 11:53] LABS: Base Excess VBG 1.7 mEq/L; HCO3 VBG 27 mmol/L; Oxygen Saturation VBG 95.4 %; PCO2 VBG 42 mmHg (38-50); PO2 VBG 78 mmHg; pH VBG 7.41 (7.36-7.41)
--- NOTE | 2024-09-16 12:02 | XRay Report ---
XR chest 1V portable CLINICAL HISTORY: Sepsis TECHNIQUE: Single frontal radiograph of the chest was obtained. Comparison: Comparison is made to chest radiograph 01/21/2023 FINDINGS: No lines and tubes are seen. The cardiomediastinal silhouette is normal. The lungs are clear. No evid ence of pleural effusion or pneumothorax. IMPRESSION: No acute abnormalities and in particular no radiographic evidence of pneumonia. ACT 112: Negative or not required by law. Electronically signed by: Irineo Espinoza M.D. 09/16/2024 12:00 PM
[2024-09-16 12:17] LABS: Hematocrit (blood only) 39.1 % (42.0-52.0); Hemoglobin 13.5 g/dl (14.0-18.0); Mean Corpuscular Hemoglobin 32.8 pg (25.0-34.0); Mean Corpuscular Hgb Conc 34.5 g/dL (32.0-36.0); Mean Corpuscular Volume 94.9 fL (80.0-100.0); Mean Platelet Volume 9.2 fL (9.4-12.4); Platelet Count 223 K/uL (130-400); RDW Coefficient of Variation 13.2 % (11.5-14.5); RDW Standard Deviation 45.9 fL (36.4-46.3); Red Blood Count 4.12 M/uL (4.70-6.10); White Blood Count 24.32 K/ul (4.8-10.8)
--- NOTE | 2024-09-16 12:18 | CT Scan Report ---
CT head/brain wo con CLINICAL HISTORY: 84 years-old Male with ams. Acutely altered mental status with fever TECHNIQUE: Multiple axial CT images of the head were obtained without contrast. A dose lowering tech nique was utilized adhering to the principles of ALARA. CT DOSE: 725.7 mGy.cm COMPARISON: Brain MRI 03/15/2022 FINDINGS: No acute intracranial hemorrhage, midline shift, intracranial mass, hydrocephalus, territorial ischem ia or abnormal extra-axial collection. Chronic left pontine infarct. Involutional changes with chroni c microvascular ischemic disease. Calcifications of the falx cerebri. The calvarium is intact. Mild mucosal thickening of the left ethmoid air cells. Mastoid air cells ar e clear. Unremarkable soft tissues. Prior bilateral lens repair. IMPRESSION: No acute intracranial abnormality. ACT 112: Negative or not required by law. The above report was generated using voice recognition software. It may contain grammatical, syntax o r spelling errors. Electronically signed by: Victor Hugo Nguyen M.D. 09/16/2024 12:16 PM
[2024-09-16 12:25] LABS: Albumin Level 4.1 gm/dl (3.4-5.0); BUN Creatinine Ratio 20.2 (10-20); Bilirubin Direct 0.1 mg/dl (0-0.2); Calcium 9.8 mg/dl (8.6-10.3); Creatinine Clr Calc Pharmacy 60.7 ml/min; Potassium 4.1 mmol/L (3.5-5.1); Total Protein 7.5 gm/dl (6.0-8.3)
[2024-09-16 12:30] LABS: Troponin I High Sensitivity 11.4 pg/ml (0-20)
[2024-09-16 12:46] LABS: Basophils # (auto) 0.07 K/uL (0.00-0.20); Basophils % (auto) 0.3 %; Eosinophils # (auto) 0.01 K/uL (0.00-0.50); Immature Granulocytes # (auto) 0.17 K/uL (0.01-0.20); Immature Granulocytes % (auto) 0.7 %; Lymphocytes # (auto) 1.23 K/uL (1.20-3.40); Lymphocytes % (auto) 5.1 %; Monocytes # (auto) 2.16 K/uL (0.11-0.59); Monocytes % (auto) 8.9 %; Neutrophils # (auto) 20.68 K/uL (1.40-6.50); Polychromasia 1+
[2024-09-16 13:01] LABS: Adenovirus PCR Not Detected (NotDetected); Bordetella parapertussis PCR Not Detected (NotDetected); Bordetella pertussis PCR Not Detected (NotDetected); Chlamydia pneumoniae PCR Not Detected (NotDetected); Coronavirus 229E PCR Not Detected (NotDetected); Coronavirus CoV-2 (COVID19)PCR Not Detected (NotDetected); Coronavirus HKU1 PCR Not Detected (NotDetected); Coronavirus NL63 PCR Not Detected (NotDetected); Coronavirus OC43PCR Not Detected (NotDetected); Human Metapneumovirus PCR Not Detected (NotDetected); Influenza A PCR Not Detected (NotDetected); Influenza B PCR Not Detected (NotDetected); Mycoplasma pneumoniae PCR Not Detected (NotDetected); Parainfluenza Virus 1 PCR Not Detected (NotDetected); Parainfluenza Virus 2 PCR Not Detected (NotDetected); Parainfluenza Virus 3 PCR Not Detected (NotDetected); Parainfluenza Virus 4 PCR Not Detected (NotDetected); Respiratory Syncytial VirusPCR Not Detected (NotDetected); Rhinovirus/Enterovirus PCR Not Detected (NotDetected)
[2024-09-16] MEDS: OPTIRAY 320 125ml IV ONE (13:01)
[2024-09-16 13:05] LABS: Partial Thromboplastin Ratio 1.1; Partial Thromboplastin Time 29 Seconds (21-31); Prothrombin Time 10.9 Seconds (9.0-12.0)
--- NOTE | 2024-09-16 13:24 | CT Scan Report ---
CT angio chest PE protocol CLINICAL HISTORY: ro PE TECHNIQUE: Multidetector row helical CT of the chest was performed with angiographic protocol. Nicole l and sagittal reformations were obtained. Coronal and sagittal MIPS were obtained from the axial yuniel a set and were submitted for review. Automated dose lowering techniques and/or adjustment according to patient size were utilized for this exam. CT DOSE: 880.2 mGy.cm Comparison: Comparison is made to CTA chest 01/20/2023 FINDINGS: Lungs and pleura: Normal. Heart and pericardium: Cardiomegaly is seen with biatrial enlargement. Vessels: No evidence of pulmonary embolism. Moderate atherosclerotic disease is seen. Mediastinum and chelle: Unremarkable. Chest wall and lower neck: Unremarkable. Abdomen: Patient is status post cholecystectomy. There is a small hiatal hernia. Bones: Degenerative changes in the thoracic spine. IMPRESSION: 1. No acute abnormality and in particular no evidence of pulmonary embolus. 2. Cardiomegaly and atherosclerosis. ACT 112: Negative or not required by law. Electronically signed by: Irineo Espinoza M.D. 09/16/2024 1:22 PM
[2024-09-16] MEDS: SODIUM CHLORIDE 0.9% 1,000 ML IV SCH (14:12)
[2024-09-16 14:18] LABS: Appearance Urine Clear (Clear); Bilirubin Urine Negative (Negative); Blood Urine Trace-intact (Negative); Color Urine Yellow; Glucose Urine UA Negative (Negative); Ketones Urine Negative (Negative); Leukocyte Esterase Urine 2+ (Negative); Nitrite Urine Negative (Negative); Protein Urine Negative (Negative); Specific Gravity Urine 1.015 (1.000-1.030); Urobilinogen Urine Negative (Negative)
--- NOTE | 2024-09-16 14:24 | Emergency Department Note ---
History of Present Illness General Chief complaint: Fever Stated complaint: FEVER Time Seen by Provider: 09/16/24 11:16 History of Present Illness Provider complaint: Fever 84-year-old male presents emergency department for fever. Patient from skilled nursing with history of Parkinson's. Patient unable to give history. Home Medications Medication Instructions Recorded Confirmed Type carbidopa 25 mg-levodopa 100 mg 2 tab PO TID 02/24/19 09/16/24 History tablet omeprazole 20 mg capsule,delayed 20 mg PO BID 02/24/19 09/16/24 History release amlodipine 5 mg tablet 2.5 mg PO QAM 02/25/19 09/16/24 History clopidogrel 75 mg tablet 75 mg PO QAM #30 tabs 03/03/19 09/16/24 Rx atorvastatin 40 mg tablet 20 mg PO QAM 03/14/22 09/16/24 History donepezil 5 mg tablet 5 mg PO DAILY 03/14/22 09/16/24 History escitalopram oxalate 20 mg tablet 30 mg PO QAM 03/14/22 09/16/24 History losartan 100 mg tablet 100 mg PO QAM 03/14/22 09/16/24 History magnesium oxide 400 mg PO QAM 03/14/22 09/16/24 History mirabegron 50 mg tablet,extended 50 mg PO QPM 03/14/22 09/16/24 History release 24 hr (Myrbetriq) albuterol sulfate 90 mcg/actuation 2 puff inhalation Q6H PRN 01/20/23 09/16/24 History aerosol inhaler Shortness Of Breath carboxymethylcellulose sodium 1 % 1 drp ophthalmic (eye) BID 01/20/23 09/16/24 History eye drops spironolactone 25 mg tablet 12.5 mg (1/2 x 25 mg) PO 3XWK #30 01/22/23 09/16/24 Rx tabs acetaminophen 325 mg tablet 325 mg PO Q6H PRN Pain 09/16/24 09/16/24 History buspirone 7.5 mg tablet 7.5 mg PO TID 09/16/24 09/16/24 History docusate sodium 100 mg capsule 100 mg PO DAILY 09/16/24 09/16/24 History loratadine 10 mg tablet 10 mg PO DAILY 09/16/24 09/16/24 History polyethylene glycol 3350 17 17 g PO DAILY PRN Constipation 09/16/24 09/16/24 History gram/dose oral powder (Miralax) riboflavin (vitamin B2) 100 mg 400 mg PO DAILY 09/16/24 09/16/24 History tablet tizanidine 2 mg capsule 2 mg PO BID PRN Muscle Spasm 09/16/24 09/16/24 History Allergies Allergy/AdvReac Type Severity Reaction Status Date / Time No Known Allergies Allergy Verified 01/20/23 16:16 Past Med/Surg History Problem List (Updated 09/16/24 @ 14:50 by Alphonse Moise MD) Acute UTI (Acute) Rios catheter in place (Acute) Hematuria (Acute) Chronic diastolic heart failure LBBB (left bundle branch block) Calcification of coronary artery (Acute) Lab test negative for COVID-19 virus (Acute) OAB (overactive bladder) Hypertension COLLINS (dyspnea on exertion) (Acute) Weakness (Acute) Parkinson disease (Acute) Dilated cardiomyopathy Left ventricular systolic dysfunction Left pontine CVA Nephrolithiasis Encounter for pre-operative examination DVT prophylaxis HLD (hyperlipidemia) History of rotator cuff surgery (Chronic) History of prostate cancer (Chronic) s/p cryoablation History of Achilles tendon repair (Chronic) History of cystoscopy (Chronic) History of lithotripsy (Chronic) GERD (gastroesophageal reflux disease) (Chronic) Renal colic (Acute) Failure of outpatient treatment (Acute) History of kidney stones (Chronic) History of cholecystectomy (Chronic) History of appendectomy (Chronic) Heart disease (Chronic) High blood cholesterol (Chronic) Neuropathy (Chronic) Hypokalemia (Acute) Medical History DVT prophylaxis Falls frequently Ambulatory dysfunction Hallucinations, visual PVCs (premature ventricular contractions) CVA (cerebral vascular accident) Acute renal failure superimposed on stage 3 chronic kidney disease CKD (chronic kidney disease) stage 3, GFR 30-59 ml/min Depression Parkinson disease Family History Father Cancer Mother Hypertension Social History Smoking Status: Never smoker Do You Dip or Chew Tobacco: No; Hx Alcohol Use: No Hx Substance Use: No Preferred Language: Sami Communication Ability: Impaired Visual Impairment: No Limitations Country Director Required: No Beliefs That Will Affect Care: None marital status: Current Living Situation: Spouse and Other Current Living Situation Comment: In home care 3 hours in AM and 3 hours in PM How many Children do You have: 2 Feels Safe at Home: Yes Assistive Devices: Walker and Wheelchair Physical Exam Vital Signs Vital Signs - 24 hr 09/16/24 11:03 09/16/24 11:30 09/16/24 11:31 Temperature 37.1 C Temperature Source Oral Pulse Rate 94 H 99 H Pulse Rate from SpO2 Sensor Respiratory Rate 22 Respiratory Effort / Characteristics Non-Labored Spontaneous Respiratory Depth Normal Respiratory Pattern Regular Blood Pressure 113/86 148/93 H Blood Pressure Mean 95 115 Pulse Oximetry 96 Oxygen Delivery Method Room Air Oxygen Flow Rate Sepsis Recent Fever Within 48 Hours Yes Sepsis New/Unexplained Change in Mental Status N/A Sepsis Action Taken by Nursing No Action Required 09/16/24 11:35 09/16/24 11:37 09/16/24 11:46 Temperature Temperature Source Pulse Rate Pulse Rate from SpO2 Sensor Respiratory Rate Respiratory Effort / Characteristics Respiratory Depth Respiratory Pattern Blood Pressure 133/98 Blood Pressure Mean 105 Pulse Oximetry 88 L 92 Oxygen Delivery Method Room Air Nasal Cannula Oxygen Flow Rate 2 Sepsis Recent Fever Within 48 Hours Sepsis New/Unexplained Change in Mental Status Sepsis Action Taken by Nursing 09/16/24 11:51 09/16/24 12:12 09/16/24 12:13 Temperature Temperature Source Pulse Rate 93 H 90 Pulse Rate from SpO2 Sensor 94 H 90 Respiratory Rate 19 20 Respiratory Effort / Characteristics Respiratory Depth Respiratory Pattern Blood Pressure 136/80 Blood Pressure Mean 97 Pulse Oximetry 97 96 Oxygen Delivery Method Oxygen Flow Rate Sepsis Recent Fever Within 48 Hours Sepsis New/Unexplained Change in Mental Status Sepsis Action Taken by Nursing 09/16/24 12:30 09/16/24 12:30 09/16/24 12:48 Temperature Temperature Source Pulse Rate 93 H 89 Pulse Rate from SpO2 Sensor 92 H Respiratory Rate 20 21 Respiratory Effort / Characteristics Respiratory Depth Respiratory Pattern Blood Pressure 133/81 Blood Pressure Mean 97 Pulse Oximetry 99 Oxygen Delivery Method Oxygen Flow Rate Sepsis Recent Fever Within 48 Hours Sepsis New/Unexplained Change in Mental Status Sepsis Action Taken by Nursing 09/16/24 12:54 09/16/24 13:12 09/16/24 13:14 Temperature Temperature Source Pulse Rate 89 Pulse Rate from SpO2 Sensor 91 H 98 H Respiratory Rate 18 Respiratory Effort / Characteristics Respiratory Depth Respiratory Pattern Blood Pressure 135/98 Blood Pressure Mean 102 Pulse Oximetry 92 91 Oxygen Delivery Method Oxygen Flow Rate Sepsis Recent Fever Within 48 Hours Sepsis New/Unexplained Change in Mental Status Sepsis Action Taken by Nursing 09/16/24 13:15 Temperature Temperature Source Pulse Rate Pulse Rate from SpO2 Sensor Respiratory Rate Respiratory Effort / Characteristics Respiratory Depth Respiratory Pattern Blood Pressure Blood Pressure Mean Pulse Oximetry 94 Oxygen Delivery Method Room Air Oxygen Flow Rate Sepsis Recent Fever Within 48 Hours Sepsis New/Unexplained Change in Mental Status Sepsis Action Taken by Nursing Physical Exam HENT: Exam performed. - Head: Normocephalic and atraumatic. EYES: Conjunctivae and EOM are normal. Right eye exhibits no discharge. Left eye exhibits no discharge. No scleral icterus. NECK: Normal range of motion. Neck supple. No JVD present. CV: Normal rate, regular rhythm, normal heart sounds and intact distal pulses. There is no peripheral edema. Palpable radial pulses bue. PULM/CHEST: Rhonchi bilaterally ABD: The abdomen is soft. There is no tenderness. Course Course 1116: The patient was evaluated in room C10. A complete history and physical exam was performed Cardiac monitoring: An order was placed for continuous cardiac monitoring. The monitor shows a rate of 90 with sinus rhythm interpreted by me 1449: Vital signs stable. Labs show leukocytosis of 24. Urinalysis appears to be the source of infection. Patient treated with cefepime. Patient will be admitted to the [facility] hospitalist team. Administered Medications Sodium Chloride (Nss) 1,000 mls @ 125 mls/hr IV .Q8H FARIDA Stop: 09/17/24 13:14 Last Admin: 09/16/24 14:12 Dose: 125 mls/hr Documented By: GREG Discontinued Medications Cefepime HCl (Maxipime 2000mg) 2,000 mg in 20 mls @ 5 mls/min IV NOW STA; Protocol Stop: 09/16/24 14:17 Last Admin: 09/16/24 14:41 Dose: 5 mls/min Documented By: YENY Ioversol (Optiray 320 125ml) 112 ml IV ONCE ONE Stop: 09/16/24 13:02 Last Admin: 09/16/24 13:01 Dose: 112 ml Documented By: TERRIE Medical Decision Making Laboratory Data Attestation: I reviewed the patient's lab results. 09/16/24 11:38 09/16/24 11:38 Lab Results 09/16/24 09/16/24 09/16/24 Range/Units 11:31 11:35 11:38 WBC 24.32 H (4.8-10.8) K/ul RBC 4.12 L (4.70-6.10) M/uL Hgb 13.5 L (14.0-18.0) g/dl Hct 39.1 L (42.0-52.0) % MCV 94.9 (80.0-100.0) fL MCH 32.8 (25.0-34.0) pg MCHC 34.5 (32.0-36.0) g/dL RDW Std Deviation 45.9 (36.4-46.3) fL RDW Coeff of Lala 13.2 (11.5-14.5) % Plt Count 223 (130-400) K/uL MPV 9.2 L (9.4-12.4) fL Immature Gran % (Auto) 0.7 % Neut % (Auto) 85.0 % Lymph % (Auto) 5.1 % [place] % (Auto) 8.9 % Eos % (Auto) 0.0 % Baso % (Auto) 0.3 % Neut # (Auto) 20.68 H (1.40-6.50) K/uL Lymph # (Auto) 1.23 (1.20-3.40) K/uL [place] # (Auto) 2.16 H (0.11-0.59) K/uL Eos # (Auto) 0.01 (0.00-0.50) K/uL Baso # (Auto) 0.07 (0.00-0.20) K/uL Immature Gran # (Auto) 0.17 (0.01-0.20) K/uL Polychromasia 1+ PT 10.9 (9.0-12.0) Seconds INR 1.0 (0.9-1.1) APTT 29 (21-31) Seconds PTT Ratio 1.1 VBG pH 7.41 (7.36-7.41) VBG pCO2 42 (38-50) mmHg VBG pO2 78 mmHg VBG HCO3 27 mmol/L VBG O2 Saturation 95.4 % VBG Base Excess 1.7 mEq/L Sodium 135 L (136-145) mmol/L Potassium 4.1 (3.5-5.1) mmol/L Chloride 101 (98-107) mmol/L Carbon Dioxide 25 (21-32) mmol/L Anion Gap 9 (3-11) BUN 21 (6-23) mg/dl Creatinine 1.04 (0.6-1.4) mg/dl Est Cr Clr Drug Dosing 60.7 ml/min eGFR 71.24 BUN/Creatinine Ratio 20.2 H (10-20) Glucose 143 H (70-99(Fasting)) mg/dl Lactate 2.0 (0.4-2.0) mmol/L Calcium 9.8 (8.6-10.3) mg/dl Magnesium 2.0 (1.7-2.4) mg/dl Total Bilirubin 1.0 (0.2-1.0) mg/dl Direct Bilirubin 0.1 (0-0.2) mg/dl AST 20 (13-39) U/L ALT 5 L (7-52) U/L Alkaline Phosphatase 102 (34-104) U/L Troponin I High Sens 11.4 (0-20) pg/ml Total Protein 7.5 (6.0-8.3) gm/dl Albumin 4.1 (3.4-5.0) gm/dl Procalcitonin 0.08 (0-0.5) ng/ml Urine Color Urine Appearance (Clear) Urine pH (4.5-7.5) Ur Specific [place] (1.000-1.030) Urine Protein (Negative) Urine Glucose (UA) (Negative) Urine Ketones (Negative) Urine Blood (Negative) Urine Nitrite (Negative) Urine Bilirubin (Negative) Urine Urobilinogen (Negative) Ur Leukocyte Esterase (Negative) Urine RBC (0-2) /hpf Urine WBC (0-5) /hpf Ur Epithelial Cells (0-2) /hpf Urine Bacteria (None Seen) Adenovirus (PCR) Not Detected (NotDetected) B. pertussis DNA (PCR) Not Detected (NotDetected) B.parapertussis DNA PCR Not Detected (NotDetected) C. pneumoniae DNA (PCR) Not Detected (NotDetected) Coronavirus OC43 (PCR) Not Detected (NotDetected) Coronavirus HKU1 (PCR) Not Detected (NotDetected) Coronavirus 229E (PCR) Not Detected (NotDetected) SARS-CoV-2 (PCR) Not Detected (NotDetected) Coronavirus NL63 (PCR) Not Detected (NotDetected) Human Metapneumovir PCR Not Detected (NotDetected) Influenza Type A (PCR) Not Detected (NotDetected) Influenza Type B (PCR) Not Detected (NotDetected) M. pneumoniae (PCR) Not Detected (NotDetected) Parainfluenza 1 (PCR) Not Detected (NotDetected) Parainfluenza 2 (PCR) Not Detected (NotDetected) Parainfluenza 3 (PCR) Not Detected (NotDetected) Parainfluenza 4 (PCR) Not Detected (NotDetected) RSV (PCR) Not Detected (NotDetected) Entero/Rhino (PCR) Not Detected (NotDetected) 09/16/24 Range/Units 12:50 WBC (4.8-10.8) K/ul RBC (4.70-6.10) M/uL Hgb (14.0-18.0) g/dl Hct (42.0-52.0) % MCV (80.0-100.0) fL MCH (25.0-34.0) pg MCHC (32.0-36.0) g/dL RDW Std Deviation (36.4-46.3) fL RDW Coeff of Lala (11.5-14.5) % Plt Count (130-400) K/uL MPV (9.4-12.4) fL Immature Gran % (Auto) % Neut % (Auto) % Lymph % (Auto) % [place] % (Auto) % Eos % (Auto) % Baso % (Auto) % Neut # (Auto) (1.40-6.50) K/uL Lymph # (Auto) (1.20-3.40) K/uL [place] # (Auto) (0.11-0.59) K/uL Eos # (Auto) (0.00-0.50) K/uL Baso # (Auto) (0.00-0.20) K/uL Immature Gran # (Auto) (0.01-0.20) K/uL Polychromasia PT (9.0-12.0) Seconds INR (0.9-1.1) APTT (21-31) Seconds PTT Ratio VBG pH (7.36-7.41) VBG pCO2 (38-50) mmHg VBG pO2 mmHg VBG HCO3 mmol/L VBG O2 Saturation % VBG Base Excess mEq/L Sodium (136-145) mmol/L Potassium (3.5-5.1) mmol/L Chloride (98-107) mmol/L Carbon Dioxide (21-32) mmol/L Anion Gap (3-11) BUN (6-23) mg/dl Creatinine (0.6-1.4) mg/dl Est Cr Clr Drug Dosing ml/min eGFR BUN/Creatinine Ratio (10-20) Glucose (70-99(Fasting)) mg/dl Lactate (0.4-2.0) mmol/L Calcium (8.6-10.3) mg/dl Magnesium (1.7-2.4) mg/dl Total Bilirubin (0.2-1.0) mg/dl Direct Bilirubin (0-0.2) mg/dl AST (13-39) U/L ALT (7-52) U/L Alkaline Phosphatase (34-104) U/L Troponin I High Sens (0-20) pg/ml Total Protein (6.0-8.3) gm/dl Albumin (3.4-5.0) gm/dl Procalcitonin (0-0.5) ng/ml Urine Color Yellow Urine Appearance Clear (Clear) Urine pH 6.0 (4.5-7.5) Ur Specific [place] 1.015 (1.000-1.030) Urine Protein Negative (Negative) Urine Glucose (UA) Negative (Negative) Urine Ketones Negative (Negative) Urine Blood Trace-intact H (Negative) Urine Nitrite Negative (Negative) Urine Bilirubin Negative (Negative) Urine Urobilinogen Negative (Negative) Ur Leukocyte Esterase 2+ H (Negative) Urine RBC 0-2 (0-2) /hpf Urine WBC >50 H (0-5) /hpf Ur Epithelial Cells 0-2 (0-2) /hpf Urine Bacteria 1+ H (None Seen) Adenovirus (PCR) (NotDetected) B. pertussis DNA (PCR) (NotDetected) B.parapertussis DNA PCR (NotDetected) C. pneumoniae DNA (PCR) (NotDetected) Coronavirus OC43 (PCR) (NotDetected) Coronavirus HKU1 (PCR) (NotDetected) Coronavirus 229E (PCR) (NotDetected) SARS-CoV-2 (PCR) (NotDetected) Coronavirus NL63 (PCR) (NotDetected) Human Metapneumovir PCR (NotDetected) Influenza Type A (PCR) (NotDetected) Influenza Type B (PCR) (NotDetected) M. pneumoniae (PCR) (NotDetected) Parainfluenza 1 (PCR) (NotDetected) Parainfluenza 2 (PCR) (NotDetected) Parainfluenza 3 (PCR) (NotDetected) Parainfluenza 4 (PCR) (NotDetected) RSV (PCR) (NotDetected) Entero/Rhino (PCR) (NotDetected) Imaging Data Attestation: I personally reviewed and interpreted this imaging study as follows: My Impression: Chest x-ray negative. Airway clear. No pneumothorax. No consolidation. No cardiomegaly or cephalization.. No free air under the diaphragm. No fractures of the skeletal structures. Radiologist's Impression: Chest X-Ray 09/16/24 11:21 XR chest 1V portable CLINICAL HISTORY: Sepsis TECHNIQUE: Single frontal radiograph of the chest was obtained. Comparison: Comparison is made to chest radiograph 01/21/2023 FINDINGS: No lines and tubes are seen. The cardiomediastinal silhouette is normal. The lungs are clear. No evidence of pleural effusion or pneumothorax. IMPRESSION: No acute abnormalities and in particular no radiographic evidence of pneumonia. ACT 112: Negative or not required by law. Electronically signed by: Irineo Espinoza M.D. 09/16/2024 12:[address] 09/16/24 11:24 CT head/brain wo con CLINICAL HISTORY: 84 years-old Male with ams. Acutely altered mental status with fever TECHNIQUE: Multiple axial CT images of the head were obtained without contrast. A dose lowering technique was utilized adhering to the principles of ALARA. CT DOSE: 725.7 mGy.cm COMPARISON: Brain MRI 03/15/2022 FINDINGS: No acute intracranial hemorrhage, midline shift, intracranial mass, hydrocephalus, territorial ischemia or abnormal extra-axial collection. Chronic left pontine infarct. Involutional changes with chronic microvascular ischemic disease. Calcifications of the falx cerebri. The calvarium is intact. Mild mucosal thickening of the left ethmoid air cells. Mastoid air cells are clear. Unremarkable soft tissues. Prior bilateral lens repair. IMPRESSION: No acute intracranial abnormality. ACT 112: Negative or not required by law. The above report was generated using voice recognition software. It may contain grammatical, syntax or spelling errors. Electronically signed by: Victor Hugo Nguyen M.D. 09/16/2024 12:16 PM Chest CTA 09/16/24 12:17 CT angio chest PE protocol CLINICAL HISTORY: ro PE TECHNIQUE: Multidetector row helical CT of the chest was performed with angiographic protocol. Coronal and sagittal reformations were obtained. Coronal and sagittal MIPS were obtained from the axial data set and were submitted for review. Automated dose lowering techniques and/or adjustment according to patient size were utilized for this exam. CT DOSE: 880.2 mGy.cm Comparison: Comparison is made to CTA chest 01/20/2023 FINDINGS: Lungs and pleura: Normal. Heart and pericardium: Cardiomegaly is seen with biatrial enlargement. Vessels: No evidence of pulmonary embolism. Moderate atherosclerotic disease is seen. Mediastinum and chelle: Unremarkable. Chest wall and lower neck: Unremarkable. Abdomen: Patient is status post cholecystectomy. There is a small hiatal hernia. Bones: Degenerative changes in the thoracic spine. IMPRESSION: 1. No acute abnormality and in particular no evidence of pulmonary embolus. 2. Cardiomegaly and atherosclerosis. ACT 112: Negative or not required by law. Electronically signed by: Irineo Espinoza M.D. 09/16/2024 1:22 PM ECG Data Attestation: I personally reviewed and interpreted this ECG as follows: Rate (beats per minute): 94 Rhythm: + normal sinus ECG Intervals/blocks: + Left bundle branch block and + Normal QT-c ECG ST segments: + Normal ST segments ECG Findings: + PVCs Additional Comments: Sgarbossa negative. [facility] Narrative 1116: The patient was evaluated in room C10. A complete history and physical exam was performed Cardiac monitoring: An order was placed for continuous cardiac monitoring. The monitor shows a rate of 90 with sinus rhythm interpreted by me 1449: Vital signs stable. Labs show leukocytosis of 24. Urinalysis appears to be the source of infection. Patient treated with cefepime. Patient will be admitted to the [facility] Hospitalist team. Impression & Plan Acute UTI Discharge Plan Visit Data Chief Complaint: Fever Stated Complaint: FEVER ED Provider: Alphonse Moise Discharge Problem: Acute UTI Patient Disposition: Admitted As Inpatient Forms Stand Alone Forms: My [facility] Prescriptions Prescriptions: No Action carbidopa-levodopa 25-100 mg tablet 2 tab PO TID Rx Instructions: 0800,1200,1700 omeprazole 20 mg capsule,delayed release(DR/EC) 20 mg PO BID amlodipine 5 mg tablet 2.5 mg PO QAM clopidogrel 75 mg Tablet 75 mg PO QAM Qty: 30 2RF albuterol sulfate 90 mcg/actuation HFA aerosol inhaler 2 puff INHALATION Q6H PRN (Reason: Shortness Of Breath) carboxymethylcellulose sodium 1 % Drops 1 drp OPHTHALMIC (EYE) BID spironolactone 25 mg Tablet 12.5 mg PO 3XWK Qty: 30 0RF Rx Instructions: thursday, thu, thursday donepezil 5 mg tablet 5 mg PO DAILY losartan 100 mg tablet 100 mg PO QAM escitalopram oxalate 20 mg tablet 30 mg PO QAM mirabegron [Myrbetriq] 50 mg tablet extended release 24 hr 50 mg PO QPM magnesium oxide 400 mg magnesium Tablet 400 mg PO QAM atorvastatin 40 mg tablet 20 mg PO QAM acetaminophen 325 mg Tablet 325 mg PO Q6H PRN (Reason: Pain) riboflavin (vitamin B2) 100 mg Tablet 400 mg PO DAILY docusate sodium 100 mg Capsule 100 mg PO DAILY buspirone 7.5 mg tablet 7.5 mg PO TID polyethylene glycol 3350 [Miralax] 17 gram/dose Powder 17 g PO DAILY PRN (Reason: Constipation) loratadine 10 mg Tablet 10 mg PO DAILY tizanidine 2 mg Capsule 2 mg PO BID PRN (Reason: Muscle Spasm) Referrals Referrals: Vishal Landry DO [Primary Care Provider] -
[2024-09-16 14:31] LABS: Epithelial Cell Urine 0-2 /hpf (0-2); RBC Urine 0-2 /hpf (0-2); WBC Urine >50 /hpf (0-5)
[2024-09-16 14:32] LABS: Bacteria Urine 1+ (None Seen)
[2024-09-16] MEDS: CEFEPIME 2000MG 2,000 MG/20 ML SYR IV STA (14:41)
--- NOTE | 2024-09-16 15:37 | History & Physical Report ---
Date of Service September 16, 2024 Assessment & Plan (1) Metabolic encephalopathy: (2) Catheter-associated urinary tract infection: Plan: Admit to [facility] with telemetry Patient presenting from [facility] for evaluation of altered mental status and fever. Patient seen in the ED on 09/02 for hematuria. Patient noted to have a small urethral laceration and Ureña catheter was placed and patient was discharged back to [facility]. [facility]reña removed at [facility] yesterday. In the ED, WBC 24K and UA suggestive of UTI. Patient is hemodynamically stable. Full RVP negative, CXR and CTA chest negative for PE and infiltrate. S/p cefepime in the ED, will continue with IV ceftriaxone Follow urine and blood cultures Full renal US given hx renal calculi and reported hematuria. 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 Crowe. I spent a total of 75 minutes coordinating, documenting, and providing care for this patient excluding time spent in the performance of separately billed services. This included personally reviewing all current laboratories and imaging studies, medication reconciliation, outpatient chart review, and discussion with specialists. History of Present Illness Chief Complaint: altered mental status, fever Primary Care Provider: Vishal Landry, 84-year-old male with PMH Parkinson's, nonobstructive CAD, heart failure with improved ejection fraction, BPH, history of CVA, HTN, and other problems listed below who presents to the ED from [facility] for evaluation of altered mental status and fever. History currently limited from the patient, daughter is at bedside who provides history. Patient seen in the ED on 09/02 for hematuria. Patient noted to have a small urethral laceration and Ureña catheter was placed and patient was discharged back to [facility]. yesterday patient's daughter noted that he was more confused and lethargic. Per [facility] report, patient was also febrile last evening. Ureña catheter was removed at [facility] yesterday. No other symptoms reported. In the ED, patient is hemodynamically stable. Labs show WBC 24K. UA suggestive of UTI. Patient was given IVF and IV cefepime. Allergies Allergy/AdvReac Type Severity Reaction Status Date / Time No Known Allergies Allergy Verified 01/20/23 16:16 Home Medications Medication Instructions Recorded Confirmed Type carbidopa 25 mg-levodopa 100 mg 2 tab PO TID 02/24/19 09/16/24 History tablet omeprazole 20 mg capsule,delayed 20 mg PO BID 02/24/19 09/16/24 History release amlodipine 5 mg tablet 2.5 mg PO QAM 02/25/19 09/16/24 History clopidogrel 75 mg tablet 75 mg PO QAM #30 tabs 03/03/19 09/16/24 Rx atorvastatin 40 mg tablet 20 mg PO QAM 03/14/22 09/16/24 History donepezil 5 mg tablet 5 mg PO DAILY 03/14/22 09/16/24 History escitalopram oxalate 20 mg tablet 30 mg PO QAM 03/14/22 09/16/24 History losartan 100 mg tablet 100 mg PO QAM 03/14/22 09/16/24 History magnesium oxide 400 mg PO QAM 03/14/22 09/16/24 History mirabegron 50 mg tablet,extended 50 mg PO QPM 03/14/22 09/16/24 History release 24 hr (Myrbetriq) albuterol sulfate 90 mcg/actuation 2 puff inhalation Q6H PRN 01/20/23 09/16/24 History aerosol inhaler Shortness Of Breath carboxymethylcellulose sodium 1 % 1 drp ophthalmic (eye) BID 01/20/23 09/16/24 History eye drops spironolactone 25 mg tablet 12.5 mg (1/2 x 25 mg) PO 3XWK #30 01/22/23 09/16/24 Rx tabs acetaminophen 325 mg tablet 325 mg PO Q6H PRN Pain 09/16/24 09/16/24 History buspirone 7.5 mg tablet 7.5 mg PO TID 09/16/24 09/16/24 History docusate sodium 100 mg capsule 100 mg PO DAILY 09/16/24 09/16/24 History loratadine 10 mg tablet 10 mg PO DAILY 09/16/24 09/16/24 History polyethylene glycol 3350 17 17 g PO DAILY PRN Constipation 09/16/24 09/16/24 History gram/dose oral powder (Miralax) riboflavin (vitamin B2) 100 mg 400 mg PO DAILY 09/16/24 09/16/24 History tablet tizanidine 2 mg capsule 2 mg PO BID PRN Muscle Spasm 09/16/24 09/16/24 History Past Med/Surg History Problem List (Updated 09/16/24 @ 15:51 by ROB Sullivan) Metabolic encephalopathy Catheter-associated urinary tract infection Chronic diastolic heart failure LBBB (left bundle branch block) Calcification of coronary artery (Acute) OAB (overactive bladder) Hypertension Parkinson disease (Acute) Dilated cardiomyopathy Left ventricular systolic dysfunction Left pontine CVA Nephrolithiasis HLD (hyperlipidemia) History of rotator cuff surgery (Chronic) History of prostate cancer (Chronic) s/p cryoablation History of Achilles tendon repair (Chronic) History of cystoscopy (Chronic) History of lithotripsy (Chronic) GERD (gastroesophageal reflux disease) (Chronic) History of kidney stones (Chronic) History of cholecystectomy (Chronic) History of appendectomy (Chronic) Neuropathy (Chronic) Medical History (Updated 09/16/24 @ 15:51 by ROB Slulivan) Heart failure with improved ejection fraction (HFimpEF) PVCs (premature ventricular contractions) CVA (cerebral vascular accident) CKD (chronic kidney disease) stage 3, GFR 30-59 ml/min Depression Parkinson disease Family History Father Cancer Mother Hypertension Social History Smoking Status: Never smoker Do You Dip or Chew Tobacco: No; Hx Alcohol Use: No Hx Substance Use: No Preferred Language: Romansh Communication Ability: Impaired Visual Impairment: No Limitations Holter Technician Required: No Beliefs That Will Affect Care: None marital status: Current Living Situation: Spouse and Other Current Living Situation Comment: In home care 3 hours in AM and 3 hours in PM How many Children do You have: 2 Feels Safe at Home: Yes Assistive Devices: Walker and Wheelchair Review of Systems Review of Systems: Unable to be obtained Physical Exam Physical Exam: Please refer to Dr. Crowe's addendum for physical exam Results & Data Results & Data Vital Signs (Past 12 Hours) Vital Signs Temp Pulse Resp BP Pulse Ox O2 Del Method O2 Flow Rate 09/16/24 15:34 96 H 09/16/24 13:15 94 Room Air 09/16/24 13:14 135/98 09/16/24 13:12 91 09/16/24 12:54 89 18 92 09/16/24 12:48 89 21 99 09/16/24 12:30 93 H 20 09/16/24 12:30 133/81 09/16/24 12:13 136/80 09/16/24 12:12 90 20 96 09/16/24 11:51 93 H 19 97 09/16/24 11:46 133/98 09/16/24 11:37 92 Nasal Cannula 2 09/16/24 11:35 88 L Room Air 09/16/24 11:31 99 H 09/16/24 11:30 148/93 H 09/16/24 11:03 37.1 C 94 H 22 113/86 96 Room Air Laboratory Results Short CBC 09/16/24 Range/Units 11:38 WBC 24.32 H (4.8-10.8) K/ul Hgb 13.5 L (14.0-18.0) g/dl Hct 39.1 L (42.0-52.0) % Plt Count 223 (130-400) K/uL BMP 09/16/24 11:38 Sodium 135 L Potassium 4.1 Chloride 101 Carbon Dioxide 25 BUN 21 Creatinine 1.04 Glucose 143 H Calcium 9.8 Liver Function 09/16/24 Range/Units 11:38 Total Bilirubin 1.0 (0.2-1.0) mg/dl Direct Bilirubin 0.1 (0-0.2) mg/dl AST 20 (13-39) U/L ALT 5 L (7-52) U/L Alkaline Phosphatase 102 (34-104) U/L Albumin 4.1 (3.4-5.0) gm/dl Urine 09/16/24 Range/Units 12:50 Urine Color Yellow Urine Appearance Clear (Clear) Urine pH 6.0 (4.5-7.5) Ur Specific [place] 1.015 (1.000-1.030) Urine Protein Negative (Negative) Urine Glucose (UA) Negative (Negative) Diagnostic Findings Chest X-Ray 09/16/24 11:21 XR chest 1V portable CLINICAL HISTORY: Sepsis TECHNIQUE: Single frontal radiograph of the chest was obtained. Comparison: Comparison is made to chest radiograph 01/21/2023 FINDINGS: No lines and tubes are seen. The cardiomediastinal silhouette is normal. The lungs are clear. No evidence of pleural effusion or pneumothorax. IMPRESSION: No acute abnormalities and in particular no radiographic evidence of pneumonia. ACT 112: Negative or not required by law. Electronically signed by: Irineo Espinoza M.D. 09/16/2024 12:[address] 09/16/24 11:24 CT head/brain wo con CLINICAL HISTORY: 84 years-old Male with ams. Acutely altered mental status with fever TECHNIQUE: Multiple axial CT images of the head were obtained without contrast. A dose lowering technique was utilized adhering to the principles of ALARA. CT DOSE: 725.7 mGy.cm COMPARISON: Brain MRI 03/15/2022 FINDINGS: No acute intracranial hemorrhage, midline shift, intracranial mass, hydrocephalus, territorial ischemia or abnormal extra-axial collection. Chronic left pontine infarct. Involutional changes with chronic microvascular ischemic disease. Calcifications of the falx cerebri. The calvarium is intact. Mild mucosal thickening of the left ethmoid air cells. Mastoid air cells are clear. Unremarkable soft tissues. Prior bilateral lens repair. IMPRESSION: No acute intracranial abnormality. ACT 112: Negative or not required by law. The above report was generated using voice recognition software. It may contain grammatical, syntax or spelling errors. Electronically signed by: Victor Hugo Nguyen M.D. 09/16/2024 12:16 PM Chest CTA 09/16/24 12:17 CT angio chest PE protocol CLINICAL HISTORY: ro PE TECHNIQUE: Multidetector row helical CT of the chest was performed with angiographic protocol. Coronal and sagittal reformations were obtained. Coronal and sagittal MIPS were obtained from the axial data set and were submitted for review. Automated dose lowering techniques and/or adjustment according to patient size were utilized for this exam. CT DOSE: 880.2 mGy.cm Comparison: Comparison is made to CTA chest 01/20/2023 FINDINGS: Lungs and pleura: Normal. Heart and pericardium: Cardiomegaly is seen with biatrial enlargement. Vessels: No evidence of pulmonary embolism. Moderate atherosclerotic disease is seen. Mediastinum and chelle: Unremarkable. Chest wall and lower neck: Unremarkable. Abdomen: Patient is status post cholecystectomy. There is a small hiatal hernia. Bones: Degenerative changes in the thoracic spine. IMPRESSION: 1. No acute abnormality and in particular no evidence of pulmonary embolus. 2. Cardiomegaly and atherosclerosis. ACT 112: Negative or not required by law. Electronically signed by: Irineo Espinoza M.D. 09/16/2024 1:22 PM Code Status & VTE Plan VTE Prophylaxis Plan VTE Prophylaxis will be ordered: Yes Supervising Physician Co-Signing Physician Notes Patient seen and examined Patient is currently lethargic though able to tell his name and location but not much else Hx provided by daughter Reported patient has had ureña since ER visit 2 weeks ago for urethral meatus contusion She reported ureña was removed at [facility] yesterday. Patient has been confused yesterday and was having fevers. On exam General: Lethargic. In no acute distress Eyes: PERRL, conjunctivae normal, not pale, anicteric sclerae, EOM intact bilaterally ENMT: External ear and nose normal, oropharynx normal Respiratory: Normal respiratory effort, no respiratory distress, lungs clear to auscultation, no crackles and no wheezes Cardiovascular: RRR S1 S2 Gastrointestinal (Abdomen): Abdomen is not distended, soft, non-tender to palpation, no guarding, no palpable hepatosplenomegaly, normal bowel sounds Musculoskeletal: No pedal edema Genitourinary: Ureña in situ Neurologic: Arousable and oriented to person and place only. Cooperative. Occasional fine tremors of UE Labs notable for leukocytosis of 24 UA + for leuk est, WBC >50 CT head, CTA chest did not show acute abnormalities Complicated UTI with metabolic encephalopathy IV ceftriaxone F/u UCx and BCx Current ureña was placed in ER. Once patient improves clinically, do voiding t rial and remove ureña. I spent a total of 50 minutes coordinating, documenting and providing care for this patient excluding time spent in performance of separately billed services (4) CVA (cerebral vascular accident) CVA mechanism: unspecified Qualified Code(s): I63.9 - Cerebral infarction, unspecified (6) Hypertension Hypertension type: unspecified Qualified Code(s): I10 - Essential (primary) hypertension
--- NOTE | 2024-09-16 16:21 | Ultrasound Report ---
EXAM: US Retroperitoneal Limited Renal INDICATION: Urinary tract infection. Hematuria. TECHNIQUE: Real-time limited ultrasound of the kidneys and bladder with image documentation. COMPARISON: No relevant prior studies available. FINDINGS: Right kidney: 12.7 cm long. Cortical thickness and echotexture maintained. No stones. No solid mass. No hydronephrosis. Left kidney: 11.7 cm long. Cortical thickness and echotexture maintained. No stones. No solid mass. No hydronephrosis. Bladder: Decompressed by catheter and is not assessed. IMPRESSION: Normal sonographic appearance of the kidneys. The bladder is collapsed and not assessed. ACT 112: Negative or not required by law. Electronically signed by Maria Luisa Boo 09-16-2024 4:21 PM
--- OUTSIDE RECORDS SUMMARY | 2024-09-16 20:04 | External Medical Summary | Summary of Care ---
Author Name Unknown Organization [facility] Address [address] [address] Phone [phone] Care Team Providers Care Ultrasound Sonographer Name Role Phone Vishal Landry DO Primary Care Provider [phone] Reason for Visit * Reason Onset Date Comments Fax 09/06/2024 Encounter Details Date Type Department Care Team (Late st Contact Info) Description 09/06/2024 Telephone Family Practice [facility] [address] [facility]al [facility] [address] Fax Allergies No known active allergiesdocumented as of this encounter (statuses as of 09/13/2024) Medications triamcinolone acetonide (ARISTOCORT) 0.1 % cream 0 6 Active metroNIDAZOLE, topical, (METROCREAM) 0.75 % cream 0 7 Active B Yrjdyao-Afmvjp-J A (B COMPLEX 100 TR) TBCR Take by mouth. Activ e betamethasone dipropionate (DIPROSONE) 0.05 % cream 0 8 Active PROLENSA 0.07 % SOLN 0 8 Active Urea 45 % CREA 0 8 Active tiZANidine HCl 2 MG Oral CapsuleIndicatio ns:Muscle tightness Take 1 Capsule by mouth 2 times a day as needed for Muscle spasms. 60 Capsule 5 3 Active Additional Information Patient not taking.Reported on 01/18/2024 Atorvastatin Calcium 40 MG Oral Tablet (Lipitor)Indicat ions:Dyslipidemi a, goal LDL below 100 Take 0.5 Tablets by mouth in the morning. In the morning.. 90 Tablet 1 3 Active Spironolactone 25 MG Oral Tablet (Aldactone) Take 0.5 Tablets by mouth once a day on Thursday, Thursday, and Thursday only. 30 Tablet 3 3 Active Myrbetriq 50 MG Oral Tablet Extended Release 24 Hour (Mirabegron ER) take 1 tablet by mouth every morning 90 Tablet 3 4 Active Albuterol Sulfate HFA 108 (90 Base) MCG/ACT Inhalation Aerosol Solution Inhale 2 Puffs by mouth every 6 hours as needed for Shortness of Breath. 18 g 5 4 Active Donepezil HCl 5 MG Oral Tablet (Aricept) take 1 tablet by mouth once daily WITH THE LARGEST MEAL OF THE DAY 90 Tablet 1 4 Active Carbidopa-Levodo pa 25-100 MG Oral Tablet (Sinemet) take 2 tablets by mouth three times a day 540 Tablet 3 4 Active amLODIPine Besylate 5 MG Oral Tablet (Norvasc)Indicat ions:HTN, goal below 140/90 TAKE 1/2 TABLET BY MOUTH EVERY MORNING 45 Tablet 3 4 Active Escitalopram Oxalate 20 MG Oral Tablet (Lexapro) TAKE 1 TABLET BY MOUTH ONCE DAILY 90 Tablet 1 4 Active Escitalopram Oxalate 10 MG Oral Tablet (Lexapro)Indicat ions:Moderate episode of recurrent major depressive disorder (HCC) TAKE 1 TABLET BY MOUTH IN THE MORNING. TAKE WITH 20 MG DOSE 90 Tablet 2 4 Active Omeprazole 20 MG Oral Capsule Delayed Release (PriLOSEC)Indica tions:Gastroesop hageal reflux disease without esophagitis TAKE 1 CAPSULE BY MOUTH TWICE A DAY 180 Capsule 1 4 Active Magnesium Oxide 400 MG Oral Tablet Take 1 Tablet by mouth in the morning. In the morning.. 90 Tablet 3 4 Active Clopidogrel Bisulfate 75 MG Oral Tablet (pLAVix) Take 1 Tablet by mouth in the morning. 90 Tablet 3 4 Active Vitamin B-2 100 MG Oral Tablet (Riboflavin) Take 4 Tablets by mouth in the morning. 360 Tablet 3 4 Active Losartan Potassium 100 MG Oral Tablet (Cozaar)Indicati ons:Chronic coronary artery disease,HTN, goal below 140/90 Take 1 Tablet by mouth in the morning. 90 Tablet 3 4 Active Docusate Sodium 100 MG Oral Capsule (Colace) Take 1 Capsule by mouth daily. 4 Active Polyethylene Glycol 3350 17 GM/SCOOP Oral Powder (MiraLax) Take 17 g by mouth as needed for Constipation. Dissolve one heaping tablespoon in 8 ounces of water or juice. 4 Active Furosemide 20 MG Oral Tablet (Lasix) Take 1 pill Thursday and 20 Tablet 5 4 Active Carboxymethylcel lulose Sodium 1 % Ophthalmic Solution (Celluvisc) Instill 1 Drop into both eyes in the morning and 1 Drop before bedtime. 15 mL 5 4 Active Loratadine 10 MG Oral Tablet (Claritin) Take 1 Tablet by mouth in the morning. 30 Tablet 5 4 Active Hospital, Clinic, or Other Facility Administered Medication Ordered Dose Route Frequency Start Date End Date Status albuterol sulfate (PROVENTIL) (2.5 MG/3ML) 0.083% inhalation solution 2.5 mgIndications:COPD, mild (HCC),Wheezing 2.5 mg NEBULIZER Q4H PRN 02/23/2019 Active documented as of this encounter (statuses as of 09/13/2024) Active Problems Problem Noted Date Diagnosed Date Acute on chronic diastolic congestive heart fail ure 10/07/2023 Moderate episode of recurrent major depressive d isorder 12/13/2022 Chronic kidney disease, stage 3a 11/11/2021 Overview: Per CKD protocol Hypertensive kidney disease with stage 3a chronic kidney disease 10/07/2021 Overview: Per CKD protocol 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 Medical management recommended. Malignant neoplasm of prostate 08/03/2009 History of colonic polyps 01/23/2009 Overview (06/29/2017): 11/15/12: 2 mm caecal adenoma repeat 10/201712/28/2008: 7 mm adenoma, ascending colon, repeat 2011 ICD-10 update of inactive term Displacement of lumbar inter vertebral disc without myelopathy 07/20/2007 documented as of this encounter (statuses as of 09/13/2024) Resolved Problems Problem Noted Date Diagnosed Date Resolved Date Hypertensive kidney disease with stage 3 chronic kidney disease 03/14/2022 04/10/2022 Mucopurulent chronic bronchitis 04/15/2019 03/14/2022 Cardiomyopathy 04/15/2019 03/14/2022 Hypertensive kidney disease with chronic kidney disease stage III 08/27/2018 10/10/2021 Overview: Per CKD protocol Kidney disease, chronic, sta ge III (GFR 30-59 ml/min) 02/16/2018 09/10/2018 Overview: Per CKD protocol #1 Depression 08/28/2015 08/17/2017 Penile fracture 06/15/2014 02/18/2018 [employer] Other*[id number] 04/02/2011 11/04/2016 Overview (11/10/2014): Study Title: Genomic Markers for Patients with Cardiovascular Disease Project # [id number] Electrical Calibrator: Pam Alva MD [phone] Hypopotassemia 12/30/2005 09/30/2017 ADVANCE DIRECTIVE INFORMATION 02/27/2005 09/30/2017 Overview (02/27/2005): No, Advance Directive brochure offered , patient declined. HTN, goal below 130/80 07/18/2002 11/30 /2018 Dyslipidemia, goal to be determined 07/18/2002 06/13/2013 documented as of this encounter (statuses as of 09/13/2024) Immunizations Name Administration Dates Next Due COVID-19 mRNA, LNP-s, No Pre serve, 2-Dose Series ([employer]) 07/19/2021,11/20/2020,10/30/2020 Covid-19, Mrna, Lnp-s, Pf, B ivalent, 30 Mcg, IM, 12 yrs and above (Pfizer) 06/30/2022 Pneumococcal Conjugate Vacc, 13 Valent (Prevnar) 01/15/2015 Pneumococcal Polysaccharide PPV23 (Pneumovax) 08/18/2006 RSV Vac., Bivalent, Perfusio n F, Pf,0.5 Ml (Abrysvo) 10/07/2023 Season Influenza, Quad, PF, Adjuvanted, 65+ Yrs, IM (FLUAD) 07/03/2020 Seasonal Influenza Vac., MDV , IM, 0.5 mL (Fluzone) 07/12/2014,06/13/2013,09/06/2012,07/29,08/30/2010,07/04/2009,08/18/20 06,09/16/2001 07/04/2010 Seasonal Influenza Virus Vac cine, Unspecified Formulation 09/06/2012 Seasonal Influenza, High Dos e, Trivalent, PF, IM (Fluzone HD) 06/15/2024,08/17/2017 Seasonal Influenza, PF, 6 M & above, IM , (FluLaval or Fluzone) 09/10/2018 Seasonal Influenza, Quadriva lent Hd (Fluzone Hd) 06/24/2023,06/26/2021 Seasonal Influenza, Quadriva lent Hd, 65+ Yrs 06/30/2022 Seasonal Influenza, Quadriva lent, No Preserve, IM 07/23/2016,07/25/2015 Seasonal Influenza, Trivalen t, Adjuvanted, 65+ YRS, PF, (Fluad) 08/16/2019 TD, Preservative Free 12/18/2008 12/18/2018 TDAP (age 10 and older)(Boostrix) 10/02/2014 Varicella Zoster Vaccine (Adult) 11/08/2013 Zoster Vaccine Recombinant (Shingrix) 12/17/2020 ,06/26/2020 documented as of this encounter Social History Tobacco Use Types Packs/Day Years Used Date Smoking Tobacco: Never Smokeless Tobacco: Never Alcohol Use Standard Drinks/Week Comments Not Currently 0 (1 standard drink = 0.6 oz pur e alcohol) rarely PHQ-2 Answer Date Recorded PHQ-2 Score 0 03/05/2020 Hunger Vital Sign Answer Date Recorded Within the past 12 months, y ou worried that your food would run out before you got the money to buy more. Never true 08/31/20 23 Within the past 12 months, t he food you bought just didn't last and you didn't have money to get more. Never true 08/31/2023 Childcare Answer Date Recorded Do you feel overwhelmed with taking care of a child, family member or friend? No 08/31/2023 Does your family need help f inding childcare? (Household - for ages 0-17 years) Not on file 08/31/2023 Clothing Answer Date Recorded Have you been unable to get clothing when it was really needed? No 08/31/2023 Is your family able to get c lothes or diapers when needed? (Household - for ages 0-17 years) Not on file 08/31/2023 Personal Safety Answer Date Recorded Do you feel unsafe or have concerns for your saf ety? No 08/31/2023 Do you have concerns for you r family's safety? (Household - for ages 0-17 years) Not on file 08/31/2023 Utilities Answer Date Recorded Do you have trouble paying y our heating, water, or electric bill? No 08/31/2023 Is your family able to pay t he heat, water, or electric bill? (Household - for ages 0-17 years) Not on file 08/31/2023 Does your family have access to good internet? (Household - for ages 0-17 years) Not on file 08/31/2023 Employment Status Answer Date Recorded Are you unemployed or without regular income? No 08/31/2023 Does the household have a re gular source of income? (Household - for ages 0-17 years) Not on file 08/31/2023 Social Connections Answer Date Recorded How often do you feel lonely or isolated from th ose around you? Never 08/31/2023 Financial Resource Strain Answer Date R ecorded Do you have any trouble payi ng for your medications, or do you think you might in the future? No 08/31/2023 Does your family have troubl e paying for medicine? (Household - for ages 0-17 years) Not on file 08/31/2023 Transportation Needs Answer Date Record ed READ ONLY Do you have troubl e getting a ride to medical visits or work? Never True 08/31/2023 Does your family have a hard time getting a ride to doctors visits? (Household - for ages 0-17 years) Not on file 08/31/2023 Has lack of transportation k ept you from medical appointments, meetings, work, or from getting things needed for daily living? Check all that apply. (Adult - for ages 18 years and over) Not on file 08/31/2023 Do you (or your family) have trouble finding or paying for a ride (transportation)? (Household - for ages 0-17 years) Not on file 08/31/2023 Housing Stability Answer Date Recorded Do you currently live in a s helter or have no steady place to sleep at night? No 08/31/2023 READ ONLY Do you think you a re at risk of becoming homeless? No 08/31/2023 Does your family worry about paying for your home or becoming homeless? (Household - for ages 0-17 years) Not on file 1 11/01/2022 Are you homeless or worried that you might be in the future? (Adult - for ages 18 years and over) Not on file Are you (or your family) deyvi eless or worried that you might be in the future? (Household - for ages 0-17 years) Not on file Food Insecurity Answer Date Recorded Do you need food for this week? No 08/31/2023 Are you able to get enough f ood for your family? (Household - for ages 0-17 years) Not on file 08/31/2023 Does your family need food t his week? (Household - for ages 0-17 years) Not on file 08/31/2023 Do you always have enough fo od for your family? 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 Re-faxed today * Telephone Encounter - Mahi Tena OSA - 09/12/2024 9:23 AM EST Any update on if we received these? * Telephone Encounter - Ivanna Costa OSA - 09/06/2024 1:17 PM EST Received a call asking if fax was received by office. Name/Company sending fax: Janae from [facility] (contracted with [facility]) What fax is pertaining to: Delayed Re-certification Forms for Physical Therapy and Speech Order Date(s) they sent request: PT - 08/08/24 & 09/02/2024 - Speech - 09/05/2024 Verified fax number they are sending to is correct (Y or N): Yes - fax number correct Callback Number for the clinic to call to verified if fax was received: [phone]. Needs as soon as possible. Both forms needs to be signed and dated with same dates. Janae will be re-faxing those request today 09/06/2024. Thank you. WENDI Pro documented in this encounter Plan of Treatment Upcoming Encounters Date Type Department Care Team (Late st Contact Info) Description 01/17/2025 8:20 AM EDT Office Visit Family Practice [facility] [address] [facility] [address] Vishal Landry DO [address] [facility] [address] 03/06/2025 9:20 AM EDT Telemedicine Neurology [facility] [address] [facility] [address] Eric Wright MD [address] [facility] [address] Health Maintenance Due Date Last Done Comments Adult Wellness Visit 2007 Depression Monitoring 03/05/2021 03/05/2020 Albumin/Creatinine Ratio 02/25/2024 02/24/2023 COVID-19 Vaccine ( season) 2024 06/30/2022, 07/19/2021, 11/20/2020, Additional history exists DTap/Tdap Vaccines (2 - Td or Tdap) 10/02/2024 10/02/2014, 12/18/2008 GFR 12/13/2024 06/15/2024, 05/30, 06/11/2023, Additional history exists CKD HGB USE SMARTSET 99062 06/15/202506/15, 06/18/2023, 06/11/2023, Additional history exists CKD PHOS USE SMARTSET 30577 06/15/202505/29, 03/27/2022, 03/17/2019, Additional history exists Pneumococcal Vaccine: 65+ Years Completed 01/15/2015, 08/18/2006 Zoster Vaccines Completed 12/17/2020, 05/30, 11/08/2013 Influenza Vaccine (FLU shot) Completed , 06/24/2023, 06/30/2022, Additional history exists HPV (Gardasil) Vaccine Aged Out No lo nger eligible based on patient's age to complete this topic Hepatitis B Vaccine Aged Out No longe r eligible based on patient's age to complete this topic MENINGOCOCCAL (MENACTRA/MENVEO) Aged Out No longer eligible based on patient's age to complete this topic documented as of this encounter Medical Devices Not on filedocumented as of this encounter Advance Directives * Full Code (Latest Code Status on File) Date Activated Date Inactivated Comments 01/29/2018 12:12 PM 01/29/2018 6:33 PM This order re flects the patients wishes and were consensually agreed upon. * Full Code Date Activated Date Inactivated Comments 01/22/2018 9:42 AM 01/22/2018 5:45 PM This order r eflects the patients wishes and were consensually agreed upon. * Full Code Date Activated Date Inactivated Comments 10/23/2009 9:43 AM 10/24/2009 1:28 PM This order r eflects the patients wishes and were consensually agreed upon. * Full Code Date Activated Date Inactivated Comments 10/23/2009 6:46 AM 10/23/2009 9:43 AM This order r eflects the patients wishes and were consensually agreed upon. Care Teams Ultrasound Sonographer Relationship Specialty Start Date End Date Vishal Landry DO [address] [facility] [place] [address] PCP - General Family Medicine 03/05/17 documented as of this encounter
--- OUTSIDE RECORDS SUMMARY | 2024-09-16 20:04 | External Medical Summary | Summary of Care ---
Author Name Unknown Organization [facility] Address [address] [place] [address] Phone [phone] Care Team Providers Care Medication Aide Name Role Phone Vishal Landry DO Primary Care Provider Reason for Visit * Reason Onset Date Comments Encounter Created in Error 09/13/2024 Encounter Details Date Type Department Care Team (Late st Contact Info) Description 09/13/2024 Telephone Family Practice [facility] 200 [facility] [place] [address] Vishal Landry DO 200 [place] [address] Encounter Created in Error Allergies No known active allergiesdocumented as of this encounter (statuses as of 09/13/2024) Medications triamcinolone acetonide (ARISTOCORT) 0.1 % cream 0 6 Active metroNIDAZOLE, topical, (METROCREAM) 0.75 % cream 0 7 Active B Cqfnhms-Vktrqj-Z A (B COMPLEX 100 TR) TBCR Take [...] Penile fracture 06/15/2014 02/18/2018 [employer] Other*[id number] 04/02/2011 11/04/2016 Overview (11/10/2014): Study Title: Genomic Markers for Patients with Cardiovascular Disease Project # [id number] Car Audio Installer: Pam Alva MD [phone] Hypopotassemia 12/30/2005 09/30/2017 ADVANCE DIRECTIVE INFORMATION 02/27/2005 09/30/2017 Overview (02/27/2005): No, Advance Directive brochure offered , patient declined. HTN, goal below 130/80 07/18/200208/27 Dyslipidemia, goal to be determined 07/18/2002 06/13/2013 documented as of this encounter (statuses as of 09/13/2024) Immunizations Name Administration Dates Next Due COVID-19 mRNA, LNP-s, No Pre serve, 2-Dose Series ([employer]) 07/19/2021,11/20/2020,10/30/2020 Covid-19, Mrna, Lnp-s, Pf, B ivalent, 30 Mcg, IM, 12 yrs and above (Pfizer) 06/30/2022 Pneumococcal Conjugate Vacc, 13 Valent (Prevnar) 01/15/2015 Pneumococcal Polysaccharide PPV23 (Pneumovax) 08/18/2006 RSV Vac., Bivalent, Perfusio n F, Pf,0.5 Ml (Abrysvo) 10/07/2023 Season Influenza, Quad, PF, Adjuvanted, 65+ Yrs, IM (FLUAD) 07/03/2020 Seasonal Influenza Vac., MDV , IM, 0.5 mL (Fluzone) 07/12/2014,06/13/2013,09/06/2012,07/29,08/30/2010,07/04/2009,08/18/20 06 07/04/2010 Seasonal Influenza Virus Vac cine, Unspecified [...] 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 Not on file Not on file documented as of this encounter Plan of Treatment Upcoming Encounters Date Type Department Care Team (Late st Contact Info) Description 01/17/2025 8:20 AM EDT Office Visit Family Practice [facility] [address] [facility] [address] [place] [address] Vishal Landry DO 200 [facility] [place] [address] 03/06/2025 9:20 AM EDT Telemedicine Neurology [facility] 200 [facility] [place] [address] Eric Wright MD 200 [facility] [place] [place] [address] Health Maintenance Due Date Last Done Comments Adult Wellness Visit 2007 Depression Monitoring 03/05/2021 03/05/2020 Albumin/Creatinine Ratio 02/25/2024 02/24/2023 COVID-19 Vaccine ( season) 2024 06/30/2022, 07/19/2021, 11/20/2020, Additional history exists DTap/Tdap Vaccines (2 - Td or Tdap) 10/02/2024 10/02/2014, 12/18/2008 GFR 12/13/2024 06/15/2024, 05/30, 06/11/2023, Additional history exists CKD HGB USE SMARTSET 47271 06/15/202506/15, 06/18/2023, 06/11/2023, Additional history exists CKD PHOS USE SMARTSET 04896 06/15/202505/29, 03/27/2022, 03/17/2019, Additional history exists Pneumococcal [...] and were consensually agreed upon. Care Teams Medication Aide Relationship Specialty Start Date End Date Vishal Landry DO [address] [place] [address] PCP - General Family Medicine 03/05/17 documented as of this encounter
--- OUTSIDE RECORDS SUMMARY | 2024-09-16 20:04 | External Medical Summary | Summary of Care ---
Author Name Unknown Organization [facility] Address [address] [facility] [address] Phone [phone] Care Team Providers Care Emergency Room Registered Nurse Name Role Phone Vishal Landry DO Primary Care Provider Reason for Visit * Reason Onset Date Comments Fax 09/06/2024 Encounter Details Date Type Department Care Team (Late st Contact Info) Description 09/06/2024 Telephone Family Practice [facility] [address] [facility] [place] [address] [facility]al [facility] DO [facility] [address] Fax Allergies No known active allergiesdocumented as of this encounter (statuses as of 09/12/2024) Medications triamcinolone acetonide (ARISTOCORT) 0.1 % cream 0 6 Active metroNIDAZOLE, topical, (METROCREAM) 0.75 % cream 0 7 Active B Cbfvjvd-Kolehw-L A (B COMPLEX 100 TR) TBCR Take [...] as of this encounter (statuses as of 09/12/2024) Active Problems Problem Noted Date Diagnosed Date [...] as of this encounter (statuses as of 09/12/2024) Resolved Problems Problem Noted Date Diagnosed Date [...] Penile fracture 06/15/2014 02/18/2018 [employer] Other*[id number] 04/02/2011 11/04/2016 Overview (11/10/2014): Study Title: Genomic Markers for Patients with Cardiovascular Disease Project # [id number] Soft Drink Powder Mixer: Pam Alva MD [phone] Hypopotassemia 12/30/2005 09/30/2017 ADVANCE DIRECTIVE INFORMATION 02/27/2005 09/30/2017 Overview (02/27/2005): No, Advance Directive brochure offered , patient declined. 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 Name/Company sending fax: Janae from [facility] What fax is pertaining to: Delayed Re-certification Forms for Physical Therapy and Speech Order Date(s) they sent request: PT - 08/08/24 & 09/02/2024 - Speech - 09/05/2024 Verified fax number they are sending to is correct (Y or N): Yes - fax number correct Callback Number for the clinic to call to verified if fax was received: [phone]. Needs as soon as possible. Both forms needs to be signed and dated with same dates. Janae will be re-faxing those request today 09/06/2024. Thank you. WENDI Pro documented in this encounter Plan of Treatment Upcoming Encounters Date Type Department Care Team (Late st Contact Info) Description 01/17/2025 8:20 AM EDT [facility] [address] [place] [address] Vishal Landry DO [address] [facility] [place] [address] 03/06/2025 9:20 AM EDT Telemedicine Neurology [facility] [place] [address] [place] [address] Eric Wright MD 200 [place] [address] Health Maintenance Due Date Last Done Comments Adult Wellness Visit 2007 Depression Monitoring 03/05/2021 03/05/2020 Albumin/Creatinine Ratio 02/25/2024 02/24/2023 COVID-19 Vaccine ( season) 2024 06/30/2022, 07/19/2021, 11/20/2020, Additional history exists DTap/Tdap Vaccines (2 - Td or Tdap) 10/02/2024 10/02/2014, 12/18/2008 GFR 12/13/2024 06/15/2024, 05/30, 06/11/2023, Additional history exists CKD HGB USE SMARTSET 59325 06/15/202506/15, 06/18/2023, 06/11/2023, Additional history exists CKD PHOS USE SMARTSET 79326 06/15/202505/29, 03/27/2022, 03/17/2019, Additional history exists Pneumococcal [...] and were consensually agreed upon. Care Teams Emergency Room Registered Nurse Relationship Specialty Start Date End Date Vishal Landry DO [address] [place] [address] PCP - General Family Medicine 03/05/17 documented as of this encounter
--- OUTSIDE RECORDS SUMMARY | 2024-09-16 20:04 | External Medical Summary | Summary of Care ---
Author Name Unknown Organization [facility] Address [address] [facility] [address] Phone [phone] Care Team Providers Care Network Systems Operator Name Role Phone Vishal Landry DO Primary Care Provider Reason for Visit * Reason Onset Date Comments Fax 09/06/2024 Encounter Details Date Type Department Care Team (Late st Contact Info) Description 09/06/2024 Telephone Family Practice [facility] [address] [facility] [address] Vishal Landry DO [address] [facility] [address] Fax Allergies No known active allergiesdocumented as of this encounter (statuses as of 09/13/2024) Medications triamcinolone acetonide (ARISTOCORT) 0.1 % cream 0 6 Active metroNIDAZOLE, topical, (METROCREAM) 0.75 % cream 0 7 Active B Cfdcdps-Vgbpiu-E A (B COMPLEX 100 TR) TBCR Take [...] Penile fracture 06/15/2014 02/18/2018 [employer] Other*[id number] 04/02/2011 11/04/2016 Overview (11/10/2014): Study Title: Genomic Markers for Patients with Cardiovascular Disease Project # [id number] Lead Inspector: Pam Alva MD [phone] Hypopotassemia 12/30/2005 09/30/2017 ADVANCE DIRECTIVE INFORMATION 02/27/2005 09/30/2017 Overview (02/27/2005): No, Advance Directive brochure offered , patient declined. 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 * Telephone Encounter - Ivanna Costa OSA - 09/06/2024 1:17 PM EST Received a call asking if fax was received by office. Name/Company sending fax: Janae from [facility] (contracted with [facility]) What fax is pertaining to: Delayed Re-certification Forms for Physical Therapy and Speech Order Date(s) they sent request: PT - 08/08/24 & 09/02/2024 - Speech - 09/05/2024 Verified fax number they are sending to is correct (Y or N): Yes - fax number correct Callback Number for the clinic to call to verified if fax was received: [phone]. Needs as soon as possible. Both forms needs to be signed and dated with same dates. Janae will be re-faxing those request today 09/06/2024. Thank you. WENDI Pro documented in this encounter Plan of Treatment Upcoming Encounters Date Type Department Care Team (Late st Contact Info) Description 01/17/2025 8:20 AM EDT Office Visit Family Practice [facility] [address] [facility] [address] Vishal Landry DO [address] [facility] [address] 03/06/2025 9:20 AM EDT Telemedicine Neurology [facility] [address] [facility] [address] Eric Wright MD [address] [facility] [address] Health Maintenance Due Date Last Done Comments Adult Wellness Visit 2007 Depression Monitoring 03/05/2021 03/05/2020 Albumin/Creatinine Ratio 02/25/2024 02/24/2023 COVID-19 Vaccine ( season) 2024 06/30/2022, 07/19/2021, 11/20/2020, Additional history exists DTap/Tdap Vaccines (2 - Td or Tdap) 10/02/2024 10/02/2014, 12/18/2008 GFR 12/13/2024 06/15/2024, 05/30, 06/11/2023, Additional history exists CKD HGB USE SMARTSET 87619 06/15/202506/15, 06/18/2023, 06/11/2023, Additional history exists CKD PHOS USE SMARTSET 76027 06/15/202505/29, 03/27/2022, 03/17/2019, Additional history exists Pneumococcal [...] and were consensually agreed upon. Care Teams Network Systems Operator Relationship Specialty Start Date End Date Vishal Landry DO [address] [facility] [place] [address] PCP - General Family Medicine 03/05/17 documented as of this encounter
--- OUTSIDE RECORDS SUMMARY | 2024-09-16 20:04 | External Medical Summary | Summary of Care ---
Author Name Unknown Organization [facility] Address [address] [address] Phone [phone] Care Team Providers Care Statistical Reporting Analyst Name Role Phone Vishal Landry DO Primary Care Provider Reason for Visit * Reason Onset Date Comments Fax 09/06/2024 Encounter Details Date Type Department Care Team (Late st Contact Info) Description 09/06/2024 Telephone Family Practice [facility] [address] [facility] [address] Vishal [facility] DO [address] [facility] [address] Fax Allergies No known active allergiesdocumented as of this encounter (statuses as of 09/15/2024) Medications triamcinolone acetonide (ARISTOCORT) 0.1 % cream 0 6 Active metroNIDAZOLE, topical, (METROCREAM) 0.75 % cream 0 7 Active B Kweduxw-Wnkzeb-F A (B COMPLEX 100 TR) TBCR Take [...] as of this encounter (statuses as of 09/15/2024) Active Problems Problem Noted Date Diagnosed Date [...] as of this encounter (statuses as of 09/15/2024) Resolved Problems Problem Noted Date Diagnosed Date [...] Penile fracture 06/15/2014 02/18/2018 [employer] Other*[id number] 04/02/2011 11/04/2016 Overview (11/10/2014): Study Title: Genomic Markers for Patients with Cardiovascular Disease Project # [id number] Metal Trades Instructor: Pam Alva MD [phone] Hypopotassemia 12/30/2005 09/30/2017 ADVANCE DIRECTIVE INFORMATION 02/27/2005 09/30/2017 Overview (02/27/2005): No, Advance Directive brochure offered , patient declined. 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 Landry's desk for signature. We also received a delayed certification and re-certification for speech therapy 07/27/24-08/25/24 that has been [address] on Dr. Landry's desk for signature. Once signed, please return to me so that I can fax them. * Telephone Encounter - Karie Degroot OSA - 09/13/2024 11:38 AM EST Janae from [facility] called and stated that the form she [...] by office. Name/Company sending fax: Janae from [facility] (contracted with [facility]) What fax is pertaining to: Delayed Re-certification Forms for Physical Therapy and Speech Order Date(s) they sent request: PT - 08/08/24 & 09/02/2024 - Speech - 09/05/2024 Verified fax number they are sending to is correct (Y or N): Yes - fax number correct Callback Number for the clinic to call to verified if fax was received: [phone]. Needs as soon as possible. Both forms needs to be signed and dated with same dates. Janae will be re-faxing those request today 09/06/2024. Thank you. WENDI Pro documented in this encounter Plan of Treatment Upcoming Encounters Date Type Department Care Team (Late st Contact Info) Description 01/17/2025 8:20 AM EDT Office Visit Family Practice [facility] [address] [facility] [place] [address] Vishal Landry, DO [address] [facility] [place] [address] 03/06/2025 9:20 AM EDT Telemedicine Neurology [facility] [address] [facility] [address] Eric Wright MD [address] [facility] [place] [address] Health Maintenance Due Date Last Done Comments Adult Wellness Visit 2007 Depression Monitoring 03/05/2021 03/05/2020 Albumin/Creatinine Ratio 02/25/2024 02/24/2023 COVID-19 Vaccine ( season) 2024 06/30/2022, 07/19/2021, 11/20/2020, Additional history exists DTap/Tdap Vaccines (2 - Td or Tdap) 10/02/2024 10/02/2014, 12/18/2008 GFR 12/13/2024 06/15/2024, 05/30, 06/11/2023, Additional history exists CKD HGB USE SMARTSET 75702 06/15/202506/15, 06/18/2023, 06/11/2023, Additional history exists CKD PHOS USE SMARTSET 04050 06/15/202505/29, 03/27/2022, 03/17/2019, Additional history exists Pneumococcal [...] and were consensually agreed upon. Care Teams Statistical Reporting Analyst Relationship Specialty Start Date End Date Vish[place] [address] [place] [address] PCP - General Family Medicine 03/05/17 documented as of this encounter
[2024-09-16] MEDS: busPIRone 7.5 MG TAB PO SCH (20:39)
[2024-09-16] MEDS: PANTOprazole 40 MG TAB PO SCH (20:39)
[2024-09-16] MEDS: cefTRIAXone SODIUM 1,000 MG/50 ML BAG IV SCH (20:40)
[2024-09-16] MEDS: VIBEGRON 75 MG TAB PO SCH (20:40)
[2024-09-16] MEDS: CARBIDOPA/LEVODOPA 25/100MG TAB PO SCH (20:49)
[2024-09-16] MEDS: HEPARIN SOD 5,000 UNIT/0.5 ML VIAL SQ SCH (21:01)
[2024-09-16] MEDS: ACETAMINOPHEN 325 MG TAB PO PRN (21:01)
--- NOTE | 2024-09-16 22:10 | Electrocardiogram Report ---
Test Reason : Blood Pressure : */* mmHG Vent. Rate : 94 BPM Atrial Rate : 94 BPM P-R Int : 196 ms QRS Dur : 142 ms QT Int : 394 ms P-R-T Axes : 68 -20 141 degrees QTcB Int : 492 ms Sinus rhythm with occasional Premature ventricular complexes Left bundle branch block Abnormal ECG When compared with ECG of 20-Jan-2023 13:12, Premature atrial complexes are no longer Present Confirmed by Roderick Almonte ([id number]) on 09/16/2024 10:10:24 PM Referred By: [place] [facility] Confirmed By: Roderick Almonte
[2024-09-17] MEDS: SODIUM CHLORIDE 0.9% 500 ML IV SCH (00:29)
[2024-09-17] MEDS: SODIUM CHLORIDE 0.9% 250 ML IV ONE (01:11)
[2024-09-17 07:45] LABS: Hematocrit (blood only) 36.9 % (42.0-52.0); Hemoglobin 12.4 g/dl (14.0-18.0); Mean Corpuscular Hemoglobin 32.2 pg (25.0-34.0); Mean Corpuscular Hgb Conc 33.6 g/dL (32.0-36.0); Mean Corpuscular Volume 95.8 fL (80.0-100.0); Mean Platelet Volume 8.9 fL (9.4-12.4); Platelet Count 187 K/uL (130-400); RDW Coefficient of Variation 13.4 % (11.5-14.5); RDW Standard Deviation 47.3 fL (36.4-46.3); Red Blood Count 3.85 M/uL (4.70-6.10); White Blood Count 19.14 K/ul (4.8-10.8)
--- NOTE | 2024-09-17 08:00 | Hospitalist Progress Note ---
Date of Service September 17, 2024 Assessment & Plan (1) Metabolic encephalopathy: (2) Catheter-associated urinary tract infection: Plan: Admitted to [facility] with telemetry Patient presenting from [facility] for evaluation of altered mental status and fever. Patient seen in the ED on 09/02 for hematuria. Patient noted to have a small urethral laceration and Rios catheter was placed and patient was discharged back to [facility]. Rios [facility] jail yesterday. In the ED, WBC 24K and UA suggestive of UTI. Patient is hemodynamically stable. Full RVP negative, CXR and CTA chest negative for PE and infiltrate. S/p cefepime in the ED, will continue with IV ceftriaxone Follow urine and blood cultures Full renal US given hx renal calculi and reported hematuria - Normal sonographic appearance of the kidneys. The bladder is collapsed and not assessed. 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 Denies fever, chills, chest pain, shortness of breath Discussed w/ RN - will obtain doppler of RLE Review of Systems Review of Systems: All systems reviewed & are unremarkable except as noted in Subjective Physical Exam Physical Exam: General: elderly, chronically ill appearing Eyes: PERRL, EOM intact bilaterally ENMT: External ear and nose normal Respiratory: Normal respiratory effort, no respiratory distress, lungs clear to auscultation, no crackles and no wheezes Cardiovascular: RRR S1 S2 Gastrointestinal (Abdomen): Abdomen is not distended, soft, non-tender to palpation, no guarding, normal bowel sounds Musculoskeletal: No pedal edema Genitourinary: Rios in situ Neurologic: Arousable and oriented. Cooperative. Results & Data Results & Data Vital Signs (Past 12 Hours) Vital Signs Temp Pulse Pulse Resp BP Pulse Ox O2 Del Method 09/17/24 07:27 36.9 C 85 18 130/75 94 Room Air 09/17/24 07:19 83 09/17/24 02:55 36.3 C L 76 17 110/73 93 Room Air 09/17/24 01:15 37.2 C 80 17 143/70 H 93 Room Air 09/16/24 23:21 36.9 C 91 H 18 95/63 L 94 Room Air 09/16/24 22:53 Room Air 09/16/24 21:46 97 H Laboratory Results 09/17/24 09/16/24 09/16/24 Range/Units 07:18 20:45 12:50 WBC 19.14 H (4.8-10.8) K/ul RBC 3.85 L (4.70-6.10) M/uL Hgb 12.4 L (14.0-18.0) g/dl Hct 36.9 L (42.0-52.0) % MCV 95.8 (80.0-100.0) fL MCH 32.2 (25.0-34.0) pg MCHC 33.6 (32.0-36.0) g/dL RDW Std Deviation 47.3 H (36.4-46.3) fL RDW Coeff of Lala 13.4 (11.5-14.5) % Plt Count 187 (130-400) K/uL MPV 8.9 L (9.4-12.4) fL Immature Gran % (Auto) % Neut % (Auto) % Lymph % (Auto) % [place] % (Auto) % Eos % (Auto) % Baso % (Auto) % Neut # (Auto) (1.40-6.50) K/uL Lymph # (Auto) (1.20-3.40) K/uL [place] # (Auto) (0.11-0.59) K/uL Eos # (Auto) (0.00-0.50) K/uL Baso # (Auto) (0.00-0.20) K/uL Immature Gran # (Auto) (0.01-0.20) K/uL Polychromasia PT (9.0-12.0) Seconds INR (0.9-1.1) APTT (21-31) Seconds PTT Ratio VBG pH (7.36-7.41) VBG pCO2 (38-50) mmHg VBG pO2 mmHg VBG HCO3 mmol/L VBG O2 Saturation % VBG Base Excess mEq/L Sodium Pending (136-145) mmol/L Potassium Pending (3.5-5.1) mmol/L Chloride Pending (98-107) mmol/L Carbon Dioxide Pending (21-32) mmol/L Anion Gap Pending (3-11) BUN Pending (6-23) mg/dl Creatinine Pending (0.6-1.4) mg/dl Est Cr Clr Drug Dosing Pending ml/min eGFR Pending BUN/Creatinine Ratio Pending (10-20) Glucose Pending (70-99(Fasting)) mg/dl Lactate (0.4-2.0) mmol/L Calcium Pending (8.6-10.3) mg/dl Magnesium (1.7-2.4) mg/dl Total Bilirubin (0.2-1.0) mg/dl Direct Bilirubin (0-0.2) mg/dl AST (13-39) U/L ALT (7-52) U/L Alkaline Phosphatase (34-104) U/L Troponin I High Sens (0-20) pg/ml Total Protein (6.0-8.3) gm/dl Albumin (3.4-5.0) gm/dl Procalcitonin (0-0.5) ng/ml Urine Color Yellow Urine Appearance Clear (Clear) Urine pH 6.0 (4.5-7.5) Ur Specific Saxton 1.015 (1.000-1.030) Urine Protein Negative (Negative) Urine Glucose (UA) Negative (Negative) Urine Ketones Negative (Negative) Urine Blood Trace-intact H (Negative) Urine Nitrite Negative (Negative) Urine Bilirubin Negative (Negative) Urine Urobilinogen Negative (Negative) Ur Leukocyte Esterase 2+ H (Negative) Urine RBC 0-2 (0-2) /hpf Urine WBC >50 H (0-5) /hpf Ur Epithelial Cells 0-2 (0-2) /hpf Urine Bacteria 1+ H (None Seen) Nasal Screen MRSA (PCR) Negative (Negative) Adenovirus (PCR) (NotDetected) B. pertussis DNA (PCR) (NotDetected) B.parapertussis DNA PCR (NotDetected) C. pneumoniae DNA (PCR) (NotDetected) Coronavirus OC43 (PCR) (NotDetected) Coronavirus HKU1 (PCR) (NotDetected) Coronavirus 229E (PCR) (NotDetected) SARS-CoV-2 (PCR) (NotDetected) Coronavirus NL63 (PCR) (NotDetected) Human Metapneumovir PCR (NotDetected) Influenza Type A (PCR) (NotDetected) Influenza Type B (PCR) (NotDetected) M. pneumoniae (PCR) (NotDetected) Parainfluenza 1 (PCR) (NotDetected) Parainfluenza 2 (PCR) (NotDetected) Parainfluenza 3 (PCR) (NotDetected) Parainfluenza 4 (PCR) (NotDetected) RSV (PCR) (NotDetected) Entero/Rhino (PCR) (NotDetected) 09/16/24 09/16/24 09/16/24 Range/Units 11:38 11:35 11:31 WBC 24.32 H (4.8-10.8) K/ul RBC 4.12 L (4.70-6.10) M/uL Hgb 13.5 L (14.0-18.0) g/dl Hct 39.1 L (42.0-52.0) % MCV 94.9 (80.0-100.0) fL MCH 32.8 (25.0-34.0) pg MCHC 34.5 (32.0-36.0) g/dL RDW Std Deviation 45.9 (36.4-46.3) fL RDW Coeff of Lala 13.2 (11.5-14.5) % Plt Count 223 (130-400) K/uL MPV 9.2 L (9.4-12.4) fL Immature Gran % (Auto) 0.7 % Neut % (Auto) 85.0 % Lymph % (Auto) 5.1 % [place] % (Auto) 8.9 % Eos % (Auto) 0.0 % Baso % (Auto) 0.3 % Neut # (Auto) 20.68 H (1.40-6.50) K/uL Lymph # (Auto) 1.23 (1.20-3.40) K/uL [place] # (Auto) 2.16 H (0.11-0.59) K/uL Eos # (Auto) 0.01 (0.00-0.50) K/uL Baso # (Auto) 0.07 (0.00-0.20) K/uL Immature Gran # (Auto) 0.17 (0.01-0.20) K/uL Polychromasia 1+ PT 10.9 (9.0-12.0) Seconds INR 1.0 (0.9-1.1) APTT 29 (21-31) Seconds PTT Ratio 1.1 VBG pH 7.41 (7.36-7.41) VBG pCO2 42 (38-50) mmHg VBG pO2 78 mmHg VBG HCO3 27 mmol/L VBG O2 Saturation 95.4 % VBG Base Excess 1.7 mEq/L Sodium 135 L (136-145) mmol/L Potassium 4.1 (3.5-5.1) mmol/L Chloride 101 (98-107) mmol/L Carbon Dioxide 25 (21-32) mmol/L Anion Gap 9 (3-11) BUN 21 (6-23) mg/dl Creatinine 1.04 (0.6-1.4) mg/dl Est Cr Clr Drug Dosing 60.7 ml/min eGFR 71.24 BUN/Creatinine Ratio 20.2 H (10-20) Glucose 143 H (70-99(Fasting)) mg/dl Lactate 2.0 (0.4-2.0) mmol/L Calcium 9.8 (8.6-10.3) mg/dl Magnesium 2.0 (1.7-2.4) mg/dl Total Bilirubin 1.0 (0.2-1.0) mg/dl Direct Bilirubin 0.1 (0-0.2) mg/dl AST 20 (13-39) U/L ALT 5 L (7-52) U/L Alkaline Phosphatase 102 (34-104) U/L Troponin I High Sens 11.4 (0-20) pg/ml Total Protein 7.5 (6.0-8.3) gm/dl Albumin 4.1 (3.4-5.0) gm/dl Procalcitonin 0.08 (0-0.5) ng/ml Urine Color Urine Appearance (Clear) Urine pH (4.5-7.5) Ur Specific [place] (1.000-1.030) Urine Protein (Negative) Urine Glucose (UA) (Negative) Urine Ketones (Negative) Urine Blood (Negative) Urine Nitrite (Negative) Urine Bilirubin (Negative) Urine Urobilinogen (Negative) Ur Leukocyte Esterase (Negative) Urine RBC (0-2) /hpf Urine WBC (0-5) /hpf Ur Epithelial Cells (0-2) /hpf Urine Bacteria (None Seen) Nasal Screen MRSA (PCR) (Negative) Adenovirus (PCR) Not Detected (NotDetected) B. pertussis DNA (PCR) Not Detected (NotDetected) B.parapertussis DNA PCR Not Detected (NotDetected) C. pneumoniae DNA (PCR) Not Detected (NotDetected) Coronavirus OC43 (PCR) Not Detected (NotDetected) Coronavirus HKU1 (PCR) Not Detected (NotDetected) Coronavirus 229E (PCR) Not Detected (NotDetected) SARS-CoV-2 (PCR) Not Detected (NotDetected) Coronavirus NL63 (PCR) Not Detected (NotDetected) Human Metapneumovir PCR Not Detected (NotDetected) Influenza Type A (PCR) Not Detected (NotDetected) Influenza Type B (PCR) Not Detected (NotDetected) M. pneumoniae (PCR) Not Detected (NotDetected) Parainfluenza 1 (PCR) Not Detected (NotDetected) Parainfluenza 2 (PCR) Not Detected (NotDetected) Parainfluenza 3 (PCR) Not Detected (NotDetected) Parainfluenza 4 (PCR) Not Detected (NotDetected) RSV (PCR) Not Detected (NotDetected) Entero/Rhino (PCR) Not Detected (NotDetected) Medications Administered Current Inpatient Medications Acetaminophen (Acetaminophen 325 Mg Tab) 650 mg PO Q4H PRN PRN Reason: pain/fever Stop: 10/16/24 17:20 Last Admin: 09/16/24 21:01 Dose: 650 mg Amlodipine Besylate (Amlodipine Besylate 5 Mg Tab) 2.[address] [facility] Stop: 10/17/24 08:59 Atorvastatin Calcium (Atorvastatin 20 Mg Tab) [address] [facility] Stop: 10/17/24 08:59 Buspirone HCl (Buspirone 7.5 Mg Tab) 7.[address] [facility] Stop: 10/16/24 20:59 Last Admin: 09/16/24 20:39 Dose: 7.5 mg Carbidopa/Levodopa (Carbidopa/Levodopa 25/100mg Tab) 2 tab PO DAILY@0800,1200,1700 [facility] Stop: 10/16/24 20:59 Last Admin: 09/16/24 20:49 Dose: 2 tab Clopidogrel Bisulfate (Clopidogrel Bisulfate 75 Mg Tab) [address] [facility] Stop: 10/17/24 08:59 Docusate Sodium (Docusate Sodium 100 Mg Cap) [address] [facility] Stop: 10/17/24 08:59 Donepezil HCl (Donepezil Hcl 5 Mg Tab) [address] [facility] Stop: 10/17/24 08:59 Escitalopram Oxalate (Escitalopram Oxalate 10 Mg Tab) [address] [facility] Stop: 10/17/24 08:59 Heparin Sodium (Porcine) (Heparin Sod 5,000 Unit/0.5 Ml Vial) 5,[address] [facility] Stop: 10/16/24 21:59 Last Admin: 09/17/24 05:31 Dose: 5,000 units Ceftriaxone Sodium (Rocephin) 1,000 mg in 50 mls @ 100 mls/hr IV Q24H [facility] Stop: 09/26/24 21:59 Last Infusion: 09/16/24 21:14 Dose: Infused Loratadine (Loratadine 10 Mg Tab) [address] [facility] Stop: 10/17/24 08:59 Losartan Potassium (Losartan Potassium 50 Mg Tab) [address] [facility] Stop: 10/17/24 08:59 Magnesium Oxide (Magnesium Oxide 400 Mg Tab) [address] [facility] Stop: 10/17/24 08:59 Pantoprazole Sodium (Pantoprazole 40 Mg Tab) [address] [facility] Stop: 10/16/24 20:59 Last Admin: 09/16/24 20:39 Dose: 40 mg Pneumococcal 20-Valent Conj Vacc (Pneumococcal Vaccine (Pcv20) 20-Eladia Conj-Dip Crm/Pf 0.5 Ml Syr) 0.5 ml IM .ONCE ONE Stop: 09/19/24 17:46 Vibegron (Vibegron 75 Mg Tab) [address] [facility] Stop: 10/16/24 20:59 Last Admin: 09/16/24 20:40 Dose: 75 mg (5) Hypertension Hypertension type: unspecified Qualified Code(s): I10 - Essential (primary) hypertension
[2024-09-17 08:01] LABS: BUN Creatinine Ratio 19.5 (10-20); Calcium 9.4 mg/dl (8.6-10.3); Creatinine Clr Calc Pharmacy 46.7 ml/min; Potassium 4.2 mmol/L (3.5-5.1)
[2024-09-17] MEDS: LORATADINE 10 MG TAB PO SCH (08:59)
[2024-09-17] MEDS: LOSARTAN POTASSIUM 50 MG TAB PO SCH (08:59)
[2024-09-17] MEDS: ESCITALOPRAM OXALATE 10 MG TAB PO SCH (08:59)
[2024-09-17] MEDS: amLODIPine BESYLATE 5 MG TAB PO SCH (09:00)
[2024-09-17] MEDS ORDERED: NON-FORMULARY MEDICATION (Riboflavin (Vitamin B2) 100 mg Tablet) PO SCH (09:00)
[2024-09-17] MEDS: DONEPEZIL HCL 5 MG TAB PO SCH (09:00)
[2024-09-17] MEDS: MAGNESIUM OXIDE 400 MG TAB PO SCH (09:00)
[2024-09-17] MEDS: CLOPIDOGREL BISULFATE 75 MG TAB PO SCH (09:00)
[2024-09-17] MEDS: ATORVASTATIN 20 MG TAB PO SCH (09:01)
[2024-09-17] MEDS: DOCUSATE SODIUM 100 MG CAP PO SCH (09:16)
[2024-09-18 06:38] LABS: Hematocrit (blood only) 36.6 % (42.0-52.0); Mean Corpuscular Hgb Conc 32.8 g/dL (32.0-36.0); Mean Corpuscular Volume 97.6 fL (80.0-100.0); Mean Platelet Volume 9.1 fL (9.4-12.4); Platelet Count 196 K/uL (130-400); RDW Coefficient of Variation 13.3 % (11.5-14.5); RDW Standard Deviation 48.1 fL (36.4-46.3); Red Blood Count 3.75 M/uL (4.70-6.10); White Blood Count 14.21 K/ul (4.8-10.8)
--- NOTE | 2024-09-18 06:46 | Ultrasound Report ---
EXAM: US venous doppler LE RT CLINICAL HISTORY: SWELLING NO DVT SEEN RLE TECHNIQUE: Ultrasound examination of right lower extremity veins was performed in real time and duplex. One or more of the following were performed- spectral analysis, resistive index, waveform analysis, and pulsed Doppler. COMPARISON: None. FINDINGS: Normal phasic, non-pulsatile and spontaneous flow is noted in right common femoral, superficial femoral, popliteal, posterior and anterior tibial and peroneal veins. Visualized veins of right lower extremity demonstrate normal compressibility. No sonographic evidence of acute deep vein thrombosis (DVT) is detected in the visualized veins of lower extremity. Compression and Augmentation: All evaluated veins compress fully with applied transducer pressure. Augmentation of venous flow is noted with distal compression. Additional Findings: No evidence of intraluminal thrombus. IMPRESSION: No sonographic evidence of acute DVT detected at the time of examination. Disclaimer: DVT could be missed early in the disease when clot burden is minimal. For patients with moderate and high pretest probability of DVT and negative ultrasound, the [employer] clinical guidelines recommend testing with a D-dimer assay or repeat ultrasound in 5-7 days. If symptoms worsen, the Society of radiologists in ultrasound recommends repeating ultrasound even earlier. Electronically signed by Re Reyes 09-18-2024 06:46 AM
[2024-09-18 06:52] LABS: BUN Creatinine Ratio 18.8 (10-20); Calcium 9.3 mg/dl (8.6-10.3); Creatinine Clr Calc Pharmacy 48.5 ml/min; Magnesium 2.2 mg/dl (1.7-2.4); Phosphorus 2.9 mg/dl (2.5-4.9); Potassium 4.3 mmol/L (3.5-5.1)
--- NOTE | 2024-09-18 07:46 | Hospitalist Progress Note ---
Date of Service September 18, 2024 Assessment & Plan (1) Metabolic encephalopathy: (2) Catheter-associated urinary tract infection: Plan: Admitted to [facility] with telemetry Patient presenting from [facility] for evaluation of altered mental status and fever. Patient seen in the ED on 09/02 for hematuria. Patient noted to have a small urethral laceration and Rios catheter was placed and patient was discharged back to [facility]. Rios removed at care home yesterday. In the ED, WBC 24K and UA suggestive of UTI. Patient is hemodynamically stable. Full RVP negative, CXR and CTA chest negative for PE and infiltrate. S/p cefepime in the ED, will continue with IV ceftriaxone Follow urine and blood cultures Ucultx - posit. for E.coli Full renal US given hx renal calculi and reported hematuria - Normal sonographic appearance of the kidneys. The bladder is collapsed and not assessed. Rios catheter placed in ED, voiding trial as able RLE discomfort - pt is very nonspecific , also does not seem as any hx of trauma - obtained doppler RLE, negat. for DVT. 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 for E.coli Review of Systems Review of Systems: All systems reviewed & are unremarkable except as noted in Subjective Physical Exam Physical Exam: General: elderly, chronically ill appearing Eyes: PERRL, EOM intact bilaterally ENMT: External ear and nose normal Respiratory: Normal respiratory effort, no respiratory distress, lungs clear to auscultation, no crackles and no wheezes Cardiovascular: RRR S1 S2 Gastrointestinal (Abdomen): Abdomen is not distended, soft, non-tender to palpation, no guarding, normal bowel sounds Musculoskeletal: No pedal edema Genitourinary: Rios cath Neurologic: Drowsy but arousable, speech fluent, no facial asymmetry. Cooperative. Moves extremities. Results & Data Results & Data Vital Signs (Past 12 Hours) Vital Signs Temp Pulse Pulse Resp BP Pulse Ox O2 Del Method 09/18/24 07:18 36.7 C 64 18 148/84 H 95 Room Air 09/18/24 07:10 74 09/18/24 03:42 36.6 C 72 18 122/70 95 Room Air 09/17/24 23:44 Room Air 09/17/24 23:22 37 C 76 16 125/73 95 Room Air 09/17/24 21:45 77 Laboratory Results 09/18/24 09/17/24 Range/Units 05:56 07:18 WBC 14.21 H (4.8-10.8) K/ul RBC 3.75 L (4.70-6.10) M/uL Hgb 12.0 L (14.0-18.0) g/dl Hct 36.6 L (42.0-52.0) % MCV 97.6 (80.0-100.0) fL MCH 32.0 (25.0-34.0) pg MCHC 32.8 (32.0-36.0) g/dL RDW Std Deviation 48.1 H (36.4-46.3) fL RDW Coeff of Lala 13.3 (11.5-14.5) % Plt Count 196 (130-400) K/uL MPV 9.1 L (9.4-12.4) fL Sodium 137 137 (136-145) mmol/L Potassium 4.3 4.2 (3.5-5.1) mmol/L Chloride 102 103 (98-107) mmol/L Carbon Dioxide 29 28 (21-32) mmol/L Anion Gap 6 6 (3-11) BUN 24 H 26 H (6-23) mg/dl Creatinine 1.28 1.33 (0.6-1.4) mg/dl Est Cr Clr Drug Dosing 48.5 46.7 ml/min eGFR 55.53 53.04 BUN/Creatinine Ratio 18.8 19.5 (10-20) Glucose 106 H 114 H (70-99(Fasting)) mg/dl Calcium 9.3 9.4 (8.6-10.3) mg/dl Phosphorus 2.9 (2.5-4.9) mg/dl Magnesium 2.2 (1.7-2.4) mg/dl Medications Administered Current Inpatient Medications Acetaminophen (Acetaminophen 325 Mg Tab) 650 mg PO Q4H PRN PRN Reason: pain/fever Stop: 10/16/24 17:20 Last Admin: 09/17/24 09:16 Dose: 650 mg Amlodipine Besylate (Amlodipine Besylate 5 Mg Tab) 2.5 mg PO [facility] Stop: 10/17/24 08:59 Last Admin: 09/18/24 07:37 Dose: 2.5 mg Atorvastatin Calcium ([facility]atin 20 Mg Tab) [facility]: 10/17/24 08:59 Last Admin: 09/18/24 07:37 Dose: 20 mg Buspirone HCl (Buspirone 7.5 Mg Tab) 7.5 mg PO TID [facility] Stop: 10/16/24 20:59 Last Admin: 09/18/24 07:35 Dose: 7.5 mg Carbidopa/Levodopa (Carbidopa/Levodopa 25/100mg Tab) 2 tab PO DAILY@0800,1200,1700 [facility] Stop: 10/16/24 20:59 Last Admin: 09/18/24 07:35 Dose: 2 tab Clopidogrel Bisulfate (Clopidogrel Bisulfate 75 Mg Tab) [facility] Stop: 10/17/24 08:59 Last Admin: 09/18/24 07:37 Dose: 75 mg Docusate Sodium (Docusate Sodium 100 Mg Cap) 100 mg PO DAILY [facility] Stop: 10/17/24 08:59 Last Admin: 09/18/24 07:40 Dose: 100 mg Donepezil HCl (Donepezil Hcl 5 Mg Tab) 5 mg PO DAILY [facility] Stop: 10/17/24 08:59 Last Admin: 09/18/24 07:36 Dose: 5 mg Escitalopram Oxalate (Escitalopram Oxalate 10 Mg Tab) [facility] Stop: 10/17/24 08:59 Last Admin: 12/22/24 07:36 Dose: 30 mg Heparin Sodium (Porcine) (Heparin Sod 5,000 Unit/0.5 Ml Vial) 5,000 units SQ Q8 [facility] Stop: 10/16/24 21:59 Last Admin: 09/18/24 05:11 Dose: 5,000 units Ceftriaxone Sodium (Rocephin) 1,000 mg in 50 mls @ 100 mls/hr IV Q24H [facility] Stop: 09/26/24 21:59 Last Infusion: 09/17/24 22:59 Dose: Infused Loratadine (Loratadine 10 Mg Tab) 10 mg PO DAILY [facility] Stop: 10/17/24 08:59 Last Admin: 09/18/24 07:36 Dose: 10 mg Losartan Potassium (Losartan Potassium 50 Mg Tab) 100 mg PO QAM [facility] Stop: 10/17/24 08:59 Last Admin: 09/18/24 07:36 Dose: 100 mg Magnesium Oxide (Magnesium Oxide 400 Mg Tab) 400 mg PO QAM [facility] Stop: 10/17/24 08:59 Last Admin: 09/18/24 07:36 Dose: 400 mg Pantoprazole Sodium (Pantoprazole 40 Mg Tab) 40 mg PO BID [facility] Stop: 10/16/24 20:59 Last Admin: 09/18/24 07:37 Dose: 40 mg Pneumococcal 20-Valent Conj Vacc (Pneumococcal Vaccine (Pcv20) 20-Eladia Conj-Dip Crm/Pf 0.5 Ml Syr) 0.5 ml IM .ONCE ONE Stop: 09/19/24 17:46 Vibegron (Vibegron 75 Mg Tab) 75 mg PO QPM [facility] Stop: 10/16/24 20:59 Last Admin: 09/17/24 20:24 Dose: 75 mg (5) Hypertension Hypertension type: unspecified Qualified Code(s): I10 - Essential (primary) hypertension
[2024-09-18] MEDS: SODIUM CHLORIDE 0.9% 1,000 ML IV ONE (09:45)
[2024-09-19 06:39] LABS: Hematocrit (blood only) 35.1 % (42.0-52.0); Hemoglobin 11.8 g/dl (14.0-18.0); Mean Corpuscular Hemoglobin 32.3 pg (25.0-34.0); Mean Corpuscular Hgb Conc 33.6 g/dL (32.0-36.0); Mean Corpuscular Volume 96.2 fL (80.0-100.0); Mean Platelet Volume 8.8 fL (9.4-12.4); Platelet Count 211 K/uL (130-400); RDW Coefficient of Variation 12.9 % (11.5-14.5); RDW Standard Deviation 46.2 fL (36.4-46.3); Red Blood Count 3.65 M/uL (4.70-6.10); White Blood Count 8.99 K/ul (4.8-10.8)
[2024-09-19 06:53] LABS: BUN Creatinine Ratio 17.6 (10-20); Calcium 9.2 mg/dl (8.6-10.3); Creatinine Clr Calc Pharmacy 52.2 ml/min; Magnesium 2.1 mg/dl (1.7-2.4); Phosphorus 3.1 mg/dl (2.5-4.9); Potassium 4.3 mmol/L (3.5-5.1)
--- NOTE | 2024-09-19 08:19 | Hospitalist Progress Note ---
Date of Service September 19, 2024 Assessment & Plan (1) Metabolic encephalopathy: (2) Catheter-associated urinary tract infection: Plan: Admitted to [facility] with telemetry Patient presenting from [facility] for evaluation of altered mental status and fever. Patient seen in the ED on 09/02 for hematuria. Patient noted to have a small urethral laceration and Rios catheter was placed and patient was discharged back to [facility]. Rios removed at long-term yesterday. In the ED, WBC 24K and UA suggestive of UTI. Patient is hemodynamically stable. Full RVP negative, CXR and CTA chest negative for PE and infiltrate. S/p cefepime in the ED, will continue with IV ceftriaxone Follow urine and blood cultures Ucultx - posit. for E.coli Full renal US given hx renal calculi and reported hematuria - Normal sonographic appearance of the kidneys. The bladder is collapsed and not assessed. Rios catheter placed in ED, voiding trial as able RLE discomfort - resolved - pt is very nonspecific , also does not seem as any hx of trauma - obtained doppler RLE, negat. for DVT. 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 pain n/v Pt hardly opens his eyes and speaks very softly thus AM. - discussed w/ RN. Pt seen again in the afternoon, with pt's son present at the bedside - pt awake, eyes open, pt cooperative and overall seems to be doing better. ucultx posit. for E.coli WBC normalized today Review of Systems Review of Systems: All systems reviewed & are unremarkable except as noted in Subjective Physical Exam 2 Physical Exam: General: elderly, chronically ill appearing Eyes: PERRL, EOM intact bilaterally ENMT: External ear and nose normal Respiratory: Normal respiratory effort, no respiratory distress, lungs clear to auscultation, no crackles and no wheezes Cardiovascular: RRR S1 S2 Gastrointestinal (Abdomen): Abdomen is not distended, soft, non-tender to palpation, no guarding, normal bowel sounds Musculoskeletal: No pedal edema Genitourinary: Rios cath Neurologic: Drowsy but arousable, speech fluent, no facial asymmetry. Cooperative. Moves extremities. Results & Data Results & Data Vital Signs (Past 12 Hours) Vital Signs Temp Pulse Pulse Resp BP BP Pulse Ox 09/19/24 07:36 36.6 C 70 20 150/80 H 94 09/19/24 07:36 09/19/24 07:02 69 09/19/24 03:44 36.6 C 74 18 143/75 H 95 09/18/24 23:12 37 C 76 18 144/72 H 95 09/18/24 22:10 76 O2 Del Method 09/19/24 07:36 Room Air 09/19/24 07:36 Room Air 09/19/24 07:02 09/19/24 03:44 Room Air 09/18/24 23:12 Room Air 09/18/24 22:10 Laboratory Results 09/19/24 Range/Units 06:19 WBC 8.99 (4.8-10.8) K/ul RBC 3.65 L (4.70-6.10) M/uL Hgb 11.8 L (14.0-18.0) g/dl Hct 35.1 L (42.0-52.0) % MCV 96.2 (80.0-100.0) fL MCH 32.3 (25.0-34.0) pg MCHC 33.6 (32.0-36.0) g/dL RDW Std Deviation 46.2 (36.4-46.3) fL RDW Coeff of Lala 12.9 (11.5-14.5) % Plt Count 211 (130-400) K/uL MPV 8.8 L (9.4-12.4) fL Sodium 138 (136-145) mmol/L Potassium 4.3 (3.5-5.1) mmol/L Chloride 104 (98-107) mmol/L Carbon Dioxide 28 (21-32) mmol/L Anion Gap 6 (3-11) BUN 21 (6-23) mg/dl Creatinine 1.19 (0.6-1.4) mg/dl Est Cr Clr Drug Dosing 52.2 ml/min eGFR 60.61 BUN/Creatinine Ratio 17.6 (10-20) Glucose 108 H (70-99(Fasting)) mg/dl Calcium 9.2 (8.6-10.3) mg/dl Phosphorus 3.1 (2.5-4.9) mg/dl Magnesium 2.1 (1.7-2.4) mg/dl Medications Administered Current Inpatient Medications Acetaminophen (Acetaminophen 325 Mg Tab) 650 mg PO Q4H PRN PRN Reason: pain/fever Stop: 10/16/24 17:20 Last Admin: 09/18/24 08:06 Dose: 650 mg Amlodipine Besylate (Amlodipine Besylate 5 Mg Tab) [facility] Stop: 10/17/24 08:59 Last Admin: 09/19/24 07:40 Dose: 2.5 mg Atorvastatin Calcium (Atorvastatin 20 Mg Tab) 20 mg PO QAM [facility] Stop: 10/17/24 08:59 Last Admin: 09/19/24 07:40 Dose: 20 mg Buspirone HCl (Buspirone 7.5 Mg Tab) 7.5 mg PO TID [facility] Stop: 10/16/24 20:59 Last Admin: 09/19/24 07:39 Dose: 7.5 mg Carbidopa/Levodopa (Carbidopa/Levodopa 25/100mg Tab) 2 tab PO DAILY@0800,1200,1700 [facility] Stop: 10/16/24 20:59 Last Admin: 09/19/24 07:40 Dose: 2 tab Clopidogrel Bisulfate (Clopidogrel Bisulfate 75 Mg Tab) 75 mg PO QAM [facility] Stop: 10/17/24 08:59 Last Admin: 09/19/24 07:39 Dose: 75 mg Docusate Sodium (Docusate Sodium 100 Mg Cap) 100 mg PO DAILY [facility] Stop: 10/17/24 08:59 Last Admin: 09/19/24 07:39 Dose: 100 mg Donepezil HCl (Donepezil Hcl 5 Mg Tab) 5 mg PO DAILY [facility] Stop: 10/17/24 08:59 Last Admin: 09/19/24 07:41 Dose: 5 mg Escitalopram Oxalate (Escitalopram Oxalate 10 Mg Tab) 30 mg PO QAM [facility] Stop: 10/17/24 08:59 Last Admin: 09/19/24 07:39 Dose: 30 mg Heparin Sodium (Porcine) (Heparin Sod 5,000 Unit/0.5 Ml Vial) 5,000 units SQ Q8 [facility] Stop: 10/16/24 21:59 Last Admin: 09/19/24 05:48 Dose: 5,000 units Ceftriaxone Sodium (Rocephin) 1,000 mg in 50 mls @ 100 mls/hr IV Q24H [facility] Stop: 09/26/24 21:59 Last Infusion: 09/18/24 21:56 Dose: Infused Loratadine (Loratadine 10 Mg Tab) 10 mg PO DAILY [facility] Stop: 10/17/24 08:59 Last Admin: 09/19/24 07:39 Dose: 10 mg Losartan Potassium (Losartan Potassium 50 Mg Tab) [facility] [place] Stop: 10/17/24 08:59 Last Admin: 09/19/24 07:41 Dose: 100 mg Magnesium Oxide (Magnesium Oxide 400 Mg Tab) 400 [facility] [place] Stop: 10/17/24 08:59 Last Admin: 09/19/24 07:40 Dose: 400 mg Pantoprazole Sodium (Pantoprazole 40 Mg Tab) 40 mg PO BID [facility] Stop: 10/16/24 20:59 Last Admin: 09/19/24 07:41 Dose: 40 mg Pneumococcal 20-Valent Conj Vacc (Pneumococcal Vaccine (Pcv20) 20-Eladia Conj-Dip Crm/Pf 0.5 Ml Syr) 0.5 ml IM .ONCE ONE Stop: 09/19/24 17:46 Vibegron (Vibegron 75 Mg Tab) 75 mg PO QPM [facility] Stop: 10/16/24 20:59 Last Admin: 09/18/24 20:30 Dose: 75 mg (5) Hypertension Hypertension type: unspecified Qualified Code(s): I10 - Essential (primary) hypertension
[2024-09-20 06:42] LABS: Hematocrit (blood only) 35.7 % (42.0-52.0); Hemoglobin 11.9 g/dl (14.0-18.0); Mean Corpuscular Hemoglobin 31.7 pg (25.0-34.0); Mean Corpuscular Hgb Conc 33.3 g/dL (32.0-36.0); Mean Corpuscular Volume 95.2 fL (80.0-100.0); Mean Platelet Volume 8.8 fL (9.4-12.4); Platelet Count 215 K/uL (130-400); RDW Coefficient of Variation 13.1 % (11.5-14.5); RDW Standard Deviation 45.7 fL (36.4-46.3); Red Blood Count 3.75 M/uL (4.70-6.10); White Blood Count 7.26 K/ul (4.8-10.8)
[2024-09-20 07:04] LABS: BUN Creatinine Ratio 18.5 (10-20); Calcium 9.4 mg/dl (8.6-10.3); Creatinine Clr Calc Pharmacy 52.2 ml/min; Magnesium 2.2 mg/dl (1.7-2.4); Phosphorus 3.3 mg/dl (2.5-4.9); Potassium 4.2 mmol/L (3.5-5.1)
--- NOTE | 2024-09-20 13:01 | Hospitalist Progress Note ---
Date of Service September 20, 2024 Assessment & Plan (1) Metabolic encephalopathy: (2) Catheter-associated urinary tract infection: Plan: Admitted to [facility] with telemetry Patient presenting from [facility] for evaluation of altered mental status and fever. Patient seen in the ED on 09/02 for hematuria. Patient noted to have a small urethral laceration and Rios catheter was placed and patient was discharged back to [facility]. Rios removed at correction yesterday. In the ED, WBC 24K and UA suggestive of UTI. Patient is hemodynamically stable. Full RVP negative, CXR and CTA chest negative for PE and infiltrate. S/p cefepime in the ED, will continue with IV ceftriaxone Follow urine and blood cultures Ucultx - posit. for E.coli Full renal US given hx renal calculi and reported hematuria - Normal sonographic appearance of the kidneys. The bladder is collapsed and not assessed. Rios catheter placed in ED, voiding trial as able Overall pt is doing much better, he is awake, alert now, cooperative. WBC normalized. If continues to do well, likely [facility]. RLE discomfort - resolved - pt is very nonspecific , also does not seem as any hx of trauma - obtained doppler RLE, negat. for DVT. 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 pain n/v Pt is more awake and alert today, eyes open and communicates better today. ucultx posit. for E.coli WBC normalized Likely [facility] if continues to do well Review of Systems Review of Systems: All systems reviewed & are unremarkable except as noted in Subjective Physical Exam Physical Exam: General: elderly, chronically ill appearing Eyes: PERRL, EOM intact bilaterally ENMT: External ear and nose normal Respiratory: Normal respiratory effort, no respiratory distress, lungs clear to auscultation, no crackles and no wheezes Cardiovascular: RRR S1 S2 Gastrointestinal (Abdomen): Abdomen is not distended, soft, non-tender to palpation, no guarding, normal bowel sounds Musculoskeletal: No pedal edema Genitourinary: Rios cath Neurologic: Awake, alert, speech soft but fluent, no facial asymmetry. Cooperative. Moves extremities. Results & Data Results & Data Vital Signs (Past 12 Hours) Vital Signs Temp Pulse Pulse Pulse Resp BP BP 09/20/24 11:30 36.6 C 63 18 99/75 L 09/20/24 09:00 09/20/24 07:43 69 09/20/24 07:37 36.6 C 72 18 135/75 09/20/24 03:55 37 C 67 20 132/79 Pulse Ox O2 Del Method 09/20/24 11:30 94 Room Air 09/20/24 09:00 Room Air 09/20/24 07:43 09/20/24 07:37 91 Room Air 09/20/24 03:55 93 Room Air Laboratory Results 09/20/24 Range/Units 06:15 WBC 7.26 (4.8-10.8) K/ul RBC 3.75 L (4.70-6.10) M/uL Hgb 11.9 L (14.0-18.0) g/dl Hct 35.7 L (42.0-52.0) % MCV 95.2 (80.0-100.0) fL MCH 31.7 (25.0-34.0) pg MCHC 33.3 (32.0-36.0) g/dL RDW Std Deviation 45.7 (36.4-46.3) fL RDW Coeff of Lala 13.1 (11.5-14.5) % Plt Count 215 (130-400) K/uL MPV 8.8 L (9.4-12.4) fL Sodium 139 (136-145) mmol/L Potassium 4.2 (3.5-5.1) mmol/L Chloride 105 (98-107) mmol/L Carbon Dioxide 28 (21-32) mmol/L Anion Gap 6 (3-11) BUN 22 (6-23) mg/dl Creatinine 1.19 (0.6-1.4) mg/dl Est Cr Clr Drug Dosing 52.2 ml/min eGFR 60.61 BUN/Creatinine Ratio 18.5 (10-20) Glucose 105 H (70-99(Fasting)) mg/dl Calcium 9.4 (8.6-10.3) mg/dl Phosphorus 3.3 (2.5-4.9) mg/dl Magnesium 2.2 (1.7-2.4) mg/dl Medications Administered Current Inpatient Medications Acetaminophen (Acetaminophen 325 Mg Tab) 650 mg PO Q4H PRN PRN Reason: pain/fever Stop: 10/16/24 17:20 Last Admin: 09/18/24 08:06 Dose: 650 mg Amlodipine Besylate (Amlodipine Besylate 5 Mg Tab) 2.[address] [facility] Stop: 10/17/24 08:59 Last Admin: 09/20/24 08:16 Dose: 2.5 mg Atorvastatin Calcium (Atorvastatin 20 Mg Tab) [facility] [place] [facility] Stop: 10/17/24 08:59 Last Admin: 09/20/24 08:16 Dose: 20 mg Buspirone HCl (Buspirone 7.5 Mg Tab) 7.5 mg PO TID [facility] Stop: 10/16/24 20:59 Last Admin: 09/20/24 08:16 Dose: 7.5 mg Carbidopa/Levodopa (Carbidopa/Levodopa 25/100mg Tab) 2 tab PO DAILY@0800,1200,1700 [facility] Stop: 10/16/24 20:59 Last Admin: 09/20/24 12:25 Dose: 2 tab Clopidogrel Bisulfate (Clopidogrel Bisulfate 75 Mg Tab) 75 mg PO QAM [facility] Stop: 10/17/24 08:59 Last Admin: 09/20/24 08:16 Dose: 75 mg Docusate Sodium (Docusate Sodium 100 Mg Cap) 100 mg PO DAILY [facility] Stop: 10/17/24 08:59 Last Admin: 09/20/24 08:16 Dose: 100 mg Donepezil HCl (Donepezil Hcl 5 Mg Tab) 5 mg PO DAILY [facility] Stop: 10/17/24 08:59 Last Admin: 09/20/24 08:16 Dose: 5 mg Escitalopram Oxalate (Escitalopram Oxalate 10 Mg Tab) 30 mg PO QAM [facility] Stop: 10/17/24 08:59 Last Admin: 09/20/24 08:16 Dose: 30 mg Heparin Sodium (Porcine) (Heparin Sod 5,000 Unit/0.5 Ml Vial) 5,000 units SQ Q8 [facility] Stop: 10/16/24 21:59 Last Admin: 09/20/24 08:15 Dose: 5,000 units Ceftriaxone Sodium (Rocephin) 1,000 mg in 50 mls @ 100 mls/hr IV Q24H [facility] Stop: 09/26/24 21:59 Last Infusion: 09/19/24 20:31 Dose: Infused Loratadine (Loratadine 10 Mg Tab) 10 mg PO DAILY [facility] Stop: 10/17/24 08:59 Last Admin: 09/20/24 08:16 Dose: 10 mg Losartan Potassium (Losartan Potassium 50 Mg Tab) 100 mg PO QAM [facility] Stop: 10/17/24 08:59 Last Admin: 09/20/24 08:16 Dose: 100 mg Magnesium Oxide (Magnesium Oxide 400 Mg Tab) 400 mg PO QAM [facility] Stop: 10/17/24 08:59 Last Admin: 09/20/24 08:16 Dose: 400 mg Pantoprazole Sodium (Pantoprazole 40 Mg Tab) 40 mg PO BID [facility] Stop: 10/16/24 20:59 Last Admin: 09/20/24 08:16 Dose: 40 mg Vibegron (Vibegron 75 Mg Tab) 75 mg PO QPM [facility] Stop: 10/16/24 20:59 Last Admin: 09/19/24 19:46 Dose: 75 mg (5) Hypertension Hypertension type: unspecified Qualified Code(s): I10 - Essential (primary) hypertension
[2024-09-21 06:12] LABS: Hematocrit (blood only) 36.8 % (42.0-52.0); Hemoglobin 12.2 g/dl (14.0-18.0); Mean Corpuscular Hemoglobin 31.8 pg (25.0-34.0); Mean Corpuscular Hgb Conc 33.2 g/dL (32.0-36.0); Mean Corpuscular Volume 95.8 fL (80.0-100.0); Mean Platelet Volume 8.7 fL (9.4-12.4); Platelet Count 242 K/uL (130-400); RDW Coefficient of Variation 12.9 % (11.5-14.5); RDW Standard Deviation 45.7 fL (36.4-46.3); Red Blood Count 3.84 M/uL (4.70-6.10); White Blood Count 7.62 K/ul (4.8-10.8)
[2024-09-21 06:43] LABS: BUN Creatinine Ratio 20.3 (10-20); Calcium 9.5 mg/dl (8.6-10.3); Creatinine Clr Calc Pharmacy 52.6 ml/min; Magnesium 2.2 mg/dl (1.7-2.4); Phosphorus 3.3 mg/dl (2.5-4.9); Potassium 4.2 mmol/L (3.5-5.1)
[2024-09-21 07:20] VITALS: RESP 16
[2024-09-21 11:13] VITALS: BP 125/85; TEMP 97.3; O2SAT 96
[2024-09-21] MEDS: PNEUMOCOCCAL VACCINE (PCV20) 20-VAL CONJ-DIP CRM/PF 0.5 ML SYR IM ONE (12:01)
--- NOTE | 2024-09-21 12:30 | Discharge Summary ---
Date of Service September 21, 2024 Admission HPI Per Admitting Provider 84-year-old male with PMH Parkinson's, nonobstructive CAD, heart failure with improved ejection fraction, BPH, history of CVA, HTN, and other problems listed below who presents to the ED from [facility] for evaluation of altered mental status and fever. History currently limited from the patient, daughter is at bedside who provides history. Patient seen in the ED on 09/02 for hematuria. Patient noted to have a small urethral laceration and Rios catheter was placed and patient was discharged back to [facility]. yesterday patient's daughter noted that he was more confused and lethargic. Per senior living report, patient was also febrile last evening. Rios catheter was removed at senior living yesterday. No other symptoms reported. In the ED, patient is hemodynamically stable. Labs show WBC 24K. UA suggestive of UTI. Patient was given IVF and IV cefepime. Admission Exam Per Admitting Provider General: Lethargic. In no acute distress Eyes: PERRL, conjunctivae normal, not pale, anicteric sclerae, EOM intact bilaterally ENMT: External ear and nose normal, oropharynx normal Respiratory: Normal respiratory effort, no respiratory distress, lungs clear to auscultation, no crackles and no wheezes Cardiovascular: RRR S1 S2 Gastrointestinal (Abdomen): Abdomen is not distended, soft, non-tender to pa lpation, no guarding, no palpable hepatosplenomegaly, normal bowel sounds Musculoskeletal: No pedal edema Genitourinary:Rios in situ Neurologic: Arousable and oriented to person and place only. Cooperative. Occasional fine tremors of UE Principal Diagnosis Metabolic encephalopathy Catheter associated UTI Discharge Exam General: elderly, chronically ill appearing Eyes: PERRL, EOM intact bilaterally ENMT: External ear and nose normal Respiratory: Normal respiratory effort, no respiratory distress, lungs clear to auscultation, no crackles and no wheezes Cardiovascular: RRR S1 S2 Gastrointestinal (Abdomen): Abdomen is not distended, soft, non-tender to palpation, no guarding, normal bowel sounds Musculoskeletal: No pedal edema Genitourinary: Rios cath in place, light yellow urine collection in bag. Neurologic: Awake, alert, speech soft but fluent, no facial asymmetry. Linoleum Floor Layer perative. Moves extremities. Discharge Data Allergies Allergy/AdvReac Type Severity Reaction Status Date / Time No Known Allergies Allergy Verified 01/20/23 16:16 Consultations 09/16/24 14:00 ED Decision to Admit Stat Ordered Studies 09/16/24 11:24 CT head/brain wo con Stat 09/16/24 12:17 CT angio chest PE protocol Stat 09/16/24 14:53 US Renal Bladder [US renal/blad retro comp] Urgent 09/18/24 07:00 US venous doppler LE RT Routine Hospital Course (1) Metabolic encephalopathy: (2) Catheter-associated urinary tract infection: Per prior attending w/ addendum: Admitted to [facility] with telemetry Patient presenting from [facility] for evaluation of altered mental status and fever. Patient seen in the ED on 09/02 for hematuria. Patient noted to have a small urethral laceration and Rios catheter was placed and patient was discharged back to [facility]. Rios removed at senior living yesterday. In the ED, WBC 24K and UA suggestive of UTI. Patient is hemodynamically stable. Full RVP negative, CXR and CTA chest negative for PE and infiltrate. S/p cefepime in the ED, will continue with IV ceftriaxone Follow urine and blood cultures Ucultx - posit. for E.coli Full renal US given hx renal calculi and reported hematuria - Normal sonographic appearance of the kidneys. The bladder is collapsed and not assessed. Rios catheter placed in ED, voiding trial as able Overall pt is doing much better, he is awake, alert now, cooperative. WBC nor malized. If continues to do well, likely DC to [facility]. RLE discomfort - resolved - pt is very nonspecific , also does not seem as any hx of trauma - obtained doppler RLE, negat. for DVT. discussed w/ RN PT/OT when able (3) Parkinson disease: Chronic, stable Continue Sinemet, donepezil, escitalopram, buspirone (4) Heart failure with improved ejection fraction (HFimpEF): Echo 12/2022-EF 50 to 55%, grade 1 diastolic dysfunction Hold ORDER PLANNER spironolactone for now (5) Hypertension: BP controlled Continue amlodipine and losartan (6) OAB (overactive bladder): Continue Myrbetriq DVT PROPHYLAXIS SQ heparin Plan Addendum 09/21/2024: Patient was seen and examined at bedside as a follow-up of metabolic encephalopathy and catheter associated UTI. Patient is hemodynamically stable and reports feeling better. Patient reports eating okay and moving bowels okay. Patient's antibiotic will be changed to oral form upon discharge to complete the course for catheter associated UTI. He is being discharged to [facility] with following instructions at the point of discharge: Follow-up with your primary care physician within a week time and likely you will need labs CBC/CMP/magnesium/phosphorus. You will be discharged on antibiotic to complete the course for catheter associated urinary tract infection. Probiotics will be added. You will be discharged on Rios catheter, you will need voiding trial in about 3 to 5 days time to assess for removing Rios catheter. Take your medications as prescribed. Please make sure that you are able to get your medications today by calling your pharmacy before you leave the hospital so that your treatment continuity is not broken. Home Health Attestation I certify that this patient is under my care and that I, or a physicians foundation assistant working with me, had a face to-face encounter that meets the home health [id number] encounter requirements with this patient. The encounter with the patient was in whole, or in part, for the following medical condition, which is the primary reason for home health care (list medical condition): I certify that, based on my findings, the following services are medically necessary home health services: My clinical findings support the need for the above services because: Further, I certify that my clinical findings support that this patient is homebound (i.e. absences from home require considerable and taxing effort and are for medical reasons or mandaeism services or infrequently or of short duration when for other reasons) because: Certification for Home Health Services: Based on the above findings, I certify that this patient is confined to the home and needs intermittent care home care, physical therapy and/or speech therapy or continues to need occupational therapy. The patient is under my care, and I have initiated the establishment of the plan of care. This patient will be followed by a physician who will periodically review the plan of care. Total Time Total Time Spent Total Time Spent (In Minutes): 40 Discharge Plan Discharge Items Patient Disposition: Transfer Inpatient Rehab Fac Reason For Visit: FEVER,AMS Discharge Diagnosis: Metabolic encephalopathy Catheter associated UTI Activity: Resume your previous activity Non-emergency contact: Primary Care Provider Call non-emergency contact if: you have any medication questions, your symptoms worsen and your temperature is above 101 Follow-up/Referrals: Vishal Landry, [Primary Care Provider] - Diet: Heart Healthy Diet Texture: Dental soft (bite-sized) Addtl Attending Provider Instructions: Follow-up with your primary care physician within a week time and likely you will need labs CBC/CMP/magnesium/phosphorus. You will be discharged on antibiotic to complete the course for catheter associated urinary tract infection. Probiotics will be added. You will be discharged on Rios catheter, you will need voiding trial in about 3 to 5 days time to assess for removing Rios catheter. Take your medications as prescribed. Please make sure that you are able to get your medications today by calling your pharmacy before you leave the hospital so that your treatment continuity is not broken. Pending Studies at Discharge: Yes Stand-Alone Forms: My [facility] Skilled Items Patient informed of condition?: Yes DNR: Yes Discharge Level of Care: Acute rehab Communicable Disease: No Discharge Prognosis: Stable Lines: None Urinary Catheter: Yes Medications and DC Order Prescriptions: New cefdinir 300 mg capsule 300 mg PO BID 5 Days Qty: 10 0RF Probiotic 3 billion cell capsule 3,000 mmu cells PO DAILY 7 Days Qty: 7 0RF Rx Instructions: administer with a meal Continued carbidopa-levodopa 25-100 mg tablet 2 tab PO TID Rx Instructions: 0800,1200,1700 omeprazole 20 mg capsule,delayed release(DR/EC) 20 mg PO BID amlodipine 5 mg tablet 2.5 mg PO QAM clopidogrel 75 mg Tablet 75 mg PO QAM Qty: 30 2RF albuterol sulfate 90 mcg/actuation HFA aerosol inhaler 2 puff INHALATION Q6H PRN (Reason: Shortness Of Breath) carboxymethylcellulose sodium 1 % Drops 1 drp OPHTHALMIC (EYE) BID spironolactone 25 mg Tablet 12.5 mg PO 3XWK Qty: 30 0RF Rx Instructions: thursday, thu, thursday donepezil 5 mg tablet 5 mg PO DAILY losartan 100 mg tablet 100 mg PO QAM escitalopram oxalate 20 mg tablet 30 mg PO QAM mirabegron [Myrbetriq] 50 mg tablet extended release 24 hr 50 mg PO QPM magnesium oxide 400 mg magnesium Tablet 400 mg PO QAM atorvastatin 40 mg tablet 20 mg PO QAM acetaminophen 325 mg Tablet 325 mg PO Q6H PRN (Reason: Pain) riboflavin (vitamin B2) 100 mg Tablet 400 mg PO DAILY docusate sodium 100 mg Capsule 100 mg PO DAILY buspirone 7.5 mg tablet 7.5 mg PO TID polyethylene glycol 3350 [Miralax] 17 gram/dose Powder 17 g PO DAILY PRN (Reason: Constipation) loratadine 10 mg Tablet 10 mg PO DAILY tizanidine 2 mg Capsule 2 mg PO BID PRN (Reason: Muscle Spasm) Discharge Orders: Discharge Order (Routine); Ordered 09/21/24 Ordered By: Nanci Flores Admission Data Admit Date/Time: 09/16/24 14:52 Attending Provider: Nanic Flores Admit Provider: Estefany Crowe I. Primary Care Provider: Vishal Landry Other Providers: Estefany Crowe I.; [facility]
[2024-09-21 12:33] VITALS: PULSE 67
== END 2024-09-21 13:34 | DRG 698 ==
LOC: ED 11:07 → SUATTDRO 14:52 → 2N 14:52